=== PATIENT | male | born 1935 | race Caucasian/White ===

== ENCOUNTER 2016-07-09 12:41 | Inpatient (IN) | payer OTHER ==
--- NOTE | 2016-07-09 13:08 | EDPHY ---
H & P Stated Complaint: Chest pain, general weak, diarrhoea. Time Seen by Provider: 07/09/16 12:53 HPI/ROS: CHIEF COMPLAINT: Weak HISTORY OF PRESENT ILLNESS: This is an 80-year-old male whose primary care physician is part of the [place] system. Has a history of GERD, asthma, and hypertension. He presents with family members today complaining of feeling weak all over. Last night around 10:30 p.m., after going to bed, he developed what he describes as the worst ever stomach acid. He has a history of GERD. This apparently resolved but he woke up in the early hours of the morning feeling poorly. He normally urinates into a bucket at the side of the bed and while doing so he feels that he passed out. At 2:00 a.m. his summoned their daughter because her was feeling poorly. His daughter is not aware of any syncope. She reports that he has had some chills. He also describes a cough that began last night and is productive of sputum. He feels mildly short of breath and has not used his inhalant medications yet today. REVIEW OF SYSTEMS: A ten point review of systems was performed and is negative with the exception of the items mentioned in the HPI. Source: Patient, Family Exam Limitations: No limitations - Personal History Current Tetanus/Diphtheria Vaccine: Unsure Current Tetanus Diphtheria and Acellular Pertussis (TDAP): Unsure Tetanus Vaccine Date: within last 10 years - Medical/Surgical History Hx Asthma: Yes Hx Chronic Respiratory Disease: No Hx Diabetes: No Hx Cardiac Disease: No Hx Renal Disease: No Hx Cirrhosis: No Hx Alcoholism: No Hx HIV/AIDS: No Hx Splenectomy or Spleen Trauma: No Other PMH: Asthma, HTN, GERD, Osteoporosis, ELIM IRA, Peripheral Neuropathy, spinal stenosis and lumbar radiculopathy, Chronic Nepholithiasis, Prostate Cancer - Social History Smoking Status: Never smoked Additional Social History: Lives with his at [facility]. They live independently. - Physical Exam Exam: General Appearance: Alert. Vital signs reviewed. Room air pulse ox 85%, systolic blood pressure 98/66, heart rate 115. Eyes: Pupils equal and round, no conjunctival injection, no discharge. Anicteric. ENT, Mouth: Mucous membranes are moist, no oropharyngeal erythema or edema. Neck: No lymphadenopathy, supple. No jugular venous distention. Respiratory: Lungs have distant breath sounds, diminished on the left. Cardiovascular: Tachycardic; 3/6 murmur, no rub or gallop. Gastrointestinal: Abdomen is soft and nontender, no masses or organomegaly, bowel sounds normal. Skin: Warm and dry, no rashes on exposed skin, lower extremities somewhat mottled. Back: Nontender to palpation over the thoracolumbar spine. No CVAT. Extremities: No lower extremity edema, no calf tenderness or swelling. Neurological: Alert and oriented. Moving all four extremities easily and equally. CARSON. EOMI. Facial expressions symmetric. Psychiatric: Normal affect. Constitutional: Initial Vital Signs Temperature (C) 36.3 C 07/09/16 12:43 Heart Rate 120 H 07/09/16 12:43 Respiratory Rate 20 07/09/16 12:43 Blood Pressure 98/66 L 07/09/16 12:43 O2 Sat (%) 85 L 07/09/16 12:43 O2 Delivery Mode Room Air O2 (L/minute) 2 Allergies/Adverse Reactions: Penicillins Allergy (Verified 07/09/16 12:51) Home Medications: Medication Instructions Recorded Acetaminophen [Tylenol ES 500 mg 1,000 mg PO BID PRN 05/23/15 (*)] Albuterol [Proventil Inhaler HFA 2 puffs IH Q4 PRN 05/23/15 (*)] Albuterol [Proventil Neb] 3 ml IH Q6 PRN 05/23/15 Calcium Carb W/Vit D [Calcium Carb 500 mg PO DAILY 05/23/15 W/Vit D 500/200 (*)] Fluticasone Nasal [Flonase Nasal 2 sprays NASAL DAILY 05/23/15 [place]] Leflunomide [Arava 20 mg (*)] 20 mg PO DAILY 05/23/15 Mometasone/Formoterol [Dulera 100 2 puffs IH BID 05/23/15 Mcg/5 Mcg Inhaler] Montelukast Sodium [Singulair 10 10 mg PO DAILY 05/23/15 mg (*)] predniSONE 5 mg PO BID 05/23/15 Losartan/Hydrochlorothiazide 1 each PO DAILY 01/02/16 [Hyzaar 100-12.5 Tablet] Omeprazole 20 mg PO DAILY 01/02/16 Medical Decision Making - Diagnostics EKG Interpretation: 12 lead EKG is interpreted in Trace master View by emergency department physician. Imaging: Two-view chest x-ray reviewed by me in PACs. I have also reviewed the radiology report. The x-ray shows left lung consolidation. There is also a left shift of the mediastinum and distal narrowing of the trachea, suspicious for mass. CT scan recommended. ED Course/Re-evaluation: 80-year-old male who presents with cough, hypoxia, tachycardia, and likely hypotension with a systolic blood pressure under 100. He is mentating well. I suspect pneumonia. Sepsis labs have been initiated. Patient has undergone serial evaluations while in the department. He has been evaluated every half an hour by myself. Initial lactate 5.9. He meets criteria for septic shock based upon this lactate value. Please see focus physical exam recorded in order set. At 1400 he had a blood pressure of 103/58 with an mA P of 73. Heart rate was 99 , respiratory rate 16, and pulse ox 94%. He is mentating well. Capillary refill is brisk, less than 2 seconds. He continues with mottled skin in his lower extremities, not the upper extremities. Lung sounds remain diminished, more so on the left than on the right. Heart is regular and no longer tachycardic. Received 2300 mL of IV fluid initially, IV bolus (30 mL/kilogram bolus). Repeat lactate was 4.7. His blood pressure has significantly improved with systolic readings of 110-120. His mentation has remained normal. Heart rate has slowed to under 100. He received IV ceftriaxone and azithromycin for presumed community-acquired pneumonia. There is a question of possible mass on his chest x-ray and he will need CT evaluation of this. The patient tells me that he does not want cardiopulmonary resuscitation in the event of cardiac or respiratory arrest. He has agreed to IV antibiotics for treatment of pneumonia. Patient and his family have requested hospitalization at [facility]. Differential Diagnosis: I considered a differential diagnosis including but not limited to pulmonary infectious process, COPD, asthma, pulmonary embolus and congestive heart failure. Critical Care Time: I spent a total of [45] minutes of critical care time in obtaining history, performing a physical exam, bedside monitoring of interventions, collecting and interpreting tests and discussion with consultants but not including time spent performing procedures. No bedside procedures were performed. There was no midlevel involvement in his care. He was at risk of respiratory deterioration. - Data Points Laboratory Results: Laboratory Results 07/09/16 13:00 07/09/16 13:00 07/09/16 07/09/16 07/09/16 13:08 13:00 13:00 WBC RBC Hgb Hct MCV MCH MCHC RDW Plt Count MPV Neut % (Auto) Lymph % (Auto) [place] % (Auto) Eos % (Auto) Baso % (Auto) Nucleat RBC Rel Count Absolute Neuts (auto) Absolute Lymphs (auto) Absolute Monos (auto) Absolute Eos (auto) Absolute Basos (auto) Absolute Nucleated RBC Immature Gran % Seg Neutrophils % Band Neutrophils % Lymphocytes % Monocytes % Basophils % Immature Gran # Absolute Seg Neuts Absolute Band Neuts Absolute Lymphocytes Absolute Monocytes Absolute Basophils Toxic Vacuolation Platelet Estimate Rouleaux PT 13.2 SEC SEC (12.0-15.0) INR 1.01 (0.83-1.16) APTT 28.1 SEC SEC (23.0-38.0) VBG Lactic Acid 5.9 mmol/L H mmol/L (0.7-2.1) Sodium 139 mEq/L mEq/L (134-144) Potassium 3.7 mEq/L mEq/L (3.5-5.2) Chloride 105 mEq/L mEq/L (97-110) Carbon Dioxide 22 mEq/l mEq/l (22-31) Anion Gap 12 mEq/L mEq/L (8-16) BUN 34 mg/dL H mg/dL (7-23) Creatinine 0.9 mg/dL mg/dL (0.7-1.3) Estimated GFR > 60 Glucose 92 mg/dL mg/dL (70-100) Calcium 9.4 mg/dL mg/dL (8.5-10.4) Total Bilirubin 0.9 mg/dL mg/dL (0.1-1.4) 07/09/16 13:00 WBC 7.49 10^3/uL 10^3/uL (3.80-9.50) RBC 4.35 10^6/uL L 10^6/uL (4.40-6.38) Hgb 13.5 g/dL L g/dL (13.7-17.5) Hct 42.0 % % (40.0-51.0) MCV 96.6 fL fL (81.5-99.8) MCH 31.0 pg pg (27.9-34.1) MCHC 32.1 g/dL L g/dL (32.4-36.7) RDW 15.6 % H % (11.5-15.2) Plt Count 281 10^3/uL 10^3/uL (150-400) MPV 9.6 fL fL (8.7-11.7) Neut % (Auto) 79.1 % H % (39.3-74.2) Lymph % (Auto) 14.3 % L % (15.0-45.0) [place] % (Auto) 5.6 % % (4.5-13.0) Eos % (Auto) 0.3 % L % (0.6-7.6) Baso % (Auto) 0.4 % % (0.3-1.7) Nucleat RBC Rel Count 0.0 % % (0.0-0.2) Absolute Neuts (auto) 5.93 10^3/uL 10^3/uL (1.70-6.50) Absolute Lymphs (auto) 1.07 10^3/uL 10^3/uL (1.00-3.00) Absolute Monos (auto) 0.42 10^3/uL 10^3/uL (0.30-0.80) Absolute Eos (auto) 0.02 10^3/uL L 10^3/uL (0.03-0.40) Absolute Basos (auto) 0.03 10^3/uL 10^3/uL (0.02-0.10) Absolute Nucleated RBC 0.00 10^3/uL 10^3/uL (0-0.01) Immature Gran % 0.3 % % (0.0-1.1) Seg Neutrophils % 12 % % Band Neutrophils % 64 % % Lymphocytes % 16 % % Monocytes % 7 % % Basophils % 1 % % Immature Gran # 0.02 10^3/uL 10^3/uL (0.00-0.10) Absolute Seg Neuts 0.90 10^/uL L 10^/uL (1.70-6.50) Absolute Band Neuts 4.79 10^3/uL H 10^3/uL (0.00-0.70) Absolute Lymphocytes 1.20 10^3/uL 10^3/uL (1.00-3.00) Absolute Monocytes 0.52 10^3/uL 10^3/uL (0.30-0.80) Absolute Basophils 0.07 10^3/uL 10^3/uL (0.02-0.10) Toxic Vacuolation PRESENT H Platelet Estimate ADEQUATE (ADEQ) Rouleaux PRESENT H PT INR APTT VBG Lactic Acid Sodium Potassium Chloride Carbon Dioxide Anion Gap BUN Creatinine Estimated GFR Glucose Calcium Total Bilirubin Medications Given: Discontinued Medications Albuterol/Ipratropium (Duoneb) 3 ml IH EDNOW ONE Stop: 07/09/16 13:31 Last Admin: 07/09/16 14:00 Dose: 3 ml Azithromycin 500 mg/ Dextrose 255 mls @ 255 mls/hr IV EDNOW ONE PRN Reason: Protocol Stop: 07/09/16 14:23 Last Admin: 07/09/16 15:18 Dose: 255 mls Ceftriaxone Sodium/Dextrose (Rocephin 1 Gm (Premix)) 50 mls @ 100 mls/hr IV EDNOW ONE PRN Reason: Protocol Stop: 07/09/16 13:53 Last Admin: 07/09/16 14:02 Dose: 50 mls Sodium Chloride (Ns) 1,000 mls @ 0 mls/hr IV ONCE ONE PRN Reason: Wide Open Stop: 07/09/16 13:29 Last Admin: 07/09/16 14:01 Dose: 1,000 mls Sodium Chloride (Ns) 1,000 mls @ 0 mls/hr IV ONCE ONE PRN Reason: Wide Open Stop: 07/09/16 13:29 Last Admin: 07/09/16 14:02 Dose: 1,000 mls Sodium Chloride (Ns) 1,000 mls @ 0 mls/hr IV ONCE ONE PRN Reason: Wide Open Stop: 07/09/16 17:42 Last Admin: 07/09/16 17:55 Dose: 1,000 mls Sodium Chloride (Ns *For Sepsis Order Set Only*) 2,313 ml 30 ml/kg (2313 ml) IV EDNOW ONE Stop: 07/09/16 13:56 Last Admin: 07/09/16 15:19 Dose: 300 ml Departure - Departure Disposition: [facility] In[facility] Acute Clinical Impression: Pneumonia Qualifiers: Pneumonia type: due to unspecified organism Laterality: left Lung location: unspecified part of lung Qualified Code(s): J18.9 - Pneumonia, unspecified organism Condition: Fair
[2016-07-09 13:19] LABS: % IMMATURE GRANULYOCYTES 0.3 % (0.0-1.1); ABSOLUTE IMMATURE GRANULOCYTES 0.02 10^3/uL (0.00-0.10); ADD DIFF? NO; ADD MORPH? NO; ADD SCAN? YES; ATYPICAL LYMPHOCYTE FLAG 0 (0-99); FRAGMENT RBC FLAG 0 (0-99); HEMOGLOBIN 13.5 g/dL (13.7-17.5); LIPEMIA HEMOLYSIS FLAG 80 (0-99); MEAN CELL HEMOGLOBIN CONCENTR. 32.1 g/dL (32.4-36.7); MEAN CELL VOLUME 96.6 fL (81.5-99.8); MEAN PLATELET VOLUME 9.6 fL (8.7-11.7); PLATELET CLUMPS FLAG 0 (0-99); PLATELET COUNT 281 10^3/uL (150-400); RED BLOOD CELL COUNT 4.35 10^6/uL (4.40-6.38); RED CELL DISTRIBUTION WIDTH 15.6 % (11.5-15.2)
[2016-07-09 13:21] LABS: LEFT SHIFT FLG 270 (0-99)
--- NOTE | 2016-07-09 13:21 | CPEKG ---
Heart Rate: 105 RR Interval: 571 P-R Interval: 136 QRSD Interval: 112 QT Interval: 368 QTC Interval: 487 P [place]: 66 QRS [place]: 98 T Wave [place]: 196 EKG Severity - ABNORMAL ECG - EKG Impression: SINUS TACHYCARDIA EKG Impression: INCOMPLETE RIGHT BUNDLE BRANCH BLOCK EKG Impression: ST DEPRESSION, CONSIDER ISCHEMIA, LAT LEADS Electronically Signed By: Milena Sullivan 09-Jul-2016 23:10:09
[2016-07-09 13:24] LABS: INR 1.01 (0.83-1.16); PROTIME(PATIENT) 13.2 SEC (12.0-15.0)
[2016-07-09] MEDS ORDERED: AZITHROMYCIN IV 500 MG in D5W 250 ML IV ONE (13:24)
[2016-07-09 13:25] LABS: APTT 28.1 SEC (23.0-38.0)
[2016-07-09] MEDS ORDERED: NS 1,000 ML IV ONE ×3 (13:28→17:41)
[2016-07-09] MEDS ORDERED: IPRATROPIUM/ALBUTEROL 3 ML DEYVIAL IH ONE (13:30)
[2016-07-09 13:34] LABS: ANION GAP 12 mEq/L (8-16); BILIRUBIN,TOTAL 0.9 mg/dL (0.1-1.4); CALCIUM 9.4 mg/dL (8.5-10.4); CARBON DIOXIDE 22 mEq/l (22-31); CHLORIDE 105 mEq/L (97-110); CREATININE 0.9 mg/dL (0.7-1.3); GLOMERULAR FILTRATION RATE > 60; GLUCOSE 92 mg/dL (70-100); POTASSIUM 3.7 mEq/L (3.5-5.2); SODIUM 139 mEq/L (134-144)
[2016-07-09 13:39] LABS: SCAN POSITIVE
[2016-07-09 13:46] LABS: PLATELET ESTIMATE ADEQUATE (ADEQ); ROULEAUX PRESENT; TOXIC VACUOLIZATION PRESENT
[2016-07-09] MEDS ORDERED: NS 1,000 ML BAG *FOR SEPSIS ORDER SET ONLY IV ONE (13:55)
[2016-07-09 14:10] LABS: LACGHOST ORDER
[2016-07-09] MEDS ORDERED: ACETAMINOPHEN 500 MG TAB ONE (14:16)
[2016-07-09] MEDS ORDERED: ONDANSETRON 4 MG/2 ML VIAL IVP PRN (14:47)
[2016-07-09] MEDS ORDERED: ONDANSETRON DISINTEGRATING 4 MG TAB PO PRN (14:47)
[2016-07-09] MEDS ORDERED: ALBUTEROL 60 PUFFS/8 GM MDI IH PRN (14:49)
--- NOTE | 2016-07-09 15:15 | GHP ---
[f rep st] HISTORY AND PHYSICAL DATE OF ADMISSION: 07/09/2016 CHIEF COMPLAINT: Weakness. HISTORY OF PRESENT ILLNESS: This is an 80-year-old male, who is fairly debilitated at baseline. Be cause of chronic right left hip pain, he does not ambulate much. He also has a history of severe ne uropathy. Apparently, he has been feeling weak over the last day. He had a possible syncopal episo de last night. He has been coughing some with a little bit of sputum. He feels cold, but no obviou s fevers. No dysuria. He did have some chest pain last night, which he attributed to GERD, but is now resolved. REVIEW OF SYSTEMS: A 10-point review of systems was obtained and was negative. PAST MEDICAL HISTORY: 1. History of prostate cancer. 2. GERD. 3. L4-L5 disc herniation. 4. Chronic lower extremity edema. 5. Asthma. MEDICATIONS: Reviewed. SOCIAL HISTORY: No smoking, never smoked. No alcohol. Lives at home with family. FAMILY HISTORY: Both parents are . PHYSICAL EXAM: VITAL SIGNS: Afebrile. Blood pressure is 98/66, heart rate of 120. It has come do wn to 99. 85% on room air. GENERAL: Well developed, in no apparent distress. HEENT: Nonicteric sclerae. Extraocular movements intact. Moist mucous membranes. NECK: Supple. No thyromegaly. L UNGS: Good effort. Clear to auscultation bilaterally. CARDIOVASCULAR: Regular rate and rhythm. No murmurs, gallops. ABDOMEN: Positive bowel sounds. Soft, nontender, nondistended. No hepatospl enomegaly. EXTREMITIES: No clubbing. There is 2+ pedal edema, worse on the left, which is chronic for him. NEUROLOGIC: Alert and oriented x3. Moving all 4 extremities equally. PSYCHIATRIC: Nor mal affect. LABS: White count 7, hemoglobin 13. Lactic acid initially was 5.9. Sodium 139, potassium 3.7, cre atinine is 0.9. Chest x-ray, personally reviewed and interpreted, shows lung consolidation, as well as a shift of th e mediastinum to the left, narrowing of the distal trachea which suggested mediastinal mass. EKG personally reviewed and interpreted, shows sinus tachycardia. ST-segment depressions laterally. ASSESSMENT: An 80-year-old male presenting with probable community-acquired pneumonia versus postob structive pneumonia and sepsis. PLAN: 1. Left-sided pneumonia: The patient has been given ceftriaxone and azithromycin in the emergency department. He is allergic to penicillin. Would consider expanding his antibiotics to cover anaero bes for postobstructive pneumonia; but we will hold off until we get a CT scan to further evaluate p ossible mediastinal mass. 2. Sepsis: The patient is started on sepsis protocol. We will continue the IV antibiotics and rec heck lactic acid. His blood pressure is improving, as well as his heart rate. 3. Possible mediastinal mass: We will get a CT scan of the chest with contrast. Since he is somew hat hypotensive today, we will get this tomorrow morning when he is more hydrated to prevent any kid rigo damage. 4. History of peripheral neuropathy: Continue medications. 5. The patient is DNR. 6. Admission: Patient will be made a full admission status. Case discussed with ER physician. Rolando sena records reviewed and summarized in the HPI. /[id number]/MODL
[2016-07-09] MEDS: HYDROCORTISONE 100 MG/2 ML VIAL IVP SCH ×2 (17:48→20:59)
[2016-07-09] MEDS ORDERED: traZODone 50 MG TAB PO PRN (17:58)
[2016-07-09] MEDS: ACETAMINOPHEN 325 MG TAB PO PRN (18:30)
[2016-07-09] MEDS: ERTAPENEM 1 GM in NS 100 ML IV SCH (18:30)
[2016-07-09] MEDS: NS 1,000 ML IV SCH (20:59)
[2016-07-09] MEDS ORDERED: Mometasone/Formoterol [Dulera 100 Mcg/5 Mcg Inhaler] 2 PUFFS IH SCH (21:00)
[2016-07-09] MEDS: Mometasone/Formoterol [Dulera 100 Mcg/5 Mcg Inhaler] 2 PUFFS IH SCH (21:03)
[2016-07-10] MEDS: ACETAMINOPHEN 325 MG TAB PO PRN ×4 (03:10→21:36)
[2016-07-10 03:26] LABS: COLOR YELLOW; LEUKOCYTE ESTERASE,URINE NEGATIVE (NEGATIVE); NITRITE,URINE NEGATIVE (NEGATIVE)
[2016-07-10 03:29] LABS: BACTERIA TRACE /hpf (NONE SEEN); MUCUS TRACE /lpf (NONE-1+)
[2016-07-10] MEDS: HYDROCORTISONE 100 MG/2 ML VIAL IVP SCH ×3 (05:04→21:32)
[2016-07-10 05:05] LABS: ADD MORPH? NO; ADD SCAN? YES; ATYPICAL LYMPHOCYTE FLAG 0 (0-99); FRAGMENT RBC FLAG 10 (0-99); HEMATOCRIT 30.3 % (40.0-51.0); HEMOGLOBIN 10.1 g/dL (13.7-17.5); LIPEMIA HEMOLYSIS FLAG 80 (0-99); MEAN CELL HEMOGLOBIN 32.4 pg (27.9-34.1); MEAN CELL HEMOGLOBIN CONCENTR. 33.3 g/dL (32.4-36.7); MEAN CELL VOLUME 97.1 fL (81.5-99.8); MEAN PLATELET VOLUME 9.7 fL (8.7-11.7); PLATELET CLUMPS FLAG 10 (0-99); PLATELET COUNT 240 10^3/uL (150-400); RED BLOOD CELL COUNT 3.12 10^6/uL (4.40-6.38); RED CELL DISTRIBUTION WIDTH 15.9 % (11.5-15.2)
[2016-07-10 05:11] LABS: LEFT SHIFT FLG 300 (0-99)
[2016-07-10 05:23] LABS: ALANINE AMINOTRANSFERASE 44 IU/L (21-72); ALBUMIN 2.1 g/dL (3.5-5.0); ALKALINE PHOSPHATASE 61 IU/L (38-126); ANION GAP 6 mEq/L (8-16); ASPARTATE AMINOTRANSFERASE 22 IU/L (17-59); BILIRUBIN,TOTAL 0.8 mg/dL (0.1-1.4); CALCIUM 7.7 mg/dL (8.5-10.4); CARBON DIOXIDE 22 mEq/l (22-31); CHLORIDE 114 mEq/L (97-110); CREATININE 0.7 mg/dL (0.7-1.3); GLOMERULAR FILTRATION RATE > 60; GLUCOSE 80 mg/dL (70-100); POTASSIUM 3.5 mEq/L (3.5-5.2); SODIUM 142 mEq/L (134-144); TOTAL PROTEIN 4.1 g/dL (6.3-8.2)
[2016-07-10 05:37] LABS: ADD DIFF? YES; SCAN POSITIVE
[2016-07-10 05:44] LABS: PLATELET ESTIMATE ADEQUATE (ADEQ); TOXIC VACUOLIZATION PRESENT
[2016-07-10] MEDS: AZITHROMYCIN 250 MG TAB PO SCH (08:12)
[2016-07-10] MEDS: ERTAPENEM 1 GM in NS 100 ML IV SCH (08:12)
[2016-07-10] MEDS: MONTELUKAST SODIUM 10 MG TAB PO SCH (08:13)
[2016-07-10] MEDS: PANTOPRAZOLE SODIUM 40 MG TAB PO SCH (08:13)
[2016-07-10] MEDS: LEFLUNOMIDE 20 MG TAB PO SCH (08:13)
[2016-07-10] MEDS: ENOXAPARIN 40 MG/0.4 ML SYR SC SCH (08:13)
[2016-07-10] MEDS: FLUTICASONE NASAL 120 SPRAYS/16 GM MDI EACHNARE SCH (08:14)
[2016-07-10] MEDS: Mometasone/Formoterol [Dulera 100 Mcg/5 Mcg Inhaler] 2 PUFFS IH SCH ×3 (08:35→18:56)
[2016-07-10] MEDS: ALBUTEROL 3 ML DEYVIAL IH PRN ×2 (08:48→18:54)
[2016-07-10] MEDS ORDERED: FLUTICASONE NASAL 120 SPRAYS/16 GM MDI EACHNARE SCH (09:00)
[2016-07-10] MEDS ORDERED: LEFLUNOMIDE 20 MG TAB PO SCH (09:00)
[2016-07-10] MEDS ORDERED: NON-FORMULARY NEW DRUG (Omeprazole [Omeprazole] 20 MG) PO SCH (09:00)
--- NOTE | 2016-07-10 12:57 | HOSPPROG ---
Hospitalist Progress Note Assessment/Plan: 80-year-old male admitted for weakness and noted to have a elevated lactate. Patient new to me today. - Sepsis with tachypnea, tachycardia, lactate elevation, 2/2 pneumonia -Pneumonia, CAP on Abx, BD and improving. Patient has known underlying reactive airway disease. -Chest mass awaiting CT scan -protein caloric malnutrition with an albumin at 2.1. Will order a regular diet and observe his nutritional intake. Dietary consult will be ordered. -GERD stable now -right hip pain -chronic: History of prostate cancer. Plan: -CT scan of head; Abx, BD; pulmonary consult per CT findings Subjective: Says he feels well and wants to go home JESUS; No chest pain, SOB, nausea, vomiting, fever, cough. Affirms weakness and pain in hip Objective: Vital Signs Temp Pulse Resp BP Pulse Ox 36.4 C 76 14 120/67 95 07/10/16 12:46 07/10/16 12:46 07/10/16 12:46 07/10/16 12:46 07/10/16 12:46 Laboratory Results 07/10/16 04:53 07/10/16 04:53 07/09/16 07/10/16 07/11/16 05:59 05:59 05:59 Intake Total 4581 Output Total 1250 120 Balance 3331 -120 PT 13.2 SEC (12.0-15.0) 07/09/16 13:00 INR 1.01 (0.83-1.16) 07/09/16 13:00 - Time Spent With Patient Time Spent with Patient: greater than 35 minutes Time Spent with Patient: Greater than 35 minutes spent on this patients care, greater than 50% of time spent counseling, educating, and coordinating care regarding the above mentioned plan. - Physical Exam Constitutional: no apparent distress, chronically ill appearing Eyes: PERRL, anicteric sclera Ears, Nose, Mouth, Throat: moist mucous membranes, hard of hearing Cardiovascular: regular rate and rhythym, no murmur, rub, or gallop, systolic murmur Respiratory: no rales or rhonchi, reduced air movement Gastrointestinal: normoactive bowel sounds, soft, non-tender abdomen, no palpable masses, rosales's sign Skin: warm Musculoskeletal: generalized weakness Neurologic: AAOx3, CN II-XII Intact Psychiatric: interacting appropriately ICD10 Worksheet Patient Problems: Problems Problem Status Onset Pneumonia Acute Hip pain Acute Left hip pain Acute
[2016-07-10] MEDS: NS 1,000 ML IV SCH (13:07)
[2016-07-10] MEDS ORDERED: IOPAMIDOL (ISOVUE-300) 100 ML BTL IV ONE (15:13)
[2016-07-11] MEDS: HYDROCORTISONE 100 MG/2 ML VIAL IVP SCH ×3 (05:21→21:44)
[2016-07-11 06:20] LABS: ANION GAP 8 mEq/L (8-16); CALCIUM 7.9 mg/dL (8.5-10.4); CARBON DIOXIDE 21 mEq/l (22-31); CHLORIDE 114 mEq/L (97-110); CREATININE 0.7 mg/dL (0.7-1.3); GLOMERULAR FILTRATION RATE > 60; GLUCOSE 104 mg/dL (70-100); POTASSIUM 3.2 mEq/L (3.5-5.2); SODIUM 143 mEq/L (134-144)
[2016-07-11 06:50] LABS: HEMATOCRIT 29.7 % (40.0-51.0); HEMOGLOBIN 9.7 g/dL (13.7-17.5); MEAN CELL HEMOGLOBIN 31.9 pg (27.9-34.1); MEAN CELL HEMOGLOBIN CONCENTR. 32.7 g/dL (32.4-36.7); MEAN CELL VOLUME 97.7 fL (81.5-99.8); MEAN PLATELET VOLUME 10.6 fL (8.7-11.7); PLATELET COUNT 213 10^3/uL (150-400); RED BLOOD CELL COUNT 3.04 10^6/uL (4.40-6.38); RED CELL DISTRIBUTION WIDTH 16.1 % (11.5-15.2)
[2016-07-11 06:51] LABS: % IMMATURE GRANULYOCYTES 2.3 % (0.0-1.1); ADD DIFF? NO; ADD MORPH? NO; ADD SCAN? NO; ATYPICAL LYMPHOCYTE FLAG 0 (0-99); FRAGMENT RBC FLAG 0 (0-99); LEFT SHIFT FLG 90 (0-99); LIPEMIA HEMOLYSIS FLAG 80 (0-99); PLATELET CLUMPS FLAG 0 (0-99)
[2016-07-11] MEDS: ENOXAPARIN 40 MG/0.4 ML SYR SC SCH (08:54)
[2016-07-11] MEDS: ERTAPENEM 1 GM in NS 100 ML IV SCH (08:54)
[2016-07-11] MEDS: PANTOPRAZOLE SODIUM 40 MG TAB PO SCH (08:55)
[2016-07-11] MEDS: AZITHROMYCIN 250 MG TAB PO SCH (08:55)
[2016-07-11] MEDS: MONTELUKAST SODIUM 10 MG TAB PO SCH (08:55)
[2016-07-11] MEDS: LEFLUNOMIDE 20 MG TAB PO SCH (08:55)
[2016-07-11] MEDS: FLUTICASONE NASAL 120 SPRAYS/16 GM MDI EACHNARE SCH (08:56)
[2016-07-11] MEDS: ALBUTEROL 3 ML DEYVIAL IH PRN ×2 (09:09→16:44)
[2016-07-11] MEDS: Mometasone/Formoterol [Dulera 100 Mcg/5 Mcg Inhaler] 2 PUFFS IH SCH ×2 (09:09→22:07)
--- NOTE | 2016-07-11 13:59 | HOSPPROG ---
Hospitalist Progress Note Assessment/Plan: 80-year-old male admitted for weakness and noted to have a elevated lactate. Since admission is respiratory status is has improved, he has been afebrile, and though he feels improved his white count has risen. Because of the weakness on admission he was given Hydrea Hydrocort have which will be stopped today. - Sepsis with tachypnea, tachycardia, lactate elevation, 2/2 pneumonia. Lactate is now normal in his blood pressure is normal. -Pneumonia, CAP on Abx, BD and improving. Patient has known underlying reactive airway disease. Patient was initially started on azithromycin which will be stopped and will be changed to level when because of the rising white count. He is also on prednisone for his reactive airway disease and I will increase the prednisone to 20 mg a day for the stress. -adrenal insufficiency possible: Gentleman takes prednisone 5 mg a day for his arthritis and for his reactive airway disease. I will start him on 20 mg of prednisone a day just for the stress and this can be quickly tapered when he is improving. -Chest mass awaiting CT scan. No mass is seen on CT scan. He has a dense consolidation of his left lung in many areas and some subsegmental thrombus formation likely due just to stasis. There is no evidence of pulmonary emboli. -protein caloric malnutrition with an albumin at 2.1. Will order a regular diet and observe his nutritional intake. Dietary consult will be ordered. -GERD stable now -loose stools: Patient reports loose stools and I will give him Metamucil to firm is stools. This can work if it is given with a limited amount of water. -right hip pain. This is now very limiting problem. He was much more active up until about 6 weeks ago in the right hip became considerably more painful. He lives with his in the [facility] and thus they live independently and he transfers using a wheelchair. -chronic: History of prostate cancer. Plan: -pulmonary consultation will be obtained due to the rising WBC. -disposition: Possible discharge in 1-2 days. I suggest to follow up with Pulmonary as he may require bronchoscopy if he does not clear the consolidation in his left lung. Subjective: Reports no complaints of shortness of breath or cough. Denies abdominal pain. His appetite is slightly decreased. He is having some loose stools and requests something for it. No chest pain Objective: Vital Signs Temp Pulse Resp BP Pulse Ox 36.4 C 86 18 131/65 H 97 07/11/16 12:37 07/11/16 12:37 07/11/16 12:37 07/11/16 12:37 07/11/16 12:37 Laboratory Results 07/11/16 04:30 07/11/16 04:30 07/10/16 07/11/16 07/12/16 05:59 05:59 05:59 Intake Total 4581 2667 100 Output Total 1250 420 400 Balance 3331 2247 -300 PT 13.2 SEC (12.0-15.0) 07/09/16 13:00 INR 1.01 (0.83-1.16) 07/09/16 13:00 - Time Spent With Patient Time Spent with Patient: greater than 35 minutes Time Spent with Patient: Greater than 35 minutes spent on this patients care, greater than 50% of time spent counseling, educating, and coordinating care regarding the above mentioned plan. - Physical Exam Constitutional: no apparent distress, chronically ill appearing Eyes: PERRL, anicteric sclera Ears, Nose, Mouth, Throat: moist mucous membranes, hard of hearing Cardiovascular: regular rate and rhythym, systolic murmur Respiratory: no respiratory distress, reduced air movement, bronchial breath sounds, rhonchi, other (Positive clinical findings are all heard on the left the right lung is clear) Gastrointestinal: normoactive bowel sounds, soft, non-tender abdomen, no palpable masses Genitourinary: no bladder fullness Skin: warm Musculoskeletal: generalized weakness, other (Right hip is tender and painful to motion) Neurologic: AAOx3, CN II-XII Intact Psychiatric: interacting appropriately ICD10 Worksheet Patient Problems: Problems Problem Status Onset Left hip pain Acute Hip pain Acute Pneumonia Acute
[2016-07-11] MEDS ORDERED: POTASSIUM CL 20 MEQ TAB PO ONE (14:13)
[2016-07-11] MEDS: ACETAMINOPHEN 325 MG TAB PO PRN (21:47)
[2016-07-12 05:22] LABS: ABSOLUTE IMMATURE GRANULOCYTES 0.12 10^3/uL (0.00-0.10); ADD DIFF? NO; ADD MORPH? NO; ADD SCAN? NO; ATYPICAL LYMPHOCYTE FLAG 0 (0-99); FRAGMENT RBC FLAG 0 (0-99); HEMATOCRIT 28.9 % (40.0-51.0); HEMOGLOBIN 9.5 g/dL (13.7-17.5); LEFT SHIFT FLG 50 (0-99); LIPEMIA HEMOLYSIS FLAG 80 (0-99); MEAN CELL HEMOGLOBIN 31.9 pg (27.9-34.1); MEAN CELL HEMOGLOBIN CONCENTR. 32.9 g/dL (32.4-36.7); MEAN PLATELET VOLUME 10.1 fL (8.7-11.7); PLATELET CLUMPS FLAG 0 (0-99); PLATELET COUNT 205 10^3/uL (150-400); RED BLOOD CELL COUNT 2.98 10^6/uL (4.40-6.38)
[2016-07-12] MEDS: HYDROCORTISONE 100 MG/2 ML VIAL IVP SCH (05:40)
[2016-07-12] MEDS: ENOXAPARIN 40 MG/0.4 ML SYR SC SCH (08:53)
[2016-07-12] MEDS: MONTELUKAST SODIUM 10 MG TAB PO SCH (08:54)
[2016-07-12] MEDS: PANTOPRAZOLE SODIUM 40 MG TAB PO SCH (08:54)
[2016-07-12] MEDS: FLUTICASONE NASAL 120 SPRAYS/16 GM MDI EACHNARE SCH (08:55)
[2016-07-12] MEDS: LEFLUNOMIDE 20 MG TAB PO SCH (08:56)
[2016-07-12] MEDS: ACETAMINOPHEN 325 MG TAB PO PRN ×2 (09:10→22:06)
[2016-07-12] MEDS ORDERED: NON-FORMULARY NEW DRUG (Losartan/Hydrochlorothiazide [Hyzaar 100-12.5 Tablet] 1 EACH) PO SCH (09:15)
--- NOTE | 2016-07-12 09:25 | HOSPPROG ---
Hospitalist Progress Note Assessment/Plan: # CAP, L sided with underlying RAD - recheck CXR - cont rocephin, albuterol, singulair # septic shock/lactic acidosis - no pressors # pulm a thrombus - doubt, likely d/t stasis # diarrhea - check c. dif # hypoK - repleted, recheck # anemia - stable, lower than baseline - recheck tomorrow # htn - restart home meds # LE edema - patient says chronic and as baseline # chronic pred use # hx prostate cancer ## new pt to me CXR personally reviewed CT reviewed chart reviewed Subjective: some diarrhea; breathing feels ok Objective: Vital Signs Temp Pulse Resp BP Pulse Ox 36.3 C 89 16 179/99 H 93 07/12/16 08:07 07/12/16 08:07 07/12/16 08:07 07/12/16 08:07 07/12/16 08:07 Laboratory Results 07/12/16 04:24 07/11/16 04:30 07/11/16 07/12/16 07/13/16 05:59 05:59 05:59 Intake Total 2667 1070 Output Total 420 1050 575 Balance 2247 20 -575 PT 13.2 SEC (12.0-15.0) 07/09/16 13:00 INR 1.01 (0.83-1.16) 07/09/16 13:00 - Physical Exam Constitutional: no apparent distress, appears nourished Cardiovascular: regular rate and rhythym, systolic murmur, No irregularly irregular, No diastolic murmur Respiratory: no respiratory distress, other (no rales/rhonchi; diminished L sided BS) ICD10 Worksheet Patient Problems: Problems Problem Status Onset Left hip pain Acute Hip pain Acute Pneumonia Acute
[2016-07-12 09:58] LABS: ANION GAP 10 mEq/L (8-16); CARBON DIOXIDE 20 mEq/l (22-31); CHLORIDE 113 mEq/L (97-110); CREATININE 0.7 mg/dL (0.7-1.3); GLOMERULAR FILTRATION RATE > 60; GLUCOSE 135 mg/dL (70-100); POTASSIUM 3.5 mEq/L (3.5-5.2); SODIUM 143 mEq/L (134-144)
[2016-07-12] MEDS ORDERED: predniSONE 20 MG TAB PO ONE (10:27)
[2016-07-12] MEDS: HYDROCHLOROTHIAZIDE 12.5 MG CAP PO SCH (10:29)
[2016-07-12] MEDS: LOSARTAN POTASSIUM 50 MG TAB PO SCH (10:30)
[2016-07-12] MEDS: Mometasone/Formoterol [Dulera 100 Mcg/5 Mcg Inhaler] 2 PUFFS IH SCH ×2 (10:52→20:45)
[2016-07-12] MEDS: ALBUTEROL 3 ML DEYVIAL IH PRN ×2 (10:53→20:46)
[2016-07-12] MEDS: LOPERAMIDE HCL 2 MG CAP PO PRN ×2 (11:25→22:06)
[2016-07-13 05:51] LABS: ADD DIFF? YES; ADD MORPH? NO; ADD SCAN? NO; ATYPICAL LYMPHOCYTE FLAG 0 (0-99); FRAGMENT RBC FLAG 0 (0-99); HEMOGLOBIN 10.5 g/dL (13.7-17.5); LEFT SHIFT FLG 30 (0-99); LIPEMIA HEMOLYSIS FLAG 90 (0-99); MEAN CELL HEMOGLOBIN 31.7 pg (27.9-34.1); MEAN CELL HEMOGLOBIN CONCENTR. 33.9 g/dL (32.4-36.7); MEAN CELL VOLUME 93.7 fL (81.5-99.8); MEAN PLATELET VOLUME 9.8 fL (8.7-11.7); PLATELET CLUMPS FLAG 10 (0-99); PLATELET COUNT 256 10^3/uL (150-400); RED BLOOD CELL COUNT 3.31 10^6/uL (4.40-6.38); RED CELL DISTRIBUTION WIDTH 16.1 % (11.5-15.2)
[2016-07-13 05:55] LABS: ANION GAP 7 mEq/L (8-16); CALCIUM 8.8 mg/dL (8.5-10.4); CARBON DIOXIDE 23 mEq/l (22-31); CHLORIDE 111 mEq/L (97-110); CREATININE 0.8 mg/dL (0.7-1.3); GLOMERULAR FILTRATION RATE > 60; GLUCOSE 70 mg/dL (70-100); SODIUM 141 mEq/L (134-144)
[2016-07-13 06:38] LABS: PLATELET ESTIMATE ADEQUATE (ADEQ)
[2016-07-13] MEDS: ALBUTEROL 3 ML DEYVIAL IH PRN ×2 (08:08→21:03)
[2016-07-13] MEDS: Mometasone/Formoterol [Dulera 100 Mcg/5 Mcg Inhaler] 2 PUFFS IH SCH ×2 (08:09→21:04)
[2016-07-13] MEDS: LOSARTAN POTASSIUM 50 MG TAB PO SCH (10:05)
[2016-07-13] MEDS: PANTOPRAZOLE SODIUM 40 MG TAB PO SCH (10:06)
[2016-07-13] MEDS: MONTELUKAST SODIUM 10 MG TAB PO SCH (10:06)
[2016-07-13] MEDS: predniSONE 20 MG TAB PO SCH (10:06)
[2016-07-13] MEDS: LEFLUNOMIDE 20 MG TAB PO SCH (10:06)
[2016-07-13] MEDS: ENOXAPARIN 40 MG/0.4 ML SYR SC SCH (10:06)
[2016-07-13] MEDS: HYDROCHLOROTHIAZIDE 12.5 MG CAP PO SCH (10:06)
[2016-07-13] MEDS: FLUTICASONE NASAL 120 SPRAYS/16 GM MDI EACHNARE SCH (10:25)
[2016-07-13] MEDS ORDERED: POTASSIUM CL 20 MEQ TAB PO ONE (10:57)
--- NOTE | 2016-07-13 11:14 | HOSPPROG ---
Hospitalist Progress Note Assessment/Plan: # CAP, L sided with underlying RAD - CXR read as new LLL pna, but my review of previous CT shows this - cont rocephin, albuterol, singulair # septic shock/lactic acidosis - no pressors # pulm a thrombus - doubt PE, likely d/t stasis # hypoK - repleted, recheck # anemia - stable, lower than baseline - recheck tomorrow # htn - restart home meds # LE edema - patient says chronic and as baseline # deconditioning - may need SNF # systolic murmur - check echo given severe weakness # chronic pred use # hx prostate cancer ## CXR personally reviewed tele reviewed Subjective: still very weak; breathing feels ok Objective: Vital Signs Temp Pulse Resp BP Pulse Ox 36.3 C 95 22 H 145/84 H 83 L 07/13/16 07:45 07/13/16 08:10 07/13/16 08:10 07/13/16 07:45 07/13/16 08:15 Laboratory Results 07/13/16 05:03 07/13/16 05:03 07/12/16 07/13/16 07/14/16 05:59 05:59 05:59 Intake Total 1070 600 Output Total 1050 1175 Balance 20 -575 PT 13.2 SEC (12.0-15.0) 07/09/16 13:00 INR 1.01 (0.83-1.16) 07/09/16 13:00 - Physical Exam Constitutional: chronically ill appearing Cardiovascular: systolic murmur, tachycardia, No irregularly irregular Respiratory: no respiratory distress, no rales or rhonchi Gastrointestinal: normoactive bowel sounds, soft, non-tender abdomen, no palpable masses ICD10 Worksheet Patient Problems: Problems Problem Status Onset Left hip pain Acute Hip pain Acute Pneumonia Acute
[2016-07-13] MEDS: ACETAMINOPHEN 325 MG TAB PO PRN ×2 (12:22→21:32)
--- NOTE | 2016-07-13 17:06 | ECHO ---
[id number] + + [address] : : [place] [address] : : [phone] + + Adult Echocardiographic Report + --+ :Name: BRENDA SORTO HStudy Date: 07/13/2016 11:47 AM BP: 145/84 mmHg : : Hospital Admission Number: [id number] Location: 22: :: 1935 Gender: Male Height: 70 in : :Age: 80 yrs Race: WH Weight: 170 lb : :Reason For Study: murmur : : BSA: 1.9 meters2 : :History: murmur : + --+ MMode/2D Measurements \T\ Calculations IVSd: 1.9 cm RVDd: 3.2 cm FS: 26.2 % Ao root diam: 3.3 cm LVPWd: 1.2 cm LVIDd: 3.9 cm EDV(Teich): 65.4 ml LA dimension: 3.6 cm LVIDs: 2.9 cm ESV(Teich): 31.3 ml EF(Teich): 52.1 % LVOT diam: 2.0 cm LVOT area: 3.1 cm2 Normal Measurement Values: + + :LVIDd (3.5-5.7cm) IVSd (0.6-1.1cm) LVPWd (0.6-1.1cm) Aortic Root (2.0-3.7cm)Left Atrium (1.5-4.0cm): :LV Vol(d) (76-115ml) LV Vol(s) (29-48ml) Ejec Fraction (50-65%)PV Cordell (0.6- 1.2m/s) TV Cordell (0.4-1.0m/s) : :MV E Cordell (0.8-1.0m/s)MV A Cordell (0.3-1.0m/s)LVOT Cordell (0.7-1.2m/s) Asc Ao Cordell ( 0.9-1.8m/s) : + + Doppler Measurements \T\ Calculations MV E max cordell: Ao mean PG: LV V1 mean PG: SV(LVOT): 35.7 cm/sec 27.6 mmHg 2.2 mmHg 59.4 ml MV A max cordell: Ao V2 mean: LV V1 mean: 147.4 cm/sec 251.7 cm/sec 68.7 cm/sec MV E/A: 0.24 Ao V2 VTI: 59.2 cm LV V1 VTI: 19.0 cm GONZALO(I,D): 1.0 cm2 PA V2 max: 106.4 cm/sec PA max P.6 mmHg Left Ventricle The left ventricle is normal in size and function. There is mild concentric left ventricular hypertrophy. Ejection Fraction = 50-55%. Difficult to rule out wall motion abnormalities due to poor endocardial definition. Right Ventricle The right ventricle is normal in size and function. Atria The left atrial size is normal. Right atrial size is normal. Mitral Valve The mitral valve leaflets appear thickened, but open well. There is moderate to severe mitral annular calcification. There is no mitral valve stenosis. There is trace to mild mitral regurgitation. Tricuspid Valve The tricuspid valve is normal in structure and function. There is no tricuspid stenosis. No tricuspid regurgitation. Aortic Valve The aortic valve is trileaflet. Moderate Aortic Valve Calcification. Max velocity across the valve 3.2 m/sec, 28/42 mmHg mean/max PG, GONZALO = 1.1cm2 and NDSI = .32. The above data is consistent with moderate aortic stenosis. There is no aortic insufficiency. Pulmonic Valve The pulmonic valve is not well visualized. Great Vessels The aortic root is normal size. Pericardium/Pleural There is no pericardial effusion. Conclusion A two-dimensional transthoracic echocardiogram with M-mode and Doppler was performed. The study was technically difficult. Mild concentric LVH. LV is normal in size and function. EF 50 - 55% Difficult to rule out wall motion abnormalities due to poor endocardial definition. Moderate to severe mitral annular calcification. Trace to mild mitral regurgitation. Moderate Aortic Valve Calcification Peak and mean graient across the aortic valve is 42 and 28mm Hg respectively with GONZALO of 1.1cm2 and NDSI = .32. The above data is consistent with moderate aortic stenosis. Final Reading Physician: Frantz Lozano signed on 07/13/2016 05:05 PM Ordering Physician: Levon Carrillo Performed By: Nataly Roberts
[2016-07-14 05:02] LABS: ADD DIFF? YES; ADD MORPH? NO; ADD SCAN? NO; ATYPICAL LYMPHOCYTE FLAG 10 (0-99); FRAGMENT RBC FLAG 0 (0-99); HEMATOCRIT 30.9 % (40.0-51.0); HEMOGLOBIN 10.3 g/dL (13.7-17.5); LEFT SHIFT FLG 70 (0-99); LIPEMIA HEMOLYSIS FLAG 80 (0-99); MEAN CELL HEMOGLOBIN 31.6 pg (27.9-34.1); MEAN CELL HEMOGLOBIN CONCENTR. 33.3 g/dL (32.4-36.7); MEAN CELL VOLUME 94.8 fL (81.5-99.8); MEAN PLATELET VOLUME 9.5 fL (8.7-11.7); PLATELET CLUMPS FLAG 10 (0-99); PLATELET COUNT 243 10^3/uL (150-400); RED BLOOD CELL COUNT 3.26 10^6/uL (4.40-6.38); RED CELL DISTRIBUTION WIDTH 15.7 % (11.5-15.2)
[2016-07-14 05:30] LABS: ANION GAP 7 mEq/L (8-16); CALCIUM 8.8 mg/dL (8.5-10.4); CARBON DIOXIDE 24 mEq/l (22-31); CHLORIDE 108 mEq/L (97-110); CREATININE 0.8 mg/dL (0.7-1.3); GLOMERULAR FILTRATION RATE > 60; GLUCOSE 81 mg/dL (70-100); POTASSIUM 3.6 mEq/L (3.5-5.2); SODIUM 139 mEq/L (134-144)
[2016-07-14 05:49] LABS: ECHINOCYTES 1+; PLATELET ESTIMATE ADEQUATE (ADEQ); POLYCHROMASIA 1+
[2016-07-14 05:50] LABS: ACANTHOCYTES 1+
[2016-07-14] MEDS: LOSARTAN POTASSIUM 50 MG TAB PO SCH (08:49)
[2016-07-14] MEDS: ENOXAPARIN 40 MG/0.4 ML SYR SC SCH (08:49)
[2016-07-14] MEDS: PANTOPRAZOLE SODIUM 40 MG TAB PO SCH (08:49)
[2016-07-14] MEDS: LEFLUNOMIDE 20 MG TAB PO SCH (08:49)
[2016-07-14] MEDS: predniSONE 20 MG TAB PO SCH (08:50)
[2016-07-14] MEDS: HYDROCHLOROTHIAZIDE 12.5 MG CAP PO SCH (08:50)
[2016-07-14] MEDS: FLUTICASONE NASAL 120 SPRAYS/16 GM MDI EACHNARE SCH (08:50)
[2016-07-14] MEDS: MONTELUKAST SODIUM 10 MG TAB PO SCH (08:50)
[2016-07-14] MEDS: ALBUTEROL 3 ML DEYVIAL IH PRN (09:42)
[2016-07-14] MEDS: Mometasone/Formoterol [Dulera 100 Mcg/5 Mcg Inhaler] 2 PUFFS IH SCH (09:43)
[2016-07-14 09:53] VITALS: RESP 18
[2016-07-14] MEDS: ACETAMINOPHEN 325 MG TAB PO PRN ×2 (10:11→15:03)
[2016-07-14 11:28] VITALS: BP 114/78; PULSE 114; TEMP 97.3; O2SAT 91
--- NOTE | 2016-07-14 12:57 | PDIAF ---
- Diagnosis Diagnosis: Weakness Code Status: Do Not Resuscitate - Medication Management Discharge Medications: Medications to Continue on Transfer Acetaminophen [Tylenol ES 500 mg (*)] 1,000 mg PO BID PRN 05/23/15 [Last Taken 07/09/16] Albuterol [Proventil Inhaler HFA (*)] 2 puffs IH Q4 PRN 05/23/15 [Last Taken ] Albuterol [Proventil Neb] 3 ml IH Q6 PRN 05/23/15 [Last Taken 05/16/15] Calcium Carb W/Vit D [Calcium Carb W/Vit D 500/200 (*)] 500 mg PO DAILY [Last Taken 07/08/16] Fluticasone Nasal [Flonase Nasal Counselor] 2 sprays NASAL DAILY 05/23/15 [Last Taken 07/08/16] Leflunomide [Arava 20 mg (*)] 20 mg PO DAILY 05/23/15 [Last Taken 07/08/16] Mometasone/Formoterol [Dulera 100 Mcg/5 Mcg Inhaler] 2 puffs IH BID 05/23/15 [ Last Taken 07/08/16] Montelukast Sodium [Singulair 10 mg (*)] 10 mg PO DAILY 05/23/15 [Last Taken ] predniSONE 5 mg PO BID 05/23/15 [Last Taken 07/08/16] Losartan/Hydrochlorothiazide [Hyzaar 100-12.5 Tablet] 1 each PO DAILY 01/02/16 [ Last Taken 07/08/16] Omeprazole 20 mg PO DAILY 01/02/16 [Last Taken 07/08/16] levOFLOXACIN [levAQUIN (*)] 750 mg PO DAILY10 tab 07/14/16 [Last Taken Unknown] Discharge Medications: Refer to the Discharge Home Medication list for PRN reason. - Orders Services needed: Registered Nurse, Certified Certified Master Locksmith, Physical Therapy, Occupational Therapy, Speech Language Pathologist Diet Texture: Regular Texture Diet, Thin Liquids, Meds Whole w/Liquids, Meds Whole in Puree - Follow Up Care Current Providers and Referrals: PARIS ALEXIS [Other] - As per Instructions
--- NOTE | 2016-07-14 13:50 | PDIAF ---
- Diagnosis Diagnosis: Weakness Code Status: Do Not Resuscitate - Medication Management Discharge Medications: Medications to Continue on Transfer Acetaminophen [Tylenol ES 500 mg (*)] 1,000 mg PO BID PRN 05/23/15 [Last Taken 07/09/16] Albuterol [Proventil Inhaler HFA (*)] 2 puffs IH Q4 PRN 05/23/15 [Last Taken ] Albuterol [Proventil Neb] 3 ml IH Q6 PRN 05/23/15 [Last Taken 05/16/15] Calcium Carb W/Vit D [Calcium Carb W/Vit D 500/200 (*)] 500 mg PO DAILY [Last Taken 07/08/16] Fluticasone Nasal [Flonase Nasal [place]] 2 sprays NASAL DAILY 05/23/15 [Last Taken 07/08/16] Leflunomide [Arava 20 mg (*)] 20 mg PO DAILY 05/23/15 [Last Taken 07/08/16] Mometasone/Formoterol [Dulera 100 Mcg/5 Mcg Inhaler] 2 puffs IH BID 05/23/15 [ Last Taken 07/08/16] Montelukast Sodium [Singulair 10 mg (*)] 10 mg PO DAILY 05/23/15 [Last Taken ] predniSONE 5 mg PO BID 05/23/15 [Last Taken 07/08/16] Losartan/Hydrochlorothiazide [Hyzaar 100-12.5 Tablet] 1 each PO DAILY 01/02/16 [ Last Taken 07/08/16] Omeprazole 20 mg PO DAILY 01/02/16 [Last Taken 07/08/16] levOFLOXACIN [levAQUIN (*)] 750 mg PO DAILY10 tab 07/14/16 [Last Taken Unknown] [place] Antibiotics: levaquin 750mg PO x 5 days Discharge Medications: Refer to the Discharge Home Medication list for PRN reason. - Orders Services needed: Registered Nurse, Certified Rn Home Health, Physical Therapy, Occupational Therapy, Speech Language Pathologist Diet Texture: Regular Texture Diet, Thin Liquids, Meds Whole w/Liquids, Meds Whole in Puree - Follow Up Care Current Providers and Referrals: PARIS ALEXIS [Other] - As per Instructions
--- NOTE | 2016-07-14 14:14 | GDS ---
[f rep st] DISCHARGE SUMMARY DIAGNOSES: 1. Pneumonia. 2. Moderate aortic stenosis. 3. Extreme bilateral lower extremity weakness. 4. Hypokalemia. 5. Question of pulmonary artery thrombus. 6. Septic shock/lactic acidosis. 7. Hypertension. 8. Lower extremity edema, chronic. 9. Deconditioning. 10. Chronic prednisone use. 11. History of prostate cancer. HOSPITAL COURSE: 1. Community-acquired pneumonia: He had a left-sided pneumonia. He has been treated with antibiot ics. Will discharge him an additional 5 days of Levaquin to complete a course. He is currently on room air and breathing much more comfortably. He had a negative speech eval for aspiration. 2. Aortic stenosis: This is moderate. He will need outpatient followup with Cardiology for this. 3. Extreme bilateral lower extremity weakness: Discussed at length the need to get an MRI. He had an MRI less than a year ago and said he would never have one again. He said he would rather be par alyzed than go through an MRI. He understands and is capable of making this decision. We will defe r this to his outpatient providers. 4. Septic shock/lactic acidosis: This due to his pneumonia. It resolved. 5. 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 I do not suspect that this is embolic. Hung cormier has not been on full-dose anticoagulation. 6. Significant deconditioning: He will need senior living facility. 7. Anemia: Stable, 10.3 on the day of discharge. 8. Hypokalemia: This has been repleted a few times. The day of discharge is 3.6. BILLING: I spent more than 30 minutes on the day of discharge coordinating care. /[id number]/MODL
== END 2016-07-14 15:50 | DRG 871 ==
LOC: F2W 16:26
PROVIDERS: ADMIT Internal Medicine; ATTEND Internal Medicine
DX: A41.9 Sepsis, unspecified organism (principal); J18.9 Pneumonia, unspecified organism; R65.21 Severe sepsis with septic shock; I74.8 Embolism and thrombosis of other arteries; I35.0 Nonrheumatic aortic (valve) stenosis; E87.6 Hypokalemia; I10 Essential (primary) hypertension; J45.909 Unspecified asthma, uncomplicated; G62.9 Polyneuropathy, unspecified; K21.9 Gastro-esophageal reflux disease without esophagitis; Z88.0 Allergy status to penicillin; Z66 Do not resuscitate; Z85.46 Personal history of malignant neoplasm of prostate
CPT/HCPCS: 92610-GN; 96365; 97163-GP; 97165-GO; 97530-GP; 97535-GO; J0456; J0696; J1335; J1650; J1956; Q9967

== ENCOUNTER 2016-12-10 10:10 | Inpatient (IN) | payer OTHER ==
--- NOTE | 2016-12-10 10:50 | CPEKG ---
Heart Rate: 102 RR Interval: 588 P-R Interval: 132 QRSD Interval: 144 QT Interval: 380 QTC Interval: 496 P [place]: 58 QRS [place]: 84 T Wave [place]: -74 EKG Severity - ABNORMAL ECG - EKG Impression: SINUS TACHYCARDIA EKG Impression: PROBABLE LEFT ATRIAL ABNORMALITY EKG Impression: RBBB AND LPFB EKG Impression: BORDERLINE INFERIOR Q WAVES EKG Impression: ST DEPRESSION, CONSIDER ISCHEMIA, INF LEADS Electronically Signed By: Sera Fitzpatrick 10-Dec-2016 16:21:40
[2016-12-10 10:57] LABS: % IMMATURE GRANULYOCYTES 0.7 % (0.0-1.1); ABSOLUTE IMMATURE GRANULOCYTES 0.11 10^3/uL (0.00-0.10); ADD DIFF? NO; ADD MORPH? NO; ADD SCAN? NO; ATYPICAL LYMPHOCYTE FLAG 0 (0-99); FRAGMENT RBC FLAG 0 (0-99); HEMATOCRIT 35.2 % (40.0-51.0); HEMOGLOBIN 11.3 g/dL (13.7-17.5); LEFT SHIFT FLG 20 (0-99); LIPEMIA HEMOLYSIS FLAG 80 (0-99); MEAN CELL HEMOGLOBIN 32.7 pg (27.9-34.1); MEAN CELL HEMOGLOBIN CONCENTR. 32.1 g/dL (32.4-36.7); MEAN CELL VOLUME 101.7 fL (81.5-99.8); PLATELET CLUMPS FLAG 60 (0-99); PLATELET COUNT 261 10^3/uL (150-400); RED BLOOD CELL COUNT 3.46 10^6/uL (4.40-6.38); RED CELL DISTRIBUTION WIDTH 15.6 % (11.5-15.2)
--- NOTE | 2016-12-10 11:19 | EDPHY ---
HPI/HX/ROS/PE/MDM Narrative: CHIEF COMPLAINT: Near syncope HISTORY OF PRESENT ILLNESS: The patient is an 81-year-old male presenting with near syncopal episode this morning. The patient states he woke up not feeling well with nausea. He is wheelchair bound due to hip and back pain. While seated in his wheelchair he felt like he was going to pass out. EMS arrived and patient was hypoxic at 88%. He denies chest pain, shortness of breath, or palpitations. No recent vomiting or diarrhea. He denies fever, urinary complaints, or headache. Reports ongoing nausea. REVIEW OF SYSTEMS: Aside from elements discussed in the HPI, a comprehensive 10-point review of systems was reviewed and is negative. PAST MEDICAL HISTORY: Asthma, Hypertension, Neuropathy, Wheel chair bound. SOCIAL HISTORY: Resides in independent living with his . Rosario patient. VITAL SIGNS: Reviewed by me GENERAL: Pleasant elderly male, resting comfortably in the gurney. HEENT: Atraumatic. Eyes: No icterus, no injection. Mouth: dry mucous membranes. No erythema or lesions. Neck: supple with no adenopathy. LUNGS: Crackles at the left base. CARDIAC: Tachycardic. Irregular rhythm. Harsh systolic ejection murmur. ABDOMEN: Soft, nontender, nondistended, bowel sounds normal. BACK: No CVA tenderness. EXTREMITIES: Chronic wound on right tib/fib, Significant pitting edema to the level of his compression socks. NEURO: Alert and oriented, grossly nonfocal. SKIN: Warm and dry, no rash. PSYCHIATRIC: Normal mentation, no agitation. Portions of this note were transcribed by a medical lab assistant. I personally performed a history, physical exam, medical decision making, and confirmed accuracy of information the transcribed note. ED Course: 12-LEAD EKG: Please see the full report in [facility]. My interpretation: ST Depression. concern for ischemia inferior leads. Patient is hypotensive and slightly hypoxic on arrival. Patient meets sepsis criteria. Lab work ordered. Chest x-ray ordered. Patient does not give a history of fever, cough, vomiting, diarrhea, or urinary complaints. He does report nausea and feeling lightheaded and near syncopal. Severe Sepsis/Septic Shock Care NoteThe patient presents to the ED with possible pneumonia identified as an acute infection. The patient did have evidence of end-organ dysfunction and met criteria for severe sepsis. This condition was identified by myself at 11:25. The patients vital signs are 92/65 , 112, 16, 93% on O2, 36.4 . The patient has a venous lactic acid performed within 3 hours of the identification of severe sepsis which was found to be 2.2. The patient has blood cultures drawn and received levofloxacin IV, per the severe sepsis treatment protocol. The initial lactate was elevated and rechecked within 6 hours of the identification time of severe sepsis and found to be: 1.1. In addition to leukocytosis, patient has troponin of .060. BUN 27. Chest x-ray shows possible L mid lobe pneumonia. 1300: I spoke to the hospitalist team. Dr. Arenas accepts the patient for admission. 1330: I spoke to Tenzin from [facility], he is aware the patient will be admitted to our hospital. MDM: Diff dx considered included but was not limited to dehydration, acute coronary syndrome, arrhythmia, sepsis, septic shock, demand ischemia, hypoxia, dehydration. - Data Points Imaging Results: Imaging Impressions Chest X-Ray 12/10/16 11:25 Impression: Consolidation in the left midlung, suggesting pneumonia. Imaging: Discussed imaging studies w/ scallop shucker Radiologist, I viewed and interpreted images myself Laboratory Results: Laboratory Results 12/10/16 10:40 12/10/16 10:40 12/10/16 12/10/16 12/10/16 13:22 12:19 11:05 WBC RBC Hgb Hct MCV MCH MCHC RDW Plt Count MPV Neut % (Auto) Lymph % (Auto) Gregg % (Auto) Eos % (Auto) Baso % (Auto) Nucleat RBC Rel Count Absolute Neuts (auto) Absolute Lymphs (auto) Absolute Monos (auto) Absolute Eos (auto) Absolute Basos (auto) Absolute Nucleated RBC Immature Gran % Immature Gran # PT INR APTT VBG Lactic Acid 1.1 mmol/L D mmol/L 2.2 mmol/L H mmol/L (0.7-2.1) (0.7-2.1) Sodium Potassium Chloride Carbon Dioxide Anion Gap BUN Creatinine Estimated GFR Glucose Calcium Total Bilirubin AST ALT Alkaline Phosphatase Troponin I NT-Pro-B Natriuret Pep Total Protein Albumin Urine Color YELLOW Urine Appearance CLEAR Urine pH 5.0 (5.0-7.5) Ur Specific [place] 1.020 (1.002-1.030) Urine Protein NEGATIVE (NEGATIVE) Urine Ketones NEGATIVE (NEGATIVE) Urine Blood NEGATIVE (NEGATIVE) Urine Nitrate NEGATIVE (NEGATIVE) Urine Bilirubin NEGATIVE (NEGATIVE) Urine Urobilinogen NEGATIVE EU EU (0.2-1.0) Ur Leukocyte Esterase NEGATIVE (NEGATIVE) Urine RBC 1-3 /hpf /hpf (0-3) Urine WBC 1-3 /hpf /hpf (0-3) Ur Epithelial Cells TRACE /lpf /lpf (NONE-1+) Hyaline Casts 1-5 /lpf /lpf (0-1) Urine Mucus TRACE /lpf /lpf (NONE-1+) Urine Glucose NEGATIVE (NEGATIVE) 12/10/16 12/10/16 12/10/16 10:40 10:40 10:40 WBC 14.98 10^3/uL H 10^3/uL (3.80-9.50) RBC 3.46 10^6/uL L 10^6/uL (4.40-6.38) Hgb 11.3 g/dL L g/dL (13.7-17.5) Hct 35.2 % L % (40.0-51.0) MCV 101.7 fL H fL (81.5-99.8) MCH 32.7 pg pg (27.9-34.1) MCHC 32.1 g/dL L g/dL (32.4-36.7) RDW 15.6 % H % (11.5-15.2) Plt Count 261 10^3/uL 10^3/uL (150-400) MPV 10.0 fL fL (8.7-11.7) Neut % (Auto) 81.5 % H % (39.3-74.2) Lymph % (Auto) 11.3 % L % (15.0-45.0) Gregg % (Auto) 5.8 % % (4.5-13.0) Eos % (Auto) 0.2 % L % (0.6-7.6) Baso % (Auto) 0.5 % % (0.3-1.7) Nucleat RBC Rel Count 0.0 % % (0.0-0.2) Absolute Neuts (auto) 12.21 10^3/uL H 10^3/uL (1.70-6.50) Absolute Lymphs (auto) 1.69 10^3/uL 10^3/uL (1.00-3.00) Absolute Monos (auto) 0.87 10^3/uL H 10^3/uL (0.30-0.80) Absolute Eos (auto) 0.03 10^3/uL 10^3/uL (0.03-0.40) Absolute Basos (auto) 0.07 10^3/uL 10^3/uL (0.02-0.10) Absolute Nucleated RBC 0.00 10^3/uL 10^3/uL (0-0.01) Immature Gran % 0.7 % % (0.0-1.1) Immature Gran # 0.11 10^3/uL H 10^3/uL (0.00-0.10) PT 12.4 SEC SEC (12.0-15.0) INR 0.93 (0.83-1.16) APTT 26.3 SEC SEC (23.0-38.0) VBG Lactic Acid Sodium 137 mEq/L mEq/L (134-144) Potassium 3.9 mEq/L mEq/L (3.5-5.2) Chloride 102 mEq/L mEq/L (97-110) Carbon Dioxide 24 mEq/l mEq/l (22-31) Anion Gap 11 mEq/L mEq/L (8-16) BUN 27 mg/dL H mg/dL (7-23) Creatinine 0.8 mg/dL mg/dL (0.7-1.3) Estimated GFR > 60 Glucose 82 mg/dL mg/dL (70-100) Calcium 9.6 mg/dL mg/dL (8.5-10.4) Total Bilirubin 0.9 mg/dL mg/dL (0.1-1.4) AST 37 IU/L IU/L (17-59) ALT 44 IU/L IU/L (21-72) Alkaline Phosphatase 90 IU/L IU/L (38-126) Troponin I 0.060 ng/mL H ng/mL (0.000-0.034) NT-Pro-B Natriuret Pep 1100 pg/mL H pg/mL (0-450) Total Protein 5.8 g/dL L g/dL (6.3-8.2) Albumin 3.2 g/dL L g/dL (3.5-5.0) Urine Color Urine Appearance Urine pH Ur Specific [place] Urine Protein Urine Ketones Urine Blood Urine Nitrate Urine Bilirubin Urine Urobilinogen Ur Leukocyte Esterase Urine RBC Urine WBC Ur Epithelial Cells Hyaline Casts Urine Mucus Urine Glucose Medications Given: Albuterol/Ipratropium (Duoneb) 3 ml IH QID ASHISH Stop: 06/08/17 15:59 Last Admin: 12/10/16 16:07 Dose: Not Given Sodium Chloride (Ns) 2,300 mls @ 383.3333 mls/hr 30 ml/kg infuse over 6 hr ( 2300 ml) IV EDNOW ONE PRN Reason: Protocol Stop: 12/10/16 17:23 Last Admin: 12/10/16 11:36 Dose: 2,300 mls Sodium Chloride (Ns) 1,000 mls @ 100 mls/hr IV CONT ASHISH Stop: 06/08/17 15:14 Last Admin: 12/10/16 15:30 Dose: 1,000 mls Methylprednisolone Sodium Succinate (Solu-Medrol) 40 mg IVP Q8HRS ASHISH Stop: 06/08/17 15:29 Last Admin: 12/10/16 16:57 Dose: 40 mg Discontinued Medications Levofloxacin/Dextrose (Levaquin 750 Mg (Premix)) 150 mls @ 100 mls/hr IV EDNOW ONE PRN Reason: Protocol Stop: 12/10/16 14:31 Last Admin: 12/10/16 13:23 Dose: 150 mls General Time Seen by Provider: 12/10/16 11:05 Initial Vital Signs: Initial Vital Signs Temperature (C) 36.4 C 12/10/16 10:15 Heart Rate 116 H 12/10/16 10:15 Respiratory Rate 14 12/10/16 10:15 Blood Pressure 94/58 L 12/10/16 10:15 O2 Sat (%) 91 L 12/10/16 10:15 O2 Delivery Mode Nasal Cannula O2 (L/minute) 2.5 Allergies/Adverse Reactions: Penicillins Allergy (Verified 07/09/16 12:51) Home Medications: Medication Instructions Recorded Fluticasone Nasal [Flonase Nasal 2 sprays EACHNARE DAILY 05/23/15 [place]] Leflunomide [Arava 20 mg (*)] 20 mg PO DAILY 05/23/15 Montelukast Sodium [Singulair 10 10 mg PO DAILY 05/23/15 mg (*)] predniSONE 5 mg PO BIDMEAL 05/23/15 Losartan/Hydrochlorothiazide 1 each PO DAILY 01/02/16 [Hyzaar 100-12.5 Tablet] Omeprazole 20 mg PO DAILY 01/02/16 Acetaminophen [Tylenol ES 500 mg 500 mg PO TID PRN 12/10/16 (*)] Albuterol Sulfate [Ventolin Hfa] 2 puffs IH Q6HRS PRN 12/10/16 C/E/Zn/Cu/OM3/DHA/EPA/LUT/ZEAX 1 each PO DAILY 12/10/16 [Preservision Areds 2 Softgel] Calcium Carb W/Vit D [Calcium Carb 1,000 mg PO DAILY 12/10/16 W/Vit D 500/200 (*)] Gabapentin [Neurontin 100 MG (*)] 100 mg PO BID 12/10/16 Mometasone/Formoterol [Dulera 200 2 gm IH BID 12/10/16 Mcg/5 Mcg Inhaler] traMADol [Ultram 50 mg (*)] 50 mg PO BID 12/10/16 Departure - Departure Disposition: [facility] Inpatient Acute Clinical Impression: Elevated troponin Syncope Qualifiers: Syncope type: heat syncope Encounter type: initial encounter Qualified Code(s) : T67.1XXA - Heat syncope, initial encounter Pneumonia Qualifiers: Pneumonia type: due to unspecified organism Laterality: left Lung location: lower lobe of lung Qualified Code(s): J18.1 - Lobar pneumonia, unspecified organism Condition: Fair Report Scribed for: Sera Fitzpatrick Report Scribed by: Karyn Rob Date of Report: 12/10/16 Time of Report: 11:24
[2016-12-10] MEDS ORDERED: NS 2,300 ML IV ONE (11:24)
[2016-12-10 11:25] LABS: ALANINE AMINOTRANSFERASE 44 IU/L (21-72); ALBUMIN 3.2 g/dL (3.5-5.0); ALKALINE PHOSPHATASE 90 IU/L (38-126); ANION GAP 11 mEq/L (8-16); ASPARTATE AMINOTRANSFERASE 37 IU/L (17-59); BILIRUBIN,TOTAL 0.9 mg/dL (0.1-1.4); CALCIUM 9.6 mg/dL (8.5-10.4); CARBON DIOXIDE 24 mEq/l (22-31); CHLORIDE 102 mEq/L (97-110); CREATININE 0.8 mg/dL (0.7-1.3); GLOMERULAR FILTRATION RATE > 60; GLUCOSE 82 mg/dL (70-100); POTASSIUM 3.9 mEq/L (3.5-5.2); SODIUM 137 mEq/L (134-144); TOTAL PROTEIN 5.8 g/dL (6.3-8.2)
[2016-12-10 11:48] LABS: INR 0.93 (0.83-1.16); PROTIME(PATIENT) 12.4 SEC (12.0-15.0)
[2016-12-10 11:49] LABS: APTT 26.3 SEC (23.0-38.0)
[2016-12-10 12:29] LABS: COLOR YELLOW; LEUKOCYTE ESTERASE,URINE NEGATIVE (NEGATIVE); NITRITE,URINE NEGATIVE (NEGATIVE)
[2016-12-10 12:33] LABS: MUCUS TRACE /lpf (NONE-1+)
--- NOTE | 2016-12-10 14:16 | CPEKG ---
Heart Rate: 85 RR Interval: 706 P-R Interval: 140 QRSD Interval: 148 QT Interval: 440 QTC Interval: 524 P Fletcher: 59 QRS Fletcher: 89 T Wave Fletcher: 268 EKG Severity - ABNORMAL ECG - EKG Impression: SINUS RHYTHM EKG Impression: ATRIAL PREMATURE COMPLEX EKG Impression: RBBB AND LPFB EKG Impression: BORDERLINE INFERIOR Q WAVES EKG Impression: ST DEPRESSION, CONSIDER ISCHEMIA, LAT LEADS Electronically Signed By: Sera Fitzpatrick 10-Dec-2016 16:21:32
--- NOTE | 2016-12-10 14:56 | ECHO ---
[id number] [id number] + + [address] : : [place] [address] : : [phone] + + Adult Echocardiographic Report + ---+ :Name: BRENDA SORTO HStudy Date: 12/10/2016 01:49 PM : : Hospital Admission Number: [id number] Location: [facility] 9: :: 1935 Gender: Male Height: 71 in : :Age: 81 yrs Race: WH Weight: 170 lb : :Reason For Study: Elevated Troponin : : BSA: 2.0 meters2 : + ---+ MMode/2D Measurements \T\ Calculations IVSd: 1.7 cm LVIDd: 3.6 cm FS: 22.6 % LVOT diam: 2.1 cm LVPWd: 1.5 cm LVIDs: 2.8 cm EDV(Teich): LVOT area: 54.4 ml 3.5 cm2 ESV(Teich): 29.2 ml EF(Teich): 46.4 % LVLd ap4: 7.6 cm SV(MOD-sp4): EDV(MOD-sp4): 47.0 ml 79.0 ml LVLs ap4: 6.5 cm ESV(MOD-sp4): 32.0 ml EF(MOD-sp4): 59.5 % Normal Measurement Values: + + :LVIDd (3.5-5.7cm) IVSd (0.6-1.1cm) LVPWd (0.6-1.1cm) Aortic Root (2.0-3.7cm)Left Atrium (1.5-4.0cm): :LV Vol(d) (76-115ml) LV Vol(s) (29-48ml) Ejec Fraction (50-65%)PV Cordell (0.6- 1.2m/s) TV Cordell (0.4-1.0m/s) : :MV E Cordell (0.8-1.0m/s)MV A Cordell (0.3-1.0m/s)LVOT Cordell (0.7-1.2m/s) Asc Ao Cordell ( 0.9-1.8m/s) : + + Doppler Measurements \T\ Calculations MV E max cordell: MV V2 max: Ao V2 max: LV V1 max: 103.0 cm/sec 149.0 cm/sec 346.5 cm/sec 88.0 cm/sec MV A max cordell: MV max PG: Ao max PG: LV V1 max P.0 cm/sec 8.9 mmHg 48.1 mmHg 3.1 mmHg MV E/A: 0.71 MV V2 mean: Ao mean PG: LV V1 mean PG: MV dec time: 99.9 cm/sec 27.0 mmHg 2.0 mmHg 0.17 sec MV mean PG: Ao V2 mean: LV V1 mean: 4.0 mmHg 238.0 cm/sec 59.0 cm/sec MV V2 VTI: 37.9 cm Ao V2 VTI: 69.2 cm LV V1 VTI: 17.9 cm MVA(VTI): 1.6 cm2 GONZALO(I,D): 0.90 cm2 GONZALO(V,D): 0.88 cm2 SV(LVOT): 62.0 ml Left Ventricle The left ventricle is normal in size. There is mild to moderate concentric left ventricular hypertrophy. Ejection Fraction = 59%. There is Doppler evidence for diastolic dysfunction. Elevated LV filling pressures. The left ventricular wall motion is normal. Right Ventricle The right ventricle is normal in size and function. Atria The left atrial size is normal. Right atrial size is normal. Mitral Valve There is moderate to severe mitral annular calcification. There is mild mitral stenosis. There is trace mitral regurgitation. Tricuspid Valve The tricuspid valve is normal in structure and function. There is no tricuspid stenosis. There is trace tricuspid regurgitation. Unable to estimate PA systolic pressure. Aortic Valve The aortic valve is trileaflet. Moderate-Severe Aortic Valve Calcification. Moderate to severe valvular aortic stenosis. AV max 3.56 m/s, 27/48 mean/max mmHG, GONZALO 0.9 cm2. There is no aortic insufficiency. Pulmonic Valve The pulmonic valve is not well visualized. There is no pulmonic valvular regurgitation. Great Vessels The aortic root is normal size. Pericardium/Pleural There is a fat pad seen. There is no pericardial effusion. Conclusion A complete two-dimensional transthoracic echocardiogram was performed (2D, M-mode, Doppler and color flow Doppler). There is mild to moderate concentric left ventricular hypertrophy. Ejection Fraction = 59%. Normal wall motion There is Doppler evidence for diastolic dysfunction and elevated LV filling pressures Moderate-Severe Aortic Valve Calcification Moderate to severe valvular aortic stenosis. AV max 3.56 m/s, 27/48 mean/max mmHG, GONZALO 0.9 cm2. By planimetry, the GONZALO is 0.6 cm2 There is moderate to severe mitral annular calcification. Mild mitral stenosis There is trace mitral regurgitation. There is trace tricuspid regurgitation. Similar findings compared with 07/13/2016 Final Reading Physician: Dr Inez Gil electronically signed on 12/10/2016 02:55 PM Ordering Physician: Sera Fitzpatrick Performed By: Francheska Chase
[2016-12-10 14:58] LABS: BILIRUBIN,TOTAL 0.9 mg/dL (0.1-1.4)
[2016-12-10] MEDS ORDERED: ONDANSETRON DISINTEGRATING 4 MG TAB PO PRN (15:08)
[2016-12-10] MEDS ORDERED: ZOLPIDEM TARTRATE 5 MG TAB PO PRN (15:08)
[2016-12-10] MEDS ORDERED: HYDROCODONE/APAP 5/325 TAB PO PRN (15:08)
[2016-12-10] MEDS ORDERED: ACETAMINOPHEN 325 MG TAB PO PRN (15:08)
[2016-12-10] MEDS ORDERED: ONDANSETRON 4 MG/2 ML VIAL IVP PRN (15:08)
[2016-12-10] MEDS ORDERED: NS 1,000 ML IV SCH (15:15)
[2016-12-10] MEDS ORDERED: ALBUTEROL INH PREPACK MDI TAKEHOME PRN (15:16)
[2016-12-10] MEDS ORDERED: ALBUTEROL 200 PUFFS/18 GM MDI IH PRN (15:24)
[2016-12-10] MEDS ORDERED: NON-FORMULARY NEW DRUG (Omeprazole [Omeprazole] 20 MG) PO SCH (15:30)
--- NOTE | 2016-12-10 15:38 | GHP ---
[f rep st] HISTORY AND PHYSICAL DATE OF ADMISSION: 12/10/2016 CHIEF COMPLAINT: Syncope or near syncope. HISTORY OF PRESENT ILLNESS: An 81-year-old male, who was sitting in a wheelchair when he suddenly felt quite weak and said he felt he was going to pass out. This episode occurred without a complaint of chest pain, nausea, vomiting, diaphoresis, or feeling of shortness of breath. It is unclear how long it lasted but his apparently called 911 and he was transported to the emergency department and subsequently now admitted. The patient denies a prior history of coronary artery disease but says he knows he has a murmur but cannot elaborate whether he has ever had any other problems of cardiac origin. Of note , he was admitted to this facility in June 2016, for left-sided pneumonia. He then went to [facility] for approximately 2 weeks and then had gone from [facility] to his independent living home. He lives there with his . He has a chronic history of asthma, which is treated with bronchodilator therapy and a small dose of prednisone but not oxygen. Additionally, he has had problems of ambulation and has developed progressive weakness of the lower extremities in the last 6 months. He was able to ambulate with a cane 6 months ago, which then progressed to walker and now he is confined to a wheelchair, although he maintains an active life there at the [facility]. PAST MEDICAL HISTORY: 1. History of prostate cancer approximately 30 years ago, which was treated with surgery. He is no longer under treatment. 2. GERD. 3. L4-L5 disk herniation, which is probably the origin of this gentleman's lower extremity weakness. 4. Chronic lower extremity edema. 5. Asthma, which he has had for over 40 years. 6. 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 MEDICATIONS: Noted in the EMR. SOCIAL HISTORY: He is a nonsmoker and has never smoked. He does not drink alcohol. He lives with his at [facility]. He has resided in [place] for the last 4 years. 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 He had previously lived in [place] before moving here to [place] to be with his son. FAMILY HISTORY: Negative. He does not know that either of his parents had any problems of cardiovascular origin. He could not elaborate the details of their illnesses and deaths. REVIEW OF SYSTEMS: A 10-point review of systems is otherwise negative. In particular, he has not had any preceding sense of weakness or loss of appetite, prior increase in cough and any problems with eating where he would be coughing and choking. He also denies any feelings of shortness of breath, although the gentleman does not exert himself much as he is confined pretty much to a wheelchair. He denies specifically any chest pain previous to this event, but of note during my exam, he was complaining of some left-sided anterior chest pain without radiation. He denies any problems of nausea, vomiting, change in bowel habits. He usually moves his bowels twice a day and this has been stable. There is no history of dysuria or prior urinary or kidney infection or kidney problems. He does have problems of chronic peripheral edema of which he cannot elaborate on origin or time. He has had skin infections of his lower extremities, which have been under treatment at the [facility] with wound care. They are healing nicely. He also had a left hip skin breakdown, which he reports has now improved significantly. He does have chronic low back pain. PHYSICAL EXAMINATION: GENERAL: This is a pleasant, alert gentleman, who appears comfortable and without distress. VITAL SIGNS: Blood pressure slightly low at 92/38 with a heart rate of 112 initially. His oxygen saturation is 96% on supplemental oxygen. HEENT: Shows that his teeth are in good repair without significant periodontal disease or signs of infection or tenderness. The tongue and buccal mucosa are normal. Gentleman's hearing appears to be normal for his age. The chest wall is nontender to palpation, though the patient does complain of some left-sided chest pain. HEART: Singular S1, S2. There is a harsh systolic ejection murmur heard across the entire precordium from the apex to the base of the heart. No AI is appreciated. LUNGS: He has rales in the left lower lobe without E-to-A changes or increased dullness to percussion. There is also no splinting of the chest wall. ABDOMEN: Nontender and benign. No masses, tenderness, organomegaly. EXTREMITIES: He has peripheral edema and chronic anatomic skin changes presumably secondary to skin infections previously, although neither the son or the patient can give me details regarding this matter. There is a healing ulceration on his right lateral lower leg. This has been under wound care at the [facility]. There is some surrounding redness but does not appear to be infected or fluctuant. He has very significant edema, probably 2 to 3+ of his right and left leg and the posterior calf. NEUROLOGIC: This is an oriented x3, calm gentleman. Cranial nerves 2-12 are intact to specific testing. LABORATORY AND X-RAY DATA: WBC elevated at 14,900 with a hemoglobin slightly low at 11.3 and an elevated MCV of 101 and low MCHC at 32. Coagulation is normal. Lactate was elevated at 2.2 and fell within approximately 2-1/2 hours to 1.1. Chemistry panel is otherwise normal except for a slightly elevated BUN at 27, BNP elevated at 1100, troponin elevated initially at 0.060, and albumin slightly low at 3.2. Urinalysis was clear. There are blood cultures and urine cultures pending. Chest x-ray shows a left upper lobe infiltration, which is new since the previous chest x-ray in June 2016. I have reviewed the x-ray myself on the PACS system and reviewed the film and discussed it with Radiology in the radiology suite. ECG shows a sinus rhythm and a sinus bradycardia. He has a right bundle branch block and evidence of a left anterior fascicular block, sinus rhythm, and a sinus tachycardia at approximately 102. There are ST- segment depressions laterally and inferiorly consistent with possible ischemia. There is no ST-segment elevation. ASSESSMENT: 1. Acute sepsis with hypotension, leukocytosis at approximately 15,000, a tachycardia of 116, and an elevated lactate at 2.2. Cultures and a procalcitonin are pending. Rod's lactate fell with fluid hydration in the emergency department to a normal range within 3 hours. At this point, he has not received antibiotics. 2. Chest pain, left-sided, with an abnormal ECG suggestive of ischemia and elevated BNP and a very slightly elevated troponin. Gentleman has a very significant heart murmur, which has probably been present for some time. He denies prior history of coronary disease, although certainly, the episode he had today with sudden onset of weakness could easily be consistent with cardiac rhythm disturbance. 3. Pneumonia, left upper lobe. Chest x-ray has improved in all areas but has shown an increased infiltrate in the left upper lobe. This is hard to explain given the gentleman's history that he has been feeling quite well and steadily improving, and it is especially difficult to understand in light of the fact that he is improved the right lower lobe, left lower lobe, and the left apex. This may just simply be the findings of a resolving pneumonia. Despite that, we are going to continue his bronchodilators and I will place him on antibiotics the use of which should be reviewed within about 48 hours. As he is on prednisone for both his asthma and his arthritis, I will give him a stress dose of Solu-Medrol. 4. Prostate cancer greater than 30 years ago. This is probably in remission. 5. Weakness in his lower extremities, which is by his report progressive. This may be secondary to his herniated disk at the L4-L5 region, although at this time, we do not have evidence for any correlation of that problem with the acute episode of weakness today. He denies any urinary symptoms and he is continent of both bowel and bladder. PLAN: Gentleman will be admitted to an inpatient stay as he has multiple medical problems, which will require greater than 2 days for resolution. He will be treated under a sepsis protocol and I will begin antibiotics of azithromycin and Rocephin for presumed outpatient community-acquired pneumonia. Additionally, he does have a complaint of chest pain and an abnormal ECG. An electrocardiogram will be obtained and a cardiology consult also obtain in light of the possibility of a cardiac rhythm disturbance and active cardiac ischemia. The ECG was reviewed personally by myself. Chest x-ray was reviewed by myself and interpreted with the assistance of the radiologist. I have also discussed the matter with Dr. Sera Fitzpatrick, the emergency physician, who had seen the patient initially. Case discussed with cardiology, Dr Carlos Hollis, who will see the patient or a collegue TIME: This admission required 50 minutes. /[id number]/MODL MTDD
[2016-12-10] MEDS: IPRATROPIUM/ALBUTEROL 3 ML DEYVIAL IH SCH ×2 (16:07→20:30)
[2016-12-10] MEDS: methylPREDNISolone SOD SUCC 40 MG/ML VIAL IVP SCH ×2 (16:57→21:31)
[2016-12-10 19:24] LABS: PROCALCITONIN 0.74 ng/mL (0.02-0.10)
[2016-12-10] MEDS: Mometasone/Formoterol [Dulera 200 Mcg/5 Mcg Inhaler] IH SCH (20:30)
[2016-12-10] MEDS ORDERED: MOMETASONE IH SCH (21:00)
[2016-12-10] MEDS ORDERED: FORMOTEROL IH SCH (21:00)
[2016-12-10] MEDS: traMADol 50 MG TAB PO SCH (21:31)
[2016-12-10] MEDS: GABAPENTIN 100 MG CAP PO SCH (21:31)
[2016-12-10] MEDS: ACETAMINOPHEN 500 MG TAB PO PRN (21:33)
[2016-12-11 04:31] LABS: % IMMATURE GRANULYOCYTES 1.1 % (0.0-1.1); ADD DIFF? NO; ADD MORPH? NO; ADD SCAN? NO; ATYPICAL LYMPHOCYTE FLAG 0 (0-99); FRAGMENT RBC FLAG 0 (0-99); HEMATOCRIT 30.1 % (40.0-51.0); HEMOGLOBIN 9.6 g/dL (13.7-17.5); LEFT SHIFT FLG 10 (0-99); LIPEMIA HEMOLYSIS FLAG 80 (0-99); MEAN CELL HEMOGLOBIN CONCENTR. 31.9 g/dL (32.4-36.7); MEAN CELL VOLUME 103.4 fL (81.5-99.8); MEAN PLATELET VOLUME 10.1 fL (8.7-11.7); PLATELET CLUMPS FLAG 0 (0-99); PLATELET COUNT 222 10^3/uL (150-400); RED BLOOD CELL COUNT 2.91 10^6/uL (4.40-6.38); RED CELL DISTRIBUTION WIDTH 15.6 % (11.5-15.2)
[2016-12-11 04:59] LABS: ALANINE AMINOTRANSFERASE 37 IU/L (21-72); ALBUMIN 2.6 g/dL (3.5-5.0); ALKALINE PHOSPHATASE 71 IU/L (38-126); ANION GAP 7 mEq/L (8-16); ASPARTATE AMINOTRANSFERASE 24 IU/L (17-59); BILIRUBIN,TOTAL 0.7 mg/dL (0.1-1.4); CALCIUM 8.7 mg/dL (8.5-10.4); CARBON DIOXIDE 23 mEq/l (22-31); CHLORIDE 106 mEq/L (97-110); CREATININE 0.7 mg/dL (0.7-1.3); GLOMERULAR FILTRATION RATE > 60; GLUCOSE 133 mg/dL (70-100); SODIUM 136 mEq/L (134-144); TOTAL PROTEIN 4.8 g/dL (6.3-8.2)
[2016-12-11 05:09] LABS: TROPONIN I 0.063 ng/mL (0.000-0.034)
[2016-12-11] MEDS: IPRATROPIUM/ALBUTEROL 3 ML DEYVIAL IH SCH ×3 (06:10→15:33)
[2016-12-11] MEDS: methylPREDNISolone SOD SUCC 40 MG/ML VIAL IVP SCH (06:11)
[2016-12-11] MEDS ORDERED: HYDROCHLOROTHIAZIDE 12.5 MG CAP PO SCH (09:00)
[2016-12-11] MEDS ORDERED: LOSARTAN POTASSIUM 50 MG TAB PO SCH (09:00)
[2016-12-11] MEDS ORDERED: NON-FORMULARY NEW DRUG (Losartan/Hydrochlorothiazide [Hyzaar 100-12.5 Tablet] 1 EACH) PO SCH (09:00)
[2016-12-11] MEDS: Mometasone/Formoterol [Dulera 200 Mcg/5 Mcg Inhaler] IH SCH ×2 (09:01→21:59)
--- NOTE | 2016-12-11 09:15 | HOSPPROG ---
Hospitalist Progress Note Assessment/Plan: #Sepsis: due to PNA. (LML infiltrate, personally reviewed). Cont Levaquin given PCN allergy. Sputum, blood cultures pending #Lactic acidosis: due to infection. Resolved with IVFs #Indeterminate trop: likely demand with underlying , but ST depressions lateral leads (seen on old) #Mod-severe : caution with preload, hold diuretic and ARB. Would consider TAVR. He is a [facility] patient. #Sinus tachycardia: new today. Start low-dose Dilt (avoid BB with asthma) #Hypertension: hold BP meds with sepsis. #Chronic leg wounds: R>L. Pressure injury over right ant leg. Min redness, no warmth. Wound care to eval #LE edema: lorrie stockings h/o asthma: no e/o exacerbation. Change steroids back to home dose. #Leukocytosis: due to PNA. Resolved. #RA: cont pred #Diet: regular #DVT ppx: Lovenox #Disp: warrants inpatient admission with acute sepsis, aortic stenosis. Cont IV abx, rate control. Critical care time spent: 45 min examining pt, reviewing labs, notes and discussing with Dr. Hollis Subjective: no acute events overnight Objective: Vital Signs Temp Pulse Resp BP Pulse Ox 36.6 C 90 16 116/70 93 12/11/16 07:44 12/11/16 09:06 12/11/16 09:06 12/11/16 07:44 12/11/16 09:06 Laboratory Results 12/11/16 03:38 12/11/16 03:38 12/10/16 12/11/16 12/12/16 05:59 05:59 05:59 Intake Total 2550 Output Total 1450 250 Balance 1100 -250 PT 12.4 SEC (12.0-15.0) 12/10/16 10:40 INR 0.93 (0.83-1.16) 12/10/16 10:40 - Physical Exam Constitutional: no apparent distress Eyes: PERRL Ears, Nose, Mouth, Throat: moist mucous membranes, hearing normal Cardiovascular: regular rate and rhythym, systolic murmur (4/6 throughout precordium, radiation to carotid), edema (+2-3 pitting edema feet and ankles) Respiratory: no respiratory distress, other (crackles left base) Gastrointestinal: normoactive bowel sounds Genitourinary: no bladder fullness Skin: warm, other (scabbed lesion right anterior johnson. Some pink skin changes over right leg, no warmth) Musculoskeletal: full muscle strength Neurologic: AAOx3 ICD10 Worksheet Patient Problems: Problems Problem Status Onset Pneumonia Acute Syncope Acute Hip pain Acute Left hip pain Acute Pneumonia Acute
[2016-12-11] MEDS: CALCIUM CARB W/VIT D 500 MG TAB PO SCH (10:14)
[2016-12-11] MEDS: PANTOPRAZOLE SODIUM 40 MG TAB PO SCH (10:14)
[2016-12-11] MEDS: LEFLUNOMIDE 20 MG TAB PO SCH (10:15)
[2016-12-11] MEDS: GABAPENTIN 100 MG CAP PO SCH ×2 (10:15→20:33)
[2016-12-11] MEDS: MONTELUKAST SODIUM 10 MG TAB PO SCH (10:15)
[2016-12-11] MEDS: PRESERVISION AREDS2 FORMULA EYE VIT 1 EACH PO SCH (10:15)
[2016-12-11] MEDS: traMADol 50 MG TAB PO SCH ×2 (10:15→20:34)
[2016-12-11] MEDS: FLUTICASONE NASAL 120 SPRAYS/16 GM MDI EACHNARE SCH (10:16)
[2016-12-11] MEDS: ENOXAPARIN 40 MG/0.4 ML SYR SC SCH (10:17)
--- NOTE | 2016-12-11 10:38 | WOCRNPDOC ---
AGUS Advanced Assessment Note - Skin Integrity Problem, Advanced Assess Right Anterior Lower Leg Venous Stasis Ulcer Dressing Type: Open to Air Exudate Amount: None Exudate Characteristic(s): None Juliette Wound Tissue: Erythema Wound Bed Color: Brown, Yellow Wound Bed Constitution: Scab, Adhered Slough Wound Edges: Irregular Site Odor: None Site Measurement - Head-to-Toe Length X Width X Depth (cm): 2.2fkz8fmq9.1cm Pulse Location & Description: +1 DP bilaterally Extremity Temperature: Warm Peripheral Edema Location & Description: +2-3, pitting, bilateral edema, R leg/ foot more edematous than L. Skin Integrity Problem Comment: Dry, irregularly-shaped scab and slough filled wound noted on R anterior LE. Appearance consistent w/ venous stasis wound, though it is not presently weepy or draining. Wound bed 90% dry scabbed tissue, 10% dry adhered slough medially. There is very distinct, discrete juliette-wound erythema, which was marked by certified scrub tech Loretta, though patient denies pain and there is no palpable appreciable difference in temperature between these and adjacent tissues. Patient reports wesring compression stockings at home, and says he has had ongoing wound care for this wound, though he could not recall specific tx. Present goal is to loosen existing slough in wound and get to healthy, underlying tissue. Will initiate autolytic debridement w/ honey gel today, and follow up w/ patient on Wednesday 12/13 to assess efficacy. Right Posterior Lower Leg Venous Stasis Ulcer Dressing Type: Open to Air Exudate Amount: None Exudate Characteristic(s): None Wound Bed Color: Red, Yellow Wound Bed Constitution: Smooth Tissue (non-granular), Scab, Adhered Slough Wound Edges: Irregular Site Odor: None Site Measurement - Head-to-Toe Length X Width X Depth (cm): 1cmx0.5cmx0.1cm Peripheral Edema Location & Description: +2-3 bilateral, pitting edema, R>L. Skin Integrity Problem Comment: Small, irregularly-shaped wound on posterior aspect of RLE, consistent in appearance w/ venous stasis wound. Wound bed is presently dry w/ mixed adhered slough and non-granulating tissue. Entire RLE is edematous, pitting. Will initiate same tx as noted above for this wound. In addition, Spandagrip stockings (size E) sent down for nursing to apply to help w / edema. Left Greater Trochanter Dressing Type: Open to Air Exudate Amount: None Exudate Characteristic(s): None Juliette Wound Tissue: Blanching, Intact Juliette Wound Swelling: Mild Wound Bed Color: Red Wound Edges: Epithelizing Site Odor: None Skin Integrity Problem Comment: Two dry, flaky pinpoint areas over patient's L greater trochanter that appear to be epithelialized wounds, now healed. Location is consistent w/ pressure injury, though presently tissue is blanching throughout. As a precaution, order for pressure-relieving pump to be applied to existing mattress. Report given to certified scrub techANGELICA Burgos.
[2016-12-11] MEDS: TEARS/DEXTRAN 70/HYPROMELLOSE 15 ML OPHT.BTL EACHEYE PRN (12:34)
--- NOTE | 2016-12-11 13:20 | CPEKG ---
Heart Rate: 118 RR Interval: 508 P-R Interval: 140 QRSD Interval: 146 QT Interval: 360 QTC Interval: 505 P Roxbury: 61 QRS Roxbury: 72 T Wave Roxbury: -67 EKG Severity - ABNORMAL ECG - EKG Impression: SINUS TACHYCARDIA EKG Impression: RIGHT BUNDLE BRANCH BLOCK EKG Impression: BORDERLINE INFERIOR Q WAVES EKG Impression: ST DEPRESSION, CONSIDER ISCHEMIA, ANT-LAT LDS EKG Impression: SIMILAR ST/T WAVE CHANGES NOTED ON PRIOR ECG. SLOWER HEART RATES WERE EKG Impression: PREVIOUSLY NOTED Electronically Signed By: Luis Morgan 12-Dec-2016 15:49:54
[2016-12-11] MEDS: DILTIAZEM 30 MG TAB PO SCH ×2 (15:12→20:34)
[2016-12-11] MEDS ORDERED: CALCIUM CARBONATE 500 MG CHEWABLE TAB PO PRN (15:18)
--- NOTE | 2016-12-11 15:26 | GCON ---
[f rep st] CONSULTATION CARDIOLOGY CONSULTATION DATE OF CONSULTATION: 12/11/2016 REFERRING PHYSICIAN: Rubin Arenas Jr., MD REASON FOR CONSULTATION: Syncope/near syncope. HISTORY OF PRESENT ILLNESS: The patient is an 81-year-old male with a known heart murmur but apparently no history of any prior clinical cardiac episodes. He was transported to the emergency room from the [facility] because of an episode of syncope/near syncope. He was sitting in his wheelchair when he suddenly became lightheaded. He is not entirely sure whether or not he completely lost consciousness, but he had significant alteration in his level of consciousness for approximately 5 minutes. Subsequent to this, he felt "woozy" for approximately 15 minutes. He was somewhat tachycardic with a heart rate of 116 and mildly hypotensive with a blood pressure of 94/58. He had an elevated white count at 15,000 with a left shift. His chest x-ray suggested consolidation in the mid left lung. He does have a history of asthma and pulmonary problems. He was admitted with a presumptive diagnosis of pneumonia. A mild elevation of his lactate was noted. Overall his clinical picture was consistent with early sepsis. He was begun on appropriate antibiotic therapy. He was given intravenous fluids and his blood pressure normalized. With the episode that led to this admission, the patient denies any associated chest discomfort or palpitations. He tells me that his heart rate is typically over 100 BPM when he checks his B/P at home. He receives his usual care in the [facility] system. He has not specific cardiac testing that he knows of. 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 He reports that he has had longstanding issues with lower extremity edema. As previously mentioned he has a long history of asthma. He has steroid-dependent rheumatoid arthritis. He is on treatment for hypertension. PAST SURGICAL HISTORY: A prostatectomy for cancer in the remote past. FAMILY HISTORY: Noncontributory. HOME MEDICATIONS: Tramadol, gabapentin, Dulera inhaler, calcium supplementation , albuterol inhaler, Flonase nasal spray, Arava, losartan/hydrochlorothiazide, prednisone, omeprazole, and Singulair. ALLERGIES: Penicillin. SOCIAL HISTORY: He resides with his at the [facility]. He has never been a smoker. Alcohol consumption is negligible. He is retired from [employer]. REVIEW OF SYSTEMS: Except for the items mentioned in the History of Present Illness, a 10-point review was negative. PHYSICAL EXAMINATION: VITAL SIGNS: Heart rate 120 with sinus tachycardia on the monitor. Blood pressure 137/82, O2 saturation 93% on room air. GENERAL: Well-developed, elderly male, in no acute distress. He is alert and oriented x3. He was enjoying a [employer] baseball game on his IPad when I entered the room. HEAD AND NECK: No scleral icterus. Mucous membranes moist. Carotid pulses 2+ without bruits. There is no JVD. CHEST: Left basilar rales. No wheezes. CARDIAC: Tachycardic, regular rhythm with a harsh 3/6 systolic ejection murmur. ABDOMEN: Soft, nondistended, nontender with normal bowel sounds. EXTREMITIES: 1-2+ pulses and 2+ bilateral edema right greater than left. LABORATORY STUDIES: Sodium 136, potassium 4.0, BUN and creatinine 22 and 0.7. Troponin levels have been mildly elevated at 0.06, 0.084, and 0.063. His BNP is mildly elevated at 1100. CBC today shows improvement in his white blood cell count at 8.72. Hemoglobin and hematocrit are 9.6 and 30.1. Platelet count 222,000. Lactate was initially 2.2 and improved to 1.1. TEST DATA: ECG: His ECG performed immediately after my interview with him, demonstrates sinus tachycardia at 118 BPM. He has a right bundle branch block. There are diffuse nonspecific ST-T wave changes. Chest x-ray: His chest x-ray on admission demonstrated some consolidation in the left basilar region. There was no evidence of pulmonary edema. Echocardiogram: Please refer to the formal echocardiography report. Briefly, that study demonstrates normal left ventricular size with [id number] concentric LVH with associated diastolic dysfunction. Ejection fraction is low normal at 59%. There is no regional variation in contractility. He has a trileaflet aortic valve with moderate to severe calcification producing moderate to severe aortic stenosis with a peak/mean gradient of 48/27 mmHg yielding a calculated aortic valve area of 0.9 square cm. By planimetry, the aortic valve area was 0.6 square cm. He also has moderate to severe mitral annular calcification with mild mitral stenosis and trace mitral regurgitation. He has trace tricuspid regurgitation which did not allow for estimation of his PA systolic pressure. IMPRESSION: This is an 81-year-old male who was brought to the hospital for an episode of syncope/near syncope. He has evidence for pneumonia with early sepsis. He also has moderate to severe aortic stenosis. I suspect that his infectious process produced relative hypotension which, in the setting of his aortic stenosis, reduced his cerebral perfusion significantly. His blood pressure is normalized. He demonstrates a significant sinus tachycardia which appears to have developed predominantly over the past few hours. He does not notice his heart rate but also tells me that when he checks his blood pressure at home, his heart rate is typically in excess of 100 beats per minute. He has chronic issues with lower extremity edema. Overall, he appears relatively well , volume compensated but almost certainly has a component of chronic congestive heart failure related to his valvular heart disease and diastolic dysfunction. He is not experiencing any symptoms suggestive of angina. His mild troponin elevation is likely due to myocardial O2 supply/demand mismatch related to LV wall strain imposed by his aortic stenosis. RECOMMENDATIONS: I would like to try to reduce his heart rate. His usual losartan/HCTZ has been placed on hold because of his initial blood pressure and sepsis. In the setting of his aortic stenosis, I feel that his diuretic component should be eliminated for the time being. Diuretic therapy may need to be reinstated if he is developing fluid retention. Would also like to try to mitigate his tachycardia. Beta-blockers seem relatively contraindicated with his history of asthma. Therefore, we will try short-acting diltiazem 30 mg b.i.d. to start with. I had a discussion with the patient regarding his aortic valve and the fact that there is no medical therapy that can affect his valve function and that procedural-based therapies are the only option. While he is certainly cognitively intact, he does not appear physically robust enough to tolerate a surgical aortic valve replacement. I would expect that he is a candidate for transcatheter aortic valve replacement. However, this decision will ultimately be left up to his care providers in the [facility] system. /[id number]/MODL MTDD
[2016-12-11] MEDS ORDERED: LEVALBUTEROL 1.25 MG/3 ML DEYVIAL IH PRN (15:50)
[2016-12-11] MEDS: predniSONE 5 MG TAB PO SCH (18:19)
[2016-12-11] MEDS: CALCIUM CARBONATE 500 MG CHEWABLE TAB PO PRN ×2 (18:21→20:33)
[2016-12-11] MEDS: ACETAMINOPHEN 500 MG TAB PO PRN (20:33)
[2016-12-12 04:45] LABS: HEMATOCRIT 29.1 % (40.0-51.0); HEMOGLOBIN 9.4 g/dL (13.7-17.5); MEAN CELL HEMOGLOBIN 32.9 pg (27.9-34.1); MEAN CELL HEMOGLOBIN CONCENTR. 32.3 g/dL (32.4-36.7); MEAN CELL VOLUME 101.7 fL (81.5-99.8); RED BLOOD CELL COUNT 2.86 10^6/uL (4.40-6.38); RED CELL DISTRIBUTION WIDTH 15.5 % (11.5-15.2)
[2016-12-12 04:53] LABS: ANION GAP 5 mEq/L (8-16); CARBON DIOXIDE 26 mEq/l (22-31); CHLORIDE 104 mEq/L (97-110); GLUCOSE 111 mg/dL (70-100); POTASSIUM 4.1 mEq/L (3.5-5.2); SODIUM 135 mEq/L (134-144)
[2016-12-12 04:54] LABS: CALCIUM 10.2 mg/dL (8.5-10.4); CREATININE 0.9 mg/dL (0.7-1.3); GLOMERULAR FILTRATION RATE > 60
[2016-12-12] MEDS: Mometasone/Formoterol [Dulera 200 Mcg/5 Mcg Inhaler] IH SCH ×2 (07:59→20:06)
[2016-12-12] MEDS: TEARS/DEXTRAN 70/HYPROMELLOSE 15 ML OPHT.BTL EACHEYE PRN (07:59)
[2016-12-12] MEDS: predniSONE 5 MG TAB PO SCH ×2 (09:05→18:01)
[2016-12-12] MEDS: MONTELUKAST SODIUM 10 MG TAB PO SCH (09:05)
[2016-12-12] MEDS: DILTIAZEM 30 MG TAB PO SCH ×2 (09:05→21:02)
[2016-12-12] MEDS: PANTOPRAZOLE SODIUM 40 MG TAB PO SCH (09:06)
[2016-12-12] MEDS: traMADol 50 MG TAB PO SCH ×2 (09:06→21:01)
[2016-12-12] MEDS: LEFLUNOMIDE 20 MG TAB PO SCH (09:06)
[2016-12-12] MEDS: CALCIUM CARB W/VIT D 500 MG TAB PO SCH (09:06)
[2016-12-12] MEDS: PRESERVISION AREDS2 FORMULA EYE VIT 1 EACH PO SCH (09:06)
[2016-12-12] MEDS: GABAPENTIN 100 MG CAP PO SCH ×2 (09:06→21:02)
[2016-12-12] MEDS: ALBUTEROL 200 PUFFS/18 GM MDI IH PRN ×2 (09:07→20:06)
[2016-12-12] MEDS: ENOXAPARIN 40 MG/0.4 ML SYR SC SCH (09:07)
[2016-12-12] MEDS: FLUTICASONE NASAL 120 SPRAYS/16 GM MDI EACHNARE SCH (09:07)
--- NOTE | 2016-12-12 10:32 | SOAPPROG ---
SOAP Progress Note Assessment/Plan: Assessment: 1. Probable community-acquired pneumonia with sepsis syndrome, hypotension and symptoms of weakness and possible syncope. Currently improved and normotensive (actually hypertensive) following antibiotic therapy and withholding of his antihypertensive therapy. 2. Valvular heart disease. By echocardiography has moderate to severe aortic stenosis. His ejection fraction is preserved. Historically he has been asymptomatic likely due to the moderate nature of his valvular heart disease and his reduced activity level. 3. Mild troponin elevation. This may be related to decrease coronary perfusion in the setting of aortic stenosis and hypotension. Obstructive epicardial coronary disease cannot be excluded at this time. 4. Abnormal ECG. This indicates a right bundle branch block. Additionally, he has ST/T changes that may suggest ischemia. 5. Reactive airway disease. He has a longstanding history of asthma. Currently at his baseline. 6. Hypertension. As an outpatient treated with a losartan/hydrochlorothiazide. More recently, during this hospitalization, antihypertensive medications have been held in the setting of sepsis. He currently appears to be hypertensive now that he is improving. 7. Chronic by pedal edema. 8. Frailty/debilitation. He is wheelchair bound possibly as a result of severe spinal disease. Today he appears to be much improved than at the time of his admission. His hemodynamics have improved he states he feels back to his baseline. As of yet a specific organism has not been identified. His white blood cell count does appear to also be improving. In talking to him, at his baseline, it does not sound as if he has experienced symptoms referable to a specific cardiovascular problem. Plan: 1. At this point, I think that we can carefully restart his antihypertensive medications. Given the recent addition of diltiazem it may be most prudent to restart his losartan in the absence of diuretic therapy. We can reassess his need for diuretics here in the near future. 2. In light of his troponin elevation, consideration should be given to the addition of low-dose aspirin. 3. As an outpatient, further workup can be considered to include noninvasive assessment for underlying ischemic heart disease. 4. At this point in time, it is not clear whether not he truly needs to undergo some form of procedure to alleviate his moderate to severe aortic stenosis. He , at [facility], does not appear to be a good candidate for SAVR however may be a candidate for TAVR. Clearly, in the absence of symptoms referable to his valvular heart disease he could be managed conservatively with just a strategy of watchful waiting. 5. Will follow along with you. 12/12/16 10:37 Subjective: The patient was seen and examined. His chart was reviewed. He was admitted with severe weakness and possibly an episode of syncope. He was found to be mildly hypotensive and tachycardic. His workup indicates that he very likely has a left lower lobe pneumonia with sepsis syndrome. Additionally, his echocardiogram indicates that he has moderate to severe aortic stenosis and he had a very mild troponin elevation. He was seen in consultation by Dr. Tremayne Hollis. The patient has been treated with intravenous antibiotics. He has been placed on a low-dose of diltiazem in light of his tachycardia. Today states he feels much better. He states he feels back to his baseline. He specifically denies cough, sputum production and dyspnea. He has chronic lower extremity edema which is stable and has been present now for many years. He is debilitated, very weak and wheelchair bound at his baseline. He is followed through [facility]. He states he has not seen a educational assistant in the past and has no diagnosed cardiovascular disease. He does, however, have a history of murmur. Objective: Vital Signs Temp Pulse Resp BP Pulse Ox 36.4 C 91 22 H 167/87 H 95 12/12/16 08:00 12/12/16 08:00 12/12/16 08:00 12/12/16 08:00 12/12/16 08:00 Microbiology 12/11/16 11:30 - Final Sputum, Expectorated Laboratory Results 12/12/16 03:17 12/12/16 03:17 12/11/16 12/12/16 12/13/16 05:59 05:59 05:59 Intake Total 2550 1510 365 Output Total 1450 750 550 Balance 1100 760 -185 PT 12.4 SEC (12.0-15.0) 12/10/16 10:40 INR 0.93 (0.83-1.16) 12/10/16 10:40 Physical Exam - Physical Exam General Appearance: WD/WN, no apparent distress Neck: non-tender Respiratory: lungs clear, decreased breath sounds (Diffusely) Cardiac/Chest: edema (Pitting edema noted bilaterally to the level of the mid johnson), tachycardia, systolic murmur (2/6 late peaking systolic ejection murmur) , No gallop, No JVD, No extra beats Peripheral Pulses: 2+: carotid (R), carotid (L) Abdomen: non-tender, soft Male Genitalia: deferred Rectal: deferred Neuro/Psych: alert, oriented x 3 ICD10 Worksheet Patient Problems: Problems Problem Status Onset Left hip pain Acute Hip pain Acute Pneumonia Acute Syncope Acute Pneumonia Acute
[2016-12-12] MEDS: CALCIUM CARBONATE 500 MG CHEWABLE TAB PO PRN ×2 (13:18→21:10)
[2016-12-12] MEDS ORDERED: LACTULOSE 20 GM/30 ML UDCUP PO PRN (15:48)
[2016-12-12] MEDS ORDERED: BISACODYL 10 MG SUPP PR PRN (15:48)
[2016-12-12] MEDS ORDERED: MAGNESIUM HYDROXIDE 30 ML UDCUP PO PRN (15:48)
[2016-12-12] MEDS ORDERED: POLYETHYLENE GLYCOL 3350 17 GM PKT PO PRN (15:48)
--- NOTE | 2016-12-12 15:51 | HOSPPROG ---
Hospitalist Progress Note Assessment/Plan: Assessment: 81-year-old male presents with sepsis in the setting of pneumonia resulting in syncope in the setting of moderate to severe aortic stenosis Plan: #Sepsis: Present on admission, with hypotension, lactic acidosis, leukocytosis , tachycardia, clear source of infection, resulting in autonomic dysregulation in the setting of infection, meeting all ICDS-3 criteria #PNA: LML infiltrate on CXR, Cont Levaquin given PCN allergy. Sputum, blood cultures pending #Acute metabolic/Lactic acidosis: due to infection. Resolved with IVFs #Indeterminate trop: likely demand with underlying , but ST depressions lateral leads #Mod-severe : caution with preload, hold diuretic -d/w Dr. Nichols, he recommends adding ARB now and gauge BP response #Sinus tachycardia: on EKG w/ RBBB (personally interpreted), likely 2/2 pre- load dependence of -cont dilt 30mg bid #Hypertension: reintroduced ARB #Chronic leg wounds: R>L. Pressure injury over right ant leg. Min redness, no warmth. Wound care to eval #LE edema: lorrie stockings, holding diuretic 2/2 #RA w/ chronic immunosuppression: cont pred #Diet: regular #DVT ppx: Lovenox #Disp: ADD 12/13, pending tolerance of Rx changes Subjective: Patient reports he has not had a bowel movement Objective: Vital Signs Temp Pulse Resp BP Pulse Ox 36.6 C 91 16 125/74 H 96 12/12/16 12:00 12/12/16 13:59 12/12/16 12:00 12/12/16 13:59 12/12/16 12:00 Microbiology 12/11/16 11:30 - Final Sputum, Expectorated Laboratory Results 12/12/16 03:17 12/12/16 03:17 12/11/16 12/12/16 12/13/16 05:59 05:59 05:59 Intake Total 2550 1510 365 Output Total 1450 750 550 Balance 1100 760 -185 PT 12.4 SEC (12.0-15.0) 12/10/16 10:40 INR 0.93 (0.83-1.16) 12/10/16 10:40 - Physical Exam Constitutional: no apparent distress, not in pain, chronically ill appearing, No uncomfortable Cardiovascular: systolic murmur (IV/ at RSB), JVD, tachycardia, edema (1+ bilat LE), No irregularly irregular Respiratory: reduced air movement (L mid/base w/o aegophony), No expiratory wheeze, No bronchial breath sounds, No respiratory distress Gastrointestinal: normoactive bowel sounds, soft, non-tender abdomen, no palpable masses Neurologic: AAOx3, sensation intact bilaterally, No weakness (motor 5/5 bilat LE ), No facial droop Psychiatric: interacting appropriately, not anxious, not encephalopathic, thought process linear ICD10 Worksheet Patient Problems: Problems Problem Status Onset Pneumonia Acute Syncope Acute Hip pain Acute Left hip pain Acute Pneumonia Acute
[2016-12-12] MEDS: LOSARTAN POTASSIUM 50 MG TAB PO SCH (18:01)
[2016-12-12] MEDS: SENNOSIDES/DOCUSATE SODIUM TAB PO SCH ×2 (18:01→21:01)
[2016-12-12] MEDS: ACETAMINOPHEN 500 MG TAB PO PRN (21:01)
[2016-12-13 04:10] LABS: % IMMATURE GRANULYOCYTES 2.4 % (0.0-1.1); ABSOLUTE IMMATURE GRANULOCYTES 0.19 10^3/uL (0.00-0.10); ADD DIFF? NO; ADD MORPH? NO; ADD SCAN? NO; ATYPICAL LYMPHOCYTE FLAG 0 (0-99); FRAGMENT RBC FLAG 0 (0-99); HEMATOCRIT 30.2 % (40.0-51.0); HEMOGLOBIN 9.6 g/dL (13.7-17.5); LEFT SHIFT FLG 20 (0-99); LIPEMIA HEMOLYSIS FLAG 80 (0-99); MEAN CELL HEMOGLOBIN 32.4 pg (27.9-34.1); MEAN CELL HEMOGLOBIN CONCENTR. 31.8 g/dL (32.4-36.7); MEAN PLATELET VOLUME 10.2 fL (8.7-11.7); PLATELET CLUMPS FLAG 0 (0-99); PLATELET COUNT 229 10^3/uL (150-400); RED BLOOD CELL COUNT 2.96 10^6/uL (4.40-6.38); RED CELL DISTRIBUTION WIDTH 15.3 % (11.5-15.2)
[2016-12-13 04:57] LABS: ANION GAP 8 mEq/L (8-16); CALCIUM 9.7 mg/dL (8.5-10.4); CARBON DIOXIDE 23 mEq/l (22-31); CHLORIDE 106 mEq/L (97-110); CREATININE 0.8 mg/dL (0.7-1.3); GLOMERULAR FILTRATION RATE > 60; GLUCOSE 100 mg/dL (70-100); POTASSIUM 4.3 mEq/L (3.5-5.2); SODIUM 137 mEq/L (134-144)
[2016-12-13] MEDS ORDERED: ASPIRIN EC 81 MG TAB PO SCH (09:00)
[2016-12-13] MEDS: Mometasone/Formoterol [Dulera 200 Mcg/5 Mcg Inhaler] IH SCH (09:06)
[2016-12-13] MEDS: ALBUTEROL 200 PUFFS/18 GM MDI IH PRN (09:07)
[2016-12-13] MEDS: PRESERVISION AREDS2 FORMULA EYE VIT 1 EACH PO SCH (09:44)
[2016-12-13] MEDS: MONTELUKAST SODIUM 10 MG TAB PO SCH (09:44)
[2016-12-13] MEDS: LEFLUNOMIDE 20 MG TAB PO SCH (09:44)
[2016-12-13] MEDS: DILTIAZEM 30 MG TAB PO SCH (09:44)
[2016-12-13] MEDS: GABAPENTIN 100 MG CAP PO SCH (09:44)
[2016-12-13] MEDS: predniSONE 5 MG TAB PO SCH (09:45)
[2016-12-13] MEDS: PANTOPRAZOLE SODIUM 40 MG TAB PO SCH (09:45)
[2016-12-13] MEDS: CALCIUM CARB W/VIT D 500 MG TAB PO SCH (09:45)
[2016-12-13] MEDS: SENNOSIDES/DOCUSATE SODIUM TAB PO SCH (09:45)
[2016-12-13] MEDS: FLUTICASONE NASAL 120 SPRAYS/16 GM MDI EACHNARE SCH (09:46)
[2016-12-13] MEDS: LOSARTAN POTASSIUM 50 MG TAB PO SCH (09:46)
[2016-12-13] MEDS: ENOXAPARIN 40 MG/0.4 ML SYR SC SCH (09:46)
[2016-12-13] MEDS: traMADol 50 MG TAB PO SCH (09:48)
--- NOTE | 2016-12-13 11:06 | WOCRNPDOC ---
WOCRN Advanced Assessment Note - Skin Integrity Problem, Advanced Assess Right Anterior Lower Leg Venous Stasis Ulcer Dressing Type: Allevyn Life Dressing Description: Intact Exudate Amount: Minimal Exudate Color: Reddish/Yellow Exudate Characteristic(s): Serosanguinous Integumentary Issue Intervention: Visualized Under Dressing Lisa Wound Tissue: Erythema (discrete, still w/in original markings), Swollen (+ 1 pitting edema throughout RLE per baseline) Lisa Wound Swelling: Mild Wound Bed Color: Red, Yellow Wound Bed Constitution: Smooth Tissue (non-granulating), Adhered Slough, Loose Slough Wound Edges: Irregular Site Odor: None Skin Integrity Problem Comment: Previously dry, adhered necrotic tissue in wound is now softening and loosening. Removed some slough from wound w/ NS and gauze, and recommend continuing w/ topical tx to maintain autolysis. There is still some mild and distinct lisa-wound erythema previously marked on 12/12, still w/in original confines. Otherwise, patient's RLE is edematous per baseline. We discussed the importance of ongoing, consistent compression. Patient has compression stocking at home, and will be dc'd w/ set of Spandagrip stockings supplied to him by wound care. Right Posterior Lower Leg Venous Stasis Ulcer Dressing Type: Open to Air Exudate Amount: Scant Exudate Characteristic(s): Dried Lisa Wound Tissue: Swollen (+1 edema throughout RLE) Wound Bed Constitution: Adhered Slough Wound Edges: Irregular Site Odor: None Skin Integrity Problem Comment: No dressing over this wound presently, and wound bed is dry, dessicated. Remains slough-filled per initial assessment. No erythema noted lisa-wound, and edema in this extremity is per baseline. Notified television camera operator Shana, who will apply dressing per order before patient dc's today. Recommend ongoing wound care via home health, as patient reports this is chronic.
[2016-12-13 11:25] VITALS: BP 127/70; PULSE 108; RESP 20; TEMP 97.4; O2SAT 95
--- NOTE | 2016-12-13 12:34 | PDIAF ---
- Diagnosis Diagnosis: Pneumonia, Sepsis, Moderate-Severe Aortic Stenosis Code Status: Full Code - Medication Management Discharge Medications: Medications to Continue on Transfer Fluticasone Nasal [Flonase Nasal [place]] 2 sprays EACHNARE DAILY 05/23/15 [Last Taken 12/10/16 07:00] Leflunomide [Arava 20 mg (*)] 20 mg PO DAILY 05/23/15 [Last Taken 12/10/16 07:00 ] Montelukast Sodium [Singulair 10 mg (*)] 10 mg PO DAILY 05/23/15 [Last Taken 07:00] predniSONE 5 mg PO BIDMEAL 05/23/15 [Last Taken 12/09/16 18:00] Omeprazole 20 mg PO DAILY 01/02/16 [Last Taken 12/10/16 07:00] Acetaminophen [Tylenol ES 500 mg (*)] 500 mg PO TID PRN 12/10/16 [Last Taken 07:00] Albuterol Sulfate [Ventolin Hfa] 2 puffs IH Q6HRS PRN 12/10/16 [Last Taken 12/09] C/E/Zn/Cu/OM3/DHA/EPA/LUT/ZEAX [Preservision Areds 2 Softgel] 1 each PO DAILY [Last Taken 12/10/16 07:00] Calcium Carb W/Vit D [Calcium Carb W/Vit D 500/200 (*)] 1,000 mg PO DAILY [Last Taken 12/10/16 07:00] Gabapentin [Neurontin 100 MG (*)] 100 mg PO BID 12/10/16 [Last Taken 12/10/16 07 :00] Mometasone/Formoterol [Dulera 200 Mcg/5 Mcg Inhaler] 2 gm IH BID 12/10/16 [Last Taken 12/10/16 07:00] traMADol [Ultram 50 mg (*)] 50 mg PO BID 12/10/16 [Last Taken 12/10/16 07:00] Aspirin EC [Aspirin EC 81 mg (*)] 81 mg PO DAILY #30 tab 12/13/16 [Last Taken Unknown] Diltiazem [Cardizem Ir Q6hr] 30 mg PO Q12HRS #60 tab 12/13/16 [Last Taken Unknown] Losartan Potassium [Cozaar 50 mg (*)] 50 mg PO DAILY #30 tab 12/13/16 [Last Taken Unknown] levOFLOXACIN [Levofloxacin] 750 mg PO DAILY #2 tablet 12/13/16 [Last Taken Unknown] Intermediate Antibiotics: Levofloxacin 750mg daily PO [employer] Antibiotic Stop Date: 12/15/16 Discharge Medications: Refer to the Discharge Home Medication list for PRN reason. PICC Care - Routine: N/A - Orders Services needed: Home Care, Registered Nurse (see wound care instructions) Home Care Face to Face: I certify that this patient was under my care and that I had the required rrho-gi-snen encounter meeting the encounter requirements on the discharge day. My findings support the fact that the patient is homebound as defined in CMS Chapter 7 Medicare Benefits Manual 30.1.1, The condition of the patient is such that there exists a normal inability to leave home and consequently, leaving home would require a considerable and taxing effort. Diet Recommendation: cardiac -low fat low salt Weigh Patient: weekly Chow: Not applicable Wound Care Instructions: Wound care orders for wounds on RLE, both anterior and posterior: to be done every 3 days and PRN. 1) cleanse w/ NS and gauze. 2) apply skin prep to lisa-wound skin. 3) apply Therahoney gel to wound bed. 4) cover w/ Telfa non-adherent pad (this prevents honey from being absorbed by the outer dressing). 5) cover w/ Allevyn Life dressing. Please apply compression stockings in a.m., and remove at bedtime. - Follow Up Care Current Providers and Referrals: PARIS SAUCEDO [Other] - As per Instructions
--- NOTE | 2016-12-13 14:31 | PDDCSUM ---
Discharge Summary Discharge Summary: DISCHARGE SUMMARY FOLLOW-UP ITEMS: Outpatient [facility] appointment DATE OF ADMISSION: 12/10/16 DATE OF DISCHARGE: 12/13/16 DISCHARGE DIAGNOSES: 1. Sepsis present on admission 2. Left middle lobe pneumonia 3. Acute metabolic acidosis 4. Abnormal troponin level 5. Moderate to severe aortic stenosis 6. Sinus tachycardia 7. Chronic hypertension 8. Chronic lower extremity wounds present on admission 9. Rheumatoid arthritis with chronic immunosuppression CONSULTATIONS: Cardiology PROCEDURES / IMAGING: Echocardiogram demonstrating moderate to severe aortic stenosis CHIEF COMPLAINT: Acute syncope SUBJECTIVE: Patient is feeling well at time discharge, he is ambulating safely PHYSICAL EXAM ON DISCHARGE: Systolic blood pressure is 120-140, heart rate 70-110, satting well on room air , no expiratory wheezes on lung exam, slightly reduced air movement in left base and posterior mid segment LABS ON DISCHARGE: Creatinine 0.8, potassium 4.3, white blood count 7800, hemoglobin 9.6 HOSPITAL COURSE BY PROBLEM: 1. Sepsis present on admission. Evidenced by hypotension, lactic acidosis, leukocytosis, tachycardia, clear source of infection, all of which resulting in autonomic dysregulation in the setting of infection, meeting all ICDS-3 criteria. Patient received empiric IV fluids and IV antibiotics. Hypotension resolved, lactic acidosis resolved, leukocytosis resolved. 2. Pneumonia. Left middle lobe infiltrate on chest x-ray responded well to levofloxacin, prescribed due to penicillin allergy, will complete a 5 day course of antibiotics. 3. Acute metabolic acidosis. Secondary to lactic acid secondary to hypoperfusion in the setting of infection, resolved with IV fluids and treatment of infection. 4. Abnormal troponin. Most likely secondary to supply demand mismatch in the setting of aortic stenosis. It was recommended that the patient initiate aspirin 81 mg daily. 5. Moderate to severe aortic stenosis. Given patient's poor baseline functional status, surgical recommendations should be made in the outpatient setting once he is improved from his acute illness. He did not demonstrate any evidence of congestive heart failure and we decided to discontinue his diuretic given that it will reduce preload. He was experiencing sinus tachycardia which is most likely augmenting his cardiac output, and we decided to provide him with low-dose calcium channel manav to slightly slow his rate but not to overly suppressed. He should follow up with outpatient Cardiology through [facility]. 6. Chronic hypertension. Patient's blood pressure was within range after reintroducing lower-dose ARB. 7. Chronic lower extremity wounds. Present on admission, right greater than left, pressure injury over the right anterior leg, wound care recommendations provided to home RN. 8. Rheumatoid arthritis with chronic immunosuppression. Patient was continued on his home dosage of prednisone. DISCHARGE MEDICATIONS: Please see official discharge medication reconciliation sheet in chart , losartan reduced to 50 mg daily, diltiazem 30 mg twice daily added, aspirin 81 mg daily added, hydrochlorothiazide discontinued, levofloxacin 750 mg daily for 2 subsequent days. DISCHARGE INSTRUCTIONS: Please follow-up with your primary care provider at [facility] and get an outpatient cardiology consultation. TIME SPENT: Greater than 30 minutes were spent on direct patient care, as well as discharge planning and preparation.
== END 2016-12-13 16:39 | disposition home health service (06) | DRG 871 ==
LOC: F2W 15:09
PROVIDERS: ADMIT Internal Medicine Pulmonary Disease; ATTEND Internal Medicine Pulmonary Disease
DX: A41.9 Sepsis, unspecified organism (principal); J18.8 Other pneumonia, unspecified organism; E87.2 Acidosis; I35.0 Nonrheumatic aortic (valve) stenosis; I10 Essential (primary) hypertension; M06.9 Rheumatoid arthritis, unspecified; Z99.3 Dependence on wheelchair; K21.9 Gastro-esophageal reflux disease without esophagitis; M51.26 Other intervertebral disc displacement, lumbar region; J45.909 Unspecified asthma, uncomplicated; Z85.46 Personal history of malignant neoplasm of prostate
CPT/HCPCS: 87449-90; 92526-GN; 92610-GN; 96365; 96366; 97161-GP; 97165-GO; 97530-GP; 97535-GO; G8978-GP-CK; G8979-GP-CK; G8996-GN-CJ; G8997-GN-CH; G8998-GN-CI; J1650; J1956

== ENCOUNTER 2017-01-06 15:21 | Observation (INO) | payer OTHER ==
[2017-01-06] MEDS ORDERED: NS 1,000 ML IV ONE (17:24)
[2017-01-06 17:57] LABS: % IMMATURE GRANULYOCYTES 1.7 % (0.0-1.1); ABSOLUTE IMMATURE GRANULOCYTES 0.21 10^3/uL (0.00-0.10); ADD DIFF? NO; ADD MORPH? NO; ADD SCAN? NO; ATYPICAL LYMPHOCYTE FLAG 0 (0-99); FRAGMENT RBC FLAG 0 (0-99); HEMATOCRIT 39.5 % (40.0-51.0); HEMOGLOBIN 12.3 g/dL (13.7-17.5); LEFT SHIFT FLG 10 (0-99); LIPEMIA HEMOLYSIS FLAG 80 (0-99); MEAN CELL HEMOGLOBIN 32.6 pg (27.9-34.1); MEAN CELL HEMOGLOBIN CONCENTR. 31.1 g/dL (32.4-36.7); MEAN CELL VOLUME 104.8 fL (81.5-99.8); MEAN PLATELET VOLUME 9.7 fL (8.7-11.7); PLATELET CLUMPS FLAG 0 (0-99); PLATELET COUNT 338 10^3/uL (150-400); RED BLOOD CELL COUNT 3.77 10^6/uL (4.40-6.38)
--- NOTE | 2017-01-06 18:00 | EDPHY ---
HPI/HX/ROS/PE/MDM Narrative: CHIEF COMPLAINT: Abdominal cramping, constipation HPI: The patient is a 81 y/o male complaining of intermittent abdominal cramping and constipation for the last day. He was admitted last month for pneumonia and sepsis. He describes attempting to have a bowel movement more than 20 times today without success. His last bowel movement was two days ago. He tried using a suppository without improvement. He notes his BP was elevated at 170/110 and his HR was elevated at 115 today. He denies any blood in his stool, dysuria, vomiting. REVIEW OF SYSTEMS: Aside from elements discussed in the HPI, a comprehensive 10-point review of systems was reviewed and is negative. Baseline leg swelling. PMH: Remote history of prostate cancer 30 years ago post surgery, GERD, L4-L5 herniation, chronic lower extremity edema, asthma, rheumatoid arthritis, recent sepsis and pneumonia admission 12/10/16, severe aortic stenosis, hypertension, chronic lower extremity wounds. SOCIAL HISTORY: Nonsmoker. No alcohol. Lives with at [facility]. [place] patient. PHYSICAL EXAM: General:Patient is alert, in no acute distress. ENT:Eyes are normal to inspection. ENT inspection normal. Neck: Normal inspection. Full range of motion. Respiratory:No respiratory distress. Breath sounds normal bilaterally. Cardiovascular: Regular rate and rhythm. 3/6 systolic murmur. Strong peripheral pulses. Normal cap refill. Abdomen:The abdomen is nontender to palpation. There are no peritoneal signs. There are normal bowel sounds. Back: Normal to inspection. No tenderness to palpation. Skin: Normal color. No rash. Warm and dry. Extremities: Normal appearance. Full range of motion. 3+ pedal edema bilaterally. Neuro: Oriented x3. Normal motor function. Normal sensory function. ED Course: IV established. Labs drawn. UA ordered. Abdominal x-ray ordered. 1L IV NS administered. X-ray shows constipation. Troponin is elevated 0.128, an increase from his last visit. The 12 lead EKG was interpreted by myself. See hard copy and/or "tracemaster" electronic copy for interpretation. Reassessed patient and discussed work up with him and his son at bedside. I spoke with them at length regarding his elevated troponin, but he declined further work up for this. Plan for enema here and discharge home. 2109: Patient had a successful bowel movement following enema, but has opted to be admitted for his elevated troponin. 2117: Spoke with hospitalist service. Dr. Moser accepts admission. - Data Points Imaging Results: Imaging Impressions Abdomen X-Ray 01/06/17 17:53 Impression: 1. Constipation. 2. Small left pleural effusion versus left basilar pleural-parenchymal scarring. Imaging: I viewed and interpreted images myself Laboratory Results: Laboratory Results 01/06/17 17:38 01/06/17 17:38 01/06/17 01/06/17 01/06/17 18:53 17:38 17:38 WBC 12.56 10^3/uL H 10^3/uL (3.80-9.50) RBC 3.77 10^6/uL L 10^6/uL (4.40-6.38) Hgb 12.3 g/dL L g/dL (13.7-17.5) Hct 39.5 % L % (40.0-51.0) MCV 104.8 fL H fL (81.5-99.8) MCH 32.6 pg pg (27.9-34.1) MCHC 31.1 g/dL L g/dL (32.4-36.7) RDW 16.0 % H % (11.5-15.2) Plt Count 338 10^3/uL 10^3/uL (150-400) MPV 9.7 fL fL (8.7-11.7) Neut % (Auto) 77.1 % H % (39.3-74.2) Lymph % (Auto) 12.0 % L % (15.0-45.0) [place] % (Auto) 8.6 % % (4.5-13.0) Eos % (Auto) 0.2 % L % (0.6-7.6) Baso % (Auto) 0.4 % % (0.3-1.7) Nucleat RBC Rel Count 0.0 % % (0.0-0.2) Absolute Neuts (auto) 9.69 10^3/uL H 10^3/uL (1.70-6.50) Absolute Lymphs (auto) 1.51 10^3/uL 10^3/uL (1.00-3.00) Absolute Monos (auto) 1.08 10^3/uL H 10^3/uL (0.30-0.80) Absolute Eos (auto) 0.02 10^3/uL L 10^3/uL (0.03-0.40) Absolute Basos (auto) 0.05 10^3/uL 10^3/uL (0.02-0.10) Absolute Nucleated RBC 0.00 10^3/uL 10^3/uL (0-0.01) Immature Gran % 1.7 % H % (0.0-1.1) Immature Gran # 0.21 10^3/uL H 10^3/uL (0.00-0.10) Sodium 139 mEq/L mEq/L (134-144) Potassium 4.3 mEq/L mEq/L (3.5-5.2) Chloride 104 mEq/L mEq/L (97-110) Carbon Dioxide 24 mEq/l mEq/l (22-31) Anion Gap 11 mEq/L mEq/L (8-16) BUN 25 mg/dL H mg/dL (7-23) Creatinine 0.8 mg/dL mg/dL (0.7-1.3) Estimated GFR > 60 Glucose 100 mg/dL mg/dL (70-100) Calcium 9.9 mg/dL mg/dL (8.5-10.4) Total Bilirubin 0.7 mg/dL mg/dL (0.1-1.4) Conjugated Bilirubin 0.2 mg/dL mg/dL (0.0-0.5) Unconjugated Bilirubin 0.5 mg/dL mg/dL (0.0-1.1) AST 32 IU/L IU/L (17-59) ALT 43 IU/L IU/L (21-72) Alkaline Phosphatase 100 IU/L IU/L (38-126) Troponin I 0.128 ng/mL H ng/mL (0.000-0.034) Total Protein 6.7 g/dL g/dL (6.3-8.2) Albumin 3.7 g/dL g/dL (3.5-5.0) Lipase 128 IU/L IU/L (23-300) Urine Color PALE YELLOW Urine Appearance CLEAR Urine pH 7.0 (5.0-7.5) Ur Specific [place] 1.008 (1.002-1.030) Urine Protein NEGATIVE (NEGATIVE) Urine Ketones NEGATIVE (NEGATIVE) Urine Blood NEGATIVE (NEGATIVE) Urine Nitrate NEGATIVE (NEGATIVE) Urine Bilirubin NEGATIVE (NEGATIVE) Urine Urobilinogen NEGATIVE EU EU (0.2-1.0) Ur Leukocyte Esterase NEGATIVE (NEGATIVE) Urine Glucose NEGATIVE (NEGATIVE) Medications Given: Discontinued Medications Sodium Chloride (Ns) 1,000 mls @ 0 mls/hr IV EDNOW ONE; Wide Open PRN Reason: Protocol Stop: 01/06/17 17:25 Last Admin: 01/06/17 17:56 Dose: 1,000 mls General Time Seen by Provider: 01/06/17 17:21 Initial Vital Signs: Initial Vital Signs Heart Rate 114 H 01/06/17 16:22 Respiratory Rate 17 01/06/17 16:22 Blood Pressure 165/98 H 01/06/17 16:22 O2 Sat (%) 94 01/06/17 16:22 O2 Delivery Mode Room Air Allergies/Adverse Reactions: Penicillins Allergy (Verified 07/09/16 12:51) Home Medications: Medication Instructions Recorded Fluticasone Nasal [Flonase Nasal 2 sprays EACHNARE DAILY 05/23/15 [place]] Leflunomide [Arava 20 mg (*)] 20 mg PO DAILY 05/23/15 Montelukast Sodium [Singulair 10 10 mg PO DAILY 05/23/15 mg (*)] predniSONE 5 mg PO BIDMEAL 05/23/15 Omeprazole 20 mg PO DAILY 01/02/16 Acetaminophen [Tylenol ES 500 mg 500 mg PO TID PRN 12/10/16 (*)] Albuterol Sulfate [Ventolin Hfa] 2 puffs IH Q6HRS PRN 12/10/16 C/E/Zn/Cu/OM3/DHA/EPA/LUT/ZEAX 1 each PO DAILY 12/10/16 [Preservision Areds 2 Softgel] Calcium Carb W/Vit D [Calcium Carb 1,000 mg PO DAILY 12/10/16 W/Vit D 500/200 (*)] Gabapentin [Neurontin 100 MG (*)] 100 mg PO BID 12/10/16 Mometasone/Formoterol [Dulera 200 2 gm IH BID 12/10/16 Mcg/5 Mcg Inhaler] traMADol [Ultram 50 mg (*)] 50 mg PO BID 12/10/16 Aspirin EC [Aspirin EC 81 mg (*)] 81 mg PO DAILY #30 tab 12/13/16 Diltiazem [Cardizem Ir Q6hr] 30 mg PO Q12HRS #60 tab 12/13/16 Losartan Potassium [Cozaar 50 mg 50 mg PO DAILY #30 tab 12/13/16 (*)] levOFLOXACIN [Levofloxacin] 750 mg PO DAILY #2 tablet 12/13/16 Departure - Departure Disposition: [facility] Inpatient Acute Clinical Impression: Elevated troponin Constipation Qualifiers: Constipation type: other constipation type Qualified Code(s): K59.09 - Other constipation Condition: Good Instructions: Constipation (ED), High Fiber Diet (ED) Additional Instructions: Follow up with your primary care provider for unimproved symptoms over the next 2-3 days. Return to the ED for worsening of condition. Referrals: PARIS SAUCEDO [Other] - As per Instructions Report Scribed for: Noah Simon Report Scribed by: Jessica Byers Date of Report: 01/06/17 Time of Report: 17:25 Physician Review and Approval Statement: Portions of this note were transcribed by an ED scribe. I personally performed the history, physical exam, and medical decision making; and confirm the accuracy of the information in the transcribed note.
[2017-01-06 18:06] LABS: ALANINE AMINOTRANSFERASE 43 IU/L (21-72); ALBUMIN 3.7 g/dL (3.5-5.0); ALKALINE PHOSPHATASE 100 IU/L (38-126); ANION GAP 11 mEq/L (8-16); ASPARTATE AMINOTRANSFERASE 32 IU/L (17-59); BILIRUBIN,TOTAL 0.7 mg/dL (0.1-1.4); BILIRUBIN-CONJUGATED 0.2 mg/dL (0.0-0.5); BILIRUBIN-UNCONJUGATED 0.5 mg/dL (0.0-1.1); CALCIUM 9.9 mg/dL (8.5-10.4); CARBON DIOXIDE 24 mEq/l (22-31); CHLORIDE 104 mEq/L (97-110); CREATININE 0.8 mg/dL (0.7-1.3); GLOMERULAR FILTRATION RATE > 60; GLUCOSE 100 mg/dL (70-100); POTASSIUM 4.3 mEq/L (3.5-5.2); SODIUM 139 mEq/L (134-144); TOTAL PROTEIN 6.7 g/dL (6.3-8.2)
[2017-01-06 18:17] LABS: TROPONIN I 0.128 ng/mL (0.000-0.034)
[2017-01-06 19:07] LABS: COLOR PALE YELLOW; LEUKOCYTE ESTERASE,URINE NEGATIVE (NEGATIVE); NITRITE,URINE NEGATIVE (NEGATIVE)
--- NOTE | 2017-01-06 19:20 | CPEKG ---
Heart Rate: 101 RR Interval: 594 P-R Interval: 140 QRSD Interval: 144 QT Interval: 392 QTC Interval: 509 P Etna: 69 QRS [place]: 97 T Wave [place]: -54 EKG Severity - ABNORMAL ECG - EKG Impression: SINUS TACHYCARDIA EKG Impression: RBBB AND LPFB EKG Impression: PROBABLE INFERIOR INFARCT, AGE INDETERMINATE EKG Impression: PROBABLE ANTEROLATERAL INFARCT, OLD Electronically Signed By: Srinath Julio 06-Jan-2017 20:35:31
[2017-01-06] MEDS ORDERED: ACETAMINOPHEN 325 MG TAB PO PRN (23:57)
[2017-01-06] MEDS ORDERED: ONDANSETRON 4 MG/2 ML VIAL IVP PRN (23:57)
[2017-01-06] MEDS ORDERED: ONDANSETRON DISINTEGRATING 4 MG TAB PO PRN (23:57)
--- NOTE | 2017-01-07 01:30 | PDGENHP ---
History and Physical - Chief Complaint Constipation - History of Present Illness 81 yo M w/ HTN and mod-severe presents with one day of abdominal discomfort and constipation. Patient was recently hospitalized for pneumonia. He had been doing well since discharge but over the last day developed abdominal discomfort and constipation. He tried to go to the bathroom several times but was not able to. He came in to ED for evaluation. They checked a troponin, which was elevated at .128, and decided to admit him as a result. He denies any symptoms c /w ACS including CP, SOB, diaphoresis, etc. He received an enema here and that relieved his symptoms. He is now asymptomatic and resting comfortably. History Information - Allergies/Home Medication List Allergies/Adverse Reactions: Penicillins Allergy (Verified 07/09/16 12:51) Home Medications: Fluticasone Nasal [Flonase Nasal [place]] 2 sprays EACHNARE DAILY 05/23/15 [Last Taken 01/06/17] Leflunomide [Arava 20 mg (*)] 20 mg PO DAILY 05/23/15 [Last Taken 01/06/17] Montelukast Sodium [Singulair 10 mg (*)] 10 mg PO DAILY 05/23/15 [Last Taken ] predniSONE 5 mg PO BIDMEAL 05/23/15 [Last Taken 01/06/17] Acetaminophen [Tylenol ES 500 mg (*)] 500 mg PO BID PRN 12/10/16 [Last Taken 06:00] Albuterol Sulfate [Ventolin Hfa] 2 puffs IH Q6HRS PRN 12/10/16 [Last Taken 12/09] C/E/Zn/Cu/OM3/DHA/EPA/LUT/ZEAX [Preservision Areds 2 Softgel] 1 each PO DAILY [Last Taken 01/06/17] Calcium Carb W/Vit D [Calcium Carb W/Vit D 500/200 (*)] 1,000 mg PO DAILY [Last Taken 01/06/17] Gabapentin [Neurontin 100 MG (*)] 100 mg PO BID 12/10/16 [Last Taken 01/06/17] Mometasone/Formoterol [Dulera 200 Mcg/5 Mcg Inhaler] 2 gm IH BID 12/10/16 [Last Taken 12/10/16 07:00] traMADol [Ultram 50 mg (*)] 50 mg PO BID 12/10/16 [Last Taken 01/06/17] Esomeprazole Magnesium [Nexium 24Hr] 20 mg PO DAILY 01/06/17 [Last Taken Unknown ] I have personally reviewed and updated: family history, medical history - Past Medical History hypertension Additional medical history: Aortic stenosis - Family History Positive for: CAD - Social History Smoking Status: Never smoked Alcohol Use: None Drug Use: None Review of Systems Review of Systems: ROS: 10pt was reviewed & negative except for what was stated in HPI & below Physical Exam Physical Exam: Temp Pulse Resp BP Pulse Ox 36.9 C 105 H 20 176/90 H 94 01/06/17 23:42 01/06/17 23:42 01/06/17 23:42 01/06/17 23:42 01/06/17 23:42 Constitutional: no apparent distress, appears nourished Eyes: PERRL, EOMI Ears, Nose, Mouth, Throat: moist mucous membranes, no oral mucosal ulcers Cardiovascular: regular rate and rhythym, systolic murmur (3/6 @ RUSB) Respiratory: no respiratory distress, no rales or rhonchi Gastrointestinal: normoactive bowel sounds, soft, non-tender abdomen Skin: warm, normal color Musculoskeletal: full muscle strength, no muscle tenderness Neurologic: AAOx3, CN II-XII Intact Psychiatric: interacting appropriately, not anxious Lab Data & Imaging Review 01/06/17 17:38 01/06/17 17:38 WBC 12.56 10^3/uL (3.80-9.50) H 01/06/17 17:38 RBC 3.77 10^6/uL (4.40-6.38) L 01/06/17 17:38 Hgb 12.3 g/dL (13.7-17.5) L 01/06/17 17:38 Hct 39.5 % (40.0-51.0) L 01/06/17 17:38 MCV 104.8 fL (81.5-99.8) H 01/06/17 17:38 MCH 32.6 pg (27.9-34.1) 01/06/17 17:38 MCHC 31.1 g/dL (32.4-36.7) L 01/06/17 17:38 RDW 16.0 % (11.5-15.2) H 01/06/17 17:38 Plt Count 338 10^3/uL (150-400) 01/06/17 17:38 MPV 9.7 fL (8.7-11.7) 01/06/17 17:38 Neut % (Auto) 77.1 % (39.3-74.2) H 01/06/17 17:38 Lymph % (Auto) 12.0 % (15.0-45.0) L 01/06/17 17:38 [place] % (Auto) 8.6 % (4.5-13.0) 01/06/17 17:38 Eos % (Auto) 0.2 % (0.6-7.6) L 01/06/17 17:38 Baso % (Auto) 0.4 % (0.3-1.7) 01/06/17 17:38 Nucleat RBC Rel Count 0.0 % (0.0-0.2) 01/06/17 17:38 Absolute Neuts (auto) 9.69 10^3/uL (1.70-6.50) H 01/06/17 17:38 Absolute Lymphs (auto) 1.51 10^3/uL (1.00-3.00) 01/06/17 17:38 Absolute Monos (auto) 1.08 10^3/uL (0.30-0.80) H 01/06/17 17:38 Absolute Eos (auto) 0.02 10^3/uL (0.03-0.40) L 01/06/17 17:38 Absolute Basos (auto) 0.05 10^3/uL (0.02-0.10) 01/06/17 17:38 Absolute Nucleated RBC 0.00 10^3/uL (0-0.01) 01/06/17 17:38 Immature Gran % 1.7 % (0.0-1.1) H 01/06/17 17:38 Immature Gran # 0.21 10^3/uL (0.00-0.10) H 01/06/17 17:38 Sodium 139 mEq/L (134-144) 01/06/17 17:38 Potassium 4.3 mEq/L (3.5-5.2) 01/06/17 17:38 Chloride 104 mEq/L (97-110) 01/06/17 17:38 Carbon Dioxide 24 mEq/l (22-31) 01/06/17 17:38 Anion Gap 11 mEq/L (8-16) 01/06/17 17:38 BUN 25 mg/dL (7-23) H 01/06/17 17:38 Creatinine 0.8 mg/dL (0.7-1.3) 01/06/17 17:38 Estimated GFR > 60 01/06/17 17:38 Glucose 100 mg/dL (70-100) 01/06/17 17:38 Calcium 9.9 mg/dL (8.5-10.4) 01/06/17 17:38 Total Bilirubin 0.7 mg/dL (0.1-1.4) 01/06/17 17:38 Conjugated Bilirubin 0.2 mg/dL (0.0-0.5) 01/06/17 17:38 Unconjugated Bilirubin 0.5 mg/dL (0.0-1.1) 01/06/17 17:38 AST 32 IU/L (17-59) 01/06/17 17:38 ALT 43 IU/L (21-72) 01/06/17 17:38 Alkaline Phosphatase 100 IU/L (38-126) 01/06/17 17:38 Troponin I 0.128 ng/mL (0.000-0.034) H 01/06/17 17:38 Total Protein 6.7 g/dL (6.3-8.2) 01/06/17 17:38 Albumin 3.7 g/dL (3.5-5.0) 01/06/17 17:38 Lipase 128 IU/L (23-300) 01/06/17 17:38 Urine Color PALE YELLOW 01/06/17 18:53 Urine Appearance CLEAR 01/06/17 18:53 Urine pH 7.0 (5.0-7.5) 01/06/17 18:53 Ur Specific [place] 1.008 (1.002-1.030) 01/06/17 18:53 Urine Protein NEGATIVE (NEGATIVE) 01/06/17 18:53 Urine Ketones NEGATIVE (NEGATIVE) 01/06/17 18:53 Urine Blood NEGATIVE (NEGATIVE) 01/06/17 18:53 Urine Nitrate NEGATIVE (NEGATIVE) 01/06/17 18:53 Urine Bilirubin NEGATIVE (NEGATIVE) 01/06/17 18:53 Urine Urobilinogen NEGATIVE EU (0.2-1.0) 01/06/17 18:53 Ur Leukocyte Esterase NEGATIVE (NEGATIVE) 01/06/17 18:53 Urine Glucose NEGATIVE (NEGATIVE) 01/06/17 18:53 Visualized and Interpreted EKG results: Yes EKG Interpretation: Positive for: Q waves (III, AVF), right bundle branch block , ST depression (Lateral leads) Assessment & Plan Assessment: 81 yo M presents with constipation and admitted for elevated troponin. Plan: 1. Elevated troponin - Clinical picture not consistent with ACS. I suspect this elevation represents LV strain in the setting of mod-severe , HTN, and stress from straining to use the bathroom. - Trend enzymes - Monitor on telemetry - Likely ok for outpatient follow-up as long as troponin not rapidly rising and remains symptom free - Continue daily aspirin 2. Mod-severe - Mean/peak gradient 27/48 mm Hg on recent TTE. Denies angina, syncope, dyspnea, and symptoms of heart failure. - [place] outpatient follow-up 3. HTN - On low dose CCB and ARB as outpatient. Will avoid aggressive management noting coexisting . 4. Leukocytosis - No signs or symptoms of infection; monitor. Diet - Regular Code - Full Ppx - LMWH Dispo - Admit to observation
[2017-01-07] MEDS: DILTIAZEM 30 MG TAB PO SCH ×2 (01:47→09:04)
[2017-01-07] MEDS: traMADol 50 MG TAB PO SCH ×2 (01:47→09:04)
[2017-01-07] MEDS: GABAPENTIN 100 MG CAP PO SCH ×2 (01:47→09:05)
[2017-01-07] MEDS: predniSONE 5 MG TAB PO SCH ×2 (01:48→09:06)
[2017-01-07 05:07] LABS: % IMMATURE GRANULYOCYTES 1.5 % (0.0-1.1); ABSOLUTE IMMATURE GRANULOCYTES 0.12 10^3/uL (0.00-0.10); ADD DIFF? NO; ADD MORPH? NO; ADD SCAN? NO; ATYPICAL LYMPHOCYTE FLAG 0 (0-99); FRAGMENT RBC FLAG 0 (0-99); HEMATOCRIT 31.2 % (40.0-51.0); LEFT SHIFT FLG 10 (0-99); LIPEMIA HEMOLYSIS FLAG 80 (0-99); MEAN CELL HEMOGLOBIN CONCENTR. 32.1 g/dL (32.4-36.7); MEAN PLATELET VOLUME 9.9 fL (8.7-11.7); PLATELET CLUMPS FLAG 0 (0-99); PLATELET COUNT 269 10^3/uL (150-400); RED BLOOD CELL COUNT 3.03 10^6/uL (4.40-6.38); RED CELL DISTRIBUTION WIDTH 15.9 % (11.5-15.2)
[2017-01-07 05:39] LABS: ANION GAP 8 mEq/L (8-16); CALCIUM 8.6 mg/dL (8.5-10.4); CARBON DIOXIDE 22 mEq/l (22-31); CHLORIDE 111 mEq/L (97-110); CREATININE 0.7 mg/dL (0.7-1.3); GLOMERULAR FILTRATION RATE > 60; GLUCOSE 63 mg/dL (70-100); POTASSIUM 3.8 mEq/L (3.5-5.2); SODIUM 141 mEq/L (134-144)
[2017-01-07 05:47] LABS: TROPONIN I 0.154 ng/mL (0.000-0.034)
[2017-01-07 08:28] VITALS: BP 116/62; PULSE 90; RESP 17; TEMP 97.7; O2SAT 92
[2017-01-07] MEDS ORDERED: MOMETASONE IH SCH (09:00)
[2017-01-07] MEDS ORDERED: MONTELUKAST SODIUM 10 MG TAB PO SCH (09:00)
[2017-01-07] MEDS ORDERED: FLUTICASONE NASAL 120 SPRAYS/16 GM MDI EACHNARE SCH (09:00)
[2017-01-07] MEDS ORDERED: ENOXAPARIN 40 MG/0.4 ML SYR SC SCH (09:00)
[2017-01-07] MEDS ORDERED: ASPIRIN EC 81 MG TAB PO SCH (09:00)
[2017-01-07] MEDS ORDERED: PANTOPRAZOLE SODIUM 40 MG TAB PO SCH (09:00)
[2017-01-07] MEDS ORDERED: FORMOTEROL IH SCH (09:00)
[2017-01-07] MEDS ORDERED: CALCIUM CARB W/VIT D 500 MG TAB PO SCH (09:00)
[2017-01-07] MEDS ORDERED: LEFLUNOMIDE 20 MG TAB PO SCH (09:00)
[2017-01-07] MEDS ORDERED: LOSARTAN POTASSIUM 50 MG TAB PO SCH (09:00)
[2017-01-07] MEDS ORDERED: PRESERVISION AREDS2 FORMULA EYE VIT 1 EACH PO SCH (09:00)
--- NOTE | 2017-01-07 11:50 | ASMTCMCOM ---
CM Note CM Note Notes: Pt. is an 81-year-old man admitted w/ abdominal discomfort and constipation. Pt. was found to have elevated troponin. Hx. recent PNA. Pt's and son listed in [employer]. Ready for independent d/c today to home. Date Signed: 01/07/2017 11:49 AM Electronically Signed By:Danielle Munoz LCSW
--- NOTE | 2017-01-07 17:04 | ASDISCHSUM ---
Discharge Information Plan Status:Home with No Needs Medically Cleared to Leave: Discharge Date:01/07/2017 12:28 PM CM D/C Disposition:Home, Routine, Self-Care ADT D/C Disposition:Home, Routine, Self-Care Projected Discharge Date:01/07/2017 12:28 PM Transportation at D/C: Discharge Delay Reason: Follow-Up Date:01/07/2017 12:28 PM Discharge Slot: Final Diagnosis: Placement Information Patient Contact Information Contact Name:KIRILL Relationship: Address:[address] [place] Work Phone: [facility] Alternate Phone: [facility]/Zip Code:[place] [address] Email: Financial Information Financial Class:Medicare Advantage Plans Primary Plan Desc:[employer] MEDICARE ADVANTAGE OUTPAT Primary Plan Number:[id number] Secondary Plan Desc: Secondary Plan Number: Assessment Information [facility] CM Progress Note CM Note CM Note Notes: Pt. is an 81-year-old man admitted w/ abdominal discomfort and constipation. Pt. was found to have elevated troponin. Hx. recent PNA. Pt's and son listed in [employer]. Ready for independent d/c today to home. Date Signed: 01/07/2017 11:49 AM Electronically Signed By:Danielle Munoz LCSW Intervention Information
--- NOTE | 2017-01-08 04:14 | GDS ---
[f rep st] DISCHARGE SUMMARY DISCHARGE DIAGNOSES: 1. Constipation. 2. Incidental troponin elevation. 3. Moderate to severe aortic stenosis. 4. Hypertension. HISTORY: The patient is an 81-year-old male who presented with constipation. The emergency room katelyn cked the troponin and found it to be borderline elevated although he never had any chest pain or shor tness of breath symptoms. There was some distress related to this constipation including some hypert ension and tachycardia which was felt to have maybe strained his underlying valvular heart disease. He was observed overnight and he did not have a significant bump in his troponin. He desires to retu rn to the [facility] system and see Cardiology there regarding further management. Given his lack of sym ptoms and lack of significant troponin rise, I do believe this is a subacute to chronic issue that ca n be addressed as an outpatient in a timely manner. They do have an appointment already scheduled [facility] Cardiology as an outpatient. They are aware of the need to return to the emergency room fo r any acute worsening of cardiac concerning symptoms. DISCHARGE MEDICATIONS: Please see computer record for full detailed list. There were no new medicat ions given at the time of hospital discharge. ADDITIONAL DISCHARGE INSTRUCTIONS: 1. Follow up at [facility] as soon as possible regarding aortic stenosis and moderate troponin elevation . 2. Return to emergency room immediately if any chest pain or shortness of breath. Patient was seen and examined by me on the day of discharge. /[id number]/MODL
== END 2017-01-07 12:28 | disposition home or self-care (01) ==
LOC: F2W 22:54
PROVIDERS: ADMIT Internal Medicine; ATTEND Internal Medicine
DX: K59.00 Constipation, unspecified (principal); R79.89 Other specified abnormal findings of blood chemistry; I35.0 Nonrheumatic aortic (valve) stenosis; I10 Essential (primary) hypertension; D72.829 Elevated white blood cell count, unspecified; M06.9 Rheumatoid arthritis, unspecified; K21.9 Gastro-esophageal reflux disease without esophagitis; M51.26 Other intervertebral disc displacement, lumbar region; Z87.01 Personal history of pneumonia (recurrent); Z85.46 Personal history of malignant neoplasm of prostate; Z82.49 Family history of ischemic heart disease and other diseases of the circulatory system; Z88.0 Allergy status to penicillin
CPT/HCPCS: 74000; 93005; G0378; J1650

== ENCOUNTER 2017-01-22 08:31 | Inpatient (IN) | payer OTHER ==
--- NOTE | 2017-01-22 08:59 | CPEKG ---
Heart Rate: 115 RR Interval: 522 P-R Interval: 128 QRSD Interval: 140 QT Interval: 368 QTC Interval: 509 P [place]: 58 QRS [place]: 98 T Wave [place]: -77 EKG Severity - ABNORMAL ECG - EKG Impression: SINUS TACHYCARDIA EKG Impression: VENTRICULAR PREMATURE COMPLEX EKG Impression: RBBB AND LPFB EKG Impression: BORDERLINE INFERIOR Q WAVES EKG Impression: PROBABLE ANTEROLATERAL INFARCT, OLD EKG Impression: ST DEPRESSION, CONSIDER ISCHEMIA, INF LEADS Electronically Signed By: Milena Sullivan 22-Jan-2017 14:26:42
[2017-01-22 09:14] LABS: % IMMATURE GRANULYOCYTES 1.2 % (0.0-1.1); ABSOLUTE IMMATURE GRANULOCYTES 0.12 10^3/uL (0.00-0.10); ADD DIFF? NO; ADD MORPH? NO; ADD SCAN? NO; ATYPICAL LYMPHOCYTE FLAG 0 (0-99); FRAGMENT RBC FLAG 0 (0-99); HEMATOCRIT 35.2 % (40.0-51.0); HEMOGLOBIN 11.1 g/dL (13.7-17.5); LEFT SHIFT FLG 10 (0-99); LIPEMIA HEMOLYSIS FLAG 80 (0-99); MEAN CELL HEMOGLOBIN 32.6 pg (27.9-34.1); MEAN CELL HEMOGLOBIN CONCENTR. 31.5 g/dL (32.4-36.7); MEAN CELL VOLUME 103.5 fL (81.5-99.8); MEAN PLATELET VOLUME 9.7 fL (8.7-11.7); PLATELET CLUMPS FLAG 0 (0-99); PLATELET COUNT 278 10^3/uL (150-400); RED CELL DISTRIBUTION WIDTH 16.1 % (11.5-15.2)
--- NOTE | 2017-01-22 09:14 | EDPHY ---
H & P HPI/ROS: CHIEF COMPLAINT: Shortness of breath, cough, dizzy HISTORY OF PRESENT ILLNESS: Patient is an 81-year-old male with a history of moderate to severe who presents emergency department with increasing cough, shortness of breath and dizziness. The patient states his symptoms started yesterday. He initially had a cough productive of yellow and green sputum. It is now clear. His cough is worsening. He feels mildly dizzy. This is described as off balance. He has no chest pain. Patient describes worsening shortness of breath. He is not on oxygen at home. He has chronic leg edema. This is not worsening. No measured fever but mild chills. No sick contacts at home. Patient states he was recently in the hospital and found to have elevated troponin. After evaluation they felt this was chronically elevated due to his . REVIEW OF SYSTEMS: My complete review of systems is negative except as mentioned in the HPI. Past Medical/Surgical History: Includes , hypertension, asthma, GERD, osteoporosis, peripheral neuropathy, spinal stenosis, radiculopathy, nephrolithiasis, prostate cancer Social history: The patient lives with his Smoking Status: Never smoked Physical Exam: Includes 97.9, 145/85, 122, 20, 93% on room air GENERAL: No acute distress, alert. Occasional cough. HEENT: Eyes normal to inspection, normal pharynx, no signs of dehydration. NECK: No thyromegaly, no lymphadenopathy, supple. RESPIRATORY: Coarse breath sounds bilaterally. Mild rales in the left base. No respiratory distress. CVS: Tachycardia with regular rhythm. Systolic ejection murmur. No rubs, no gallops. ABDOMEN: Soft, nontender, nondistended, no organomegaly. Benign BACK: Normal to inspection, no CVA tenderness. SKIN: Normal color, no rash, warm, dry. No pallor. EXTREMITIES: No pedal edema, no calf tenderness, no Homans sign or cords, no joint swelling. NEURO/PSYCH: Alert and oriented x3, normal mood and affect, normal motor sensory exam. No obvious cranial nerve deficit. Constitutional: Initial Vital Signs Temperature (C) 36.6 C 01/22/17 08:34 Heart Rate 122 H 01/22/17 08:34 Respiratory Rate 20 01/22/17 08:34 Blood Pressure 145/85 H 01/22/17 08:34 O2 Sat (%) 93 01/22/17 08:34 O2 Delivery Mode Room Air Allergies/Adverse Reactions: Penicillins Allergy (Verified 01/22/17 08:33) Home Medications: Medication Instructions Recorded Fluticasone Nasal [Flonase Nasal 2 sprays EACHNARE DAILY 05/23/15 [place]] Leflunomide [Arava 20 mg (*)] 20 mg PO DAILY 05/23/15 Montelukast Sodium [Singulair 10 10 mg PO DAILY 05/23/15 mg (*)] predniSONE 5 mg PO BIDMEAL 05/23/15 Acetaminophen [Tylenol ES 500 mg 500 mg PO BID PRN 12/10/16 (*)] Albuterol Sulfate [Ventolin Hfa] 2 puffs IH Q6HRS PRN 12/10/16 C/E/Zn/Cu/OM3/DHA/EPA/LUT/ZEAX 1 each PO DAILY 12/10/16 [Preservision Areds 2 Softgel] Calcium Carb W/Vit D [Calcium Carb 1,000 mg PO DAILY 12/10/16 W/Vit D 500/200 (*)] Gabapentin [Neurontin 100 MG (*)] 100 mg PO BID 12/10/16 Mometasone/Formoterol [Dulera 200 2 gm IH BID 12/10/16 Mcg/5 Mcg Inhaler] traMADol [Ultram 50 mg (*)] 50 mg PO BID 12/10/16 Aspirin EC [Aspirin EC 81 mg (*)] 81 mg PO DAILY #30 tab 12/13/16 Diltiazem [Cardizem Ir Q6hr] 30 mg PO Q12HRS #60 tab 12/13/16 Losartan Potassium [Cozaar 50 mg 50 mg PO DAILY #30 tab 12/13/16 (*)] Esomeprazole Magnesium [Nexium 20 mg PO DAILY 01/06/17 24Hr] Medical Decision Making - Diagnostics Imaging Results: Imaging Impressions Chest X-Ray 01/22/17 09:17 Impression: 1. Persistent chronic patchy consolidation on the left. Consider chronic aspiration versus infectious etiology possibly associated with fungus, cryptogenic organizing pneumonia, or chronic eosinophilic pneumonia. 2. Stable moderate cardiomegaly. 3. Mild to moderate hiatal hernia. ED Course/Re-evaluation: In the emergency department I discussed possible etiologies with the patient and his son. I answered all his questions. IV was placed. Laboratory studies , chest x-ray and EKG were ordered. I reviewed the patient's previous medical record including his last admission. Sinus tachycardia at 115. Right bundle-branch block and LPFB. Q waes inferiorly. ST depression v4-v6. This is an abnormal EKG. I compared this with an EKG from 01/06/2017. It is similar. Patient's white count is mildly elevated at 10. She is anemic with hematocrit 35. Patient has an elevated troponin of 0.11. This was compared with the previous troponin on 01/07/2017 of 0.143. Patient has elevated BNP at 2600. Her last BNP on 12/10/2016 was 1100. Chest x-ray: Please refer the dictated report. There is persistent chronic patchy consolidation on the left. The radiologist noted that we should consider aspiration versus infectious etiology. Stable cardiomegaly. I discussed the results with the patient and his father. I answered all their questions. I discussed case with the hospitalist service. The patient will be admitted for further observation and care. I discussed case with [facility]. They agreed with the plan for admission. Differential Diagnosis: My differential includes but is not limited to , acute PA, dysrhythmia, pneumonia, bronchitis, CVA, electrolyte abnormality, sugar abnormality - Data Points Laboratory Results: Laboratory Results 01/22/17 09:04 01/22/17 09:04 01/22/17 01/22/17 01/22/17 09:04 09:04 09:04 WBC 10.38 10^3/uL H 10^3/uL (3.80-9.50) RBC 3.40 10^6/uL L 10^6/uL (4.40-6.38) Hgb 11.1 g/dL L g/dL (13.7-17.5) Hct 35.2 % L % (40.0-51.0) MCV 103.5 fL H fL (81.5-99.8) MCH 32.6 pg pg (27.9-34.1) MCHC 31.5 g/dL L g/dL (32.4-36.7) RDW 16.1 % H % (11.5-15.2) Plt Count 278 10^3/uL 10^3/uL (150-400) MPV 9.7 fL fL (8.7-11.7) Neut % (Auto) 83.5 % H % (39.3-74.2) Lymph % (Auto) 8.0 % L % (15.0-45.0) [place] % (Auto) 6.6 % % (4.5-13.0) Eos % (Auto) 0.1 % L % (0.6-7.6) Baso % (Auto) 0.6 % % (0.3-1.7) Nucleat RBC Rel Count 0.0 % % (0.0-0.2) Absolute Neuts (auto) 8.67 10^3/uL H 10^3/uL (1.70-6.50) Absolute Lymphs (auto) 0.83 10^3/uL L 10^3/uL (1.00-3.00) Absolute Monos (auto) 0.69 10^3/uL 10^3/uL (0.30-0.80) Absolute Eos (auto) 0.01 10^3/uL L 10^3/uL (0.03-0.40) Absolute Basos (auto) 0.06 10^3/uL 10^3/uL (0.02-0.10) Absolute Nucleated RBC 0.00 10^3/uL 10^3/uL (0-0.01) Immature Gran % 1.2 % H % (0.0-1.1) Immature Gran # 0.12 10^3/uL H 10^3/uL (0.00-0.10) PT 12.7 SEC SEC (12.0-15.0) INR 0.96 (0.83-1.16) APTT 28.4 SEC SEC (23.0-38.0) Sodium 142 mEq/L mEq/L (134-144) Potassium 3.8 mEq/L mEq/L (3.5-5.2) Chloride 107 mEq/L mEq/L (97-110) Carbon Dioxide 23 mEq/l mEq/l (22-31) Anion Gap 12 mEq/L mEq/L (8-16) BUN 20 mg/dL mg/dL (7-23) Creatinine 0.9 mg/dL mg/dL (0.7-1.3) Estimated GFR > 60 Glucose 94 mg/dL mg/dL (70-100) Calcium 9.4 mg/dL mg/dL (8.5-10.4) Troponin I 0.110 ng/mL H ng/mL (0.000-0.034) NT-Pro-B Natriuret Pep 2600 pg/mL H pg/mL (0-450) Lipase 71 IU/L IU/L (23-300) TSH 1.030 uIU/mL uIU/mL (0.465-4.680) Departure - Departure Disposition: [facility] Inpatient Acute Clinical Impression: Dizziness, Elevated troponin, Abnormal chest x-ray, Anemia Condition: Good Referrals: PARIS ALEXIS [Other] - As per Instructions
[2017-01-22 09:22] LABS: ANION GAP 12 mEq/L (8-16); CALCIUM 9.4 mg/dL (8.5-10.4); CARBON DIOXIDE 23 mEq/l (22-31); CHLORIDE 107 mEq/L (97-110); CREATININE 0.9 mg/dL (0.7-1.3); GLOMERULAR FILTRATION RATE > 60; GLUCOSE 94 mg/dL (70-100); POTASSIUM 3.8 mEq/L (3.5-5.2); SODIUM 142 mEq/L (134-144)
[2017-01-22 09:28] LABS: INR 0.96 (0.83-1.16); PROTIME(PATIENT) 12.7 SEC (12.0-15.0)
[2017-01-22 09:29] LABS: APTT 28.4 SEC (23.0-38.0)
[2017-01-22] MEDS ORDERED: ALBUTEROL 3 ML DEYVIAL IH PRN (12:30)
[2017-01-22] MEDS ORDERED: ONDANSETRON DISINTEGRATING 4 MG TAB PO PRN (12:30)
[2017-01-22] MEDS ORDERED: ACETAMINOPHEN 325 MG TAB PO PRN (12:30)
[2017-01-22] MEDS ORDERED: ONDANSETRON 4 MG/2 ML VIAL IVP PRN (12:30)
--- NOTE | 2017-01-22 12:49 | PDGENHP ---
History and Physical - Chief Complaint cough, dyspnea - History of Present Illness 81 yo male with h/o severe , hypertension, asthma and recurrent PNA presents to ED with productive cough and dyspnea. His cough started 2 days ago and is productive of dark sputum. He denies fevers, chills or sweats. No chest pain. He awoke early this morning with acute, severe dyspnea and came to the ED for evaluation. He has a h/o asthma and uses Dulera, Albuterol and Prednisone 5 mg daily, along with Singulair to manage his symptoms. He was admitted to [facility] in 06/2016 with left lung PNA, treated with Rocephin and Levaquin. He was admitted again in 11/2016 with recurrent PNA and again treated with Levaquin. His left lung consolidation appears improved on CXR from his June studies. No swallow evaluations are noted from those admissions. He also endorses dizziness, which is mostly positional and worse when he rises from supine position. He has a h/o severe and is followed by [facility]. He does not believe there are plans for a valve replacement. Given his recurrent left lung consolidation with hypoxemia, cough and dyspnea, pt is admitted to the hospital for further evaluation. History Information - Allergies/Home Medication List Allergies/Adverse Reactions: Penicillins Allergy (Verified 01/22/17 08:33) Home Medications: Fluticasone Nasal [Flonase Nasal [place]] 2 sprays EACHNARE DAILY 05/23/15 [Last Taken 01/22/17] Leflunomide [Arava 20 mg (*)] 20 mg PO DAILY 05/23/15 [Last Taken 01/22/17] Montelukast Sodium [Singulair 10 mg (*)] 10 mg PO DAILY 05/23/15 [Last Taken 05/10] predniSONE 5 mg PO BIDMEAL 05/23/15 [Last Taken 01/22/17] Acetaminophen [Tylenol ES 500 mg (*)] 500 mg PO BID PRN 12/10/16 [Last Taken 05/10] Albuterol Sulfate [Ventolin Hfa] 2 puffs IH Q6HRS PRN 12/10/16 [Last Taken 01/22] C/E/Zn/Cu/OM3/DHA/EPA/LUT/ZEAX [Preservision Areds 2 Softgel] 1 each PO DAILY [Last Taken 01/22/17] Calcium Carb W/Vit D [Calcium Carb W/Vit D 500/200 (*)] 1,000 mg PO DAILY [Last Taken 01/22/17] Gabapentin [Neurontin 100 MG (*)] 100 mg PO BID 12/10/16 [Last Taken 01/22/17] Mometasone/Formoterol [Dulera 200 Mcg/5 Mcg Inhaler] 2 puffs IH BID 12/10/16 [ Last Taken 01/22/17] traMADol [Ultram 50 mg (*)] 50 mg PO BID 12/10/16 [Last Taken 01/22/17] Esomeprazole Magnesium [Nexium 24Hr] 20 mg PO DAILY 01/06/17 [Last Taken ] Diltiazem HCl [Dilacor Xr] 120 mg PO DAILY 01/22/17 [Last Taken 01/22/17] Losartan/Hydrochlorothiazide [Hyzaar 100-12.5 Tablet] 1 each PO DAILY 01/22/17 [ Last Taken 01/22/17] I have personally reviewed and updated: family history, medical history, social history, surgical history - Past Medical History hypertension Additional medical history: Severe aortic stenosis. Asthma. GERD. chronic troponin elevated ~0.1. hypertension. chronic LE wound. LE edema. osteoporosis. peripheral neuropathy. spinal stenosis with radiculopathy. h/o nephrolithiasis. prostate cancer - Surgical History Additional surgical history: prostatectomy - Family History Positive for: CAD - Social History Smoking Status: Never smoked Alcohol Use: None Drug Use: None Additional social history: Lives independently at the [facility] with his Review of Systems Review of Systems: ROS: 10pt was reviewed & negative except for what was stated in HPI & below Physical Exam Physical Exam: Temp Pulse Resp BP Pulse Ox 36.6 C 90 16 126/65 H 96 01/22/17 10:49 01/22/17 10:49 01/22/17 10:49 01/22/17 10:49 01/22/17 10:49 O2 (L/minute) 2 Constitutional: no apparent distress Eyes: PERRL Ears, Nose, Mouth, Throat: moist mucous membranes Cardiovascular: regular rate and rhythym, systolic murmur Respiratory: no respiratory distress, other (decreased air exchange with diffuse expiratory wheezes L>R) Gastrointestinal: normoactive bowel sounds, soft, non-tender abdomen Skin: warm Musculoskeletal: other (b/l pedal edema, RLE with open wound, no purulence or erythema) Neurologic: AAOx3 Psychiatric: interacting appropriately Lab Data & Imaging Review 01/22/17 09:04 01/22/17 09:04 WBC 10.38 10^3/uL (3.80-9.50) H 01/22/17 09:04 RBC 3.40 10^6/uL (4.40-6.38) L 01/22/17 09:04 Hgb 11.1 g/dL (13.7-17.5) L 01/22/17 09:04 Hct 35.2 % (40.0-51.0) L 01/22/17 09:04 MCV 103.5 fL (81.5-99.8) H 01/22/17 09:04 MCH 32.6 pg (27.9-34.1) 01/22/17 09:04 MCHC 31.5 g/dL (32.4-36.7) L 01/22/17 09:04 RDW 16.1 % (11.5-15.2) H 01/22/17 09:04 Plt Count 278 10^3/uL (150-400) 01/22/17 09:04 MPV 9.7 fL (8.7-11.7) 01/22/17 09:04 Neut % (Auto) 83.5 % (39.3-74.2) H 01/22/17 09:04 Lymph % (Auto) 8.0 % (15.0-45.0) L 01/22/17 09:04 [place] % (Auto) 6.6 % (4.5-13.0) 01/22/17 09:04 Eos % (Auto) 0.1 % (0.6-7.6) L 01/22/17 09:04 Baso % (Auto) 0.6 % (0.3-1.7) 01/22/17 09:04 Nucleat RBC Rel Count 0.0 % (0.0-0.2) 01/22/17 09:04 Absolute Neuts (auto) 8.67 10^3/uL (1.70-6.50) H 01/22/17 09:04 Absolute Lymphs (auto) 0.83 10^3/uL (1.00-3.00) L 01/22/17 09:04 Absolute Monos (auto) 0.69 10^3/uL (0.30-0.80) 01/22/17 09:04 Absolute Eos (auto) 0.01 10^3/uL (0.03-0.40) L 01/22/17 09:04 Absolute Basos (auto) 0.06 10^3/uL (0.02-0.10) 01/22/17 09:04 Absolute Nucleated RBC 0.00 10^3/uL (0-0.01) 01/22/17 09:04 Immature Gran % 1.2 % (0.0-1.1) H 01/22/17 09:04 Immature Gran # 0.12 10^3/uL (0.00-0.10) H 01/22/17 09:04 PT 12.7 SEC (12.0-15.0) 01/22/17 09:04 INR 0.96 (0.83-1.16) 01/22/17 09:04 APTT 28.4 SEC (23.0-38.0) 01/22/17 09:04 Sodium 142 mEq/L (134-144) 01/22/17 09:04 Potassium 3.8 mEq/L (3.5-5.2) 01/22/17 09:04 Chloride 107 mEq/L (97-110) 01/22/17 09:04 Carbon Dioxide 23 mEq/l (22-31) 01/22/17 09:04 Anion Gap 12 mEq/L (8-16) 01/22/17 09:04 BUN 20 mg/dL (7-23) 01/22/17 09:04 Creatinine 0.9 mg/dL (0.7-1.3) 01/22/17 09:04 Estimated GFR > 60 01/22/17 09:04 Glucose 94 mg/dL (70-100) 01/22/17 09:04 Calcium 9.4 mg/dL (8.5-10.4) 01/22/17 09:04 Troponin I 0.110 ng/mL (0.000-0.034) H 01/22/17 09:04 NT-Pro-B Natriuret Pep 2600 pg/mL (0-450) H 01/22/17 09:04 Lipase 71 IU/L (23-300) 01/22/17 09:04 TSH 1.030 uIU/mL (0.465-4.680) 01/22/17 09:04 Visualized and Interpreted Chest x-ray results: Yes Chest X-Ray results: infiltrate, effusion Visualized and Interpreted EKG results: Yes Assessment & Plan Assessment: Acute hypoxic respiratory failure presenting with dyspnea and productive cough - 2 LPM. +h/o asthma and allergies with wheezing on exam. Afebrile, non-toxic appearing. Left lung consolidation is improved compared to imaging from 2016. Unclear if this represents new bacterial PNA or other chronic process. Query aspiration. CT neg for PE, +chronic consolidation, ?ABPA, TOURIST INFORMATION ASSISTANT. Discussed with Pulm who will consult tomorrow. -send aspergillus Ab and total IgE level per pulm recs -speech consult / swallow eval -PCT low risk for severe sepsis, but concerning for local bacterial process -Will treat with Cefepime for now given recent hospitalization and atbx use -send sputum culture and respiratory pathogen panel -Q4H duonebs and albuterol nebs -guaifenesin and trial mucomyst for mucus plugging -increase prednisone to 40 mg daily from his 5 mg dose due to wheezing/ asthma component Severe - last echo here 11/2016 with mean/peak gradient 27/48 and valve area 0.6. Suspect his dizziness is symptom of his and he may candidate for TAVR. However, he is followed by [facility]. -monitor on telemetry -cardiology consulted for further recommendations Hypertension - cont home regimen Elevated troponin - this appears to be chronic, likely secondary to strain in setting of severe . He is chest pain free. EKG is abnormal, though unchanged from previous. Pressure injury left hip - wound consult requested Chronic LE / pedal edema with chronic RLE wound - This does not appear infected. Wound care as above. Defer Lasix as he may not tolerate this well with . Spinal stenosis with radiculopathy - cont gabapentin GERD - cont PPI Full code DVT PPLX - high risk, lovenox Dispo - admit to inpt, suspect he will require >48 hrs hospitalization for ongoing management of hypoxemia, acute on chronic lung consolidation process and symptomatic
[2017-01-22] MEDS ORDERED: IOPAMIDOL (ISOVUE 370) 100 ML BTL IV ONE (13:16)
[2017-01-22] MEDS: predniSONE 20 MG TAB PO SCH (14:49)
[2017-01-22] MEDS: AZITHROMYCIN 250 MG TAB PO SCH (14:50)
[2017-01-22] MEDS: IPRATROPIUM/ALBUTEROL 3 ML DEYVIAL IH SCH ×4 (16:19→23:50)
[2017-01-22] MEDS ORDERED: GUAIFENESIN/DM 10 ML UDCUP PO PRN (17:56)
[2017-01-22] MEDS: CEFEPIME HCL 1 GM in D5W 50 ML IV SCH (18:13)
[2017-01-22] MEDS: ACETYLCYSTEINE 20% IH/PO 30 ML VIAL IH SCH ×2 (19:48→23:50)
[2017-01-22] MEDS: traMADol 50 MG TAB PO SCH (20:05)
[2017-01-22] MEDS: guaiFENesin 600 MG TAB.ER PO SCH (20:05)
[2017-01-22] MEDS: GABAPENTIN 100 MG CAP PO SCH (20:06)
[2017-01-23] MEDS: CEFEPIME HCL 1 GM in D5W 50 ML IV SCH ×2 (02:13→10:59)
[2017-01-23 03:56] LABS: % IMMATURE GRANULYOCYTES 0.7 % (0.0-1.1); ABSOLUTE IMMATURE GRANULOCYTES 0.06 10^3/uL (0.00-0.10); ADD DIFF? NO; ADD MORPH? NO; ADD SCAN? NO; ATYPICAL LYMPHOCYTE FLAG 0 (0-99); FRAGMENT RBC FLAG 0 (0-99); HEMATOCRIT 29.1 % (40.0-51.0); HEMOGLOBIN 9.1 g/dL (13.7-17.5); LEFT SHIFT FLG 0 (0-99); LIPEMIA HEMOLYSIS FLAG 80 (0-99); MEAN CELL HEMOGLOBIN 32.4 pg (27.9-34.1); MEAN CELL HEMOGLOBIN CONCENTR. 31.3 g/dL (32.4-36.7); MEAN CELL VOLUME 103.6 fL (81.5-99.8); MEAN PLATELET VOLUME 10.2 fL (8.7-11.7); PLATELET CLUMPS FLAG 0 (0-99); PLATELET COUNT 231 10^3/uL (150-400); RED BLOOD CELL COUNT 2.81 10^6/uL (4.40-6.38); RED CELL DISTRIBUTION WIDTH 15.9 % (11.5-15.2)
[2017-01-23 04:11] LABS: ANION GAP 5 mEq/L (8-16); CALCIUM 8.8 mg/dL (8.5-10.4); CARBON DIOXIDE 24 mEq/l (22-31); CHLORIDE 107 mEq/L (97-110); CREATININE 0.8 mg/dL (0.7-1.3); GLOMERULAR FILTRATION RATE > 60; GLUCOSE 109 mg/dL (70-100); POTASSIUM 4.4 mEq/L (3.5-5.2); SODIUM 136 mEq/L (134-144)
[2017-01-23] MEDS: IPRATROPIUM/ALBUTEROL 3 ML DEYVIAL IH SCH ×3 (05:27→13:38)
[2017-01-23] MEDS: ACETYLCYSTEINE 20% IH/PO 30 ML VIAL IH SCH ×3 (05:28→13:38)
[2017-01-23] MEDS: traMADol 50 MG TAB PO SCH (08:21)
[2017-01-23] MEDS: predniSONE 20 MG TAB PO SCH (08:23)
[2017-01-23] MEDS: AZITHROMYCIN 250 MG TAB PO SCH (08:23)
[2017-01-23] MEDS: guaiFENesin 600 MG TAB.ER PO SCH (08:23)
[2017-01-23] MEDS: GABAPENTIN 100 MG CAP PO SCH (08:23)
[2017-01-23] MEDS ORDERED: ENOXAPARIN 40 MG/0.4 ML SYR SC SCH (09:00)
[2017-01-23] MEDS ORDERED: NON-FORMULARY NEW DRUG (Esomeprazole Magnesium [Nexium 24hr] 20 MG) PO SCH (09:00)
[2017-01-23] MEDS ORDERED: LOSARTAN POTASSIUM 50 MG TAB PO SCH (09:00)
[2017-01-23] MEDS ORDERED: PANTOPRAZOLE SODIUM 40 MG TAB PO SCH (09:00)
[2017-01-23] MEDS ORDERED: NON-FORMULARY NEW DRUG (Losartan/Hydrochlorothiazide [Hyzaar 100-12.5 Tablet] 1 EACH) PO SCH (09:00)
[2017-01-23] MEDS ORDERED: DILTIAZEM CD 120 MG CAP PO SCH (09:00)
[2017-01-23] MEDS ORDERED: ASPIRIN EC 81 MG TAB PO SCH (09:00)
[2017-01-23] MEDS ORDERED: LEFLUNOMIDE 20 MG TAB PO SCH (09:00)
[2017-01-23] MEDS ORDERED: LOSARTAN/HCTZ 50/12.5 1 TAB PO SCH (09:00)
[2017-01-23] MEDS ORDERED: DILTIAZEM HCL 120 MG PO SCH (09:00)
[2017-01-23] MEDS ORDERED: FLUTICASONE NASAL 120 SPRAYS/16 GM MDI EACHNARE SCH (09:00)
[2017-01-23] MEDS ORDERED: MONTELUKAST SODIUM 10 MG TAB PO SCH (09:00)
--- NOTE | 2017-01-23 09:32 | WOCRNPDOC ---
WOCRN Advanced Assessment Note - Skin Integrity Problem, Advanced Assess Right Lower Lateral Leg Dressing Type: Kerlix, Mepilex Dressing Description: Clean/Dry, Intact Exudate Amount: Minimal Exudate Characteristic(s): Purulent Integumentary Issue Intervention: Visualized Under Dressing Juliette Wound Tissue: Erythema, Painful/Tender Wound Bed Constitution: Granulation Tissue (10%), Adhered Slough (80%), Unstable Eschar (10%) Site Odor: Slight, Foul Site Measurement - Head-to-Toe Length X Width X Depth (cm): 4.8x4.4x0.8 Pulse Location & Description: Could not palpate Extremity Temperature: Warm Peripheral Edema Location & Description: 2+ pitting bilateral feet Skin Integrity Problem Comment: Chronic wound being treated by "RN" that comes to patient's home x3 weekly. Patient reports that his legs are compression wrapped. Wound has irregular edges and does appear similar to a venous stasis ulcer, however patient does not have any venous changes to either lower leg. Wound RN recommends that patient have BER[place] done before wrapping legs in the future and that patient [facility]. At this time autolytic debridement of the wound will be initated. Wound care will round on patient later this week to follow up on wound. Bilateral Heel Dressing Type: Open to Air Skin Integrity Problem Comment: Bilateral heels blanching but need to be kept off bed as they are fragile. Left Hip Dressing Type: Open to Air Juliette Wound Tissue: Scarred Skin Integrity Problem Comment: Old healed wound. No current concerns.
--- NOTE | 2017-01-23 11:37 | HOSPPROG ---
Hospitalist Progress Note Assessment/Plan: # Acute hypoxic respiratory failure - presenting with dyspnea and productive cough and wheezing on exam. CT chest (personally reviewed and interpreted) Left lung consolidation is improved from 06/2016- negative for PE - shows inflammation and mucus plugging Respiratory panel + entero/rhinovirus - oxygen saturations 93% on 2L -sputum cx, aspergillus Ab and total IgE level per pulm recs pending -speech consult / swallow eval -cont Cefepime/Azithromycin for now given recent hospitalization and atbx use -send sputum culture and respiratory pathogen panel -cont Q4H duonebs, albuterol nebs,m mucomyst and guaifenesin -cont prednisone to 40 mg daily from his 5 mg - wheezing improved this am # Acute viral PNA/bronchitis - + respiratory panel - with remnant infiltrate in active inflammation/mucus plugging - cont prednisone, inhaled meds - pulmonary to review images and labs from overnight # Chronic Severe - last echo here 11/2016 with mean/peak gradient 27/48 and valve area 0.6. Suspect his dizziness is symptom of his . -followed by [facility] -monitor on telemetry # Hypertension - cont home regimen # Elevated troponin - this appears to be chronic, likely secondary to strain in setting of severe . He is chest pain free. EKG is abnormal, though unchanged from previous. - no additional risk stratification at this time # Pressure injury left hip - wound consult requested # Chronic LE / pedal edema with chronic RLE wound - This does not appear infected. Wound care as above. Defer Lasix as likely wont tolerate well with . # Spinal stenosis with radiculopathy - cont gabapentin # GERD - cont PPI # Full code # DVT PPLX - high risk, lovenox # Dispo - admit to inpt, suspect he will require >48 hrs hospitalization for ongoing management of hypoxemia, acute on chronic lung consolidation process and symptomatic I discussed the case with RT - lung sounds and oxygenation both improved this am from admit yesterday - cont current course Subjective: feels ok today Objective: Vital Signs Temp Pulse Resp BP Pulse Ox 36.4 C 71 12 133/82 H 93 01/23/17 11:11 01/23/17 11:11 01/23/17 11:11 01/23/17 11:11 01/23/17 11:11 Microbiology 01/22/17 14:30 - Final Sputum, Expectorated Laboratory Results 01/23/17 03:18 01/23/17 03:18 01/22/17 01/23/17 01/24/17 05:59 05:59 05:59 Intake Total 400 360 Output Total 1400 100 Balance -1000 260 PT 12.7 SEC (12.0-15.0) 01/22/17 09:04 INR 0.96 (0.83-1.16) 01/22/17 09:04 - Physical Exam Constitutional: chronically ill appearing Eyes: anicteric sclera Ears, Nose, Mouth, Throat: moist mucous membranes Cardiovascular: regular rate and rhythym Respiratory: no respiratory distress, No expiratory wheeze Gastrointestinal: normoactive bowel sounds Genitourinary: no bladder fullness Skin: warm Musculoskeletal: No asymmetric calves Neurologic: AAOx3 Psychiatric: interacting appropriately, not anxious Lymph, Heme, Immunologic: no cervical LAD ICD10 Worksheet Patient Problems: Problems Problem Status Onset Abnormal chest x-ray Acute Anemia Acute Constipation Acute Dizziness Acute Elevated troponin Acute Hip pain Acute Left hip pain Acute Pneumonia Acute Pneumonia Acute Syncope Acute
--- NOTE | 2017-01-23 11:42 | HOSPPROG ---
Hospitalist Progress Note Assessment/Plan: # Acute hypoxic respiratory failure - presenting with dyspnea and productive cough and wheezing on exam. CT chest (personally reviewed and interpreted) Left lung consolidation is improved from 06/2016- negative for PE - shows inflammation and mucus plugging Respiratory panel + entero/rhinovirus - oxygen saturations 93% on 2L -sputum cx, aspergillus Ab and total IgE level per pulm recs pending -speech consult / swallow eval -cont Cefepime/Azithromycin for now given recent hospitalization - 2 previous courses of levofloxacin -send sputum culture and respiratory pathogen panel -cont Q4H duonebs, albuterol nebs,m mucomyst and guaifenesin -cont prednisone to 40 mg daily from his 5 mg - wheezing improved this am # Acute viral PNA/bronchitis - + respiratory panel - with remnant infiltrate in active inflammation/mucus plugging - cont prednisone, inhaled meds - pulmonary to review images and labs from overnight # Chronic Severe - last echo here 11/2016 with mean/peak gradient 27/48 and valve area 0.6. Suspect his dizziness is symptom of his . -followed by [facility] -monitor on telemetry # Hypertension - cont home regimen # Elevated troponin - this appears to be chronic, likely secondary to strain in setting of severe . He is chest pain free. EKG is abnormal, though unchanged from previous. - no additional risk stratification at this time # Pressure injury left hip - wound consult requested # Chronic LE / pedal edema with chronic RLE wound - This does not appear infected. Wound care as above. Defer Lasix as likely wont tolerate well with . # Spinal stenosis with radiculopathy - cont gabapentin # GERD - cont PPI # Full code # DVT PPLX - high risk, lovenox # Dispo - admit to inpt, suspect he will require >48 hrs hospitalization for ongoing management of hypoxemia, acute on chronic lung consolidation process and symptomatic I discussed the case with RT - lung sounds and oxygenation both improved this am from admit yesterday - cont current course Subjective: feeling better - bed uncomfortable Objective: Vital Signs Temp Pulse Resp BP Pulse Ox 36.4 C 71 12 133/82 H 93 01/23/17 11:11 01/23/17 11:11 01/23/17 11:11 01/23/17 11:11 01/23/17 11:11 Microbiology 01/22/17 14:30 - Final Sputum, Expectorated Laboratory Results 01/23/17 03:18 01/23/17 03:18 01/22/17 01/23/17 01/24/17 05:59 05:59 05:59 Intake Total 400 360 Output Total 1400 100 Balance -1000 260 PT 12.7 SEC (12.0-15.0) 01/22/17 09:04 INR 0.96 (0.83-1.16) 01/22/17 09:04 - Physical Exam Constitutional: chronically ill appearing Eyes: anicteric sclera Ears, Nose, Mouth, Throat: dry mucous membranes Cardiovascular: regular rate and rhythym, systolic murmur Respiratory: inspiratory crackles, No expiratory wheeze Gastrointestinal: normoactive bowel sounds Genitourinary: no bladder fullness Skin: warm Musculoskeletal: No asymmetric calves Neurologic: AAOx3 Psychiatric: interacting appropriately Lymph, Heme, Immunologic: no cervical LAD ICD10 Worksheet Patient Problems: Problems Problem Status Onset Abnormal chest x-ray Acute Anemia Acute Dizziness Acute Elevated troponin Acute Constipation Acute Hip pain Acute Left hip pain Acute Pneumonia Acute Pneumonia Acute Syncope Acute
--- NOTE | 2017-01-23 13:59 | PDHOMEO2F ---
Home Oxygen Face to Face Home Orders: I certify that a physician or a nurse practitioner or physician's fiscal assistant has had a [id number] encounter with this patient on the date of this order due to the diagnosis listed, which relates to the primary reason the patient requires home oxygen. Alternative treatments have been tried, or considered, and deemed ineffective. It is anticipated that supplemental oxygen will result in improvement with treatment. Home oxygen qualifying diagnosis: asthma Home oxygen secondary diagnosis: viral pneumonia SpO2 on room air (%): 85 Frequency of home oxygen needed: continuous Home oxygen liters per minute: 2 Home oxygen delivery device: nasal cannula Concentrator: Yes E-tanks for mobility and back up: Yes If ordering portable O2, is the patient mobile in the home?: Yes I certify that, based on these findings, the home oxygen is medically necessary for this patient for the following length of time. Length of time home oxygen needed: 1 month
--- NOTE | 2017-01-23 14:44 | PDIAF ---
- Diagnosis Diagnosis: asthma Code Status: Full Code - Medication Management Discharge Medications: Medications to Continue on Transfer Fluticasone Nasal [Flonase Nasal [place]] 2 sprays EACHNARE DAILY 05/23/15 [Last Taken 01/22/17] Leflunomide [Arava 20 mg (*)] 20 mg PO DAILY 05/23/15 [Last Taken 01/22/17] Montelukast Sodium [Singulair 10 mg (*)] 10 mg PO DAILY 05/23/15 [Last Taken 05/10] predniSONE 5 mg PO BIDMEAL 05/23/15 [Last Taken 01/22/17] Acetaminophen [Tylenol ES 500 mg (*)] 500 mg PO BID PRN 12/10/16 [Last Taken 05/10] Albuterol Sulfate [Ventolin Hfa] 2 puffs IH Q6HRS PRN 12/10/16 [Last Taken 01/22] C/E/Zn/Cu/OM3/DHA/EPA/LUT/ZEAX [Preservision Areds 2 Softgel] 1 each PO DAILY [Last Taken 01/22/17] Calcium Carb W/Vit D [Calcium Carb W/Vit D 500/200 (*)] 1,000 mg PO DAILY [Last Taken 01/22/17] Gabapentin [Neurontin 100 MG (*)] 100 mg PO BID 12/10/16 [Last Taken 01/22/17] Mometasone/Formoterol [Dulera 200 Mcg/5 Mcg Inhaler] 2 puffs IH BID 12/10/16 [ Last Taken 01/22/17] traMADol [Ultram 50 mg (*)] 50 mg PO BID 12/10/16 [Last Taken 01/22/17] Aspirin EC [Aspirin EC 81 mg (*)] 81 mg PO DAILY #30 tab 12/13/16 [Last Taken ] Esomeprazole Magnesium [Nexium 24Hr] 20 mg PO DAILY 01/06/17 [Last Taken ] Diltiazem HCl [Dilacor Xr] 120 mg PO DAILY 01/22/17 [Last Taken 01/22/17] Losartan/Hydrochlorothiazide [Hyzaar 100-12.5 Tablet] 1 each PO DAILY 01/22/17 [ Last Taken 01/22/17] Azithromycin [Zithromax] 500 mg PO DAILY #3 tab 01/23/17 [Last Taken Unknown] predniSONE 40 mg PO DAILY #8 tablet 01/23/17 [Last Taken Unknown] Discharge Medications: Refer to the Discharge Home Medication list for PRN reason. - Orders Services needed: Home Care, Registered Nurse, Physical Therapy Home Care Face to Face: I certify that this patient was under my care and that I had the required [id number] encounter meeting the encounter requirements on the discharge day. My findings support the fact that the patient is homebound as defined in Home Care Face to Face Continued: CMS Chapter 7 Medicare Benefits Manual 30.1.1 , The condition of the patient is such that there exists a normal inability to leave home and consequently, leaving home would require a considerable and taxing effort. Diet Texture: Regular Texture Diet, Thin Liquids, Meds Whole w/Liquids - Follow Up Care Current Providers and Referrals: PARIS ALEXIS [Other] - As per Instructions Justo Nowak MD [Medical Doctor] -
[2017-01-23 15:16] VITALS: BP 144/75; PULSE 104; RESP 24; TEMP 97.5; O2SAT 93
--- NOTE | 2017-01-23 20:39 | GCON ---
[f rep st] CONSULTATION CHEST CONSULTATION REASON FOR ADMISSION: Acute respiratory failure, dyspnea, pneumonia. HISTORY OF PRESENT ILLNESS: The patient is a very pleasant 81-year-old white male, with a past medic al history of hypertension. He was admitted on 01/22/2017 with worsening breathlessness. He has a p ast medical history of severe aortic stenosis, hypertension and asthma, and also presents with a recu rrent pneumonia, seen in the emergency room, and was subsequently admitted. Since admission, he feel s markedly improved. He admits to a cough that is nonproductive. His breathlessness has improved. He has had no fever or night sweats. In June of this year, he had pneumonia. Currently he is sitti ng up in a chair on supplemental oxygen. PAST MEDICAL HISTORY: Significant for severe aortic stenosis, hypertension, asthma and recurrent pne umonias. ALLERGIES: Penicillin. SOCIAL HISTORY: Lifelong never smoker. No significant alcohol use. 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 He is with children. He has lived in [place] for 3 years and is origi rita from [place]. PHYSICAL EXAMINATION: VITAL SIGNS: Blood pressure is 133/82, pulse 71, respirations 12, temperature 36.4, oxygen saturation 93% on 2 L. GENERAL: He is a well-developed, well-nourished, elderly white male who is resting comfortably on supplemental oxygen. HEENT: Eyes: PERRL. EOMI. Throat shows no erythema or tonsillar hypertrophy. NECK: Supple. There is no cervical adenopathy. HEART: Regu lar rate and rhythm with a 3/6 systolic murmur at left sternal border without radiation. LUNGS: Dim inished breath sounds and few bibasilar crackles. There is mild prolongation of expiratory phase but there is no wheeze. ABDOMEN: Soft, nontender. Bowel sounds are present. LOWER EXTREMITIES: No c lubbing, cyanosis, or edema. LABORATORIES: White count is 8.4, hemoglobin of 9.1, hematocrit 29, platelet count is 231. Sodium 1 36, potassium 4.4, chloride 107, CO2 24, BUN 21, creatinine 0.8. Glucose is 109. BNP is elevated at 2600. Procalcitonin is 0.45. Nasal swab is positive for human rhinovirus/enterovirus. CT angiogram of the chest shows no evidence of PE. There is moderate residual chronic consolidation in the left upper lobe and lingula. There is some mucous plugging in the left lower lobe. IMPRESSION: 1. Recurrent pneumonia. Likely this is of viral etiology. 2. History of asthma. 3. Hypertension. 4. Severe aortic stenosis. 5. Gastroesophageal reflux disease. RECOMMENDATIONS: 1. Agree with supplemental steroids. Would wean down from 40 mg down to 5 over the next 2 weeks. 2. Agree with current antibiotic coverage. Would send patient home on azithromycin. 3. The patient should follow up with me in approximately 1 month. We will repeat a CT scan at that time. Thank you very much for allowing me to participate in the care of this interesting patient. For any further information you require, please do not hesitate to contact me. /[id number]/MODL
--- NOTE | 2017-01-23 21:55 | GDS ---
[f rep st] DISCHARGE SUMMARY DISCHARGE DIAGNOSES: Include. 1. Acute hypoxic respiratory failure secondary to asthma and viral pneumonia. 2. Acute viral pneumonia/bronchitis secondary to enterovirus and rhinovirus. 3. Acute asthma exacerbation. 4. History of recent recurrent left-sided pneumonia. 5. Severe aortic stenosis. 6. Gastroesophageal reflux disease. 7. Hypertension. 8. Chronic lower extremity wounds. 9. Osteoporosis. 10. Peripheral neuropathy. 11. Spinal stenosis with radiculopathy. 12. History of nephrolithiasis. 13. Prostate cancer. HISTORY OF PRESENT ILLNESS: This is an 81-year-old gentleman with a history of asthma, who presents after having 2 hospitalizations for left-sided pneumonia in June and November of 2016, both treated wi levofloxacin, representing with shortness of breath found to be hypoxic. For details of patient's initial presentation, please see the history and physical dated 01/22/2017. CONSULTATIONS: Included Pulmonary. PROCEDURES: On 01/22/2017, patient had a CTA of the chest, which was negative for pulmonary embolism . Did show persistent inflammation and infiltrate on the left with mucus plugging. HOSPITAL COURSE: By issue. 1. Acute hypoxic respiratory failure. Patient presented requiring 3 L of oxygen, was wheezy and johnnie te dyspneic. Imaging confirmed remnant presents but improvement in the left-sided infiltrate with ne w inflammation and mucus plugging. The patient's respiratory viral panel was positive for enteroviru s and rhinovirus. He received IV azithromycin and cefepime overnight. Pulmonary did review his imag ing and his case with me. We decided to complete a course of azithromycin as an outpatient, and he i s to follow in the outpatient setting with Pulmonary in 3-4 weeks time. He is to continue his inhale d medications at that time, and follow with Dr. Nowak in 3-4 weeks. 2. Acute asthma exacerbation. Patient was quite wheezy and hypoxic, was treated with inhaled medica tions and a burst of steroids. He will complete a 4 day burst of prednisone, and then return to his baseline dosing of prednisone after that 4 day ramirez. He will continue his inhaled medications at [facility], per his normal regimen. 3. Peripheral neuropathy. He will continue on his gabapentin. 4. Hypertension. He will continue on his home dosing of losartan, hydrochlorothiazide and diltiazem . 5. GERD. He will continue on his proton pump inhibitor. MEDICATIONS: At the time of disposition, please reference the med rec printed on 01/23/2017. Of not e, 2 medications are being added for short courses, 3 days of azithromycin at 500 mg and 4 days of pr ednisone 40 mg, then return to his normal dosing of prednisone. PENDING STUDIES: At the time of this dictation include blood cultures and sputum cultures, which are preliminary. No growth to date at the time of disposition. FOLLOWUP APPOINTMENTS: Include Dr. Nowak from Pulmonary in 3-4 weeks post discharge for followup of his asthma and recurrent or persistent left-sided pneumonia. TIME SPENT: I spent greater than 30 minutes in the planning and coordination of this discharge. /[id number]/MODL
--- NOTE | 2017-01-24 16:53 | ASDISCHSUM ---
Discharge Information Plan Status:Home with Home Health Medically Cleared to Leave:01/23/2017 Discharge Date:01/23/2017 04:56 PM CM D/C Disposition: ADT D/C Disposition:Home, Routine, Self-Care Projected Discharge Date:01/23/2017 11:00 AM Transportation at D/C: Discharge Delay Reason: Follow-Up Date:01/23/2017 11:00 AM Discharge Slot: Final Diagnosis: Placement Information Referral Type:*Home Health Care Services Referral ID:[id number] Provider Name:[facility] Address 1:[address] Address 2: City:[place] Selection Factors: State:[place] Patient Contact Information Contact Name:KIRILL Relationship: Address[address] Work Phone: [facility] Alternate Phone: State/Zip Code:[place] [address] Email: Financial Information Financial Class:Medicare Advantage Plans Primary Plan Desc:JIN MEDICARE ADV Primary Plan Number:[id number] Secondary Plan Desc: Secondary Plan Number: Assessment Information Intervention Information Intervention Type:*IM-Signed Date of Service:01/23/2017 03:29 PM Patient Type:Inpatient Staff Member:Cecy Kwan Hours: Discipline: Severity: Comment:
== END 2017-01-23 16:56 | disposition home or self-care (01) | DRG 189 ==
LOC: F2W 10:38 → OBSVTOIN 14:07
PROVIDERS: ADMIT Hospitalist; ATTEND Hospitalist
DX: J96.01 Acute respiratory failure with hypoxia (principal); J12.89 Other viral pneumonia; J45.901 Unspecified asthma with (acute) exacerbation; L89.229 Pressure ulcer of left hip, unspecified stage; I35.0 Nonrheumatic aortic (valve) stenosis; M81.0 Age-related osteoporosis without current pathological fracture; M48.00 Spinal stenosis, site unspecified; K21.9 Gastro-esophageal reflux disease without esophagitis; G62.9 Polyneuropathy, unspecified; I10 Essential (primary) hypertension; Z87.442 Personal history of urinary calculi; Z85.46 Personal history of malignant neoplasm of prostate
CPT/HCPCS: 92610-GN; 97162-GP; 97165-GO; J0692; J1650; Q9967

== ENCOUNTER 2017-01-27 07:49 | Inpatient (IN) | payer OTHER ==
--- NOTE | 2017-01-27 08:00 | EDPHY ---
H & P - Personal History Tetanus Vaccine Date: within last 10 years - Medical/Surgical History Hx Asthma: Yes Hx Chronic Respiratory Disease: No Hx Diabetes: No Hx Cardiac Disease: No Hx Renal Disease: No Hx Cirrhosis: No Hx Alcoholism: No Hx HIV/AIDS: No Hx Splenectomy or Spleen Trauma: No Other PMH: Asthma, HTN, GERD, Osteoporosis, BARROW, Peripheral Neuropathy, spinal stenosis and lumbar radiculopathy, Chronic Nepholithiasis, Prostate Cancer - Social History Smoking Status: Never smoked Constitutional: Initial Vital Signs Temperature (C) 37.0 C 01/27/17 07:58 Heart Rate 118 H 01/27/17 07:58 Respiratory Rate 18 01/27/17 07:58 Blood Pressure 125/71 H 01/27/17 07:58 O2 Sat (%) 88 L 01/27/17 07:58 O2 Delivery Mode Nasal Cannula O2 (L/minute) 2 Allergies/Adverse Reactions: Penicillins Allergy (Verified 01/22/17 08:33) Home Medications: Medication Instructions Recorded Fluticasone Nasal [Flonase Nasal 2 sprays EACHNARE DAILY 05/23/15 [place]] Leflunomide [Arava 20 mg (*)] 20 mg PO DAILY 05/23/15 Montelukast Sodium [Singulair 10 10 mg PO DAILY 05/23/15 mg (*)] predniSONE 5 mg PO BIDMEAL 05/23/15 Acetaminophen [Tylenol ES 500 mg 500 mg PO BID PRN 12/10/16 (*)] Albuterol Sulfate [Ventolin Hfa] 2 puffs IH Q6HRS PRN 12/10/16 C/E/Zn/Cu/OM3/DHA/EPA/LUT/ZEAX 1 each PO DAILY 12/10/16 [Preservision Areds 2 Softgel] Calcium Carb W/Vit D [Calcium Carb 1,000 mg PO DAILY 12/10/16 W/Vit D 500/200 (*)] Gabapentin [Neurontin 100 MG (*)] 100 mg PO BID 12/10/16 Mometasone/Formoterol [Dulera 200 2 puffs IH BID 12/10/16 Mcg/5 Mcg Inhaler] traMADol [Ultram 50 mg (*)] 50 mg PO BID 12/10/16 Aspirin EC [Aspirin EC 81 mg (*)] 81 mg PO DAILY #30 tab 12/13/16 Esomeprazole Magnesium [Nexium 20 mg PO DAILY 01/06/17 24Hr] Diltiazem HCl [Dilacor Xr] 120 mg PO DAILY 01/22/17 Losartan/Hydrochlorothiazide 1 each PO DAILY 01/22/17 [Hyzaar 100-12.5 Tablet] Azithromycin [Zithromax] 500 mg PO DAILY #3 tab 01/23/17 predniSONE 40 mg PO DAILY #8 tablet 01/23/17 Medical Decision Making - Diagnostics Imaging Results: Imaging Impressions Chest X-Ray 01/27/17 08:16 Impression: 1. Increased density of consolidation left upper lobe as well as development of consolidation/pneumonia left lower lobe with increase in mild to moderate left effusion. ED Course/Re-evaluation: CHIEF COMPLAINT: Shortness of breath HISTORY OF PRESENT ILLNESS: This patient is an 81 y/o male with history of aortic stenosis, hypertension, asthma, and recurrent pneumonia complaining of shortness of breath onset yesterday evening. He was admitted 01/22/17, five days ago, for similar symptoms and went home 01/23/17. He was admitted in June and November 2016 for pneumonia. He is generally followed by primary care and cardiology at [facility]. Following his most recent admission, he felt better throughout the week, and was doing well until yesterday evening. Last night, he became short of breath with exertion just trying to move across his bed. He used a nebulizer treatment which relieved his symptoms slightly. He took his last dose of antibiotics yesterday. He is also taking 40mg prednisone and his last dose is today but he has not taken it. He denies fever, nausea, vomiting, muscle aches, or other associated symptoms. REVIEW OF SYSTEMS: A 10 point review of systems was performed and is negative with the exception of the elements mentioned in the history of present illness. PHYSICAL EXAM: HR, BP, O2 Sat, RR. Temp noted General Appearance: Alert, well hydrated, appropriate, and non-toxic appearing. Head: Atraumatic without scalp tenderness or obvious injury Eyes: Pupils equal, round, reactive to light and accommodation, EOMI, no trauma , no injection. Ears: Clear bilaterally, no perforation, normal landmarks Nose: Atraumatic, no rhinorrhea, clear. Throat: There is no erythema or exudates, no lesions, normal tonsils, mucus membranes moist. Neck: Supple, 2+ carotid upstroke, nontender, no lymphadenopathy. Respiratory: No retractions, no distress, no wheezes, and no accessory muscle use. Lungs are clear to auscultation bilaterally. Cardiovascular: 2-3/6 systolic murmur, crescendo/decrescendo in nature. Regular tachycardia, no rubs, or gallops. Bilateral carotid, radial, dorsalis pedis, and posterior tibial pulses intact. Good capillary refill all extremities. Gastrointestinal: Abdomen is soft, nontender, non-distended, no masses, no rebound, no guarding, no peritoneal signs. Musculoskeletal: Normal active ROM of all extremities, atraumatic. Neurological: Alert, appropriate, and interactive. The patient has normal DTRs and non-focal cranial nerves, motor, sensory, and cerebellar exam. Skin: No rashes, good turgor, no nodules on palpation. Past medical history: Aortic stenosis. Hypertension. Asthma. GERD. Chronic elevated Troponin (~0.1), Osteoporosis. Peripheral neuropathy. Spinal stenosis. History of prostate cancer. Past surgical history: Prostatectomy Family history: Coronary artery disease. Social history: Son at bedside. [facility] patient. Lives independently at [facility]. Past medical records reviewed including admission from 01/22/17. DIAGNOSTICS/PROCEDURES/CRITICAL CARE TIME: DIFFERENTIAL DIAGNOSIS: The differential diagnosis for the patient's shortness of breath and hypoxemia included but was not limited to pneumonia, myocardial infarction, acute mountain sickness, high altitude pulmonary edema, congestive heart failure, and pulmonary embolus. MEDICAL DECISION MAKIN81 y/o male presents with shortness of breath onset yesterday evening. History of severe aortic stenosis and repeat pneumonia. Concern for congestive heart failure or worsening pneumonia. Plan for chest x-ray, EKG, labs including CBC, BMP, PTPTT, Troponin, BNP, and lactate. Plan to administer DuoNeb treatment for symptom relief. Troponin elevated at 0.1, but this is normal for the patient. BNP elevated at 2660, similar to admission 5 days ago. Lactate within normal limits . Chest x-ray shows upper left lobe infiltrate indicative of worsening pneumonia. Plan for blood cultures. Plan to administer 1gm IV Levaquin. 09:35 Spoke with [facility] hospitalist service. They prefer we admit the patient here. 09:46 Spoke with hospitalist service. [] accepts admission for - Data Points Laboratory Results: Laboratory Results 01/27/17 08:00 01/27/17 08:00 01/27/17 01/27/17 01/27/17 09:21 08:00 08:00 WBC RBC Hgb Hct MCV MCH MCHC RDW Plt Count MPV Neut % (Auto) Lymph % (Auto) Rolette % (Auto) Eos % (Auto) Baso % (Auto) Nucleat RBC Rel Count Absolute Neuts (auto) Absolute Lymphs (auto) Absolute Monos (auto) Absolute Eos (auto) Absolute Basos (auto) Absolute Nucleated RBC Immature Gran % Seg Neutrophils % Band Neutrophils % Lymphocytes % Monocytes % Immature Gran # Absolute Seg Neuts Absolute Band Neuts Absolute Lymphocytes Absolute Monocytes Platelet Estimate Elliptocytes PT INR APTT VBG Lactic Acid 1.8 mmol/L mmol/L (0.7-2.1) Sodium 140 mEq/L mEq/L (134-144) Potassium 4.1 mEq/L mEq/L (3.5-5.2) Chloride 108 mEq/L mEq/L (97-110) Carbon Dioxide 23 mEq/l mEq/l (22-31) Anion Gap 9 mEq/L mEq/L (8-16) BUN 30 mg/dL H mg/dL (7-23) Creatinine 0.8 mg/dL mg/dL (0.7-1.3) Estimated GFR > 60 Glucose 75 mg/dL mg/dL (70-100) Calcium 9.3 mg/dL mg/dL (8.5-10.4) Total Bilirubin 0.5 mg/dL mg/dL (0.1-1.4) Troponin I 0.119 ng/mL H ng/mL (0.000-0.034) NT-Pro-B Natriuret Pep 2660 pg/mL H pg/mL (0-450) 01/27/17 01/27/17 08:00 08:00 WBC 13.13 10^3/uL H 10^3/uL (3.80-9.50) RBC 3.20 10^6/uL L 10^6/uL (4.40-6.38) Hgb 10.3 g/dL L g/dL (13.7-17.5) Hct 31.9 % L % (40.0-51.0) MCV 99.7 fL fL (81.5-99.8) MCH 32.2 pg pg (27.9-34.1) MCHC 32.3 g/dL L g/dL (32.4-36.7) RDW 15.3 % H % (11.5-15.2) Plt Count 320 10^3/uL 10^3/uL (150-400) MPV 10.0 fL fL (8.7-11.7) Neut % (Auto) Not Reported Lymph % (Auto) Not Reported Rolette % (Auto) Not Reported Eos % (Auto) Not Reported Baso % (Auto) Not Reported Nucleat RBC Rel Count 0.2 % % (0.0-0.2) Absolute Neuts (auto) Not Reported Absolute Lymphs (auto) Not Reported Absolute Monos (auto) Not Reported Absolute Eos (auto) Not Reported Absolute Basos (auto) Not Reported Absolute Nucleated RBC 0.03 10^3/uL H 10^3/uL (0-0.01) Immature Gran % Not Reported Seg Neutrophils % 79 % % Band Neutrophils % 10 % % Lymphocytes % 7 % % Monocytes % 4 % % Immature Gran # Not Reported Absolute Seg Neuts 10.37 10^/uL H 10^/uL (1.70-6.50) Absolute Band Neuts 1.31 10^3/uL H 10^3/uL (0.00-0.70) Absolute Lymphocytes 0.92 10^3/uL L 10^3/uL (1.00-3.00) Absolute Monocytes 0.53 10^3/uL 10^3/uL (0.30-0.80) Platelet Estimate ADEQUATE (ADEQ) Elliptocytes 1+ H PT 12.6 SEC SEC (12.0-15.0) INR 0.95 (0.83-1.16) APTT 23.0 SEC SEC (23.0-38.0) VBG Lactic Acid Sodium Potassium Chloride Carbon Dioxide Anion Gap BUN Creatinine Estimated GFR Glucose Calcium Total Bilirubin Troponin I NT-Pro-B Natriuret Pep Medications Given: Discontinued Medications Albuterol/Ipratropium (Duoneb) 3 ml IH EDNOW ONE Stop: 01/27/17 08:16 Last Admin: 01/27/17 08:47 Dose: 3 ml Departure - Departure Referrals: Patient,NotPresent [Unknown] - As per Instructions Report Scribed for: Srinath Julio Report Scribed by: Arina Young Date of Report: 01/27/17 Time of Report: 08:16
[2017-01-27] MEDS ORDERED: IPRATROPIUM/ALBUTEROL 3 ML DEYVIAL IH ONE (08:15)
[2017-01-27 08:24] LABS: ABSOLUTE NRBC COUNT 0.03 10^3/uL (0-0.01); ADD DIFF? YES; ADD MORPH? NO; ADD SCAN? NO; ATYPICAL LYMPHOCYTE FLAG 0 (0-99); FRAGMENT RBC FLAG 0 (0-99); HEMATOCRIT 31.9 % (40.0-51.0); HEMOGLOBIN 10.3 g/dL (13.7-17.5); LEFT SHIFT FLG 40 (0-99); LIPEMIA HEMOLYSIS FLAG 80 (0-99); MEAN CELL HEMOGLOBIN 32.2 pg (27.9-34.1); MEAN CELL HEMOGLOBIN CONCENTR. 32.3 g/dL (32.4-36.7); MEAN CELL VOLUME 99.7 fL (81.5-99.8); NRBC-AUTO% 0.2 % (0.0-0.2); PLATELET CLUMPS FLAG 0 (0-99); PLATELET COUNT 320 10^3/uL (150-400); RED CELL DISTRIBUTION WIDTH 15.3 % (11.5-15.2)
[2017-01-27 08:28] LABS: ANION GAP 9 mEq/L (8-16); BILIRUBIN,TOTAL 0.5 mg/dL (0.1-1.4); CALCIUM 9.3 mg/dL (8.5-10.4); CARBON DIOXIDE 23 mEq/l (22-31); CHLORIDE 108 mEq/L (97-110); CREATININE 0.8 mg/dL (0.7-1.3); GLOMERULAR FILTRATION RATE > 60; GLUCOSE 75 mg/dL (70-100); POTASSIUM 4.1 mEq/L (3.5-5.2); SODIUM 140 mEq/L (134-144)
[2017-01-27 08:31] LABS: INR 0.95 (0.83-1.16); PROTIME(PATIENT) 12.6 SEC (12.0-15.0)
--- NOTE | 2017-01-27 08:33 | CPEKG ---
Heart Rate: 109 RR Interval: 550 P-R Interval: 136 QRSD Interval: 140 QT Interval: 372 QTC Interval: 502 P Strawn: 41 QRS Strawn: 101 T Wave Strawn: -46 EKG Severity - ABNORMAL ECG - EKG Impression: SINUS TACHYCARDIA EKG Impression: RBBB AND LPFB EKG Impression: PROBABLE INFEROLATERAL INFARCT, AGE INDETERM EKG Impression: ST DEPRESSION, CONSIDER ISCHEMIA, ANT-LAT LDS Electronically Signed By: Srinath Julio 27-Jan-2017 14:50:02
[2017-01-27 08:56] LABS: TROPONIN I 0.119 ng/mL (0.000-0.034)
[2017-01-27 09:17] LABS: ELLIPTOCYTES 1+; PLATELET ESTIMATE ADEQUATE (ADEQ)
[2017-01-27] MEDS ORDERED: predniSONE 20 MG TAB PO SCH (14:45)
[2017-01-27] MEDS ORDERED: NS 1,000 ML IV SCH (14:45)
--- NOTE | 2017-01-27 15:16 | GHP ---
[f rep st] HISTORY AND PHYSICAL DATE OF ADMISSION: 01/27/2017 HISTORY OF PRESENT ILLNESS: The patient is an 81-year-old gentleman with history of rheumatoid arthr itis, recent admission for possible pneumonia who was discharged home earlier in the week 4 days ago. He said he felt well the last couple of days, and then today he noticed that his heart rate was fas t. He has been feeling it sounds like a little bit weaker than usual. He is mostly wheelchair bound because of hip pain and lower extremity edema. He notes cough productive of clear sputum. He has n ot had fever or chills. He denies aspiration symptoms such as coughing with eating. During his last admission, he had left lower lobe infiltrates and now has a left upper lobe infiltrate. He has, aga in, not had fever or chills. He completed a course of azithromycin and prednisone. He is taking his last day of 40 of prednisone. He does take chronic prednisone 5 b.i.d. for rheumatoid arthritis. Hung cormier does not know that he has had any previous lung manifestations from his rheumatoid arthritis. REVIEW OF SYSTEMS: Complete 10-point review of systems conducted and negative except as noted in the HPI. PAST MEDICAL HISTORY: 1. Rheumatoid arthritis. 2. Moderate to severe aortic stenosis. 3. Recurrent left-sided pneumonia with pneumonia in June of 2016, November 2016. 4. Deconditioning. 5. Asthma. 6. Gastroesophageal reflux disease. 7. Chronic troponin elevation of about 0.1. 8. Hypertension. 9. Chronic left lower extremity wound. 10. Osteoporosis. 11. Peripheral neuropathy. 12. Spinal stenosis with radiculopathy. 13. Nephrolithiasis. 14. Prostate cancer. PAST SURGICAL HISTORY: Notable for prostatectomy. FAMILY HISTORY: Notable for CAD. SOCIAL HISTORY: He is a lifelong nonsmoker from [place], used to work for [employer]. He wonders aloud if S ears still exists. He lives at the [facility] with his . ALLERGIES: Penicillins. HOME MEDICATIONS: Albuterol, losartan/hydrochlorothiazide, acetaminophen, aspirin, PreserVision, karyn cium carbonate, diltiazem, esomeprazole, Flonase, gabapentin, leflunomide, mometasone, formoterol, mo ntelukast, prednisone, tramadol. PHYSICAL EXAMINATION: PRESENTING VITALS: Temp 37, blood pressure 111/65, pulse 84 to 101, breathing 16 times a minute, 92% on 2 L. GENERAL: No acute distress. Chronically ill appearing. Sclerae an icteric. Oropharynx clear. Mucous membranes are moist. NECK: Supple without lymphadenopathy or JV D. LUNGS: Clear to auscultation bilaterally. HEART: S1, S2 with 3/6 systolic ejection murmur hear d best at the right upper sternal border. ABDOMEN: Soft, nontender, nondistended. EXTREMITIES: Hi s lower extremities are bandaged in compression stockings. There is obvious pitting edema below it. Extremity exam is notable for ulnar deviation of the hands. LABS: White count 13.1, hematocrit 31, platelets are 320,000. Coags are normal. Venous lactate is 1.8. Sodium 140, potassium 4.1, chloride 108, bicarb 22, BUN 30, creatinine 0.8, glucose is 75. Tro ponin is 0.119, which is somewhere around his baseline. His BNP is 2600, also around his baseline. He had a recent IgE level that was elevated at 94, with 50 something being the upper limit of normal. His chest x-ray shows left upper lobe infiltrate that is new compared with just a few days ago. He also has left lower lobe infiltrate as well. There appears to be a small effusion. His EKG interpr eted by me shows sinus tachycardia with a normal axis. He has a right bundle branch block, left post erior fascicular block with attendant ST changes. There is no evidence of acute injury pattern. I d iscussed the case with Dr. Odin Nowak as well as Dr. Srinath Julio. ASSESSMENT/PLAN: 81-year-old gentleman with multiple comorbidities and mobile left lung infiltrates. 1. Left lung infiltrate. I think that an acute bacterial pneumonia given the recent history and rec ent treatment appears less likely, especially in light of absence of fevers. Leukocytosis is noted. His tachycardia is noted. He does not have sepsis. I am going to send a procalcitonin. Additional ly, I am going to ask Pulmonary to see him and Speech Language Pathology to see him, as the leading d ifferential is either rheumatoid arthritis rather than lung disease versus aspiration. I am going to hold antibiotics at this time. 2. Sinus tachycardia. The patient has evidence of volume depletion with increased BUN. I will hold his diuretics, give a liter of fluids and follow his response. 3. Aortic stenosis. He has significant murmur. We will repeat his echocardiogram. 4. Deconditioning. I suspect patient will need detention facility. 5. Prostate cancer. Continue his leflunomide. 6. Rheumatoid arthritis. Continue his prednisone. 7. Inpatient status. /[id number]/MODL
--- NOTE | 2017-01-27 15:51 | PDMN ---
Medical Necessity Medical necessity: Patient meets INPT criteria per [facility] Pneumonia, Community Acquired (presents w/LLL infiltrate on CXR, O2 sat on RA 88%, leukocytosis/WBC > 13,000, HR 118; discharged 4 days prior p poss pneumonia; hx RA, mod to severe , recurrent L pneumonia, mult comorbidities; anticipated LOS > 2 midnights for IV hydration, pulm consult, aspiration eval by ST.)
--- NOTE | 2017-01-27 17:41 | GCON ---
[f rep st] CONSULTATION CHEST CONSULTATION REASON FOR CONSULTATION: Cough, pulmonary infiltrates. HISTORY OF PRESENT ILLNESS: The patient is a very pleasant 81-year-old white male with an extensive past medical history of rheumatoid arthritis, aortic stenosis, recurrent pneumonias, asthma, gastroes ophageal reflux disease, hypertension, osteoporosis, spinal stenosis, prostate cancer. He was admitt ed to the hospital early this week, and subsequently discharged with the diagnosis of a viral pneumon itis. He returns with increasing breathlessness, as well as cough. He describes the cough as essent ially nonproductive. There is no hemoptysis. He denies any fever or night sweats. He was sent home on a combination of prednisone and supplemental oxygen. PAST MEDICAL HISTORY: As above. PAST SURGICAL HISTORY: Prostatectomy. ALLERGIES: Penicillin. SOCIAL HISTORY: No history of tobacco use. Infrequent alcohol use. He is retired from [employer]. He r esides here in [place] with his . MEDICATIONS: Calcium, aspirin, acetaminophen, losartan, hydrochlorothiazide, albuterol, Flonase, eso meprazole, diltiazem, mometasone, formoterol, montelukast, and tramadol. PHYSICAL EXAM: VITAL SIGNS: Blood pressure 125/72, pulse 92, respirations 17, temperature 36.7, oxy gen saturation 96% on 5 L. GENERAL: He is a well-developed, well-nourished, elderly white male who is resting comfortably in no acute distress. HEENT: Eyes are PERRLA, EOMI. Throat shows no erythema or tonsillar hypertrophy. NECK: Supple. There is no cervical adenopathy. HEART: Regular rate an d rhythm with a 2/6 systolic murmur at the left sternal border without radiation. LUNGS: Diminished breath sounds, but no wheeze. ABDOMEN: Soft, nontender. Bowel sounds are present in all 4 quadran ts. EXTREMITIES: There is no clubbing, cyanosis, or edema. LABORATORIES: White count 13.1, hemoglobin 10, hematocrit 31, platelet count is 320. INR is 0.95, s odium 140, potassium 4.1, chloride 108, CO2 is 23, BUN is 30, creatinine 0.8, glucose is 75. BNP is mildly elevated 2,660. The chest x-ray shows an area of consolidation in the left upper lobe, as well as the left lower infi ltrate as well. IMPRESSION: 1. Recurring pneumonias, etiology which is unclear. The distribution of this is different than when he was here several days ago. Query whether this may be aspiration. 2. Acute respiratory failure secondary to pneumonitis. 3. History of rheumatoid arthritis. 4. Aortic stenosis. 5. Gastroesophageal reflux disease. 6. History of spinal stenosis. RECOMMENDATIONS: 1. We will perform fiberoptic bronchoscopy as soon as possible. 2. Continue current steroids. 3. Continue current medication. 4. Agree with IV antibiotics using Levaquin. /[id number]/MODL
[2017-01-27] MEDS: Mometasone/Formoterol [Dulera 100 Mcg/5 Mcg Inhaler] IH SCH (21:32)
[2017-01-27] MEDS: traMADol 50 MG TAB PO SCH (22:11)
[2017-01-27] MEDS: GABAPENTIN 100 MG CAP PO SCH (22:11)
[2017-01-27] MEDS: ACETAMINOPHEN 500 MG TAB PO PRN (22:13)
[2017-01-28 05:16] LABS: % IMMATURE GRANULYOCYTES 2.3 % (0.0-1.1); ABSOLUTE IMMATURE GRANULOCYTES 0.28 10^3/uL (0.00-0.10); ADD DIFF? NO; ADD MORPH? NO; ADD SCAN? NO; ATYPICAL LYMPHOCYTE FLAG 10 (0-99); FRAGMENT RBC FLAG 0 (0-99); HEMOGLOBIN 8.8 g/dL (13.7-17.5); LEFT SHIFT FLG 20 (0-99); LIPEMIA HEMOLYSIS FLAG 80 (0-99); MEAN CELL HEMOGLOBIN 31.9 pg (27.9-34.1); MEAN CELL HEMOGLOBIN CONCENTR. 31.4 g/dL (32.4-36.7); MEAN CELL VOLUME 101.4 fL (81.5-99.8); MEAN PLATELET VOLUME 9.9 fL (8.7-11.7); PLATELET CLUMPS FLAG 0 (0-99); PLATELET COUNT 269 10^3/uL (150-400); RED BLOOD CELL COUNT 2.76 10^6/uL (4.40-6.38); RED CELL DISTRIBUTION WIDTH 15.6 % (11.5-15.2)
[2017-01-28 05:32] LABS: ANION GAP 4 mEq/L (8-16); CALCIUM 8.6 mg/dL (8.5-10.4); CARBON DIOXIDE 23 mEq/l (22-31); CHLORIDE 109 mEq/L (97-110); CREATININE 0.8 mg/dL (0.7-1.3); GLOMERULAR FILTRATION RATE > 60; GLUCOSE 64 mg/dL (70-100); POTASSIUM 3.8 mEq/L (3.5-5.2); SODIUM 136 mEq/L (134-144)
[2017-01-28] MEDS: Mometasone/Formoterol [Dulera 100 Mcg/5 Mcg Inhaler] IH SCH ×2 (08:48→21:51)
[2017-01-28] MEDS: FLUTICASONE NASAL 120 SPRAYS/16 GM MDI EACHNARE SCH (09:17)
[2017-01-28] MEDS: CALCIUM CARB W/VIT D 500 MG TAB PO SCH (09:17)
[2017-01-28] MEDS: PRESERVISION AREDS2 FORMULA EYE VIT 1 EACH PO SCH (09:17)
[2017-01-28] MEDS: ASPIRIN EC 81 MG TAB PO SCH (09:17)
[2017-01-28] MEDS: DILTIAZEM CD 120 MG CAP PO SCH (09:17)
[2017-01-28] MEDS: GABAPENTIN 100 MG CAP PO SCH ×2 (09:18→20:48)
[2017-01-28] MEDS: LEFLUNOMIDE 20 MG TAB PO SCH (09:18)
[2017-01-28] MEDS: traMADol 50 MG TAB PO SCH ×2 (09:18→20:48)
[2017-01-28] MEDS: MONTELUKAST SODIUM 10 MG TAB PO SCH (09:18)
[2017-01-28] MEDS: predniSONE 5 MG TAB PO SCH ×2 (09:18→17:09)
[2017-01-28] MEDS: PANTOPRAZOLE SODIUM 40 MG TAB PO SCH (09:18)
[2017-01-28] MEDS ORDERED: MIDAZOLAM 2 MG/2 ML VIAL ONE (11:48)
[2017-01-28] MEDS ORDERED: ALBUTEROL 3 ML DEYVIAL ONE (11:48)
[2017-01-28] MEDS ORDERED: fentaNYL 100 MCG/2 ML INJ ONE (11:48)
[2017-01-28] MEDS ORDERED: LIDOCAINE 1% 300 MG/30 ML SDV ONE (11:48)
[2017-01-28] MEDS ORDERED: FORMOTEROL IH SCH (12:00)
[2017-01-28] MEDS ORDERED: MOMETASONE IH SCH (12:00)
--- NOTE | 2017-01-28 12:19 | SOAPPROG ---
SOAP Progress Note Assessment/Plan: Assessment: * Pulmonary infiltrates-etiology which is unclear. Query whether this is aspiration versus viral * Acute respiratory failure * Rheumatoid arthritis * Gastroesophageal reflux disease Plan: Fiberoptic bronchoscopy today Agree with current antibiotic coverage Continue steroids 01/28/17 12:18 Subjective: Resting comfortably. Objective: Vital Signs Temp Pulse Resp BP Pulse Ox 36.6 C 109 H 24 H 166/97 H 83 L 01/28/17 11:10 01/28/17 11:10 01/28/17 11:10 01/28/17 11:10 01/28/17 11:10 Laboratory Results 01/28/17 04:42 01/28/17 04:42 01/27/17 01/28/17 01/29/17 05:59 05:59 05:59 Intake Total 1550 Output Total 400 500 Balance 1150 -500 PT 12.6 SEC (12.0-15.0) 01/27/17 08:00 INR 0.95 (0.83-1.16) 01/27/17 08:00 Physical Exam - Physical Exam General Appearance: WD/WN, alert EENT: PERRL/EOMI, normal ENT inspection Neck: non-tender, full range of motion, supple, normal inspection Respiratory: crackles (Left base), No respiratory distress, No wheezing Cardiac/Chest: normal peripheral pulses, regular rate, rhythm Peripheral Pulses: 2+: carotid (R), carotid (L), femoral (R), femoral (L), dorsalis-pedis (R), dorsalis-pedis (L) Abdomen: normal bowel sounds, non-tender, soft Male Genitalia: deferred Rectal: deferred Neuro/Psych: no motor/sensory deficits, alert, normal mood/affect, oriented x 3 ICD10 Worksheet Patient Problems: Problems Problem Status Onset Abnormal chest x-ray Acute Anemia Acute Constipation Acute Dizziness Acute Elevated troponin Acute Hip pain Acute Left hip pain Acute Pneumonia Acute Pneumonia Acute Syncope Acute
--- NOTE | 2017-01-28 13:40 | GPN ---
[f rep st] PROCEDURE NOTE PROCEDURE PERFORMED: Fiberoptic bronchoscopy. INDICATION: Pneumonia. ANESTHESIA: He received Versed 3 mg, fentanyl 75 mcg. He also received 4% lidocaine nebulized, 1% l idocaine topically. DESCRIPTION OF PROCEDURE: The procedure was performed in the endoscopy suite under continuous pulse ox, EKG and blood pressure monitoring. Please note N95 masks were used throughout the procedure. The bronchoscope was entered orally. Vocal cords were visualized and opposed easily. Trachea and ca sera were visualized, showed no endobronchial lesions and normal-appearing mucosa. Bronchoscope was placed in the right lung. Right upper lobe, right middle lobe, right lower lobe including subsegment s were subsequently visualized and showed no endobronchial lesions and normal-appearing mucosa. Bron choscope was placed in the left lung. Left upper lobe, lingula, left lower lobe including subsegment s were visualized, showed no endobronchial lesions. Mildly friable mucosa in the lower lobes. Bronc hoalveolar lavage was taken from the left lower lobe, this was sent for C and S, AFB, fungal cultures , cytology and viral studies. The patient tolerated the procedure well. There were no apparent comp lications. Portable chest x-ray has been called for. /[id number]/MODL
--- NOTE | 2017-01-28 15:32 | HOSPPROG ---
Hospitalist Progress Note Assessment/Plan: [age]yo M w RA admitted w L sided infiltrate after having been recent;ly treated for CAP pulm: bronch unremarkable L sided effusion noted 1. thoracentesis 2. video swallow 3. await bronch cx results 4. hold abx- recent course levoflox : mod- severe maintain euvolemia bnp and trop abnormal but at baseline0 follow i dint think is driving this presentation RA: continue pred, arava proph: hold LMWH given thoracentesis dispo: inpt Subjective: case d/w dr green. bronch today. no endobronchial lesions Objective: Vital Signs Temp Pulse Resp BP Pulse Ox 36.6 C 109 H 24 H 166/97 H 83 L 01/28/17 11:10 01/28/17 11:10 01/28/17 11:10 01/28/17 11:10 01/28/17 11:10 Microbiology 01/28/17 12:00 Gram Stain - Final Lung - Bronchial Washings 01/28/17 13:25 Respiratory Panel (PCR) - Final Nasal, Sinus - [place] Viral Transport Human Rhinovirus/Enterovirus Laboratory Results 01/28/17 04:42 01/28/17 04:42 01/27/17 01/28/17 01/29/17 05:59 05:59 05:59 Intake Total 1550 Output Total 400 500 Balance 1150 -500 PT 12.6 SEC (12.0-15.0) 01/27/17 08:00 INR 0.95 (0.83-1.16) 01/27/17 08:00 - Physical Exam Constitutional: no apparent distress, appears nourished Eyes: PERRL, anicteric sclera Ears, Nose, Mouth, Throat: moist mucous membranes, hearing normal Cardiovascular: regular rate and rhythym, no murmur, rub, or gallop Respiratory: no respiratory distress, No no rales or rhonchi Gastrointestinal: normoactive bowel sounds, soft, non-tender abdomen Genitourinary: no bladder fullness, No king in urethra Skin: warm, normal color Musculoskeletal: full muscle strength, no muscle tenderness Neurologic: AAOx3, sensation intact bilaterally Psychiatric: interacting appropriately, not anxious ICD10 Worksheet Patient Problems: Problems Problem Status Onset Abnormal chest x-ray Acute Anemia Acute Constipation Acute Dizziness Acute Elevated troponin Acute Hip pain Acute Left hip pain Acute Pneumonia Acute Pneumonia Acute Syncope Acute
--- NOTE | 2017-01-28 16:30 | ASMTCMCOM ---
CM Note CM Note Notes: Reviewed chart re: d/c poc, pt's progress. Pt admitted w/ recurrent L sided PNA, hypoxemia, CHF exacerbation. Scheduled for bronch today; results pending. Pt lives at the [facility] w/ his . Discharge needs remain TBD. CM will cont to follow. Date Signed: 01/28/2017 04:29 PM Electronically Signed By:Karen Riddle RN
[2017-01-28] MEDS: ACETAMINOPHEN 500 MG TAB PO PRN (20:49)
[2017-01-28 23:45] LABS: LACTATE DEHYDROGENASE 606 IU/L (313-618)
[2017-01-29] MEDS: ASPIRIN EC 81 MG TAB PO SCH (09:16)
[2017-01-29] MEDS: MONTELUKAST SODIUM 10 MG TAB PO SCH (09:16)
[2017-01-29] MEDS: GABAPENTIN 100 MG CAP PO SCH ×2 (09:16→20:41)
[2017-01-29] MEDS: predniSONE 5 MG TAB PO SCH ×2 (09:16→17:28)
[2017-01-29] MEDS: DILTIAZEM CD 120 MG CAP PO SCH (09:16)
[2017-01-29] MEDS: CALCIUM CARB W/VIT D 500 MG TAB PO SCH (09:16)
[2017-01-29] MEDS: PRESERVISION AREDS2 FORMULA EYE VIT 1 EACH PO SCH (09:16)
[2017-01-29] MEDS: LEFLUNOMIDE 20 MG TAB PO SCH (09:16)
[2017-01-29] MEDS: PANTOPRAZOLE SODIUM 40 MG TAB PO SCH (09:16)
[2017-01-29] MEDS: FLUTICASONE NASAL 120 SPRAYS/16 GM MDI EACHNARE SCH (09:16)
[2017-01-29] MEDS: traMADol 50 MG TAB PO SCH ×2 (09:17→20:40)
[2017-01-29] MEDS: Mometasone/Formoterol [Dulera 100 Mcg/5 Mcg Inhaler] IH SCH ×2 (09:31→20:35)
[2017-01-29] MEDS ORDERED: LIDOCAINE 1% 300 MG/30 ML SDV ONE (11:04)
--- NOTE | 2017-01-29 12:49 | SOAPPROG ---
SOAP Progress Note Assessment/Plan: Assessment/Plan: * Pulmonary infiltrates-etiology which is unclear. Query whether this is aspiration versus viral -bronchoscopy results are pending * Pleural effusion-status post thoracentesis -await results of pleural fluid * Acute respiratory failure-mostly unchanged * Rheumatoid arthritis * Gastroesophageal reflux disease Subjective: Resting comfortably. Patient states he does not feel much better. Still with cough and breathlessness. Objective: Vital Signs Temp Pulse Resp BP Pulse Ox 36.6 C 94 20 155/81 H 96 01/29/17 11:20 01/29/17 11:20 01/29/17 11:20 01/29/17 11:20 01/29/17 11:20 Microbiology 01/28/17 12:00 Gram Stain - Final Lung - Bronchial Washings 01/28/17 12:00 Mycobacterial Smear (JESSE) - Final Lung - Bronchial Washings 01/28/17 13:25 Respiratory Panel (PCR) - Final Nasal, Sinus - [place] Viral Transport Human Rhinovirus/Enterovirus Laboratory Results 01/28/17 04:42 01/28/17 04:42 01/28/17 01/29/17 01/30/17 05:59 05:59 05:59 Intake Total 1550 310 Output Total 400 1100 125 Balance 1150 -790 -125 PT 12.6 SEC (12.0-15.0) 01/27/17 08:00 INR 0.95 (0.83-1.16) 01/27/17 08:00 Physical Exam - Physical Exam General Appearance: WD/WN, alert EENT: PERRL/EOMI, normal ENT inspection Neck: non-tender, full range of motion, supple, normal inspection Respiratory: crackles (Few), No respiratory distress, No wheezing Cardiac/Chest: normal peripheral pulses, regular rate, rhythm, systolic murmur Abdomen: normal bowel sounds, non-tender, soft Male Genitalia: deferred Rectal: deferred Skin: normal color, warm/dry Neuro/Psych: no motor/sensory deficits, alert, normal mood/affect, oriented x 3 ICD10 Worksheet Patient Problems: Problems Problem Status Onset Abnormal chest x-ray Acute Anemia Acute Constipation Acute Dizziness Acute Elevated troponin Acute Hip pain Acute Left hip pain Acute Pneumonia Acute Pneumonia Acute Syncope Acute
[2017-01-29 13:23] LABS: LD, PLEURAL FLUID 406 IU/L
--- NOTE | 2017-01-29 14:43 | HOSPPROG ---
Hospitalist Progress Note Assessment/Plan: [age]yo M w RA admitted w L sided infiltrate after having been recent;ly treated for CAP pulm: bronch unremarkable L sided effusion noted- c/w hemorrhagioc pleural effusion denies h/o trauma, no rib bruising or tenderness this is concerning for malignancy or less likely rheumatologic process CT scan of chest today CTA 01/22/17 did not show mass, showed possible VEGETABLE CANNER at L lung base video swallow to rule out aspiration continue to hold abx check esr/crp : mod- severe maintain euvolemia bnp and trop abnormal but at baseline follow i dint think is driving this presentation, particularly in light of bloody pleural effusion RA: continue pred, arava proph: hold LMWH given thoracentesis dispo: inpt Subjective: s/p thoraCENTESIS- bloody fluid c/w exudate. case d/w dr green Objective: Vital Signs Temp Pulse Resp BP Pulse Ox 36.6 C 94 20 155/81 H 96 01/29/17 11:20 01/29/17 11:20 01/29/17 11:20 01/29/17 11:20 01/29/17 11:20 Microbiology 01/28/17 12:00 Gram Stain - Final Lung - Bronchial Washings 01/28/17 12:00 Mycobacterial Smear (JESSE) - Final Lung - Bronchial Washings 01/28/17 13:25 Respiratory Panel (PCR) - Final Nasal, Sinus - [place] Viral Transport Human Rhinovirus/Enterovirus Laboratory Results 01/28/17 04:42 01/28/17 04:42 01/28/17 01/29/17 01/30/17 05:59 05:59 05:59 Intake Total 1550 310 Output Total 400 1100 125 Balance 1150 -790 -125 PT 12.6 SEC (12.0-15.0) 01/27/17 08:00 INR 0.95 (0.83-1.16) 01/27/17 08:00 - Physical Exam Constitutional: no apparent distress, appears nourished Eyes: PERRL, anicteric sclera Ears, Nose, Mouth, Throat: moist mucous membranes, hearing normal Cardiovascular: regular rate and rhythym, no murmur, rub, or gallop Respiratory: no respiratory distress, other (L sided crackles) Gastrointestinal: normoactive bowel sounds, soft, non-tender abdomen Genitourinary: no bladder fullness, No king in urethra Skin: warm, normal color Musculoskeletal: full muscle strength Neurologic: AAOx3 ICD10 Worksheet Patient Problems: Problems Problem Status Onset Abnormal chest x-ray Acute Anemia Acute Constipation Acute Dizziness Acute Elevated troponin Acute Hip pain Acute Left hip pain Acute Pneumonia Acute Pneumonia Acute Syncope Acute
[2017-01-29] MEDS ORDERED: IOPAMIDOL (ISOVUE-300) 100 ML BTL ONE (15:05)
--- NOTE | 2017-01-29 15:19 | WOCRNPDOC ---
WOCRN Advanced Assessment Note - Skin Integrity Problem, Advanced Assess Right Lower Leg Dressing Type: Triple Layer Wrap (Zinc-impregnated gauze ("Unna"), thin foam wrap, Coban) Dressing Description: Intact, Shadowed Exudate Amount: Moderate Exudate Color: Yellow, Red Exudate Characteristic(s): Cloudy (liquified slough), Serosanguinous Integumentary Issue Intervention: Dressing Changed (Cutimed Sorbact, Mepilex Lite foam, yancy, Tubigrip-size E ), Dressing Initialed & Dated Juliette Wound Tissue: Intact, Thin, Hair Loss, Painful/Tender Juliette Wound Swelling: None Wound Bed Color: Ernest, Red, Yellow Wound Bed Constitution: Smooth Tissue (20%), Mixed Loose & Adhered Slough/ Eschar (80%) Wound Edges: Attached, Well Defined Site Odor: None Site Measurement - Head-to-Toe Length X Width X Depth (cm): 8.3 x 4.6 x 0.3. 1.4 cm l eschar at margin, at 7 o'clock Lymphedema Present: Yes Peripheral Edema Location & Description: 3+ pitting at foot Skin Integrity Problem Comment: Patient, , and son report that this LLE wound has been non-healing for "at least 3 years, " and that care is being managed at home through [facility], with RN visits on [facility]. There is minimal hemosiderin staining of the LEs as might be expected with this chronic ulcer, which otherwise has an appearance consistent with that of a chronic venous stasis ulcer. The 3-layer bandage that was removed was slack, with wrinkling of the intact skin indicative of LE edema at the time of placement (Mon, 01/25, per patient report). 3+ pedal edema is present at this time. The alginate dried into the wound bed was re-hydrated with sterile NS. Upon removal of the alginate , liquified slough was debrided from the wound bed. Moist and fibrinous slough remained adhered across approximately 80% of the wound bed surface after cleansing with NS and gauze. Antimocrobial Cutimed Sorbact was placed to disrupt probable microbial colonization present in the wound bed. A thin foam was placed to wick drainage, Calazime was applied to protect periwound from drainage, intact skin was cleansed with bath wipe and protected with Dimethicone cream, and yancy wrap was placed to secure dressing. Size E tubigrips were placed bilaterally to prevent LE edema, doubled from foot to ankle to address pedal edema. ANGELICA Gregory assisted with care. Coccyx Dressing Type: Allevyn Life Dressing Description: Clean/Dry, Intact Exudate Amount: None Integumentary Issue Intervention: Visualized Under Dressing Juliette Wound Tissue: Blanching, Intact Site Odor: None Skin Integrity Problem Comment: Intact, blanchable at coccyx and across sacrum. Protective care in place per staff. Left Lower Leg Dressing Type: Triple Layer Wrap (Zinc-impregnated gauze ("Unna"), thin foam wrap, Coban) Dressing Description: Clean/Dry, Intact Exudate Amount: None Integumentary Issue Intervention: Dressing Applied (Size E tubigrip), Dressing Removed Site Odor: None Lymphedema Present: Yes (3+ pitting pedal edema) Skin Integrity Problem Comment: Intact skin was cleansed with bath wipe and protected with Dimethicone cream. Size E tubigrips was placed to prevent LE edema, doubled from foot to ankle to address pedal edema. ANGELICA Gregory assisted with care. dragger to follow up or check in with bedside RN on Mon, 02/01.
[2017-01-29] MEDS: ACETAMINOPHEN 500 MG TAB PO PRN ×2 (15:41→20:41)
--- NOTE | 2017-01-29 16:03 | ASMTCMCOM ---
CM Note CM Note Notes: Reviewed chart re: pt's progress. Per MD notes, pt underwent a Thoracentesis today, pleural fluid results pending. Also awaiting bronch results; pt w/ pulmonary infiltrates. Seen by accountant assistant for venous stasis ulcer on pt's RLE. Per pt's family, the wound has been non-healing for 3 yrs. Pt is open w/ [facility] and has a visiting RN who comes M-W-F. No PT/OT recs at this time. Discharge needs remain TBD. CM will cont to follow. Date Signed: 01/29/2017 04:02 PM Electronically Signed By:Karen Riddle RN
[2017-01-30 05:49] LABS: HEMATOCRIT 30.6 % (40.0-51.0)
[2017-01-30] MEDS: Mometasone/Formoterol [Dulera 100 Mcg/5 Mcg Inhaler] IH SCH ×2 (09:02→20:36)
[2017-01-30] MEDS: traMADol 50 MG TAB PO SCH ×2 (09:08→20:45)
[2017-01-30] MEDS: DILTIAZEM CD 120 MG CAP PO SCH (09:09)
[2017-01-30] MEDS: PRESERVISION AREDS2 FORMULA EYE VIT 1 EACH PO SCH (09:09)
[2017-01-30] MEDS: CALCIUM CARB W/VIT D 500 MG TAB PO SCH (09:10)
[2017-01-30] MEDS: PANTOPRAZOLE SODIUM 40 MG TAB PO SCH (09:11)
[2017-01-30] MEDS: GABAPENTIN 100 MG CAP PO SCH ×2 (09:11→20:44)
[2017-01-30] MEDS: MONTELUKAST SODIUM 10 MG TAB PO SCH (09:11)
[2017-01-30] MEDS: LEFLUNOMIDE 20 MG TAB PO SCH (09:11)
[2017-01-30] MEDS: predniSONE 5 MG TAB PO SCH ×2 (09:11→17:54)
[2017-01-30] MEDS: ASPIRIN EC 81 MG TAB PO SCH (09:11)
[2017-01-30] MEDS: FLUTICASONE NASAL 120 SPRAYS/16 GM MDI EACHNARE SCH (11:08)
--- NOTE | 2017-01-30 14:13 | HOSPPROG ---
Hospitalist Progress Note Assessment/Plan: [age]yo M w RA admitted w L sided infiltrate after having been recent;ly treated for CAP pulm: bronch unremarkable L sided effusion noted- c/w hemorrhagioc pleural effusion denies h/o trauma, no rib bruising or tenderness this is concerning for malignancy or less likely rheumatologic process CT scan of chest today CTA 01/22/17 did not show mass, showed possible GLOBAL COMPENSATION DIRECTOR at L lung base video swallow to rule out aspiration CT w improved FADI process, new LLL, RLL infiltrate this is c/w recurrent silebt aspiration await swallow eval increased esr noted, nikunj 2/2 underlyimg RA at this point, cannot rule out RA related lung disease, although evanescent nature of infiltrates most c/w aspiration penumonitis. notably, he coughs w eating : mod- severe maintain euvolemia bnp and trop abnormal but at baseline follow i dint think is driving this presentation, particularly in light of bloody pleural effusion RA: continue pred, arava proph: hold LMWH given thoracentesis dispo: inpt Subjective: chest CT (images reviewed/interpreted by me) showed improved FADI infiltrate, new LLL, RLL infiltrate Objective: Vital Signs Temp Pulse Resp BP Pulse Ox 36.7 C 108 H 29 H 111/68 94 01/30/17 12:00 01/30/17 12:00 01/30/17 12:00 01/30/17 12:00 01/30/17 12:00 Microbiology 01/28/17 12:00 Gram Stain - Final Lung - Bronchial Washings Bronchial Washings Culture - Final 01/29/17 12:40 Gram Stain - Final Thoracic Fluid - Aspirate Laboratory Results 01/30/17 05:32 01/28/17 04:42 01/29/17 01/30/17 01/31/17 05:59 05:59 05:59 Intake Total 310 250 Output Total 1100 1175 175 Balance -790 -925 -175 PT 12.6 SEC (12.0-15.0) 01/27/17 08:00 INR 0.95 (0.83-1.16) 01/27/17 08:00 - Physical Exam Constitutional: no apparent distress, appears nourished Eyes: PERRL, anicteric sclera Ears, Nose, Mouth, Throat: moist mucous membranes, hearing normal Cardiovascular: regular rate and rhythym, no murmur, rub, or gallop Respiratory: no respiratory distress, other (scattered crackles. good air movement, no wheeze) Gastrointestinal: normoactive bowel sounds, soft, non-tender abdomen Genitourinary: no bladder fullness, No king in urethra Skin: warm, normal color Musculoskeletal: full muscle strength ICD10 Worksheet Patient Problems: Problems Problem Status Onset Abnormal chest x-ray Acute Anemia Acute Constipation Acute Dizziness Acute Elevated troponin Acute Hip pain Acute Left hip pain Acute Pneumonia Acute Pneumonia Acute Syncope Acute
--- NOTE | 2017-01-30 17:59 | GDS ---
[f rep st] DISCHARGE SUMMARY DISCHARGE DIAGNOSES: 1. Rheumatoid arthritis. 2. Mobile pulmonary infiltrate secondary to aspiration. 3. Small pleural effusion status post thoracentesis. PROCEDURES DURING THIS ADMISSION: Bronchoscopy which showed friable airways but no endobronchial les ions. HOSPITAL COURSE: Please see admission history and physical by Dr. aZchary Oliver. The patient prese nted on the morning of the 6th with shortness of breath. He had a chest x-ray which showed new left upper lobe infiltrates and left lower lobe infiltrates. He had previously been admitted and was laina lorrie with prednisone and Levaquin for community-acquired pneumonia. He has had pneumonia in June of this year, November of this year and now 2 into late December and early January. He has previously be en ruled out for pulmonary embolism. He had a procalcitonin that was indeterminate for infection. H e was not wheezing. Steroids were not increased nor were antibiotics initiated. He was not felt to be heart failure. He does have aortic stenosis. He has a chronically elevated troponin of about 0.1 and an elevated BNP of about 2500, and these were at baseline. He is intermittently on room air. H e was noted to be coughing after eating. He was seen by Speech Therapy who felt he did okay at the [facility], but he had silent aspiration of thin liquids as evidenced by a video swallow. He also had a chest CT showing no evidence of masses further down in the lungs and pulmonary infiltra nidia within the right lower lobe and left lower lobe and resolving in the left upper lobe, and these w ere felt to be a patchy nodular opacification. The differential is cryptogenic organizing pneumonia, eosinophilic pneumonia or aspiration. He had no peripheral eosinophilia. It could be cryptogenic o rganizing pneumonia but given his aspiration it is felt to be the most likely thing. He was discharg ed home on his home medication regimen without antibiotics. He is set up for speech therapy. His da [id number] is a local family practice doctor. I have given her my phone number. We will follow up in the outpatient results including cytology. /[id number]/MODL
[2017-01-30] MEDS ORDERED: NS 1,000 ML IV ONE (19:00)
[2017-01-30] MEDS: ACETAMINOPHEN 500 MG TAB PO PRN (20:45)
[2017-01-31 07:19] VITALS: BP 136/78; TEMP 98.1
--- NOTE | 2017-01-31 09:31 | HOSPPROG ---
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 MANAGEMENT SUPERVISOR at L lung base video swallow confirms aspiration : mod- severe maintain euvolemia bnp and trop abnormal but at baseline follow i dint think is driving this presentation, particularly in light of bloody pleural effusion RA: continue pred, arava proph: hold LMWH given thoracentesis dispo: home today > 30 minutes Subjective: videoswallow shows aspiration of thin liquids Objective: Vital Signs Temp Pulse Resp BP Pulse Ox 36.7 C 86 20 136/78 H 91 L 01/31/17 07:17 01/31/17 07:17 01/31/17 07:17 01/31/17 07:17 01/31/17 08:18 Microbiology 01/28/17 12:00 Gram Stain - Final Lung - Bronchial Washings Bronchial Washings Culture - Final 01/29/17 12:40 Gram Stain - Final Thoracic Fluid - Aspirate Laboratory Results 01/30/17 05:32 01/28/17 04:42 01/30/17 01/31/17 02/01/17 05:59 05:59 05:59 Intake Total 250 2180 Output Total 1175 1125 Balance -925 1055 PT 12.6 SEC (12.0-15.0) 01/27/17 08:00 INR 0.95 (0.83-1.16) 01/27/17 08:00 - Physical Exam Constitutional: no apparent distress, appears nourished Eyes: PERRL, anicteric sclera Ears, Nose, Mouth, Throat: moist mucous membranes, hearing normal Cardiovascular: regular rate and rhythym, no murmur, rub, or gallop Respiratory: no respiratory distress, no rales or rhonchi Gastrointestinal: normoactive bowel sounds, soft, non-tender abdomen Genitourinary: no bladder fullness, No king in urethra Skin: warm, normal color Musculoskeletal: full muscle strength, no muscle tenderness Neurologic: AAOx3, sensation intact bilaterally Psychiatric: interacting appropriately, not anxious ICD10 Worksheet Patient Problems: Problems Problem Status Onset Abnormal chest x-ray Acute Anemia Acute Constipation Acute Dizziness Acute Elevated troponin Acute Hip pain Acute Left hip pain Acute Pneumonia Acute Pneumonia Acute Syncope Acute
[2017-01-31] MEDS: DILTIAZEM CD 120 MG CAP PO SCH (09:32)
[2017-01-31] MEDS: LEFLUNOMIDE 20 MG TAB PO SCH (09:32)
[2017-01-31] MEDS: MONTELUKAST SODIUM 10 MG TAB PO SCH (09:33)
[2017-01-31] MEDS: GABAPENTIN 100 MG CAP PO SCH (09:33)
[2017-01-31] MEDS: ASPIRIN EC 81 MG TAB PO SCH (09:33)
[2017-01-31] MEDS: traMADol 50 MG TAB PO SCH (09:33)
[2017-01-31] MEDS: PRESERVISION AREDS2 FORMULA EYE VIT 1 EACH PO SCH (09:33)
[2017-01-31] MEDS: predniSONE 5 MG TAB PO SCH (09:33)
[2017-01-31] MEDS: PANTOPRAZOLE SODIUM 40 MG TAB PO SCH (09:33)
[2017-01-31] MEDS: CALCIUM CARB W/VIT D 500 MG TAB PO SCH (09:33)
[2017-01-31] MEDS: FLUTICASONE NASAL 120 SPRAYS/16 GM MDI EACHNARE SCH (09:34)
--- NOTE | 2017-01-31 09:37 | PDIAF ---
- Diagnosis Diagnosis: aspiration pneumonitis Code Status: Full Code - Medication Management Discharge Medications: Medications to Continue on Transfer Fluticasone Nasal [Flonase Nasal [place]] 2 sprays EACHNARE DAILY 05/23/15 [Last Taken 01/26/17] Leflunomide [Arava 20 mg (*)] 20 mg PO DAILY 05/23/15 [Last Taken 01/26/17] Montelukast Sodium [Singulair 10 mg (*)] 10 mg PO DAILY 05/23/15 [Last Taken 09/07] predniSONE 5 mg PO BIDMEAL 05/23/15 [Last Taken 01/22/17] Acetaminophen [Tylenol ES 500 mg (*)] 500 mg PO BID PRN 12/10/16 [Last Taken 10/08] Albuterol Sulfate [Ventolin Hfa] 2 puffs IH Q6HRS PRN 12/10/16 [Last Taken 01/27] C/E/Zn/Cu/OM3/DHA/EPA/LUT/ZEAX [Preservision Areds 2 Softgel] 1 each PO DAILY [Last Taken 01/26/17] Calcium Carb W/Vit D [Calcium Carb W/Vit D 500/200 (*)] 1,000 mg PO DAILY [Last Taken 01/26/17] Gabapentin [Neurontin 100 MG (*)] 100 mg PO BID 12/10/16 [Last Taken 01/26/17 21 :00] traMADol [Ultram 50 mg (*)] 50 mg PO BID 12/10/16 [Last Taken 01/26/17] Aspirin EC [Aspirin EC 81 mg (*)] 81 mg PO DAILY #30 tab 12/13/16 [Last Taken ] Esomeprazole Magnesium [Nexium 24Hr] 20 mg PO DAILY 01/06/17 [Last Taken ] Diltiazem HCl [Dilacor Xr] 120 mg PO DAILY 01/22/17 [Last Taken 01/27/17] Losartan/Hydrochlorothiazide [Hyzaar 100-12.5 Tablet] 1 each PO DAILY 01/22/17 [ Last Taken 01/26/17] Mometasone/Formoterol [Dulera 100 Mcg/5 Mcg Inhaler] 2 puffs IH BID 01/28/17 [ Last Taken Unknown] Discharge Medications: Refer to the Discharge Home Medication list for PRN reason. - Orders Services needed: Home Care, Speech Language Pathologist Home Care Face to Face: I certify that this patient was under my care and that I had the required [id number] encounter meeting the encounter requirements on the discharge day. My findings support the fact that the patient is homebound as defined in Home Care Face to Face Continued: CMS Chapter 7 Medicare Benefits Manual 30.1.1 , The condition of the patient is such that there exists a normal inability to leave home and consequently, leaving home would require a considerable and taxing effort. Diet Texture: Dysphagia 3 - Advanced - Moist, Bite-Size, [place] Thick Liquids, Meds Crushed in Puree - Follow Up Care Current Providers and Referrals: Patient,NotPresent [Unknown] - As per Instructions
--- NOTE | 2017-01-31 09:56 | ASMTCMCOM ---
CM Note CM Note Notes: Pt to d/c home to the [facility]. [phone]. [facility] provides a ride at [phone], Mary is the rickshaw driver. Pt prefers son transport back to [facility]. Notified [facility] of additonal need for Speech Language Therapist. Zamzam at [facility] plans to resume services of RN and PT. Faxed final d/c orders. Date Signed: 01/31/2017 09:55 AM Electronically Signed By:Tasneem Franklin RN
[2017-01-31] MEDS: Mometasone/Formoterol [Dulera 100 Mcg/5 Mcg Inhaler] IH SCH (09:57)
--- NOTE | 2017-01-31 09:57 | GDS ---
[f rep st] DISCHARGE SUMMARY Please see yesterday's discharge summary for complete details. The patient did not leave because of results returned late in the day and he was a little bit tachyca rdic. Intervening results including a video swallow positive for aspiration with thin liquids. This confirmed the suspected diagnosis of silent aspiration as a cause of his multiple pulmonary infiltra nidia. He is discharged home to the care along with outpatient speech therapy. Discharge medications are unchanged. /[id number]/MODL
[2017-01-31 10:00] VITALS: PULSE 103; RESP 18; O2SAT 94
--- NOTE | 2017-01-31 13:59 | ASDISCHSUM ---
Discharge Information Plan Status:Home with Home Health Medically Cleared to Leave:01/31/2017 Discharge Date:01/31/2017 12:29 PM CM D/C Disposition:Home Health Service ADT D/C Disposition:Home, Routine, Self-Care Projected Discharge Date:01/31/2017 11:00 AM Transportation at D/C:Family Discharge Delay Reason: Follow-Up Date:01/31/2017 11:00 AM Discharge Slot: Final Diagnosis: Placement Information Referral Type:*Home Health Care Services Referral ID:[id number] Provider Name:[facility] Address 1:[address] Address 2: City:[place] Selection Factors: State:[place] Patient Contact Information Contact Name:KIRILL Relationship: Address:[address] Work Phone: [facility] Alternate Phone: State/Zip Code:[place] [address] Email: Financial Information Financial Class:Medicare Advantage Plans Primary Plan Desc:[employer] ADV IP Primary Plan Number:[id number] Secondary Plan Desc: Secondary Plan Number: Assessment Information [facility] CM Progress Note CM Note CM Note Notes: Reviewed chart re: d/c poc, pt's progress. Pt admitted w/ recurrent L sided PNA, hypoxemia, CHF exacerbation. Scheduled for bronch today; results pending. Pt lives at the [facility] w/ his . Discharge needs remain TBD. CM will cont to follow. Date Signed: 01/28/2017 04:29 PM Electronically Signed By:Karen Riddle RN [facility] CM Progress Note CM Note CM Note Notes: Reviewed chart re: pt's progress. Per MD notes, pt underwent a Thoracentesis today, pleural fluid results pending. Also awaiting bronch results; pt w/ pulmonary infiltrates. Seen by wound care technician for venous stasis ulcer on pt's RLE. Per pt's family, the wound has been non-healing for 3 yrs. Pt is open w/ [facility] and has a visiting RN who comes M-W-F. No PT/OT recs at this time. Discharge needs remain TBD. CM will cont to follow. Date Signed: 01/29/2017 04:02 PM Electronically Signed By:Karen Riddle RN [facility] CM Progress Note CM Note CM Note Notes: Pt to d/c home to the [facility]. Notified the [facility] at [phone]. [facility] provides a ride at [phone], Mary is the driver guard. Pt prefers son transport back to [facility]. Notified [facility] of additonal need for Speech Language Therapist. Zamzam at [facility] plans to resume services of RN and PT. Faxed final d/c orders. Date Signed: 01/31/2017 09:55 AM Electronically Signed By:Tasneem Franklin RN Intervention Information Intervention Type:*IM-Signed Date of Service:01/31/2017 10:08 AM Patient Type:Inpatient Staff Member:Cecy Kwan Hours: Discipline: Severity: Comment:
== END 2017-01-31 12:29 | disposition home or self-care (01) | DRG 166 ==
LOC: EDUNIT# → F2W 11:17 → OBSVTOIN 13:50
PROVIDERS: ADMIT Internal Medicine; ATTEND Internal Medicine
PROC: 0B9J8ZX Drainage of Left Lower Lung Lobe, Via Natural or Artificial Opening Endoscopic, Diagnostic (ICD-10-PCS; principal; 2017-01-28 12:00)
PROC: 0W9B3ZX Drainage of Left Pleural Cavity, Percutaneous Approach, Diagnostic (ICD-10-PCS; 2017-01-29)
DX: J69.0 Pneumonitis due to inhalation of food and vomit (principal); J90 Pleural effusion, not elsewhere classified; J96.00 Acute respiratory failure, unspecified whether with hypoxia or hypercapnia; J45.909 Unspecified asthma, uncomplicated; K21.9 Gastro-esophageal reflux disease without esophagitis; M06.9 Rheumatoid arthritis, unspecified; I35.0 Nonrheumatic aortic (valve) stenosis; Z87.442 Personal history of urinary calculi; Z85.46 Personal history of malignant neoplasm of prostate; Z87.01 Personal history of pneumonia (recurrent)
CPT/HCPCS: 92526-GN; 92610-GN; 92611-GN; 97161-GP; 97165-GO; J1956; J2250; J3010; Q9967

== ENCOUNTER 2017-07-10 11:47 | Inpatient (IN) | payer OTHER ==
[2017-07-10] MEDS ORDERED: NS 1,000 ML IV ONE ×2 (12:05→12:41)
[2017-07-10 12:11] LABS: PLATELET COUNT 442 10^3/uL (150-400)
--- NOTE | 2017-07-10 12:12 | CPEKG ---
Heart Rate: 81 RR Interval: 741 P-R Interval: 148 QRSD Interval: 152 QT Interval: 468 QTC Interval: 544 P [place]: 62 QRS [place]: 89 T Wave [place]: 261 EKG Severity - ABNORMAL ECG - EKG Impression: SINUS RHYTHM EKG Impression: RBBB AND LPFB EKG Impression: BORDERLINE INFERIOR Q WAVES EKG Impression: ST DEPRESSION, CONSIDER ISCHEMIA, INF LEADS Electronically Signed By: Rubin Villatoro 10-Jul-2017 15:22:00
[2017-07-10 12:41] LABS: PROTIME(PATIENT) 13.4 SEC (12.0-15.0)
[2017-07-10] MEDS ORDERED: IOPAMIDOL (ISOVUE 370) 100 ML BTL IV ONE (12:48)
--- NOTE | 2017-07-10 13:47 | EDPHY ---
H & P Stated Complaint: near syncope, dizzy, back pain today Time Seen by Provider: 07/10/17 12:05 HPI/ROS: Chief Complaint: Near syncope, low back pain HPI: 81-year-old male with a history of multiple medical problems including coronary artery disease, congestive heart failure. Patient is a resident at [facility]. He has a general malaise and weakness today with low back pain. He had a near syncopal episode which was witnessed. Did not fall or hit his head. Some mild shortness of breath. Some mild cough which has been nonproductive. Otherwise has been in his normal state of health. General malaise is present. No abdominal pain. No palpitations. No history of fainting in the past. EMS was called. On arrival his blood pressure was in the 70 systolic. They gave him 500 mL of fluid. Patient has been awake and alert throughout transport ROS: 10 point Review of Systems is negative except as noted in the HPI. Family History: non-contributory Physical Exam: Gen: Awake, Alert, No Distress HEENT: Nose: no rhinorrhea Eyes: PERRLA, EOMI Mouth: Very dry mucosa Neck: Supple, no JVD Chest: nontender, lungs clear to auscultation Heart: S1, S2 normal, no murmur Abd: Soft, non-tender, no guarding Back: no CVA tenderness, no midline tenderness Ext: no edema, non-tender Skin: no rash Neuro: CN II-XII intact, Sensation grossly intact, Strength 5/5 in bilateral upper and lower extremities - Personal History Current Tetanus/Diphtheria Vaccine: Yes Current Tetanus Diphtheria and Acellular Pertussis (TDAP): Yes Tetanus Vaccine Date: within last 10 years - Medical/Surgical History Hx Asthma: Yes Hx Chronic Respiratory Disease: No Hx Diabetes: No Hx Cardiac Disease: Yes Hx Renal Disease: No Hx Cirrhosis: No Hx Alcoholism: No Hx HIV/AIDS: No Hx Splenectomy or Spleen Trauma: No Other PMH: Asthma, HTN, GERD, Osteoporosis, [employer], Peripheral Neuropathy, spinal stenosis and lumbar radiculopathy, Chronic Nepholithiasis, Prostate Cancer - Social History Smoking Status: Never smoked Constitutional: Initial Vital Signs Temperature (C) 36.5 C 07/10/17 12:01 Heart Rate 90 07/10/17 12:01 Respiratory Rate 16 03/19/18 12:01 Blood Pressure 81/46 L 07/10/17 12:01 O2 Sat (%) 90 L 07/10/17 12:01 O2 Delivery Mode Room Air Allergies/Adverse Reactions: Penicillins Allergy (Verified 01/22/17 08:33) Home Medications: Medication Instructions Recorded Fluticasone Nasal [Flonase Nasal 2 sprays EACHNARE DAILY 05/23/15 Plato] Leflunomide [Arava 20 mg (*)] 20 mg PO DAILY 05/23/15 Montelukast Sodium [Singulair 10 10 mg PO DAILY 05/23/15 mg (*)] predniSONE 5 mg PO BIDMEAL 05/23/15 Acetaminophen [Tylenol ES 500 mg 500 mg PO BID PRN 12/10/16 (*)] Albuterol Sulfate [Ventolin Hfa] 2 puffs IH Q6HRS PRN 12/10/16 C/E/Zn/Cu/OM3/DHA/EPA/LUT/ZEAX 1 each PO DAILY 12/10/16 [Preservision Areds 2 Softgel] Calcium Carb W/Vit D [Calcium Carb 1,000 mg PO DAILY 12/10/16 W/Vit D 500/200 (*)] Gabapentin [Neurontin 100 MG (*)] 100 mg PO BID 12/10/16 traMADol [Ultram 50 mg (*)] 50 mg PO BID 12/10/16 Aspirin EC [Aspirin EC 81 mg (*)] 81 mg PO DAILY #30 tab 12/13/16 Esomeprazole Magnesium [Nexium 20 mg PO DAILY 01/06/17 24Hr] Diltiazem HCl [Dilacor Xr] 120 mg PO DAILY 01/22/17 Losartan/Hydrochlorothiazide 1 each PO DAILY 01/22/17 [Hyzaar 100-12.5 Tablet] Mometasone/Formoterol [Dulera 100 2 puffs IH BID 01/28/17 Mcg/5 Mcg Inhaler] Medical Decision Making - Diagnostics EKG Interpretation: ECG time 12:19 p.m.. Sinus rhythm with a rate of 81, borderline inferior Q- waves. ST depression in the lateral leads and inferior leads consistent with possible ischemia. Imaging Results: Imaging Impressions Chest X-Ray 07/10/17 12:32 Impression: 1. Multifocal upper and lower lobe infiltrates within the right lung compatible with acute pneumonia. 2. Mild cardiomegaly. Chest/Thorax CTA 07/10/17 12:41 Impression: 1. Negative CT examination of the chest for acute pulmonary thromboembolic disease. 2. Multifocal infiltrates within the right lung suspicious for multilobar pneumonia. 3. Small left pleural effusion with left lower lobe atelectasis. 4. Moderate sized hiatal hernia. 5. 12 mm nodule within the lower pole of the right thyroid lobe, stable in appearance when compared to prior chest CT of January 2017. This could be further characterized with sonography as clinically appropriate. Results called to Dr. Rubin Villatoro at 1:30 p.m. at the time of the interpretation. Procedures: Procedure: Limited abdominal ultrasound. A limited abdominal ultrasound was performed of the retroperitoneum. The indication for the study was to rule out abdominal aortic aneurysm. On the study no evidence of AAA was identified. The approximate cross sectional measurement of the aorta was 1.8, 2.2. Results: No evidence of aortic aneurysm. The examination was performed and interpreted by myself. ED Course/Re-evaluation: 81-year-old male presenting with hypotension and low back pain in near-syncope. A medially performed a bedside ultrasound which shows a normal appearing abdominal aorta. Abdomen is soft. Patient is given initial IV fluid bolus. Will work him up on a septic path. White blood cell count is noted elevated at 21. Lactic acid is pending. Patient also has a mild elevation in his troponin. Repeat blood pressure is 93 systolic. Patient is awake and alert. CT scan noted. Right-sided multi focal pneumonia, no PE. I have ordered IV Levaquin as the patient is penicillin allergic. I have discussed with Dr. Oliver, hospitalist. He will admit to his service for further care. Patient's lactic is normal. No evidence of acute sepsis at this time. Will continue to aggressively hydrate. - Data Points Laboratory Results: Laboratory Results 07/10/17 11:45 07/10/17 11:45 07/10/17 07/10/17 07/10/17 12:55 12:55 11:59 WBC RBC Hgb POC Hgb 10.5 gm/dL L gm/dL (13.7-17.5) Hct POC Hct 31 % L % (40-51) MCV MCH MCHC RDW Plt Count MPV Neut % (Auto) Lymph % (Auto) [place] % (Auto) Eos % (Auto) Baso % (Auto) Nucleat RBC Rel Count Absolute Neuts (auto) Absolute Lymphs (auto) Absolute Monos (auto) Absolute Eos (auto) Absolute Basos (auto) Absolute Nucleated RBC Immature Gran % Immature Gran # Platelet Estimate Polychromasia Oval Macrocytes Elliptocytes PT INR APTT D-Dimer VBG Lactic Acid 1.3 mmol/L mmol/L (0.7-2.1) POC Sodium 135 mEq/L mEq/L (135-145) Sodium POC Potassium 4.0 mEq/L mEq/L (3.3-5.0) Potassium POC Chloride 102 mEq/L mEq/L (97-110) Chloride Carbon Dioxide Anion Gap POC BUN 35 mg/dL H mg/dL (7-23) BUN Creatinine POC Creatinine 1.1 mg/dL mg/dL (0.7-1.3) Estimated GFR Glucose POC Glucose 72 mg/dL mg/dL (70-100) Calcium Total Bilirubin Troponin I Nasal Influenza A PCR NEGATIVE FOR FLU A (NEGATIVE) Nasal Influenza B PCR NEGATIVE FOR FLU B (NEGATIVE) 07/10/17 07/10/17 07/10/17 11:45 11:45 11:45 WBC 21.71 10^3/uL H 10^3/uL (3.80-9.50) RBC 3.47 10^6/uL L 10^6/uL (4.40-6.38) Hgb 9.7 g/dL L g/dL (13.7-17.5) POC Hgb Hct 31.1 % L % (40.0-51.0) POC Hct MCV 89.6 fL fL (81.5-99.8) MCH 28.0 pg pg (27.9-34.1) MCHC 31.2 g/dL L g/dL (32.4-36.7) RDW 20.8 % H % (11.5-15.2) Plt Count 442 10^3/uL H 10^3/uL (150-400) MPV 9.4 fL fL (8.7-11.7) Neut % (Auto) 90.3 % H % (39.3-74.2) Lymph % (Auto) 2.9 % L % (15.0-45.0) [place] % (Auto) 5.3 % % (4.5-13.0) Eos % (Auto) 0.0 % L % (0.6-7.6) Baso % (Auto) 0.3 % % (0.3-1.7) Nucleat RBC Rel Count 0.0 % % (0.0-0.2) Absolute Neuts (auto) 19.58 10^3/uL H 10^3/uL (1.70-6.50) Absolute Lymphs (auto) 0.64 10^3/uL L 10^3/uL (1.00-3.00) Absolute Monos (auto) 1.15 10^3/uL H 10^3/uL (0.30-0.80) Absolute Eos (auto) 0.01 10^3/uL L 10^3/uL (0.03-0.40) Absolute Basos (auto) 0.06 10^3/uL 10^3/uL (0.02-0.10) Absolute Nucleated RBC 0.00 10^3/uL 10^3/uL (0-0.01) Immature Gran % 1.2 % H % (0.0-1.1) Immature Gran # 0.27 10^3/uL H 10^3/uL (0.00-0.10) Platelet Estimate INCREASED H (ADEQ) Polychromasia 1+ H Oval Macrocytes 1+ H Elliptocytes 1+ H PT 13.4 SEC SEC (12.0-15.0) INR 1.00 (0.83-1.16) APTT 23.1 SEC SEC (23.0-38.0) D-Dimer 1.64 ug/mLFEU H ug/mLFEU (0.00-0.50) VBG Lactic Acid POC Sodium Sodium 134 mEq/L L mEq/L (135-145) POC Potassium Potassium 4.1 mEq/L mEq/L (3.5-5.2) POC Chloride Chloride 99 mEq/L mEq/L (97-110) Carbon Dioxide 25 mEq/l mEq/l (22-31) Anion Gap 10 mEq/L mEq/L (8-16) POC BUN BUN 37 mg/dL H mg/dL (7-23) Creatinine 0.9 mg/dL mg/dL (0.7-1.3) POC Creatinine Estimated GFR > 60 Glucose 60 mg/dL L mg/dL (70-100) POC Glucose Calcium 8.8 mg/dL mg/dL (8.5-10.4) Total Bilirubin 0.6 mg/dL mg/dL (0.1-1.4) Troponin I 0.075 ng/mL H ng/mL (0.000-0.034) Nasal Influenza A PCR Nasal Influenza B PCR Point of Care Test Results: 07/10/17 11:59 POC Sodium 135 POC Potassium 4.0 POC Chloride 102 POC BUN 35 H POC Creatinine 1.1 POC Glucose 72 Departure - Departure Disposition: [facility] Inpatient Acute Clinical Impression: Pneumonia Condition: Fair Referrals: Patient,NotPresent [Unknown] - As per Instructions
[2017-07-10] MEDS ORDERED: ONDANSETRON DISINTEGRATING 4 MG TAB PO PRN (14:24)
[2017-07-10] MEDS ORDERED: ONDANSETRON 4 MG/2 ML VIAL IVP PRN (14:24)
[2017-07-10] MEDS ORDERED: cefTRIAXone 1 GM in STERILE WATER INJ 10 ML IV SCH (14:30)
[2017-07-10] MEDS ORDERED: NS 1,000 ML IV SCH (14:30)
--- NOTE | 2017-07-10 15:22 | GHP ---
[f rep st] HISTORY AND PHYSICAL DATE OF ADMISSION: 07/10/2017 The patient is a pleasant 81-year-old gentleman with history of rheumatoid arthritis, who is wheelcha ir bound, takes chronic steroids, and also with known history of aspiration, who presents to the [facility] department with increased work of breathing. He denies cough. He denies sputum. He denies co ughing with eating. Following an admission in January 2017 where aspiration was proven with a video swallow, he underwent a period of speech therapy, which he has since discontinued and it sounds like he is no longer drinking thickened liquids. He has had no lightheadedness or dizziness. When I am in the emergency department, he elects to be a do not resuscitate, which I believe is a new finding for him. History is taken with his daughter at the bedside. Additionally, I have recently admitted and discharged his who has Parkinson disease. REVIEW OF SYSTEMS: Complete 10-point review of systems conducted, negative except as noted in the HP I. PAST MEDICAL HISTORY: Aspiration pneumonia with silent aspiration of thin liquids, rheumatoid arthri tis, chronic prednisone of 5 b.i.d., moderate to severe aortic stenosis, recurrent left-sided pneumon ia in June of 2016 and November 2016, as well as January of 2017, deconditioning, asthma, reflux, try on baster alexandru troponin level of 0.1, hypertension, chronic left lower extremity wound, osteoporosis, peripheral neuropathy, spinal stenosis with radiculopathy, chronic nephrolithiasis, prostate cancer, prostatect scot. FAMILY HISTORY: Notable for CAD. SOCIAL HISTORY: Lifelong smoker from [place]. He used to work for [employer]. Lives at the [facility]. His lives there, but she is currently at [employer]. ALLERGIES: Penicillins. HOME MEDICATIONS: Tylenol, albuterol, aspirin, atorvastatin, PreserVision, calcium carbonate, diltia zem, esomeprazole, Flonase, Advair, Lasix, gabapentin, leflunomide, losartan, montelukast, prednisone , tramadol. PHYSICAL EXAMINATION: PRESENTING VITALS: Temp 36.5, blood pressure 81/86, pulse 90, breathing 16 ti mes a minute, 90% on room air. GENERAL: Chronically ill appearing with no acute distress. Sclerae anicteric. Oropharynx clear. Mucous membranes dry. NECK: Supple without lymphadenopathy, JVD. BRIANDA NGS: Rhonchi with decreased breath sounds on the right. Clear on the left. HEART: S1, S2. Not ta chycardic. Murmur is heard. ABDOMEN: Soft, nontender, nondistended. LOWER EXTREMITIES: Trace aleksandra ma bilaterally. Calves are nontender. SKIN: Without rash. NEUROLOGIC: Nonfocal. LABS: White count 21.7, hematocrit is 31, platelets are 442,000. D-dimer is elevated at 1.6. Venou s lactate is 1.3. Sodium 134, potassium 4.1, chloride 99, bicarb 25, BUN 37, creatinine 0.9, glucose is 60. Troponin 0.075. Reviewing his troponins over time showed this is actually one of his lower values here. UA is unremarkable. He is influenza negative. Chest x-ray interpreted by me shows right-sided pneumonia, right upper lobe greater than the left ___ the lower lobe without effusion. EKG interpreted by me shows sinus right bundle b ranch block and left posterior fascicular block. The conduction abnormality is not new. CTA of the chest shows no pulmonary embolism and confirms multifocal right-sided pneumonia. I discussed the sophie e with Dr. Marty Villatoro. ASSESSMENT AND PLAN: This is an 81-year-old gentleman presenting with sepsis and likely aspiration p neumonia. 1. Sepsis. As evidenced by leukocytosis, hypotension, and a source of infection as well as elevated inflammatory markers including D-dimer. We will treat aggressively with intravenous fluids. Hold h is Lasix. The patient's blood pressure is improved in the emergency department. 2. Pneumonia. This is almost certainly an aspiration pneumonia given its right-sided nature and kno wn propensity for aspiration. I have ordered a speech therapy consult. I will start him on ceftriax one and Flagyl. We can forego atypical coverage. 3. Code status. Now do not resuscitate. 4. Aortic stenosis. Continue volume resuscitation. Hold his Lasix and antihypertensives. 5. Chronic prednisone. The patient takes prednisone 5 twice daily. We will continue this. I will give him 24 hours of stress dose steroids of 50 q.8 of hydrocortisone and follow his response. 6. Disposition. , code do not resuscitate, inpatient status. 7. Hypertension. We will hold his antihypertensives. /[id number]/MODL
[2017-07-10] MEDS: HYDROCORTISONE 100 MG/2 ML VIAL IVP SCH ×2 (17:46→22:11)
[2017-07-10] MEDS: ACETAMINOPHEN 325 MG TAB PO PRN (20:05)
[2017-07-10] MEDS: predniSONE 5 MG TAB PO SCH (20:35)
[2017-07-10] MEDS: GABAPENTIN 100 MG CAP PO SCH (20:35)
[2017-07-10] MEDS: traMADol 50 MG TAB PO SCH (20:35)
[2017-07-10] MEDS ORDERED: FLUTICASONE/SALMETER 500/50MCG DISKUS IH SCH (21:00)
[2017-07-10] MEDS: FLUTICASONE/SALMETER 500/50MCG DISKUS IH SCH (21:20)
[2017-07-11 04:31] LABS: PLATELET COUNT 335 10^3/uL (150-400)
[2017-07-11] MEDS: HYDROCORTISONE 100 MG/2 ML VIAL IVP SCH ×3 (06:08→20:57)
[2017-07-11] MEDS: LEFLUNOMIDE 20 MG TAB PO SCH (08:42)
[2017-07-11] MEDS: PRESERVISION AREDS2 FORMULA EYE VIT 1 EACH PO SCH (08:42)
[2017-07-11] MEDS: traMADol 50 MG TAB PO SCH ×2 (08:42→20:53)
[2017-07-11] MEDS: GABAPENTIN 100 MG CAP PO SCH ×2 (08:42→20:56)
[2017-07-11] MEDS: ENOXAPARIN 40 MG/0.4 ML SYR SC SCH (08:43)
[2017-07-11] MEDS: CALCIUM CARB W/VIT D 500 MG TAB PO SCH (08:43)
[2017-07-11] MEDS: ATORVASTATIN CALCIUM 10 MG TAB PO SCH (08:43)
[2017-07-11] MEDS: PANTOPRAZOLE SODIUM 40 MG TAB PO SCH (08:43)
[2017-07-11] MEDS: ASPIRIN EC 81 MG TAB PO SCH (08:44)
[2017-07-11] MEDS: predniSONE 5 MG TAB PO SCH (08:44)
[2017-07-11] MEDS: MONTELUKAST SODIUM 10 MG TAB PO SCH (08:44)
[2017-07-11] MEDS ORDERED: FLUTICASONE NASAL 120 SPRAYS/16 GM MDI EACHNARE SCH (09:00)
[2017-07-11] MEDS ORDERED: DILTIAZEM CD 120 MG CAP PO SCH (09:00)
[2017-07-11] MEDS ORDERED: ERTAPENEM 1 GM VIAL IV SCH (09:00)
[2017-07-11] MEDS: FLUTICASONE NASAL 120 SPRAYS/16 GM MDI EACHNARE SCH (09:05)
--- NOTE | 2017-07-11 09:43 | PDMN ---
Medical Necessity Medical necessity: M160 sepsis and other febrile illness: leukocytosis, hypotension, elevated D-Dimer, M 283-PNA, probable aspiration- past hx of aspiration pna, anticipate > 2 midnights ongoing med nec care: IV abx, fluids, further monitoring needed.
[2017-07-11] MEDS: FLUTICASONE/SALMETER 500/50MCG DISKUS IH SCH ×2 (10:29→21:00)
--- NOTE | 2017-07-11 12:03 | ASMTCASEMG ---
Living Arrangements What is your living Answers: With Spouse arrangement? Who do you live with? Type Of Residence What kind of residence do Answers: Intermediate you live in? Type of Residence Facility Name Notes: [facility] Discharge Plan Comments Coordination Status Comments Notes: Pts case discussed in morning rounds. Pt is a 81 y/o man admitted for near syncope. Pts is currently rehabing at [facility]. Pt lost 30 pounds within the last couple of months. Therapies have been ordered and awaitng recommendations. Needs are TBD at this time. CM notified Abelardokourtney of pts admission. CM to follow. Plan: TBD Date Signed: 07/11/2017 12:02 PM Electronically Signed By:LAMIN Richards
--- NOTE | 2017-07-11 15:18 | HOSPPROG ---
Hospitalist Progress Note Assessment/Plan: Assessment: 81-year-old male presents with sepsis in the setting of recurrent aspiration pneumonia Plan: 1. Sepsis. Present on admission, evidenced by Q sofa score of 2 with hypotension and tachypnea, and evidence of autonomic dysregulation in the setting of infection with end-organ failure including demand ischemia, clear source of infection including pneumonia, meeting all ICDS-3 criteria -status post IV fluids, hold to avoid volume overload at this time -status post empiric IV antibiotics -stress dose steroids for additional 24 hr -continue monitor inflammatory markers including CBC 2. Aspiration pneumonia. Present on admission, recurrent, new problem this provider, further workup indicated. Patient endorses that he has been experiencing coughing with p.o. Intake and this is the most likely etiology of his pneumonia, with multifocal areas on the right side on chest imaging, CT, personally interpreted, resulting in sepsis physiology -day 2 of antibiotics, ceftriaxone/metronidazole, will just to single agent ertapenem tomorrow and continue monitoring white blood cell count -speech eval, VFSS -get sputum culture, urine strep 3. Demand ischemia. Elevated troponin level most likely secondary to end-organ failure notably demand ischemia in the setting of sepsis -continue to trend -EKG demonstrating ST depression inferiorly as well as right bundle branch block and left posterior fascicular block, ongoing ST depression on telemetry despite the patient having no chest pain, continue to monitor -given that the patient would most likely not be an interventional cardiac candidate, I will hold on echocardiogram or further invasive workup at this time 4. Pressure injury. Present on admission, coccyx, right lower extremity, wound care consult appreciated 5. Thyroid nodule. Right-sided, will further address with patient and family, stable from previous chest imaging 6. Acute atelectasis. Present on chest imaging, incentive spirometer, Acapella 7. Chronic immunosuppression with chronic steroid use. Currently is heaving stress dose hydrocortisone, will adjust to oral prednisone dosing tomorrow 8. Hypertension. Chronic, currently holding diltiazem 9. Normocytic anemia. Hemoglobin 7.3, slightly less than baseline, no evidence of acute blood loss at this time -get fecal occult blood test -check iron studies and reticulocyte count Diet. Modified per speech Prophylaxis. High risk patient, Lovenox 40 Code. Do not resuscitate per patient Disposition. Anticipated discharge uncertain, requiring stabilization of conditions outlined above. Subjective: Patient denies chest pain, his back pain has resolved, he is having a difficult time eating with his left hand Objective: Vital Signs Temp Pulse Resp BP Pulse Ox 36.3 C 105 H 16 119/58 L 98 07/11/17 13:24 07/11/17 13:24 07/11/17 13:24 07/11/17 13:24 07/11/17 13:24 Laboratory Results 07/11/17 04:00 07/11/17 04:00 07/10/17 07/11/17 07/12/17 05:59 05:59 05:59 Intake Total 3965 Output Total 1177 275 Balance 2788 -275 PT 13.4 SEC (12.0-15.0) 07/10/17 11:45 INR 1.00 (0.83-1.16) 07/10/17 11:45 - Physical Exam Constitutional: no apparent distress, not in pain, chronically ill appearing, No uncomfortable Cardiovascular: systolic murmur (2/6 at the sternum), tachycardia, No irregularly irregular, No edema Respiratory: reduced air movement (Bilateral bases), rhonchi (Right mid posterior 2nd), No expiratory wheeze, No bronchial breath sounds, No respiratory distress Gastrointestinal: normoactive bowel sounds, soft, non-tender abdomen, no palpable masses, No distension Neurologic: AAOx3, sensation intact bilaterally, No facial droop Psychiatric: interacting appropriately, not anxious, not encephalopathic, thought process linear ICD10 Worksheet Patient Problems: Problems Problem Status Onset Left hip pain Acute Hip pain Acute Pneumonia Acute Syncope Acute Pneumonia Acute Elevated troponin Acute Constipation Acute Dizziness Acute Abnormal chest x-ray Acute Anemia Acute
[2017-07-11] MEDS: ACETAMINOPHEN 325 MG TAB PO PRN (20:54)
[2017-07-11] MEDS: ALBUTEROL 3 ML DEYVIAL IH PRN (21:00)
--- NOTE | 2017-07-11 21:24 | WOCRNPDOC ---
AGUS Advanced Assessment Note - Skin Integrity Problem, Advanced Assess Left Sacrum Pressure Injury Dressing Type: Mepilex Border Dressing Description: Clean/Dry, Intact Exudate Amount: Scant Integumentary Issue Intervention: Visualized Under Dressing, Hydrogel Applied Juliette Wound Tissue: Erythema, Non-blanching Wound Bed Color: Yellow Wound Bed Constitution: Adhered Slough Wound Edges: Attached, Well Defined Site Measurement - Head-to-Toe Length X Width X Depth (cm): 1.7x0.4x0.2 Pressure Injury Stage: Unstageable Pressure Injury Present on Admit: Yes Skin Integrity Problem Comment: Patient rolled to his left side with assist from RN. Mepilex border sacrum pulled back to show likely pressure related injury on the left aspect of sacrum. Wound bed consists of yellow adhered slough so unable to determine stage at this time. Patient confirms he spends about 10 hours per day sitting in his wheelchair. Patient reminded to adjust his weight, even when sitting in the chair. Will implement offloading measures if not already in place, and upgrade surface. Wound care will round again later this week. Proximal Sacrum Pressure Injury Dressing Type: Mepilex Border Dressing Description: Clean/Dry, Intact Integumentary Issue Intervention: Visualized Under Dressing Juliette Wound Tissue: Erythema, Intact Wound Bed Color: Red Wound Edges: Well Defined Site Measurement - Head-to-Toe Length X Width X Depth (cm): 0.5x0.4xintact Pressure Injury Stage: Stage 1 Pressure Injury Present on Admit: Yes Skin Integrity Problem Comment: Reddened area to proximal sacrum, non-blanching at this time. Patient states he spends much of his day seated in his wheelchair. Subsequently, this area is likely pressurized much of the time. Patient will benefit from offloading area. Wound care will continue to follow this wound, rounding later this week. Right Anterior Lower Leg Venous Stasis Ulcer Dressing Type: Kerlix Dressing Description: Clean/Dry, Intact Exudate Amount: None Integumentary Issue Intervention: Dressing Changed, Dressing Initialed & Dated, Hydrogel Applied Juliette Wound Tissue: Intact Juliette Wound Swelling: None Wound Bed Color: Brown, Yellow Wound Bed Constitution: Scab, Mixed Loose & Adhered Slough/Eschar Wound Edges: Attached, Well Defined Site Measurement - Head-to-Toe Length X Width X Depth (cm): 5x1.3x0.3 Skin Integrity Problem Comment: Patient's compression stockings removed. Patient with dried scab in the proximal wound bed and loose, yellow slough in the distal wound bed where a small piece of black mesh was adhered. Mesh removed and wound bed cleaned with NS and gauze to remove most of the loose slough. Wound bed will benefit from some moisture to soften the scab. Wound gel and allevyn applied. Patient's compression stockings reapplied. Wound care will round later this week. Right Lower Lateral Leg Venous Stasis Ulcer Dressing Type: Kerlix, Other Other Dressing Type: Black mesh, adhered Dressing Description: Clean/Dry, Intact Exudate Amount: None Integumentary Issue Intervention: Dressing Changed, Dressing Initialed & Dated, Hydrogel Applied Juliette Wound Tissue: Dry Wound Bed Color: Brown, Red Wound Bed Constitution: Scab Wound Edges: Attached, Well Defined Site Measurement - Head-to-Toe Length X Width X Depth (cm): 3.5x1.7x0.3 Skin Integrity Problem Comment: Patient with dried scab throughout wound bed with adhered black mesh. Mesh removed and wound bed cleaned with NS and gauze. Wound bed will benefit from some moisture to soften the scab. Wound gel and allevyn applied. Wound care will round later this week. Right Posterior Lower Leg Venous Stasis Ulcer Dressing Type: Kerlix Dressing Description: Clean/Dry, Intact Exudate Amount: None Integumentary Issue Intervention: Dressing Changed, Dressing Initialed & Dated, Hydrogel Applied Juliette Wound Tissue: Erythema, Swollen, Dry Wound Bed Color: Yellow Wound Bed Constitution: Adhered Slough Wound Edges: Attached, Well Defined Site Measurement - Head-to-Toe Length X Width X Depth (cm): 3x1.9x0.4 Skin Integrity Problem Comment: Patient with adhered, dried slough throughout wound bed. Wound bed cleaned with NS and gauze. Wound bed will benefit from some moisture to soften the slough. Wound gel and allevyn applied. Wound care will round later this week. Left First Toe Dressing Type: Open to Air Juliette Wound Tissue: Intact, Dry Wound Bed Color: Brown Wound Bed Constitution: Scab Wound Edges: Attached, Well Defined Site Measurement - Head-to-Toe Length X Width X Depth (cm): 1x1.5x0.2 Skin Integrity Problem Comment: Wound bed with adhered scab. Wound will benefit from moisture to soften the scab. Wound care will round again later this week.
[2017-07-12 04:53] LABS: PLATELET COUNT 313 10^3/uL (150-400)
[2017-07-12] MEDS: HYDROCORTISONE 100 MG/2 ML VIAL IVP SCH (06:00)
[2017-07-12] MEDS: ENOXAPARIN 40 MG/0.4 ML SYR SC SCH (08:22)
[2017-07-12] MEDS: traMADol 50 MG TAB PO SCH ×2 (08:22→19:53)
[2017-07-12] MEDS: PANTOPRAZOLE SODIUM 40 MG TAB PO SCH (08:23)
[2017-07-12] MEDS: LEFLUNOMIDE 20 MG TAB PO SCH (08:23)
[2017-07-12] MEDS: GABAPENTIN 100 MG CAP PO SCH ×2 (08:23→19:53)
[2017-07-12] MEDS: ATORVASTATIN CALCIUM 10 MG TAB PO SCH (08:23)
[2017-07-12] MEDS: ASPIRIN EC 81 MG TAB PO SCH (08:23)
[2017-07-12] MEDS: PRESERVISION AREDS2 FORMULA EYE VIT 1 EACH PO SCH (08:23)
[2017-07-12] MEDS: MONTELUKAST SODIUM 10 MG TAB PO SCH (08:23)
[2017-07-12] MEDS: CALCIUM CARB W/VIT D 500 MG TAB PO SCH (08:23)
[2017-07-12] MEDS: FLUTICASONE NASAL 120 SPRAYS/16 GM MDI EACHNARE SCH (08:28)
[2017-07-12] MEDS ORDERED: ERTAPENEM 1 GM VIAL IV SCH (09:00)
--- NOTE | 2017-07-12 09:17 | CPEKG ---
Heart Rate: 100 RR Interval: 600 P-R Interval: 160 QRSD Interval: 156 QT Interval: 412 QTC Interval: 532 P [place]: 43 QRS [place]: 74 T Wave [place]: -51 EKG Severity - ABNORMAL ECG - EKG Impression: SINUS TACHYCARDIA EKG Impression: PROBABLE LEFT ATRIAL ABNORMALITY EKG Impression: RIGHT BUNDLE BRANCH BLOCK EKG Impression: BORDERLINE INFERIOR Q WAVES EKG Impression: ST DEPRESSION, CONSIDER ISCHEMIA, INF LEADS EKG Impression: COMPARED TO EKG DATED 07/10/2017 NO SIGNIFICANT CHANGE Electronically Signed By: Ismael Abad 18-Jul-2017 14:44:27
[2017-07-12] MEDS: ALBUTEROL 3 ML DEYVIAL IH PRN (09:43)
[2017-07-12] MEDS: FLUTICASONE/SALMETER 500/50MCG DISKUS IH SCH ×2 (09:43→20:40)
--- NOTE | 2017-07-12 09:56 | WOCRNPDOC ---
WOCRN Advanced Assessment Note - Skin Integrity Problem, Advanced Assess Left Ear Dressing Type: Open to Air Skin Integrity Problem Comment: Mass on posterior ear below hearing aid. Patient reports it being present for multiple years. 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 Recommended RN have MD assess. Wound care will sign off.
--- NOTE | 2017-07-12 10:12 | PDCARCONS ---
Cardiology Consult Reason for Consult: Elevation troponin Chief Complaint: Dehydration and pneumonia Requesting Physician: Dania History of Present Illness: 81-year-old male known history of aortic stenosis, atherosclerosis by imaging admitted to the hospital with likely aspiration pneumonia associated with severe anemia. I am asked to comment on elevation in troponin. On my arrival he is resting comfortably in bed. He has no chest pain. He has no shortness of breath. He denies PND orthopnea. He did describe near syncope associated with dehydration. His biggest complaint is a dry mouth. He has no history of coronary artery disease. He has a longstanding history of rheumatic arthritis. History Information - Allergies/Home Medication List Allergies/Adverse Reactions: Penicillins Allergy (Verified 01/22/17 08:33) Home Medications: Fluticasone Nasal [Flonase Nasal [place]] 2 sprays EACHNARE DAILY 05/23/15 [Last Taken 07/10/17] Leflunomide [Arava 20 mg (*)] 20 mg PO DAILY 05/23/15 [Last Taken 07/10/17] Montelukast Sodium [Singulair 10 mg (*)] 10 mg PO DAILY 05/23/15 [Last Taken ] predniSONE 5 mg PO BID 05/23/15 [Last Taken 07/10/17] Acetaminophen [Tylenol ES 500 mg (*)] 500 mg PO BID PRN 12/10/16 [Last Taken ] C/E/Zn/Cu/OM3/DHA/EPA/LUT/ZEAX [Preservision Areds 2 Softgel] 1 each PO DAILY [Last Taken 07/10/17] Calcium Carb W/Vit D [Calcium Carb W/Vit D 500/200 (*)] 1,000 mg PO DAILY [Last Taken 07/10/17] Gabapentin [Neurontin 100 MG (*)] 100 mg PO BID 12/10/16 [Last Taken 07/10/17] traMADol [Ultram 50 mg (*)] 25 mg PO BID 12/10/16 [Last Taken 07/10/17] Esomeprazole Magnesium [Nexium 24Hr] 20 mg PO DAILY 01/06/17 [Last Taken ] Diltiazem HCl [Dilacor Xr] 120 mg PO DAILY 01/22/17 [Last Taken 07/10/17] Albuterol [Proventil Inhaler HFA (*)] 1 - 2 puffs IH Q4H PRN 07/10/17 [Last Taken Unknown] Albuterol [Proventil Neb] 3 ml IH QID PRN 07/10/17 [Last Taken 07/10/17] Atorvastatin Calcium [Lipitor 10 mg (*)] 10 mg PO DAILY 07/10/17 [Last Taken ] Fluticasone/Salmeter 500/50Mcg [Advair 500/50 (*)] 1 puffs IH BID 07/10/17 [ Last Taken 07/10/17] Furosemide [Lasix 40 MG (*)] 40 mg PO DAILY 07/10/17 [Last Taken 07/10/17] Losartan Potassium [Cozaar 50 mg (*)] 50 mg PO DAILY 07/10/17 [Last Taken ] I have personally reviewed and updated: family history, medical history, social history, surgical history Past Medical History: - Family History Positive for: non-pertinent (Limited lifestyle) - Social History Smoking Status: Never smoked Physical Exam Physical Exam: Temp Pulse Resp BP Pulse Ox 36.5 C 96 22 H 139/80 H 96 07/12/17 07:24 07/12/17 09:43 07/12/17 09:43 07/12/17 07:24 07/12/17 09:43 O2 (L/minute) 1 Lab and Imaging 07/12/17 04:04 07/12/17 04:04 WBC 13.21 10^3/uL (3.80-9.50) H 07/12/17 04:04 RBC 2.46 10^6/uL (4.40-6.38) L 07/12/17 04:04 Hgb 7.0 g/dL (13.7-17.5) L 07/12/17 04:04 POC Hgb 10.5 gm/dL (13.7-17.5) L 07/10/17 11:59 Hct 22.2 % (40.0-51.0) L 07/12/17 04:04 POC Hct 31 % (40-51) L 07/10/17 11:59 MCV 90.2 fL (81.5-99.8) 07/12/17 04:04 MCH 28.5 pg (27.9-34.1) 07/12/17 04:04 MCHC 31.5 g/dL (32.4-36.7) L 07/12/17 04:04 RDW 20.9 % (11.5-15.2) H 07/12/17 04:04 Plt Count 313 10^3/uL (150-400) 07/12/17 04:04 MPV 9.7 fL (8.7-11.7) 07/12/17 04:04 Neut % (Auto) 93.0 % (39.3-74.2) H 07/12/17 04:04 Lymph % (Auto) 2.3 % (15.0-45.0) L 07/12/17 04:04 [place] % (Auto) 3.2 % (4.5-13.0) L 07/12/17 04:04 Eos % (Auto) 0.0 % (0.6-7.6) L 07/12/17 04:04 Baso % (Auto) 0.2 % (0.3-1.7) L 07/12/17 04:04 Nucleat RBC Rel Count 0.0 % (0.0-0.2) 07/12/17 04:04 Absolute Neuts (auto) 12.30 10^3/uL (1.70-6.50) H 07/12/17 04:04 Absolute Lymphs (auto) 0.30 10^3/uL (1.00-3.00) L 07/12/17 04:04 Absolute Monos (auto) 0.42 10^3/uL (0.30-0.80) 07/12/17 04:04 Absolute Eos (auto) 0.00 10^3/uL (0.03-0.40) L 07/12/17 04:04 Absolute Basos (auto) 0.02 10^3/uL (0.02-0.10) 07/12/17 04:04 Absolute Nucleated RBC 0.00 10^3/uL (0-0.01) 07/12/17 04:04 Immature Gran % 1.3 % (0.0-1.1) H 07/12/17 04:04 Immature Gran # 0.17 10^3/uL (0.00-0.10) H 07/12/17 04:04 Platelet Estimate ADEQUATE (ADEQ) 07/12/17 04:04 Polychromasia 1+ H 07/10/17 11:45 Microcytic Cells 2+ H 07/12/17 04:04 Tear Drop Cells 1+ H 07/12/17 04:04 Oval Macrocytes 2+ H 07/11/17 04:00 Elliptocytes 1+ H 07/10/17 11:45 Acanthocytes (Spur) 1+ H 07/12/17 04:04 Absolute Retic 0.058 10^6/uL (0.050-0.117) 07/12/17 04:04 Percent Retic 2.34 % (0.98-2.67) 07/12/17 04:04 Corrected Retic Count 1.2 % (0.6-2.6) 07/12/17 04:04 PT 13.4 SEC (12.0-15.0) 07/10/17 11:45 INR 1.00 (0.83-1.16) 07/10/17 11:45 APTT 23.1 SEC (23.0-38.0) 07/10/17 11:45 D-Dimer 1.64 ug/mLFEU (0.00-0.50) H 07/10/17 11:45 VBG Lactic Acid 1.3 mmol/L (0.7-2.1) 07/10/17 12:55 POC Sodium 135 mEq/L (135-145) 07/10/17 11:59 Sodium 142 mEq/L (135-145) 07/12/17 04:04 POC Potassium 4.0 mEq/L (3.3-5.0) 07/10/17 11:59 Potassium 3.6 mEq/L (3.5-5.2) 07/12/17 04:04 POC Chloride 102 mEq/L (97-110) 07/10/17 11:59 Chloride 113 mEq/L (97-110) H 07/12/17 04:04 Carbon Dioxide 22 mEq/l (22-31) 07/12/17 04:04 Anion Gap 7 mEq/L (8-16) L 07/12/17 04:04 POC BUN 35 mg/dL (7-23) H 07/10/17 11:59 BUN 20 mg/dL (7-23) 07/12/17 04:04 Creatinine 0.6 mg/dL (0.7-1.3) L 07/12/17 04:04 POC Creatinine 1.1 mg/dL (0.7-1.3) 07/10/17 11:59 Estimated GFR > 60 07/12/17 04:04 Glucose 119 mg/dL (70-100) H 07/12/17 04:04 POC Glucose 72 mg/dL (70-100) 07/10/17 11:59 Calcium 7.9 mg/dL (8.5-10.4) L 07/12/17 04:04 Iron < 10.1 mcg/dL (49.0-199.0) L 07/12/17 04:04 TIBC 263 ug/dL (260-490) 07/12/17 04:04 Iron Saturation 4 % (20-55) L 07/12/17 04:04 Ferritin 79.2 ng/mL (17.9-464.0) 07/12/17 04:04 Total Bilirubin 0.2 mg/dL (0.1-1.4) D 07/12/17 04:04 AST 20 IU/L (17-59) 07/12/17 04:04 ALT 31 IU/L (21-72) 07/12/17 04:04 Alkaline Phosphatase 92 IU/L (38-126) 07/12/17 04:04 Troponin I 0.484 ng/mL (0.000-0.034) H 07/12/17 04:04 Total Protein 4.4 g/dL (6.3-8.2) L 07/12/17 04:04 Albumin 2.3 g/dL (3.5-5.0) L 07/12/17 04:04 Urine Color COLORLESS 07/10/17 13:50 Urine Appearance CLEAR 07/10/17 13:50 Urine pH 5.0 (5.0-7.5) 07/10/17 13:50 Ur Specific [place] 1.009 (1.002-1.030) 07/10/17 13:50 Urine Protein NEGATIVE (NEGATIVE) 07/10/17 13:50 Urine Ketones NEGATIVE (NEGATIVE) 07/10/17 13:50 Urine Blood NEGATIVE (NEGATIVE) 03/19/18 13:50 Urine Nitrate NEGATIVE (NEGATIVE) 07/10/17 13:50 Urine Bilirubin NEGATIVE (NEGATIVE) 07/10/17 13:50 Urine Urobilinogen NEGATIVE EU (0.2-1.0) 07/10/17 13:50 Ur Leukocyte Esterase NEGATIVE (NEGATIVE) 07/10/17 13:50 Urine Glucose NEGATIVE (NEGATIVE) 07/10/17 13:50 Nasal Influenza A PCR NEGATIVE FOR FLU A (NEGATIVE) 07/10/17 12:55 Nasal Influenza B PCR NEGATIVE FOR FLU B (NEGATIVE) 07/10/17 12:55 Stool Occult Bld Scrn NEGATIVE (NEGATIVE) 07/11/17 21:12 Laboratory Tests 07/10/17 07/10/17 07/11/17 11:45 11:45 04:00 Hgb Hct D-Dimer 1.64 H Creatinine Troponin I 0.075 H 0.058 H 07/11/17 07/12/17 07/12/17 10:40 04:04 04:04 Hgb 7.0 L Hct 22.2 L D-Dimer Creatinine 0.6 L Troponin I 0.040 H 0.484 H Echocardiogram: Echocardiogram shows preserved LV function with concentric left ventricular hypertrophy. There is severe aortic stenosis at least moderate mitral stenosis. Compared to previous echocardiogram from 2017 there has been progression of aortic stenosis. CT chest shows aortic calcifications consistent with atherosclerosis and patient 's age. EKGs continue to show right bundle branch block with nonspecific lateral ST depression. This is unchanged from previous EKGs. Chest x-ray shows borderline cardiomegaly. There focal infiltrates consistent with aspiration pneumonia. A/P Assessment: Impression: 81-year-old male admitted with aspiration pneumonia, severe anemia in the setting of severe known aortic stenosis, mild to moderate mitral stenosis. Elevation in troponins do are not consistent with acute coronary syndrome and likely represent underlying myocardial stress secondary to acute illness with clear elevation in white count, severe anemia. There are no indications for acute intervention at this point. His EKG changes are chronic. I would expect him to be dynamic with stress. Recommend outpatient clinical follow-up. Patient would be considered for transcutaneous aortic valve replacement. His risk for surgery is quite high for standard surgical approach. This would depend on his overall health status. At this point recommend aggressive medical management for anemia, multilobar pneumonia. Continue telemetry follow-up. Outpatient cardiology evaluation when stable. Plan: Fasting lipids. Continue current medications. Past Medical History PMH: - Personal History Current Tetanus/Diphtheria Vaccine: Yes Current Tetanus Diphtheria and Acellular Pertussis (TDAP): Yes Tetanus Vaccine Date: within last 10 years - Medical/Surgical History Hx Asthma: Yes Hx Chronic Respiratory Disease: No Hx Cardiac Disease: Yes Hx Diabetes: No Hx Renal Disease: No Hx Alcoholism: No Hx Cirrhosis: No Hx HIV/AIDS: No Hx Splenectomy or Spleen Trauma: No Other PMH: Asthma, HTN, GERD, Osteoporosis, [place] POSTA, Peripheral Neuropathy, spinal stenosis and lumbar radiculopathy, Chronic Nepholithiasis, Prostate Cancer - Social History Smoking Status: Never smoked Additional Social History: Review of Systems Review of Systems: - Review of Systems Constitutional: malaise, weakness. denies: fever EENTM: mouth pain Respiratory: no symptoms reported Cardiac: no symptoms reported Gastrointestinal/Abdominal: no symptoms reported Genitourinary: no symptoms Musculoskelatal: joint pain Hematologic/Lymphatic: no symptoms reported
[2017-07-12] MEDS: SODIUM FERRIC GLUCONAT/SUCROSE 125 MG in NS 100 ML IV SCH (11:01)
--- NOTE | 2017-07-12 11:30 | ECHO ---
[email or web address] [address] Main: [phone] Fax: Transthoracic Echocardiogram Name: BRENDA SORTO MR#: [id number] Study Date: 07/12/2017 Study Time: 10:02 AM Date of : 1935 Age: 81 year(s) Height: 180.3 cm (71 in.) Weight: 65.77 kg (145 lb.) BSA: 1.84 m2 Gender: Male Examination: Echo Indication: Eval LV Fx, Elevated troponins Image Quality: Contrast: Requested by: Brenda Pimentel BP: 128 mmHg/76 mmHg Heart Rate: Rhythm: Indication: Eval LV Fx, Elevated troponins Procedure Staff Regulatory Affairs Analyst: Jonathan Rosa RDCS Reading Physician: Ildefonso Kilgore MD Requesting Provider: Conclusions: No pericardial effusion. Concentric left ventricular hypertrophy with ejection fraction of 60%. Elevated filling pressures by Doppler. Severe aortic stenosis with a mean gradient of 60 mm of mercury. Mitral annular calcification with mild to moderate mitral stenosis mean gradient of 5 mm of mercury Measurements: Chambers Valvular Assessment AV/MV Valvular Assessment TV/PV Normal Normal Normal Name Value Range Name Value Range Name Value Range Ao Ethel (MM): 3.5 cm (2.2 cm-3.7 AV Vmax: 4.56 m/s (1 m/s-1.7 TR Vmax: 2.78 mm/s ( - ) cm) m/s) TR PGmax: 31 mmHg ( - ) IVSd (2D): 0.9 cm (0.6 cm-1.1 AV maxP mmHg ( - ) syst. PAP: 36 mmHg ( - ) cm) AV meanP mmHg ( - ) PV Vmax: 1.81 m/s (0.6 m/s-0.9 LVDd (2D): 4.6 cm (4.2 cm-5.9 GONZALO (VTI): 0.6 cm ( - ) m/s) cm) MV E Vmax: 1.15 m/s ( - ) PV PGmax: 13 mmHg ( - ) LVDs (2D): 3.2 cm (2.1 cm-4 MV A Vmax: 1.72 m/s ( - ) cm) MV E/A: 0.67 ( - ) LVPWd (2D): 1.0 cm (0.6 cm-1 cm) MV meanP mmHg ( - ) LVOTd 2.1 cm 2.1 cm mm MVA (Vmax): 2.2 m/s ( - ) LVEF (2D): 58 (>=54 %) EF Range: 55-60 % Continued Measurements: Valvular Assessment AV/MV Valvular Assessment TV/PV Name Value Name Value MV E' Septal: 0.06 m/s CVP (est.): 5 mmHg MV E/E' Septal: 20.70 MV E/E' Lateral: 20.40 MV VTI: 30.50 cm Patient: BRENDA SORTO Study Date: 07/12/2017 Page 1 of 2 10:02 AM Findings: Left Ventricle: Normal size left ventricle. Mild to moderate LVH. Normal global systolic LV function. The ejection fraction is estimated to be 55-60 %. No regional wall motion abnormality. Diastolic dysfunction is present. . Right Ventricle: Normal size right ventricle. Normal RV function. Left Atrium: The left atrium is normal in size. Right Atrium: The right atrium is normal in size. Mitral Valve: Moderate mitral valve leaflet calcification is present. Moderate mitral valve stenosis is present. The Mean PG of the MV is 5 mmHg. Aortic Valve: Severe aortic valve calcification is present. Severe calcific aortic valve stenosis. The Ao Vmax is 4.6 m/s with a mean PG of 60 mmHg. . Tricuspid Valve: The tricuspid valve is normal in appearance and function. There is no significant tricuspid valve regurgitation. Pulmonic Valve: The pulmonic valve is normal in appearance and function. Aorta: The aorta is normal. Pericardium: No pericardial effusion. There is pericardial fat. (No Signature Object) Patient: BRENDA SORTO Study Date: 07/12/2017 Page 2 of 2 10:02 AM [id number]
--- NOTE | 2017-07-12 14:03 | ASMTCMCOM ---
CM Note CM Note Notes: Pts case reviewed in morning rounds. CM spoke w/ Katharine, OT and she is recommending back to [facility] with HC. PT is recommending SNF. CM met w/ pt for dispo planning. Pt is interested in having CM make a referral to [facility]. Pt reports that it would be helpful to rehab there for a week or so. Referral sent to [facility]. Non triggering PASRR completed. Pt reports that his son is in the process of looking into assisted living facilities. CM provided pt w/ the [facility] blue book. CM to follow. Plan: [facility] Date Signed: 07/12/2017 02:03 PM Electronically Signed By:LAMIN Richards
[2017-07-12] MEDS ORDERED: FUROSEMIDE 20 MG/2 ML VIAL IVP ONE (16:41)
--- NOTE | 2017-07-12 17:10 | HOSPPROG ---
Hospitalist Progress Note Assessment/Plan: Assessment: 81-year-old male presents with sepsis in the setting of recurrent aspiration pneumonia c/b severe aortic stenosis and demand ischemia Plan: 1. Sepsis. Present on admission, evidenced by Q sofa score of 2 with hypotension and tachypnea, and evidence of autonomic dysregulation in the setting of infection with end-organ failure including demand ischemia, clear source of infection including pneumonia, meeting all ICDS-3 criteria -resolved 2. Aspiration pneumonia. Present on admission, recurrent, ongoing aspiration on VFSS and high-risk of recurrence -day 3 of antibiotics, adjusted to Unasyn, plan to transition to Augmentin when clinically ready for DC -sputum culture, urine strep pending 3. Demand ischemia. Acute, new problem, further w/u indicated. Elevated troponin level most likely secondary to end-organ failure notably demand ischemia in the setting of sepsis, uptrending this AM -Echo ordered -d/w Dr. Kilgore, he reports that patient has severe and this is likely source of strain in setting of sepsis, w/ relatively unchanged ST depressions on EKG from prior, and he suggests that patient f/u [facility] cardiology from rehab and assess whether TAVR or further risk stratification would be in line w/ goals of care after palliative consultation as oupt 4. Pressure injury. Present on admission, coccyx, right lower extremity, wound care consult appreciated 5. Thyroid nodule. Right-sided, rec outpt PCP address further, stable from previous chest imaging 6. Acute atelectasis. Present on CXR, personally interpreted, incentive spirometer, Acapella 7. Chronic immunosuppression with chronic steroid use. Adjusted to PO pred home dosing 5mg bid 8. Hypertension. Chronic, currently holding ARB, will restart home dilt 120mg daily in AM given some rebound tachycardia -restart home lasix tomorrow 9. Normocytic anemia. Acute worsening today, Hgb 7, and in setting of demand ischemia, transfusion 1u indicated -iron studies indicate iron-def component, and, despite neg FOB, patient has hx of GI ulcers/bleed, and may have transient/intermittent blood loss, as well as chronic inflammatory disease -give IV iron today/tomorrow -monitor counts -dose IV lasix s/p blood 10. Suspected skin cancer. L posterior auricular, rec addressing through outpt [facility] Diet. Modified per speech Prophylaxis. High risk patient, Lovenox 40 Code. Do not resuscitate per patient Disposition. Anticipated discharge 07/13 vs. 07/14, requiring stabilization of conditions outlined above. Subjective: patient reports shortness of breath improving Objective: Vital Signs Temp Pulse Resp BP Pulse Ox 36.9 C 105 H 18 120/61 95 07/12/17 16:12 07/12/17 16:12 07/12/17 16:12 07/12/17 16:12 07/12/17 16:12 Microbiology 07/11/17 18:00 - Final Sputum, Expectorated Laboratory Results 07/12/17 04:04 07/12/17 04:04 07/11/17 07/12/17 07/13/17 05:59 05:59 05:59 Intake Total 3965 1292 572 Output Total 1177 990 300 Balance 2788 302 272 PT 13.4 SEC (12.0-15.0) 07/10/17 11:45 INR 1.00 (0.83-1.16) 07/10/17 11:45 - Physical Exam Constitutional: no apparent distress, not in pain, chronically ill appearing, No uncomfortable Ears, Nose, Mouth, Throat: hard of hearing Cardiovascular: systolic murmur (IV/ at RSB), tachycardia, edema (trace bilat LE), No irregularly irregular Respiratory: reduced air movement (bilat bases), rhonchi (on insp R anterior segs), No expiratory wheeze, No bronchial breath sounds Gastrointestinal: normoactive bowel sounds, soft, non-tender abdomen, no palpable masses, No distension Skin: other (ulcerating, non-tender, firm, nodular lesion L post-auricular area) Neurologic: AAOx3, No facial droop Psychiatric: interacting appropriately, not anxious, not encephalopathic, thought process linear ICD10 Worksheet Patient Problems: Problems Problem Status Onset Left hip pain Acute Hip pain Acute Pneumonia Acute Syncope Acute Pneumonia Acute Elevated troponin Acute Constipation Acute Dizziness Acute Abnormal chest x-ray Acute Anemia Acute
[2017-07-12] MEDS: predniSONE 5 MG TAB PO SCH (17:21)
[2017-07-13] MEDS: ACETAMINOPHEN 325 MG TAB PO PRN ×3 (00:55→18:44)
[2017-07-13 04:10] LABS: PLATELET COUNT 327 10^3/uL (150-400)
[2017-07-13] MEDS: AMPICILLIN/SULBACTAM 3 GM VIAL IV SCH ×2 (06:02→12:29)
[2017-07-13] MEDS: FUROSEMIDE 40 MG TAB PO SCH (08:39)
[2017-07-13] MEDS: CALCIUM CARB W/VIT D 500 MG TAB PO SCH (08:39)
[2017-07-13] MEDS: GABAPENTIN 100 MG CAP PO SCH ×2 (08:39→20:11)
[2017-07-13] MEDS: ATORVASTATIN CALCIUM 10 MG TAB PO SCH (08:40)
[2017-07-13] MEDS: predniSONE 5 MG TAB PO SCH ×2 (08:40→18:42)
[2017-07-13] MEDS: PANTOPRAZOLE SODIUM 40 MG TAB PO SCH (08:40)
[2017-07-13] MEDS: LEFLUNOMIDE 20 MG TAB PO SCH (08:40)
[2017-07-13] MEDS: ASPIRIN EC 81 MG TAB PO SCH (08:40)
[2017-07-13] MEDS: DILTIAZEM CD 120 MG CAP PO SCH (08:40)
[2017-07-13] MEDS: PRESERVISION AREDS2 FORMULA EYE VIT 1 EACH PO SCH (08:41)
[2017-07-13] MEDS: traMADol 50 MG TAB PO SCH ×2 (08:41→20:11)
[2017-07-13] MEDS: MONTELUKAST SODIUM 10 MG TAB PO SCH (08:41)
[2017-07-13] MEDS: ENOXAPARIN 40 MG/0.4 ML SYR SC SCH (08:41)
[2017-07-13] MEDS: FLUTICASONE/SALMETER 500/50MCG DISKUS IH SCH ×2 (08:43→20:54)
[2017-07-13] MEDS: FLUTICASONE NASAL 120 SPRAYS/16 GM MDI EACHNARE SCH (08:44)
[2017-07-13] MEDS: SODIUM FERRIC GLUCONAT/SUCROSE 125 MG in NS 100 ML IV SCH (09:07)
[2017-07-13] MEDS: ALBUTEROL 3 ML DEYVIAL IH PRN ×2 (11:47→17:24)
--- NOTE | 2017-07-13 14:57 | HOSPPROG ---
Hospitalist Progress Note Assessment/Plan: 81-year-old admitted with respiratory difficulty and noted to have an aspiration pneumonia. Palliative care consultation with the family was performed yesterday and they have decided to have an official palliative care consultation as an outpatient. Patient self at this point has agreed that he will follow these dietary requirements regarding swallowing to avoid aspiration. Patient wants to continue to eat. Patient is new to me today 1. Sepsis. Present on admission, evidenced by Q sofa score of 2 with hypotension and tachypnea, and evidence of autonomic dysregulation in the setting of infection with end-organ failure including demand ischemia, clear source of infection including pneumonia, meeting all ICDS-3 criteria -resolved 2. Aspiration pneumonia. Present on admission, recurrent, ongoing aspiration on VFSS and high-risk of recurrence -day 4 of antibiotics, adjusted to Unasyn. Will change to Augmentin today as the Unasyn has infiltrated is IV. -sputum culture, urine strep pending 3. Demand ischemia. Acute, new problem, further w/u indicated. Elevated troponin level most likely secondary to end-organ failure notably demand ischemia in the setting of sepsis, uptrending this AM -Echo ordered -d/w Dr. Kilgore, he reports that patient has severe and this is likely source of strain in setting of sepsis, w/ relatively unchanged ST depressions on EKG from prior, and he suggests that patient f/u [facility] cardiology from rehab and assess whether TAVR or further risk stratification would be in line w/ goals of care after palliative consultation as oupt 4. Pressure injury. Present on admission, coccyx stage III, right lower extremity, wound care consult appreciated 5. Thyroid nodule. Right-sided, rec outpt PCP address further, stable from previous chest imaging 6. Acute atelectasis. Present on CXR, personally interpreted, incentive spirometer, Acapella 7. Chronic immunosuppression with chronic steroid use. Adjusted to PO pred home dosing 5mg bid 8. Hypertension. Chronic, currently holding ARB, will restart home dilt 120mg daily in AM given some rebound tachycardia -restart home lasix tomorrow 9. Normocytic anemia. Acute worsening today, Hgb 7, and in setting of demand ischemia, transfusion 1u indicated -iron studies indicate iron-def component, and, despite neg FOB, patient has hx of GI ulcers/bleed, and may have transient/intermittent blood loss, as well as chronic inflammatory disease -give IV iron today/tomorrow -monitor counts -dose IV lasix s/p blood 10. Suspected skin cancer. L posterior auricular, rec addressing through outpt [facility] Plan: -discharged to [facility] with the palliative care consultation at [facility]. Time: 40 min case was discussed with nursing and social problems specialist on rounds. Subjective: Patient is alert and reports no complaints. He is very hard of hearing but does understand the conversation and responds appropriately. No complaints of chest pain nausea vomiting and he is following and willing to follow the dietary restrictions Objective: Vital Signs Temp Pulse Resp BP Pulse Ox 36.4 C 86 18 132/70 H 90 L 07/13/17 12:00 07/13/17 12:00 07/13/17 12:00 07/13/17 12:00 07/13/17 13:23 Microbiology 07/11/17 18:00 - Final Sputum, Expectorated Sputum Culture - Final Laboratory Results 07/13/17 03:35 07/13/17 03:35 07/12/17 07/13/17 07/14/17 05:59 05:59 05:59 Intake Total 1292 890 Output Total 990 1450 1050 Balance 302 -560 -1050 PT 13.4 SEC (12.0-15.0) 07/10/17 11:45 INR 1.00 (0.83-1.16) 07/10/17 11:45 - Time Spent With Patient Time Spent with Patient: greater than 35 minutes Time Spent with Patient: Greater than 35 minutes spent on this patients care, greater than 50% of time spent counseling, educating, and coordinating care regarding the above mentioned plan. - Pending Discharge Pending Discharge Within 24 Hours: No Pending Discharge Within 48 Hours: Yes Pending Discharge Date: 07/15/17 Pending Discharge Time: 11:00 - Physical Exam Constitutional: no apparent distress, chronically ill appearing Eyes: PERRL Ears, Nose, Mouth, Throat: moist mucous membranes, hard of hearing Cardiovascular: regular rate and rhythym, systolic murmur Respiratory: reduced air movement, inspiratory crackles, bronchial breath sounds , rhonchi Gastrointestinal: normoactive bowel sounds, soft, non-tender abdomen Genitourinary: no bladder fullness Skin: warm Musculoskeletal: generalized weakness Neurologic: AAOx3, CN II-XII Intact Psychiatric: interacting appropriately ICD10 Worksheet Patient Problems: Problems Problem Status Onset Pneumonia Acute Abnormal chest x-ray Acute Anemia Acute Constipation Acute Dizziness Acute Elevated troponin Acute Hip pain Acute Left hip pain Acute Pneumonia Acute Syncope Acute
[2017-07-13] MEDS: AMOXICILLIN/CLAVULANATE POT 875/125 MG TAB PO SCH ×2 (16:43→20:10)
[2017-07-14 04:01] LABS: PLATELET COUNT 319 10^3/uL (150-400)
[2017-07-14] MEDS: FUROSEMIDE 40 MG TAB PO SCH (08:29)
[2017-07-14] MEDS: PANTOPRAZOLE SODIUM 40 MG TAB PO SCH (08:29)
[2017-07-14] MEDS: ENOXAPARIN 40 MG/0.4 ML SYR SC SCH (08:29)
[2017-07-14] MEDS: predniSONE 5 MG TAB PO SCH ×2 (08:29→17:38)
[2017-07-14] MEDS: ATORVASTATIN CALCIUM 10 MG TAB PO SCH (08:29)
[2017-07-14] MEDS: ASPIRIN EC 81 MG TAB PO SCH (08:29)
[2017-07-14] MEDS: GABAPENTIN 100 MG CAP PO SCH ×2 (08:29→20:59)
[2017-07-14] MEDS: MONTELUKAST SODIUM 10 MG TAB PO SCH (08:29)
[2017-07-14] MEDS: traMADol 50 MG TAB PO SCH ×2 (08:30→20:58)
[2017-07-14] MEDS: DILTIAZEM CD 120 MG CAP PO SCH (08:30)
[2017-07-14] MEDS: LEFLUNOMIDE 20 MG TAB PO SCH (08:30)
[2017-07-14] MEDS: CALCIUM CARB W/VIT D 500 MG TAB PO SCH (08:30)
[2017-07-14] MEDS: PRESERVISION AREDS2 FORMULA EYE VIT 1 EACH PO SCH (08:30)
[2017-07-14] MEDS: AMOXICILLIN/CLAVULANATE POT 875/125 MG TAB PO SCH ×2 (08:30→20:59)
[2017-07-14] MEDS: ACETAMINOPHEN 325 MG TAB PO PRN ×2 (09:17→21:01)
[2017-07-14] MEDS: FLUTICASONE NASAL 120 SPRAYS/16 GM MDI EACHNARE SCH (09:18)
[2017-07-14] MEDS: ALBUTEROL 3 ML DEYVIAL IH PRN ×2 (10:18→20:44)
[2017-07-14] MEDS: FLUTICASONE/SALMETER 500/50MCG DISKUS IH SCH ×2 (10:19→20:44)
--- NOTE | 2017-07-14 13:32 | HOSPPROG ---
Hospitalist Progress Note Assessment/Plan: 81-year-old admitted with respiratory difficulty and noted to have an aspiration pneumonia. Palliative care consultation with the family was performed yesterday and they have decided to have an official palliative care consultation as an outpatient. Patient self at this point has agreed that he will follow these dietary requirements regarding swallowing to avoid aspiration. Patient wants to continue to eat. 1. Sepsis. Present on admission, evidenced by Q sofa score of 2 with hypotension and tachypnea, and evidence of autonomic dysregulation in the setting of infection with end-organ failure including demand ischemia, clear source of infection including pneumonia, meeting all ICDS-3 criteria -resolved 2. Aspiration pneumonia. Present on admission, recurrent, ongoing aspiration on VFSS and high-risk of recurrence -day 4 of antibiotics, adjusted to Unasyn and changed on 07/13 to augmentin Currently slowling improving -sputum culture, urine strep pending 3. Demand ischemia. Acute, new problem, further w/u indicated. Elevated troponin level most likely secondary to end-organ failure notably demand ischemia in the setting of sepsis, uptrending this AM. Troponin today is still uptrending without c/o chest pain. -Echo ordered; no wall motion abnormality -d/w Dr. Kilgore, he reports that patient has severe and this is likely source of strain in setting of sepsis, w/ relatively unchanged ST depressions on EKG from prior, and he suggests that patient f/u [facility] cardiology from rehab and assess whether TAVR or further risk stratification would be in line w/ goals of care after palliative consultation as oupt 4. dysrhythmia: Baseline sinus rhytmn, with none sustained SVT; patient asymtomatic. 5. Pressure injury. Present on admission, coccyx stage III, right lower extremity, wound care consult appreciated 6. Thyroid nodule. Right-sided, rec outpt PCP address further, stable from previous chest imaging 7. Acute atelectasis. Present on CXR, personally interpreted, incentive spirometer, Acapella 8. Chronic immunosuppression with chronic steroid use. Adjusted to PO pred home dosing 5mg bid 9. Hypertension. Chronic, currently holding ARB and BP remains normal diltiazem ordered for rebound tachycardia. 10. Valvular heart disease with moderate to severe and moderate MS. Patient not a candidate for open surgical correction. Possible transcutaneous repair in future. 11. Normocytic anemia. Acute worsening today, Hgb 7, and in setting of demand ischemia, transfusion 1u indicated; HgB enio nicely and stable today -iron studies indicate iron-def component, and, despite neg FOB, patient has hx of GI ulcers/bleed, and may have transient/intermittent blood loss, as well as chronic inflammatory disease -give IV iron today/tomorrow -monitor counts -dose IV lasix s/p blood 10. Suspected skin cancer. L posterior auricular, rec addressing through outpt [facility] Plan: -discharged to [facility] with the palliative care consultation at [facility]. Discharge on 07/15; Outpatient palliative care consult will be ordered Time: 40 min case was discussed with nursing and social service coordinator on rounds. Subjective: Reports he is feeling slightly improved and denies having chest pain shortness of breath dizziness weakness nausea or vomiting. The he is eating well and bowels are moving slowly Objective: Vital Signs Temp Pulse Resp BP Pulse Ox 36.3 C 95 14 117/66 93 07/14/17 11:44 07/14/17 11:44 07/14/17 11:44 07/14/17 11:44 07/14/17 11:44 Microbiology 07/11/17 18:00 - Final Sputum, Expectorated Sputum Culture - Final Laboratory Results 07/14/17 03:49 07/14/17 03:49 07/13/17 07/14/17 07/15/17 05:59 05:59 05:59 Intake Total 890 1070 Output Total 1450 2125 375 Balance -560 -1055 -375 PT 13.4 SEC (12.0-15.0) 07/10/17 11:45 INR 1.00 (0.83-1.16) 07/10/17 11:45 - Time Spent With Patient Time Spent with Patient: greater than 35 minutes Time Spent with Patient: Greater than 35 minutes spent on this patients care, greater than 50% of time spent counseling, educating, and coordinating care regarding the above mentioned plan. - Pending Discharge Pending Discharge Within 24 Hours: Yes Pending Discharge Date: 07/15/17 Pending Discharge Time: 11:00 - Physical Exam Constitutional: no apparent distress, chronically ill appearing Eyes: PERRL, anicteric sclera Ears, Nose, Mouth, Throat: moist mucous membranes, hearing normal Cardiovascular: regular rate and rhythym, systolic murmur, other (Monitor shows non-small runs of SVT of approximately 5-7 seconds no ventricular ectopy noted) Respiratory: reduced air movement, inspiratory crackles, rhonchi Gastrointestinal: normoactive bowel sounds, soft, non-tender abdomen Genitourinary: no bladder fullness Skin: warm Musculoskeletal: generalized weakness Neurologic: AAOx3, CN II-XII Intact Psychiatric: interacting appropriately ICD10 Worksheet Patient Problems: Problems Problem Status Onset Left hip pain Acute Hip pain Acute Pneumonia Acute Syncope Acute Pneumonia Acute Elevated troponin Acute Constipation Acute Dizziness Acute Abnormal chest x-ray Acute Anemia Acute
--- NOTE | 2017-07-14 16:13 | ASMTCMCOM ---
CM Note CM Note Notes: 07/14/2017 Case Management Note Discussed pt in rounds this morning. Case Management requested outpatient palliative consult which will happen through [facility]. Notified [facility] [employer] Director at [phone] of need for palliative consult. PT recommending SNF. [facility]. [facility] accpeted pt and will have bed available tomorrow. Case Management [facility]. Case Management to follow. Date Signed: 07/14/2017 04:13 PM Electronically Signed By:Tasneem Franklin RN
[2017-07-15 03:48] LABS: PLATELET COUNT 313 10^3/uL (150-400)
[2017-07-15] MEDS: FLUTICASONE/SALMETER 500/50MCG DISKUS IH SCH (08:43)
[2017-07-15] MEDS: ALBUTEROL 3 ML DEYVIAL IH PRN (08:43)
[2017-07-15] MEDS: predniSONE 5 MG TAB PO SCH (09:40)
[2017-07-15] MEDS: LEFLUNOMIDE 20 MG TAB PO SCH (09:41)
[2017-07-15] MEDS: ATORVASTATIN CALCIUM 10 MG TAB PO SCH (09:41)
[2017-07-15] MEDS: traMADol 50 MG TAB PO SCH (09:42)
[2017-07-15] MEDS: DILTIAZEM CD 120 MG CAP PO SCH (09:42)
[2017-07-15] MEDS: GABAPENTIN 100 MG CAP PO SCH (09:43)
[2017-07-15] MEDS: ASPIRIN EC 81 MG TAB PO SCH (09:44)
[2017-07-15] MEDS: FUROSEMIDE 40 MG TAB PO SCH (09:44)
[2017-07-15] MEDS: MONTELUKAST SODIUM 10 MG TAB PO SCH (09:44)
[2017-07-15] MEDS: PRESERVISION AREDS2 FORMULA EYE VIT 1 EACH PO SCH (09:45)
[2017-07-15] MEDS: PANTOPRAZOLE SODIUM 40 MG TAB PO SCH (09:45)
[2017-07-15] MEDS: AMOXICILLIN/CLAVULANATE POT 875/125 MG TAB PO SCH (09:48)
[2017-07-15] MEDS: CALCIUM CARB W/VIT D 500 MG TAB PO SCH (09:48)
[2017-07-15] MEDS: ACETAMINOPHEN 325 MG TAB PO PRN (09:50)
[2017-07-15] MEDS: ENOXAPARIN 40 MG/0.4 ML SYR SC SCH (09:54)
[2017-07-15] MEDS: FLUTICASONE NASAL 120 SPRAYS/16 GM MDI EACHNARE SCH (10:43)
[2017-07-15 11:39] VITALS: BP 117/60; PULSE 93; RESP 15; TEMP 98.3; O2SAT 94
--- NOTE | 2017-07-15 14:37 | PDIAF ---
- Diagnosis Code Status: Do Not Resuscitate - Medication Management Discharge Medications: Medications to Continue on Transfer Fluticasone Nasal [Flonase Nasal [place]] 2 sprays EACHNARE DAILY 05/23/15 [Last Taken 07/10/17] Leflunomide [Arava 20 mg (*)] 20 mg PO DAILY 05/23/15 [Last Taken 07/10/17] Montelukast Sodium [Singulair 10 mg (*)] 10 mg PO DAILY 05/23/15 [Last Taken ] predniSONE 5 mg PO BID 05/23/15 [Last Taken 07/10/17] Acetaminophen [Tylenol ES 500 mg (*)] 500 mg PO BID PRN 12/10/16 [Last Taken ] C/E/Zn/Cu/OM3/DHA/EPA/LUT/ZEAX [Preservision Areds 2 Softgel] 1 each PO DAILY [Last Taken 07/10/17] Calcium Carb W/Vit D [Calcium Carb W/Vit D 500/200 (*)] 1,000 mg PO DAILY [Last Taken 07/10/17] Gabapentin [Neurontin 100 MG (*)] 100 mg PO BID 12/10/16 [Last Taken 07/10/17] traMADol [Ultram 50 mg (*)] 25 mg PO BID 12/10/16 [Last Taken 07/10/17] Aspirin EC [Aspirin EC 81 mg (*)] 81 mg PO DAILY #30 tab 12/13/16 [Last Taken ] Esomeprazole Magnesium [Nexium 24Hr] 20 mg PO DAILY 01/06/17 [Last Taken ] Diltiazem HCl [Dilacor Xr] 120 mg PO DAILY 01/22/17 [Last Taken 07/10/17] Albuterol [Proventil Inhaler HFA (*)] 1 - 2 puffs IH Q4H PRN 07/10/17 [Last Taken Unknown] Albuterol [Proventil Neb] 3 ml IH QID PRN 07/10/17 [Last Taken 07/10/17] Atorvastatin Calcium [Lipitor 10 mg (*)] 10 mg PO DAILY 07/10/17 [Last Taken ] Fluticasone/Salmeter 500/50Mcg [Advair 500/50 (*)] 1 puffs IH BID 07/10/17 [ Last Taken 07/10/17] Furosemide [Lasix 40 MG (*)] 40 mg PO DAILY 07/10/17 [Last Taken 07/10/17] Losartan Potassium [Cozaar 50 mg (*)] 50 mg PO DAILY 07/10/17 [Last Taken ] Discharge Medications: Refer to the Discharge Home Medication list for PRN reason. - Orders Services needed: Registered Nurse, Certified [employer] Counselor, Physical Therapy, Occupational Therapy, Speech Language Pathologist Isolation Type: None Diet Recommendation: sodium restricted Diet Texture: Dysphagia 2 - Mechanically Altered - Chopped, Ground, Honey Thick Liquids, Meds Whole in Puree - Labs/Radiology CBC w/diff Date: 07/20/17 CMP Date: 07/20/17 - Follow Up Care Current Providers and Referrals: Patient,NotPresent [Unknown] - As per Instructions
--- NOTE | 2017-07-15 15:00 | ASDISCHSUM ---
Discharge Information Plan Status:SNF Medically Cleared to Leave:07/15/2017 Discharge Date:07/15/2017 04:12 PM CM D/C Disposition:Nursing Home Facility ADT D/C Disposition:Nursing Home Facility Projected Discharge Date:07/12/2017 11:00 AM Transportation at D/C:Wheelchair Van Discharge Delay Reason: Follow-Up Date:07/12/2017 11:00 AM Discharge Slot: Final Diagnosis: Placement Information Referral Type:*Group Home/SNF Referral ID:[facility]-[id number] Provider Name:Court Amaya Address 1:[address] Phone Number: Address 2: Fax Number: City:[place] Selection Factors: State:[place] Patient Contact Information Contact Name:KIRILL Relationship: Address[address] Phone: City:[facility] Phone: State/Zip Code:[place] [address] Email: Financial Information Financial Class:Medicare Advantage Plans Primary Plan Desc:[employer] ADV IP Primary Plan Number:[id number] Secondary Plan Desc: Secondary Plan Number: Assessment Information LACE LACE Length of stay for Answers: 4-6 days current admission Acuity / Level of Answers: Yes Care: Did the patient have an inpatient admission? Comorbidities - select Answers: Congestive heart failure all that apply Coronary Artery Disease Other Notes: HTN, GERD, Prostate cancer # of Emergency department Answers: 3-4 visits in the last 6 months Score: 15 Date Signed: 07/15/2017 03:00 PM Electronically Signed By:Tasneem Franklin RN [facility] Initial CM Assessment Living Arrangements What is your living Answers: With Spouse arrangement? Who do you live with? Type Of Residence What kind of residence do Answers: Penitentiary you live in? Type of Residence Facility Name Notes: [facility] Discharge Plan Comments Coordination Status Comments Notes: Pts case discussed in morning rounds. Pt is a 81 y/o man admitted for near syncope. Pts is currently rehabing at [facility]. Pt lost 30 pounds within the last couple of months. Therapies have been ordered and awaitng recommendations. Needs are TBD at this time. CM notified [facility] of pts admission. CM to follow. Plan: TBD Date Signed: 07/11/2017 12:02 PM Electronically Signed By:LAMIN Richards [facility] FCO Progress Note CM Note FCO Note Notes: Pts case reviewed in morning rounds. CM spoke w/ STEPHEN Alcantar and she is recommending back to [facility] with [facility]. PT is recommending SNF. CM met w/ pt for dispo planning. Pt is interested in having CM make a referral to [facility]. Pt reports that it would be helpful to rehab there for a week or so. [facility]. Non triggering PASRR completed. Pt reports that his son is in the process of looking into assisted living facilities. CM provided pt w/ [facility] blue book. CM to follow. Plan: [facility] Date Signed: 07/12/2017 02:03 PM Electronically Signed By:LAMIN Richards [facility] Progress Note FCO Note [facility]CO Note Notes: 07/14/2017 Case Management Note Discussed pt in rounds this morning. Case Management requested outpatient palliative consult which will happen through [facility]. Notified [facility] Nurse at [phone] of need for palliative consult. PT recommending SNF. [facility]. Faxed updates to [facility]. [facility] and will have bed available tomorrow. Case Management d/c poc: to [facility] on Monday. Case Management to follow. Date Signed: 07/14/2017 04:13 PM Electronically Signed By:Tasneem Franklin RN Case Management Discharge Plan Note Case Management Discharge Discharge Order Complete? Answers: Yes Patient to Obtain Answers: Other Notes: [facility] Medications Transportation Arranged Answers: Other Notes: transport arranged for and paid by [facility] will Pick (Date 07/15/2017 03:00 PM & Time) Faxed Final Orders Answers: Yes Agency/Facility Transfer Answers: Yes Report Printed & Faxed to Receiving Agency Discharge Comments Notes: 07/15/2017 Case Management Note Faxed final orders to [facility]. Confirmed receipt via phone. [facility] arranged transport. RN called report. D/C: to [facility] Date Signed: 07/15/2017 02:59 PM Electronically Signed By:Tasneem Franklin RN [facility] CM Progress Note CM Note CM Note Notes: 07/15/2017 Case Management Note [facility] called and had not arranged transportation. Case Management called [facility] for [facility] transport. Earliest picking belt operator time was 1900. Family refused and are transporting pt to [facility] independently. Notified [facility]. Date Signed: 07/15/2017 04:13 PM Electronically Signed By:Tasneem Franklin RN Intervention Information
--- NOTE | 2017-07-15 15:25 | GDS ---
[f rep st] DISCHARGE SUMMARY NEW AND ACUTE DIAGNOSES: 1. Acute sepsis secondary to aspiration. 2. Aspiration pneumonia with a pulmonary infiltrate. The patient is on a dysphagia 2 diet. 3. Troponin elevation secondary to cardiac stress without evidence of active cardiac ischemia. 4. Sacral decubitus ulceration, stage III; present on admission. 5. Hypertension. 6. Valvular heart disease with ywvasavc-po-dlgvsw and moderate . Patient is not a surgical can didate at this time. 7. Normocytic anemia, status post 1 unit PRBCs and placed on iron replacement. 8. Ji-Jyc-Ymgoebiaoht status. CHRONIC DIAGNOSES: 1. Rheumatoid arthritis, on chronic prednisone therapy and wheelchair bound. 2. Chronic obstructive pulmonary disease with asthma, on bronchodilators. 3. Gastroesophageal reflux disease. 4. Prostate carcinoma, status post remote prostatectomy. 5. Chronic nephrolithiasis. 6. Peripheral neuropathy. 7. Osteoporosis. 8. Spinal stenosis with radiculopathy. CONSULTATION: Cardiology. PROCEDURES: Video swallowing study showing moderate oropharyngeal dysphagia with aspiration of thin and nectar consistency liquids, and a significantly delayed cough reflex. CTA of the chest which was negative for pulmonary thromboembolic disease; multifocal infiltrates with in the right lung suspicious for multilobar pneumonia; small left pleural effusion with left lower lo be atelectasis; moderate-sized hiatal hernia; 12 mm nodule in the lower pole of the right thyroid, st able in appearance when compared to a prior chest CT in January 2017. Echocardiogram showing an EF of 60%, severe aortic stenosis with a mean gradient of 60 mm, mitral sánchez ular calcification with kcbu-bw-vzzdnapp mitral stenosis; pulmonary valve appeared normal. HOSPITAL COURSE: An 81-year-old gentleman who returned to this hospital with acute respiratory distr ess, tachypnea, and tachycardia, and was noted to have a right middle lobe and lower lobe infiltrate consistent with an aspiration pneumonia. Sepsis protocol was initiated. He was given fluids and ant ibiotics along with bronchodilators, and progressively improved. Troponin elevation was noted and wa s felt to be secondary to demand ischemia and not due to active coronary ischemia. Cardiology consul tation evaluated the valvular heart disease and felt that, despite the severe limitations, he was not a surgical candidate at this time. Decubitus ulceration stage III was noted on the sacrum at critical access hospital and was treated in the usual fashion with relief of pressure and wound care. Boots were applied to his heels to prevent pressure of the heels as the gentleman is wheelchair bound. His hypertension was treated in the usual fashion. Anemia was noted; he was transfused 1 unit packed red blood cells and placed on iron; it is a normocytic anemia. Patient is on DNR status. DISCHARGE MEDICATIONS: Flonase nasal spray 2 sprays each nostril daily, prednisone 5 mg twice daily, Arava 20 mg daily, Singulair 10 mg daily, tramadol 25 mg b.i.d., gabapentin 100 mg b.i.d., calcium c arbonate with vitamin D 1000 mg daily, Tylenol 500 mg b.i.d. p.r.n., PreserVision soft gels 1 daily, ASA 81 mg daily, Nexium 20 mg daily, diltiazem 120 mg p.o. daily XR tablet (long-acting), Lasix 40 m g daily, Advair 500/50 mcg 1 puff b.i.d., Lipitor 10 mg daily, albuterol neb 3 mL q.i.d. p.r.n., Prov entil inhaler on a p.r.n. basis, and Cozaar 50 mg daily. PLAN: The gentleman should obtain a palliative care consultation as an outpatient. Additionally, no te that he should have boots to his heels to relieve pressure due to his sitting; the gentleman is wh eelchair-bound and frequently applies pressure to his heels. He is on a dysphagia 2 diet with thicke mariah liquids as will be noted specifically in other parts of his discharge. He has a very high risk f or aspiration. It is noted also that if he is watched closely when eating and sits up and swallows t wice, he gave seems to avoid the problems of aspiration. The gentleman does want to continue to eat. His medical followup will be through [facility]. Note also he should have a palliative care consult. TIME: This discharge required 60 minutes, greater than 50% to assistant counsel and coordinate the gentleman's care. /[id number]/MODL
--- NOTE | 2017-07-15 16:13 | ASMTCMCOM ---
CM Note CM Note Notes: 07/15/2017 Case Management Note [facility] called and had not arranged transportation. Case Management called [facility] for [facility] transport. Earliest picker packer time was 1900. Family refused and are transporting pt to [facility] independently. Notified [facility]. Date Signed: 07/15/2017 04:13 PM Electronically Signed By:Tasneem Franklin RN
== END 2017-07-15 16:12 | DRG 871 ==
LOC: EDUNIT# → F2W 15:45
PROVIDERS: ADMIT Internal Medicine; ATTEND Internal Medicine
PROC: 30233N1 Transfusion of Nonautologous Red Blood Cells into Peripheral Vein, Percutaneous Approach (ICD-10-PCS; principal; 2017-07-10)
DX: A41.9 Sepsis, unspecified organism (principal); J69.0 Pneumonitis due to inhalation of food and vomit; L89.153 Pressure ulcer of sacral region, stage 3; D64.9 Anemia, unspecified; R13.10 Dysphagia, unspecified; I24.8 Other forms of acute ischemic heart disease; M06.9 Rheumatoid arthritis, unspecified; J44.9 Chronic obstructive pulmonary disease, unspecified; K21.9 Gastro-esophageal reflux disease without esophagitis; J98.11 Atelectasis; I08.0 Rheumatic disorders of both mitral and aortic valves; I11.0 Hypertensive heart disease with heart failure; I50.9 Heart failure, unspecified; I25.10 Atherosclerotic heart disease of native coronary artery without angina pectoris; G62.9 Polyneuropathy, unspecified; M48.00 Spinal stenosis, site unspecified; E04.1 Nontoxic single thyroid nodule; Z85.46 Personal history of malignant neoplasm of prostate; Z87.442 Personal history of urinary calculi; Z66 Do not resuscitate; Z87.01 Personal history of pneumonia (recurrent); Z79.52 Long term (current) use of systemic steroids; F17.210 Nicotine dependence, cigarettes, uncomplicated
CPT/HCPCS: 82947-QW; 92526-GN; 92610-GN; 92611-GN; 97110-GP; 97162-GP; 97166-GO; 97530-GO; 97530-GP; 97535-GO; G8987-GO-CL; G8988-GO-CJ; G8996-GN-CJ; G8996-GN-CK; G8997-GN-CI; G8997-GN-CJ; G8998-GN-CJ; J0295; J0696; J1335; J1650; J1720; J1940; J1956; J2916; J7512; J7613; P9016; Q9967

== ENCOUNTER 2017-09-06 10:22 | Inpatient (IN) | payer OTHER ==
--- NOTE | 2017-09-06 10:36 | EDPHY ---
General - History Smoking Status: Never smoked Time Seen by Provider: 09/06/17 10:28 Narrative: CHIEF COMPLAINT: Shortness of breath, cough, hypoxemia HISTORY OF PRESENT ILLNESS: Patient presents by EMS from [facility] and is seen at time of arrival. He is complaining of shortness of breath and cough. The cough has been present for several days, but this reportedly worsened abruptly last night. It is productive. He describes increasing difficulty taking a deep breath. He has no headache or neck pain. No chest pain but does have difficulty breathing. No abdominal pain. No urinary complaints. He does have history of pneumonia and CHF. He was given his CHF medication this morning. His family was also reportedly concern for him. EMS reports that he was normally on 3.5 L of oxygen , but they found him to be in the upper 80s on this, increasing him to 4-5 L. No other associated complaints or modifying factors. REVIEW OF SYSTEMS: Ten systems reviewed and are negative unless otherwise noted in the HPI [place] [facility] SPECIALISTS: does not recal PAST MEDICAL HISTORY: COPD, CHF, pneumonia, debilitation, severe aortic stenosis PAST SURGICAL HISTORY: no recent surgeries SOCIAL HISTORY: non smoker. currently in [facility] from recent inpatient stay for sepsis from aspiration pneumonia FAMILY HISTORY: non-contributory EXAMINATION General Appearance: Alert, no distress. conversing appropriately Head: normocephalic, atraumatic Eyes: Pupils equal and round, no conjunctival pallor or injection ENT, Mouth: Mucous membranes moist. airway patent Neck: Normal inspection, supple, non-tender Respiratory: harsh scattered rhonchi with decreased breath sounds through. no retractions or distress. minimal expiratory wheezing Cardiovascular: tachycardic with regular rhythm. systolic murmur Gastrointestinal: Abdomen is soft and nontender Back: non-tender, no bony abnormalities Neurological: A&O, nonfocal, gait not tested. strength symmetric in all 4 limbs at 4/5 Skin: Warm and dry. sacral decubitus with left anterior johnson stasis ulcer Extremities: Nontender, no pedal edema Psychiatric: Mood and affect normal DIFFERENTIAL DIAGNOSES: Including but not limited to sepsis, pneumonia, bronchitis, CHF exacerbation MDM: 10:25 a.m. Shortness of breath cough with increasing hypoxemia. The patient is tachycardic and needing further supplemental oxygen at this time. Suspect pneumonia versus CHF exacerbation. I have ordered blood cultures and lactic acid. He is in no need of positive pressure or adjuvant airway is at this time but we will monitor closely. I discussed case with Dr. Julio. His medical record reveals discharged from this facility on July 15 for aspiration pneumonia with sepsis. 10:50 a.m. Initial lactic acid is within normal limits. 11:10 a.m. CBC reveals chronic anemia without any acute findings. CMP is unremarkable for this patient with chronic changes. Troponin and BNP are pending. 11:20 a.m. Case discussed with hospitalist Aisha Moser. Patient will be admitted to Dr. Sinha. We will initiate therapy for healthcare associated pneumonia with IV cefepime. He does not meet criteria for severe sepsis or septic shock. He is admitted in stable condition with IV antibiotics including cefepime. 11:35 a.m. Patient's troponin is elevated. I have trended this, and it is near his previous chronically elevated levels. He remains on threat monitoring analyst. However, his BNP is markedly elevated at 31,900 one thousand nine hundred. I have re- evaluated the patient at this time. He has no chest pain any did take 40 mg of p. O. Lasix morning. After discussing with Dr. Julio, I have ordered IV Lasix 20 mg and we will apply topical nitropaste. He is on a threat monitoring analyst in no acute distress. Will continue to monitor for any chest pain. SUPERVISION: Patient was evaluated and examined in conjunction with my secondary supervising physician as documented. We have both examined the patient. (David Palencia) Medical Decision Makin:10 I evaluated this patient at the request of KEN Black. I agree with his evaluation and plan of treatment. (Srinath Julio) - Objective Vital Signs: Initial Vital Signs Temperature (C) 97.3 F 09/06/17 10:22 Heart Rate 112 H 09/06/17 10:22 Respiratory Rate 24 H 09/06/17 10:22 Blood Pressure 94/81 H 09/06/17 10:22 O2 Sat (%) 85 L 09/06/17 10:22 O2 Delivery Mode Room Air O2 (L/minute) 3 Allergies/Adverse Reactions: No Known Allergies Allergy (Unverified 07/12/17 12:02) Home Medications: Medication Instructions Recorded Fluticasone Nasal [Flonase Nasal 2 sprays EACHNARE DAILY 05/23/15 [place]] Leflunomide [Arava 20 mg (*)] 20 mg PO DAILY 05/23/15 Montelukast Sodium [Singulair 10 10 mg PO DAILY 05/23/15 mg (*)] predniSONE 5 mg PO BID 05/23/15 C/E/Zn/Cu/OM3/DHA/EPA/LUT/ZEAX 1 each PO DAILY18 12/10/16 [Preservision Areds 2 Softgel] Calcium Carb W/Vit D [Calcium Carb 1,000 mg PO BID 12/10/16 W/Vit D 500/200 (*)] Gabapentin [Neurontin 100 MG (*)] 100 mg PO BID 12/10/16 traMADol [Ultram 50 mg (*)] 25 - 50 mg PO BID PRN 12/10/16 Aspirin EC [Aspirin EC 81 mg (*)] 81 mg PO DAILY #30 tab 12/13/16 Albuterol [Proventil Inhaler HFA 1 - 2 puffs IH Q4H PRN 07/10/17 (*)] Albuterol [Proventil Neb] 3 ml IH QID PRN 07/10/17 Atorvastatin Calcium [Lipitor 10 10 mg PO DAILY 07/10/17 mg (*)] Fluticasone/Salmeter 500/50Mcg 1 puffs IH BID 07/10/17 [Advair 500/50 (*)] Furosemide [Lasix 40 MG (*)] 40 mg PO DAILY 07/10/17 Acetaminophen [Tylenol 325mg (*)] 325 - 650 mg PO Q4-6PRN PRN 09/06/17 Amoxicillin/Clavulanate Pot 875 mg PO BID 09/06/17 [Augmentin 875 MG TAB (*)] Bisacodyl [Dulcolax] 10 mg RC DAILY PRN 09/06/17 Herbals/Supplements -Info Only 1 ea PO DAILY 09/06/17 Lidocaine 5% [Lidocaine 5% Oint] 1 yamila TP QID PRN 09/06/17 Mag Hydrox/Aluminum Hyd/Simeth 30 ml PO Q6HRS PRN 09/06/17 [Antacid Suspension] Pantoprazole Sodium [Protonix 40mg 40 mg PO DAILY 09/06/17 (*)] Sennosides/Docusate Sodium 1 each PO BID PRN 09/06/17 [Senna-S Tablet] Laboratory Results: Laboratory Results 09/06/17 10:30 09/06/17 10:30 Microbiology Results: MICROBIOLOGY 09/06/17 10:30 Nasal, Sinus - Swab Respiratory Panel (PCR) - Final Human Rhinovirus/Enterovirus Medications Given: Acetaminophen (Tylenol) 650 mg PO Q4HRS PRN PRN Reason: Pain, Mild/Fever, Can Take PO Stop: 03/05/18 11:46 Last Admin: 09/06/17 19:43 Dose: 650 mg Albuterol (Proventil Neb) 3 ml IH QID PRN PRN Reason: Short of Breath/Dyspnea Stop: 03/05/18 13:01 Last Admin: 09/07/17 08:53 Dose: 3 ml Aspirin Buffered (Aspirin Ec) 81 mg PO DAILY [facility] Stop: 03/06/18 08:59 Last Admin: 09/07/17 09:46 Dose: 81 mg Atorvastatin Calcium (Lipitor) 10 mg PO DAILY ASHISH Stop: 03/06/18 08:59 Last Admin: 09/07/17 09:44 Dose: 10 mg Calcium/Vitamin D (Calcium Carb W/Vit D) 1,000 mg PO BID ASHISH Stop: 03/05/18 20:59 Last Admin: 09/07/17 09:46 Dose: 1,000 mg Gabapentin (Neurontin) 100 mg PO BID ASHISH Stop: 03/05/18 20:59 Last Admin: 09/07/17 09:43 Dose: 100 mg Ampicillin Sodium/Sulbactam (Sodium 3 gm/ Sodium Chloride) 100 mls @ 200 mls/ hr IV Q6HRS ASHISH PRN Reason: Protocol Stop: 10/06/17 13:44 Last Admin: 09/07/17 06:22 Dose: 100 mls Leflunomide (Arava) 20 mg PO DAILY ASHISH Stop: 03/06/18 08:59 Last Admin: 09/07/17 09:42 Dose: 20 mg Montelukast Sodium (Singulair) 10 mg PO DAILY ASHISH Stop: 03/06/18 08:59 Last Admin: 09/07/17 09:45 Dose: 10 mg Multivitamins/Minerals (Preservision Areds2 Formula) 1 each PO DAILY18 ASHISH Stop: 03/05/18 17:59 Last Admin: 09/06/17 18:35 Dose: 1 each Pantoprazole Sodium (Protonix) 40 mg PO DAILY [facility] Stop: 03/06/18 08:59 Last Admin: 09/07/17 09:45 Dose: 40 mg Prednisone (Prednisone) 5 mg PO BID ASHISH Stop: 03/05/18 20:59 Last Admin: 09/07/17 09:41 Dose: 5 mg Fluticasone/Salmeterol (Advair) 1 puffs IH BID ASHISH Stop: 03/05/18 20:59 Last Admin: 09/07/17 08:54 Dose: Not Given Discontinued Medications Furosemide (Lasix Injection) 20 mg IVP EDNOW ONE Stop: 09/06/17 11:42 Last Admin: 09/06/17 11:55 Dose: 20 mg Nitroglycerin (Nitro-Bid 2%) 1 inch TP EDNOW ONE Stop: 09/06/17 11:42 Last Admin: 09/06/17 14:15 Dose: Not Given Departure - Departure Disposition: [facility] Acute Clinical Impression: Healthcare-associated pneumonia, Hypoxemia, Elevated troponin I level CHF exacerbation Qualifiers: Heart failure type: systolic Qualified Code(s): I50.23 - Acute on chronic systolic (congestive) heart failure Condition: Good
[2017-09-06 10:48] LABS: PLATELET COUNT 270 10^3/uL (150-400)
--- NOTE | 2017-09-06 10:55 | CPEKG ---
Heart Rate: 101 RR Interval: 594 P-R Interval: 132 QRSD Interval: 158 QT Interval: 408 QTC Interval: 529 P Cordova: 41 QRS Cordova: 99 T Wave Cordova: -66 EKG Severity - ABNORMAL ECG - EKG Impression: SINUS TACHYCARDIA EKG Impression: MULTIPLE ATRIAL PREMATURE COMPLEXES EKG Impression: PROBABLE LEFT ATRIAL ABNORMALITY EKG Impression: RBBB AND LPFB EKG Impression: BORDERLINE INFERIOR Q WAVES EKG Impression: ST DEPRESSION, CONSIDER ISCHEMIA, DIFFUSE LDS Electronically Signed By: Srinath Julio 06-Sep-2017 13:51:28
[2017-09-06 10:56] LABS: INR 1.02 (0.83-1.16); PROTIME(PATIENT) 13.6 SEC (12.0-15.0)
[2017-09-06] MEDS ORDERED: FUROSEMIDE 20 MG/2 ML VIAL IVP ONE (11:41)
[2017-09-06] MEDS ORDERED: ONDANSETRON 4 MG/2 ML VIAL IVP PRN (11:47)
[2017-09-06] MEDS ORDERED: ONDANSETRON DISINTEGRATING 4 MG TAB PO PRN (11:47)
[2017-09-06] MEDS: NITROGLYCERIN 2% 1 GM PACKET TP ONE ×2 (11:56→14:15)
[2017-09-06] MEDS ORDERED: SIMETH PO PRN (13:02)
[2017-09-06] MEDS ORDERED: SENNOSIDES/DOCUSATE SODIUM TAB PO PRN (13:02)
[2017-09-06] MEDS ORDERED: traMADol 50 MG TAB PO PRN (13:02)
[2017-09-06] MEDS ORDERED: ALBUTEROL 60 PUFFS/8 GM MDI IH PRN (13:02)
[2017-09-06] MEDS ORDERED: LIDOCAINE 5% TP PRN (13:02)
[2017-09-06] MEDS ORDERED: ALUMINUM HYD PO PRN (13:02)
[2017-09-06] MEDS ORDERED: MAG HYDROX PO PRN (13:02)
[2017-09-06] MEDS ORDERED: MAG HYDROX/AL HYDROX/SIMETH 30 ML UDCUP PO PRN (13:33)
--- NOTE | 2017-09-06 13:46 | GHP ---
[f rep st] HISTORY AND PHYSICAL DATE OF ADMISSION: 09/06/2017 CHIEF COMPLAINT: Shortness of breath. HISTORY OF PRESENT ILLNESS: A pleasant 81-year-old male with severe aortic stenosis, history of recurrent aspiration pneumonia last hospitalized here June 2017, rheumatoid arthritis on chronic steroids, aspiration with thin liquids, brought in from [facility] complaining of shortness of breath and cough. He says the cough has been present for the last week, but worse over the last 2 days. It is productive, but says it is clear sputum. Had a low- grade fever at the facility per son. No sweats or chills. No nausea, vomiting , diarrhea. Has had decreased appetite over the last 6 months. Nothing sounds good. He has not been taking in much fluid. Per son, his legs do not look more swollen than normal. He does not lie flat due to shortness of breath. He does not usually wear oxygen, but this was started on Monday at 3 L. EMS found him to be in the upper 80s today and increased him to 4 L. His primary scientific photographer is a doctor at [facility]. He has been evaluated by them previously for valve replacement or TAVR and states that he is not a candidate and now approaching a more palliative care approach. They were supposed to have palliative care arranged as an outpatient, but this has not happened since his switch to [facility] and being under [facility] insurance. REVIEW OF SYSTEMS: I completed a 10-point review of systems. PAST MEDICAL HISTORY: 1. Rheumatoid arthritis chronic immunosuppression. 2. GERD. 3. Asthma. 4. Prostate cancer. 5. Chronic left leg wound, chronic lower extremity edema. 6. Aspiration pneumonias. 7. Decubitus ulcer. 8. Kidney stones. 9. Neuropathy, osteoporosis, spinal stenosis, wheelchair bound. 10. History of prostate cancer. 11. Right bundle branch block. PAST SURGICAL HISTORY: Prostatectomy. Echo 07/09 showed EF of 60%. Severe aortic stenosis, mean gradient 60 mm, AO max 4.6, moderate MR. SOCIAL HISTORY: Previously was living in the [facility]. Now at [facility] in [place]. No alcohol, tobacco, or illicits. ALLERGIES: No known drug allergies. HOME MEDICATIONS: Tramadol 25-50 mg b.i.d. p.r.n., prednisone 5 mg b.i.d., senna, Protonix 40 mg daily, Singulair 10 mg daily, simethicone as needed, lidocaine patch, Arava 20 mg daily, herbal supplement, Neurontin 100 mg b.i.d., Lasix 40 mg daily, Flonase b.i.d., Advair b.i.d., atorvastatin 10 mg daily, aspirin 81 mg daily, albuterol nebs, Tylenol. PHYSICAL EXAM: VITAL SIGNS: Temperature 106/89, heart rate in the 90s to 100, respirations 24, 92% on 3 L. GENERAL: Ill-appearing male. He is cachectic. He is not in any acute distress. HEENT: PERRLA. Dry mucous membranes. CV: Regular rate. He has a systolic murmur all throughout heard best at right upper sternal border. He has +3 ankle edema as well as over his feet. LUNGS: Rhonchorous throughout. No wheezes. ABDOMEN: Soft, nontender, nondistended. Positive bowel sounds. : No Chow. MUSCULOSKELETAL: 5/5 upper, lower extremity strength. SKIN: A chronic left leg wound dressed. NEURO: 2-12 intact. PSYCH: Alert and oriented x3. LABORATORY DATA: WBC is 8, hemoglobin 9.5, hematocrit 30, platelets 270. INR 1. PT is 13. Lactate is 1.7. Sodium 141, potassium 3.6, chloride 100, carbon dioxide 31, anion gap 10. BUN is 29, creatinine 0.9. Calcium is 8.4. Troponin 0.231. BNP is 31,900. Positive rhino enterovirus. IMAGING DATA: Chest x-ray is personally reviewed by me. Shows bilateral opacities in the upper lobes. There is blunting of the left costophrenic angle. TEST DATA: EKG is personally reviewed by me. Sinus tachy, right bundle branch block. ASSESSMENT/PLAN: 1. Acute hypoxic respiratory failure: ddx is volume overload vs PNA/URI. Positive for enterovirus/rhinovirus and opacities on CXR. Known aspiration chronically. BNP is elevated, but not increased swelling per patient. BUN up which is more indicative of volume depletion. He took Lasix this morning 40 mg and was dosed 20mg IV in ER. Will not further dose given concern of preload with severe aortic stenosis. Will treat supportively. Also has a history of aspiration pneumonia, so will cover for this. 2. Aspiration pneumonia. known dysphagia. He, son has spoken with primary [facility] doctor and have liberalized to regular diet knowing risk of infection, possibly . Will cover with Unasyn. 3. Severe aortic stenosis: Echo in June 2017 showed mean gradient 60 mm. He has a scientific photographer at [facility] and they have opted not to pursue this surgically or with TAVR. No further diuresis today since dosed in ED and took home dose 4. Dysphagia: Again, per patient's request, will continue regular diet knowing the risk of aspiration. 5. Rheumatoid arthritis on chronic steroids. No need to stress dose as he is hemodynamically stable. 6. Asthma. No evidence of exacerbation. Will resume home inhalers, nebs 7. Prostate cancer: h/o prostatectomy. 8. History of decubitus ulcers present on admission. 9. Chronic leg wound. present on admission, wound care to eval 10. Osteoporosis. Resume home medications. 11. Spinal stenosis. He is wheelchair bound. 12. Indeterminate troponin elevated at 0.231. This is lower than most of his visits. He denies any chest pain. Will not pursue further ischemic workup at this time. 13. Deep venous thrombosis prophylaxis. 14. Normocytic anemia. Hemoglobin and hematocrit are stable. 15. Diet: Regular. 16. Deep vein thrombosis prophylaxis, sequential compression devices. 17. Goals: DNR/DNI. Followed by [facility]. Palliative was ordered after DC in June , but has not been able to complete with change to [employer]. Will have CM assist. DISPOSITION: Patient warrants inpatient admission given acute hypoxic respiratory failure warranting pulse ox, serial troponins, and IV antibiotics. /[id number]/MODL MTDD
[2017-09-06] MEDS ORDERED: CEFEPIME HCL 2 GM in STERILE WATER INJ 12.5 ML IV SCH (14:00)
[2017-09-06] MEDS: AMPICILLIN/SULBACTAM 3 GM in NS 100 ML IV SCH ×2 (14:53→18:35)
--- NOTE | 2017-09-06 15:31 | WOCRNPDOC ---
WOCRN Advanced Assessment Note - Skin Integrity Problem, Advanced Assess Sacrum Pressure Injury Dressing Type: Open to Air Juliette Wound Tissue: Erythema, Non-blanching Wound Bed Constitution: Healed Site Measurement - Head-to-Toe Length X Width X Depth (cm): 4x6.5x0 Pressure Injury Stage: Unstageable Pressure Injury Present on Admit: Yes Skin Integrity Problem Comment: Healed previous pressure injury now presents as intact skin with areas of non blanching erythema. Was unstagable during previous admission in June. Right Anterior Lower Leg Dressing Type: Telfa Dressing Description: Clean/Dry, Intact Exudate Amount: Minimal Exudate Characteristic(s): Serosanguinous Integumentary Issue Intervention: Dressing Removed Juliette Wound Tissue: Erythema, Taught, Thin, Hair Loss, Scarred (evidence of other healed ulcers is present on bilateral lower legs) Juliette Wound Swelling: Mild Wound Bed Constitution: Adhered Slough (100%) Wound Edges: Epibole, Punched Out Site Odor: Slight, Pungent Site Measurement - Head-to-Toe Length X Width X Depth (cm): 2.1x2.1x0.3 Pressure Injury Present on Admit: No (unable to palpate DP and TP) Extremity Temperature: Warm Peripheral Edema Location & Description: 2+ bilateral ankles and feet Skin Integrity Problem Comment: Wounds on bilateral lowere extremities are chronic. They may be mixed arterial/venous but do have a strong arterial component and presentation. Patient has minimal to no hemosiderin staining on bilateral lower extremitites and limbs are warm. All wound beds are necrotic with only two with minimal granulation. Patient should follow up at outpatient wound healing center after discharge for management and healing of these wounds. Autolytic debridement with honey will be initiated on all lower leg wounds. The honey will also serve as a topical antimicrobial agent. Wound care will follow up on the wounds monday. Right Lower Lateral Leg Dressing Type: Telfa Dressing Description: Clean/Dry, Intact Exudate Amount: Minimal Exudate Characteristic(s): Purulent Integumentary Issue Intervention: Dressing Removed Juliette Wound Tissue: Erythema Juliette Wound Swelling: Mild Wound Bed Constitution: Granulation Tissue (20%), Adhered Slough (80%) Wound Edges: Punched Out, Thick Site Odor: Slight, Pungent Site Measurement - Head-to-Toe Length X Width X Depth (cm): 3.2x1.1x0.2 Right Posterior Lower Leg Dressing Type: Telfa Exudate Amount: Minimal Exudate Color: Yellow Exudate Characteristic(s): Purulent Integumentary Issue Intervention: Dressing Removed Juliette Wound Tissue: Erythema Juliette Wound Swelling: Mild Wound Bed Color: Yellow Wound Bed Constitution: Adhered Slough (100%) Wound Edges: Punched Out, Thick Site Odor: Moderate, Pungent Site Measurement - Head-to-Toe Length X Width X Depth (cm): 2.9x2.2x0.2 Right Anterior Ankle Dressing Type: Open to Air Site Measurement - Head-to-Toe Length X Width X Depth (cm): 1.2x2.3x0 Pressure Injury Stage: Stage 1, Flooring Helper Related Pressure Injury (likely from TEDS) Pressure Injury Present on Admit: Yes Pulse Location & Description: unable to palapte DP or TP Extremity Temperature: Warm Peripheral Edema Location & Description: 2+ pitting Skin Integrity Problem Comment: Likely from crease in compression sock. Right Toe Dressing Type: Open to Air Juliette Wound Tissue: Calloused Site Measurement - Head-to-Toe Length X Width X Depth (cm): 1st: 1.3x1.4xraised eschar/callous, 4th: 0.8x0.6xeschar, 5th: 0.6x0.5xscab/eschar Skin Integrity Problem Comment: Present on admission areas of eschar/scab on toes 1, 4, and 5. Will paint with betadine daily. Wound care will not follow these wounds. Recommend podiatry consultation. Left Anterior Lower Leg Dressing Type: Telfa Dressing Description: Intact, Shadowed Exudate Amount: Minimal Exudate Characteristic(s): Serosanguinous Integumentary Issue Intervention: Dressing Removed Juliette Wound Tissue: Erythema Juliette Wound Swelling: Mild Wound Bed Color: Yellow Wound Bed Constitution: Adhered Slough (100%) Wound Edges: Punched Out, Thick Site Odor: Slight, Pungent Site Measurement - Head-to-Toe Length X Width X Depth (cm): 4.2x2.1x0.2 Pulse Location & Description: Unable to palpate TP and DP due to extensive edema. Extremity Temperature: Warm Peripheral Edema Location & Description: 2+ bilateral lower extremities Left Posterior Lower Leg Dressing Type: Telfa Exudate Amount: Minimal Exudate Characteristic(s): Purulent Integumentary Issue Intervention: Dressing Removed Juliette Wound Tissue: Erythema, Thin, Hair Loss Wound Bed Constitution: Adhered Slough (100%) Wound Edges: Punched Out Site Odor: Slight, Pungent Site Measurement - Head-to-Toe Length X Width X Depth (cm): 1.2x1.3x0.1 Left Anterior Ankle Dressing Type: Open to Air Site Measurement - Head-to-Toe Length X Width X Depth (cm): 0.7x0.5xeschar Pressure Injury Stage: Unstageable Pressure Injury Present on Admit: Yes Skin Integrity Problem Comment: May be a pressure injury from a DAVID hose or may be of other etiology. Wound is present on admission, and will be charted as a pressure injury even though etiology is uncertain. Left Lower Medial Proximal Leg Pressure Injury Dressing Type: Open to Air Site Measurement - Head-to-Toe Length X Width X Depth (cm): 0.3x3.8x0 Pressure Injury Stage: Stage 1, Flooring Helper Related Pressure Injury (TEDS) Pressure Injury Present on Admit: Yes Skin Integrity Problem Comment: Linear intact wound, likely from Knee high teds or other sock.
[2017-09-06] MEDS ORDERED: GUAIFENESIN/DM 10 ML UDCUP PO PRN (16:56)
[2017-09-06] MEDS: PRESERVISION AREDS2 FORMULA EYE VIT 1 EACH PO SCH (18:35)
[2017-09-06] MEDS: CALCIUM CARB W/VIT D 500 MG TAB PO SCH (19:42)
[2017-09-06] MEDS: GABAPENTIN 100 MG CAP PO SCH (19:43)
[2017-09-06] MEDS: ACETAMINOPHEN 325 MG TAB PO PRN (19:43)
[2017-09-06] MEDS: predniSONE 5 MG TAB PO SCH (19:43)
[2017-09-06] MEDS: FLUTICASONE/SALMETER 500/50MCG DISKUS IH SCH (20:26)
[2017-09-06] MEDS: ALBUTEROL 3 ML DEYVIAL IH PRN (20:26)
[2017-09-07] MEDS: AMPICILLIN/SULBACTAM 3 GM in NS 100 ML IV SCH ×3 (00:09→12:26)
[2017-09-07] MEDS: ALBUTEROL 3 ML DEYVIAL IH PRN ×3 (05:07→21:13)
[2017-09-07] MEDS: FLUTICASONE/SALMETER 500/50MCG DISKUS IH SCH ×3 (08:54→21:13)
[2017-09-07] MEDS ORDERED: Herbals/Supplements -Info Only PO SCH (09:00)
[2017-09-07] MEDS: predniSONE 5 MG TAB PO SCH ×2 (09:41→19:57)
[2017-09-07] MEDS: LEFLUNOMIDE 20 MG TAB PO SCH (09:42)
[2017-09-07] MEDS: GABAPENTIN 100 MG CAP PO SCH ×2 (09:43→19:57)
[2017-09-07] MEDS: ATORVASTATIN CALCIUM 10 MG TAB PO SCH (09:44)
[2017-09-07] MEDS: MONTELUKAST SODIUM 10 MG TAB PO SCH (09:45)
[2017-09-07] MEDS: PANTOPRAZOLE SODIUM 40 MG TAB PO SCH (09:45)
[2017-09-07] MEDS: CALCIUM CARB W/VIT D 500 MG TAB PO SCH ×2 (09:46→19:57)
[2017-09-07] MEDS: ASPIRIN EC 81 MG TAB PO SCH (09:46)
[2017-09-07] MEDS: ACETAMINOPHEN 325 MG TAB PO PRN ×2 (12:23→20:02)
[2017-09-07] MEDS: FLUTICASONE NASAL 120 SPRAYS/16 GM MDI EACHNARE SCH (12:36)
--- NOTE | 2017-09-07 14:34 | HOSPPROG ---
Hospitalist Progress Note Assessment/Plan: #Acute hypoxic resp failure: -improved today. Due to viral infection rather than volume overload. Cont supportive care. Has h/o aspiration PNA, but afebrile with no leukocytosis. Will stop abx. #Severe aortic stenosis: has [employer] and not interested in TAVR. D/ w cards here, cont home medications. #Rhino/enterovirus: supportive care #RA: on chronic steroids #GERD #Asthma: no wheezing. Cont home nebs #Chronic left wound/sacral decubitus ulcer: present at admission. Wound care following #h/o prostate cancer: s/p prostatectomy #Spinal stenosis: wheel-chair bound #DVT ppx: SCDs #Disp: cont inpatient admission for pulse oximetry. May be able to Subjective: breathing improved. Productive cough today Objective: Vital Signs Temp Pulse Resp BP Pulse Ox 36.7 C 109 H 20 130/83 H 92 09/07/17 12:00 09/07/17 12:00 09/07/17 12:00 09/07/17 12:00 09/07/17 12:00 Laboratory Results 09/07/17 03:39 09/06/17 09/07/17 09/08/17 05:59 05:59 05:59 Intake Total 800 Output Total 1500 250 Balance -700 -250 PT 13.6 SEC (12.0-15.0) 09/06/17 10:30 INR 1.02 (0.83-1.16) 09/06/17 10:30 - Time Spent With Patient Time Spent with Patient: greater than 35 minutes Time Spent with Patient: Greater than 35 minutes spent on this patients care, greater than 50% of time spent counseling, educating, and coordinating care regarding the above mentioned plan. - Physical Exam Constitutional: chronically ill appearing, cachectic Eyes: PERRL Ears, Nose, Mouth, Throat: moist mucous membranes Cardiovascular: regular rate and rhythym, edema (+2 ankle edema) Respiratory: no respiratory distress, reduced air movement, No inspiratory crackles, No rhonchi Gastrointestinal: normoactive bowel sounds Genitourinary: no bladder fullness Skin: warm Musculoskeletal: generalized weakness Neurologic: AAOx3, CN II-XII Intact Psychiatric: interacting appropriately ICD10 Worksheet Patient Problems: Problems Problem Status Onset CHF exacerbation Acute Elevated troponin I level Acute Healthcare-associated pneumonia Acute Hypoxemia Acute Abnormal chest x-ray Acute Anemia Acute Constipation Acute Dizziness Acute Elevated troponin Acute Hip pain Acute Left hip pain Acute Pneumonia Acute Pneumonia Acute Syncope Acute
--- NOTE | 2017-09-07 16:39 | GCON ---
[f rep st] CONSULTATION CARDIOVASCULAR CONSULTATION CHIEF COMPLAINT: Shortness of breath. HISTORY OF PRESENT ILLNESS: The patient had an aspiration yesterday in his long-term. He has bee n in the hospital multiple times with aspiration pneumonia. He was here in May with aspiration pneumonia. He was here 2 weeks ago with aspiration pneumonia. He was here in November with aspiration pneumonia. He is a man who has aortic stenosis and has not been offered a TAVR by the cardiology se xiong at [facility] where he receives his care. He has chest pain occasionally in the center of his ches t that comes and goes. It does not relate to stress, anxiety, exertion or food. He also is up half the night with shortness of breath. He blacked out last night, he tells me. He is too short of long th to get around in anything but a wheelchair. He is also very weak. He has chronically been treate d for rheumatoid arthritis with immunosuppression. It has been a year and a half since he has been walking. He needs help getting in and out of a wheel chair. He is weak on all 4 extremities and the trunk. He had an abnormal thinking pattern in March and was diagnosed as having a CVA at that time. He h as no other new complaints right now. His daughter, who is with him here, says that he has trouble swallowing, and that is partly what cont ributes to his getting repeated aspiration pneumonias. He has not had new lightheadedness. He has not been having palpitations. He does not have any arredondo e in his chronic edema. He takes his medications. He is not ambulatory. The patient had been feeling his usual self until last night when he got significantly more short of breath. His cardiac history includes known aortic stenosis, mitral stenosis, hypertension, history of a CVA. CARDIAC RISK FACTORS: Negative for diabetes mellitus, hyperuricemia, myocardial infarction, smoking history, obesity, or any family history of premature coronary artery disease. MEDICATIONS: Flonase, Arava, Singulair, prednisone, Neurontin, Ultram, Senokot, Protonix, antacids, lidocaine ointment, Neurontin. ALLERGIES: None. PAST SURGICAL HISTORY: Noted in the chart. SOCIAL HISTORY: He lives in [place] at a senior care facility. He was born in [place], [place] and then lived in [place], [place]. He worked for [employer] for many years. He has worked for [employer] for 19 years. He has been in [place] for 5 years. He does not smoke. He does not dr ink significant amounts of alcohol. He has 3 children. The patient is wheelchair bound and has been for 18 months. REVIEW OF SYSTEMS: Ten-point review of systems negative, except as noted above and in the chart. Review of systems positive for prostate cancer that was diagnosed 15 years ago. He has rheumatoid arthritis and is on chronic immunosuppression therapy. He has a long history of asthma. He had what was determined to be a stroke by his physicians with episodes in March when he was not thinking correctly and was not his normal self. PHYSICAL EXAMINATION: VITAL SIGNS: Blood pressure 100/75, respiratory rate 14, afebrile. HEENT: N sri is supple. No tenderness or trauma. CARDIOVASCULAR: S1, S2. Systolic murmur at the left melo al border, 3/6 systolic ejection murmur at the 2nd right intercostal space up to the neck with delaye d carotid upstrokes. No diastolic murmurs are appreciated. PULMONARY: Decreased breath sounds at t he bases, rhonchi bilaterally. Some dullness at the bases. ABDOMEN: Soft, nontender, without jayy s. EXTREMITIES: He has chronic edema, chronic stasis changes, and mottled skin. SKIN: Age-related changes, as well as above-mentioned changes. NEUROLOGIC: He is very cooperative. He has no focal neurologic deficits, except he has profound weakness. CVA: No tenderness. Chest x-ray shows pulmonary edema. EKG shows sinus tachycardia, PACs, right bundle branch block, lef t posterior fascicular block. ASSESSMENT AND PLAN: 1. Aortic stenosis. 2. Mitral stenosis. 3. Profound weakness. 4. Wheelchair-bound. 5. History of cerebrovascular accident. 6. Question syncope. 7. Chronic shortness of breath. 8. Asthma. 9. Rheumatoid arthritis with immunosuppressive therapy. 10. Chronic prednisone therapy. 11. Repeated pneumonias. This gentleman is doing very poorly, and he does have heart failure. He may or may not have pneumoni a as well. He has critical aortic stenosis, and we are not going to evaluate him for TAVR at this po int because it has already been done by [facility], and they turned him down. They are the insuring syst em, and so I talked to the family and him about his options, and at this point in time, they are acce pting Rosario recommendations. They also understand that his health is very poor, and without mechanical intervention on his aortic valve, getting better is not a significant possibility for an extended period of time. He does not want to be resuscitated, and we have gone over end-of-life care. There were notes signed in 07/2017 in the chart that said he did want to be resuscitated, so I pointed that out to the famil y and the nursing staff, and he does not himself want to be resuscitated, and they are going to make the proper corrections in the data and in the chart. In the meantime, what we can offer him is some IV Lasix therapy gently, but we have not a lot of good choices for him. His aortic stenosis will kill him, and he will continue to deteriorate further. Other problems that are active right now are the asthma, rheumatoid arthritis, chronic hypertension, profound weakness, and will watch these things as we go along. Thank you very much for asking us to see him. If the family wanted another opinion about interventio ns for the aortic valve, we could find a way to consider offering that to them either through [facility] getting a second opinion, or if they wanted to get a second opinion elsewhere, we would see how to ar range that for them. All their questions have been answered. /[id number]/MODL
[2017-09-07] MEDS: PRESERVISION AREDS2 FORMULA EYE VIT 1 EACH PO SCH (19:57)
[2017-09-08] MEDS: ALBUTEROL 3 ML DEYVIAL IH PRN (03:38)
[2017-09-08] MEDS: FLUTICASONE/SALMETER 500/50MCG DISKUS IH SCH (08:58)
[2017-09-08] MEDS ORDERED: FUROSEMIDE 40 MG TAB PO SCH (09:00)
[2017-09-08] MEDS: CALCIUM CARB W/VIT D 500 MG TAB PO SCH (09:24)
[2017-09-08] MEDS: LEFLUNOMIDE 20 MG TAB PO SCH (09:24)
[2017-09-08] MEDS: ASPIRIN EC 81 MG TAB PO SCH (09:24)
[2017-09-08] MEDS: MONTELUKAST SODIUM 10 MG TAB PO SCH (09:24)
[2017-09-08] MEDS: PANTOPRAZOLE SODIUM 40 MG TAB PO SCH (09:24)
[2017-09-08] MEDS: GABAPENTIN 100 MG CAP PO SCH (09:24)
[2017-09-08] MEDS: ATORVASTATIN CALCIUM 10 MG TAB PO SCH (09:24)
[2017-09-08] MEDS: FLUTICASONE NASAL 120 SPRAYS/16 GM MDI EACHNARE SCH (09:24)
[2017-09-08] MEDS: predniSONE 5 MG TAB PO SCH (09:24)
--- NOTE | 2017-09-08 12:53 | SOAPPROG ---
SOAP Progress Note Assessment/Plan: Assessment: 1. Aortic stenosis 2. Heart failure with preserved ejection fraction. 3. History of recurrent aspiration pneumonias 4.Chronic edema 5. Profound weakness; wheelchair bound; cannot transfer independently 6.Respiratory insufficiency We had a long conversation last night his daughter and son and I and him. I told him that I did think he was going to from his aortic stenosis and that we do not have anything that we can really offer him that will help before not going to try any mechanical interventions. He has already been a told by the [facility] that he is not a candidate for any interventions. We then discussed all the options are available and he agrees that he would like to be in hospice. He would like to be comfortable for the rest of his life. He would like to stay away from the hospital as much as possible. His daughter and his son went along with this and we are having hospice see him today. I have talked to him today again he continues to feel assay way. For us to try to make his life better I think he intermittent IV Lasix therapy is needed would be helpful. He has been getting wound care. And then we can use morphine for pulmonary edema that is difficult to resolve with traditional measures. He asked me what I thought about trying to get a percutaneous aortic valve replacement and I told him if I were him as sick as he is I would not elect to do that myself. His debilitation is a major problem, his skin condition is a major problem, his hemodynamic situation is a major problem, he is confined to wheelchair and not being able to transfer is a major problem his longstanding rheumatoid arthritis with immunosuppressive therapy is a major problem and there were multiple other ones. I do believe he will benefit most from hospice care. All his questions have been answered again today and I will try to get by to see the family when they come in. When I went by 2 times today they were not there. If I would very rapidly transfer him to a comfort measures only standard of care. I would not continue to do labs. I think that is consistent with what he has told me in what the family understands. Plan: 09/08/17 12:48 Subjective: He is tired today. He is short of breath at rest He has no chest pain He has no new neurologic complaints. He denies fevers or chills He says his lower extremities are not hurting him too much right now. Objective: Vital Signs Temp Pulse Resp BP Pulse Ox 36.4 C 105 H 24 H 139/87 H 95 09/08/17 07:49 09/08/17 07:49 09/08/17 07:49 09/08/17 07:49 09/08/17 07:49 Laboratory Results 09/08/17 03:29 09/07/17 09/08/17 09/09/17 05:59 05:59 05:59 Intake Total 800 570 Output Total 1500 565 75 Balance -700 5 -75 PT 13.6 SEC (12.0-15.0) 09/06/17 10:30 INR 1.02 (0.83-1.16) 09/06/17 10:30 Selected Entries 09/07/17 09/07/17 09/08/17 08:00 12:00 03:20 Heart Rate Respiratory Rate Temperature (C) Blood Pressure 138/84 H 130/83 H 149/88 H Mean Arterial 108 H Pressure (MAP) 09/08/17 09/08/17 03:39 07:49 Heart Rate 104 H 105 H Respiratory 18 24 H Rate Temperature (C) 36.4 C Blood Pressure 139/87 H Mean Arterial 104 H Pressure (MAP) Laboratory Tests 07/10/17 09/06/17 09/06/17 11:45 10:30 10:30 WBC 8.02 Hct 30.5 L Plt Count 270 D-Dimer 1.64 H BUN Creatinine Glucose Calcium Troponin I 0.231 H NT-Pro-B Natriuret Pep 80167 H 09/07/17 09/08/17 03:39 03:29 WBC Hct Plt Count D-Dimer BUN 27 H Creatinine 0.7 Glucose 95 Calcium 8.9 Troponin I NT-Pro-B Natriuret Pep Physical Exam - Physical Exam General Appearance: moderate distress Neck: limited range of motion Respiratory: rhonchi Cardiac/Chest: regular rate, rhythm, edema, systolic murmur Abdomen: non-tender, soft Skin: mottled, pallor Extremities: pedal edema, calf tenderness Neuro/Psych: normal mood/affect ICD10 Worksheet Patient Problems: Problems Problem Status Onset CHF exacerbation Acute Elevated troponin I level Acute Healthcare-associated pneumonia Acute Hypoxemia Acute Abnormal chest x-ray Acute Anemia Acute Constipation Acute Dizziness Acute Elevated troponin Acute Hip pain Acute Left hip pain Acute Pneumonia Acute Pneumonia Acute Syncope Acute
[2017-09-08 13:29] VITALS: BP 138/85
--- NOTE | 2017-09-08 14:21 | ASMTCMCOM ---
CM Note CM Note Notes: Pt is a 81 y/o man admitted for HCA pneumonia, CHF exacerbation and anemia. Marj and Yesika (daughters) requested a hospice consult. Marj and Yesika would like to use [facility]. Marj reports that their mother, pts is current w/ [facility]. Pt resides at [facility] in [place]. Quyen from [facility] came and did an evaluation. Pt is being discharged back to [facility] today with [facility] to follow up this evening. [facility] provided ANGELICA Gregory w/ phone number to give report. CM sent d/c orders to [facility]. CM available for changes. Plan: [facility] with [facility] Date Signed: 09/08/2017 02:20 PM Electronically Signed By:LAMIN Richards
[2017-09-08] MEDS: ACETAMINOPHEN 325 MG TAB PO PRN (14:23)
--- NOTE | 2017-09-08 14:49 | PDIAF ---
- Diagnosis Diagnosis: Severe aortic stenosis, congestive heart failure, URI Code Status: Do Not Resuscitate - Medication Management Discharge Medications: Medications to Continue on Transfer Fluticasone Nasal [Flonase Nasal [place]] 2 sprays EACHNARE DAILY 05/23/15 [Last Taken 09/06/17 08:00] Montelukast Sodium [Singulair 10 mg (*)] 10 mg PO DAILY 05/23/15 [Last Taken 08:00] predniSONE 5 mg PO BID 05/23/15 [Last Taken 09/06/17 08:00] Gabapentin [Neurontin 100 MG (*)] 100 mg PO BID 12/10/16 [Last Taken 09/06/17 08 :00] traMADol [Ultram 50 mg (*)] 25 - 50 mg PO BID PRN 12/10/16 [Last Taken 09/05/17 13:00] Aspirin EC [Aspirin EC 81 mg (*)] 81 mg PO DAILY #30 tab 12/13/16 [Last Taken 08:00] Albuterol [Proventil Inhaler HFA (*)] 1 - 2 puffs IH Q4H PRN 07/10/17 [Last Taken Unknown] Albuterol [Proventil Neb] 3 ml IH QID PRN 07/10/17 [Last Taken 09/06/17 08:00] Fluticasone/Salmeter 500/50Mcg [Advair 500/50 (*)] 1 puffs IH BID 07/10/17 [ Last Taken 09/06/17 08:00] Furosemide [Lasix 40 MG (*)] 40 mg PO DAILY 07/10/17 [Last Taken 09/06/17 08:00] Bisacodyl [Dulcolax] 10 mg RC DAILY PRN 09/06/17 [Last Taken Unknown] Lidocaine 5% [Lidocaine 5% Oint] 1 yamila TP QID PRN 09/06/17 [Last Taken Unknown] Mag Hydrox/Aluminum Hyd/Simeth [Antacid Suspension] 30 ml PO Q6HRS PRN 09/06/17 [Last Taken 09/05/17 14:30] Pantoprazole Sodium [Protonix 40mg (*)] 40 mg PO DAILY 09/06/17 [Last Taken 07:00] Acetaminophen [Tylenol 325mg (*)] 650 mg PO Q4HRS PRN tab 09/08/17 [Last Taken Unknown] Benzonatate [Tessalon Pearles (RX)] 100 mg PO BID PRN #20 cap 09/08/17 [Last Taken Unknown] LORazepam [Ativan (*)] 1 mg PO Q6H PRN #30 tab 09/08/17 [Last Taken Unknown] Ondansetron Odt [Zofran Odt 4 mg (*)] 4 mg PO Q4HRS PRN #30 tab 09/08/17 [Last Taken Unknown] guaiFENesin/DEXTROMETHORPHAN [Robitussin Dm Oral Liquid (*)] 10 ml PO Q4HRS PRN #300 ml 09/08/17 [Last Taken Unknown] morphINE [Roxanol Solution 20 mg/ml 30 ml] 5 - 10 mg PO Q4H PRN #30 ml 09/08/17 [Last Taken Unknown] Discharge Medications: Refer to the Discharge Home Medication list for PRN reason. - Orders Services needed: Registered Nurse, Certified Package Sealer Machine, Master Evaluation Engineer Isolation Type: Droplet Isolation (Patient has rhino virus so there is a modest chance of spread of this cold infection) Diet Recommendation: sodium restricted (2 gm Na) Diet Texture: Regular Texture Diet Additional Instructions: Dressing order for all wounds on bilateral lower legs not including ankles: Change dressings to all lower leg wounds (distal to knee and proximal to ankles ) every 2 days and prn. 1. Clean with ns and gauze 2. Honey gel to wound beds 3. Cover with non border foam dressing 4. Secure with kerlix/netting. Patricia DELUCA - Follow Up Care Current Providers and Referrals: Patient,NotPresent [Unknown] - As per Instructions
--- NOTE | 2017-09-08 14:51 | PDDCSUM ---
Discharge Summary Discharge Summary: DISCHARGE DIAGNOSES: -end-stage heart disease with severe aortic stenosis and congestive heart failure -URI with rhino virus CONSULTANTS: Dr. Raymond Toledo [facility] COURSE SUMMARY: This patient with known advanced heart disease with severe aortic stenosis and heart failure comes in with shortness of breath. He has decreased appetite as well. There is evidence of an acute rhino virus URI along with some congestive heart failure. At this point the patient has previously been assessed for possible interventions for his aortic stenosis and it has been determined between him and his demand equipment repairer that he is not a candidate for any interventions. He was on maximal medical therapy per his demand equipment repairer. The patient at this point was assessed by Dr. Toledo as well as the hospitalist team. Options for treatment were discussed with the patient and family and they are option was to again avoid any interventions for his aortic stenosis and to continue with medications aim that relief of symptoms for comfort. The idea of palliative care and hospice was brought up and the patient and family were in favor of going on to hospice care at this time. Is expected that the patient does not have a long life ahead of him due to his severe and symptomatic aortic stenosis. Hospice evaluation with the patient and family was done by when the local hospice organizations and it was decided at this time that the patient will return to his senior living facility where he lives under the care of hospice. There were no acute complications during his hospital stay. No other changes in therapy at this time. PENDING TEST RESULTS: None MEDICATION CHANGES: Several medications of discontinued at this time including statin, vitamins, and others with no symptomatic value He is continuing on his Lasix, bronchodilators, laxatives, and other medicines that will help relieve pain and/or dyspnea Roxanol and Ativan are added for p.r.n. Use FOLLOW-UP PLAN: He will be transferred back to his senior living facility home at this time, will he will come under the care of [facility] hospice Greater than 35 minutes bedside and care coordination time today
--- NOTE | 2017-09-08 15:53 | ASDISCHSUM ---
Discharge Information Plan Status:Hospice-SNF Medically Cleared to Leave:09/08/2017 Discharge Date:09/08/2017 03:51 PM D/C Disposition:Hospice Home ADT D/C Disposition:Home, Routine, Self-Care Projected Discharge Date:09/08/2017 11:00 AM Transportation at D/C:ALS/BLS Discharge Delay Reason: Follow-Up Date:09/08/2017 11:00 AM Discharge Slot: Final Diagnosis: Placement Information Referral Type:*Hospice Referral ID:[id number] Provider [facility] Address 1:[address] [place] Address 2: City:[place] Selection Factors: State:[place] Referral Type:*Intermediate/SNF Referral ID:[id number] Provider Name: Address 1: Phone Number: Address 2: Fax Number: City: Selection Factors: State: Patient Contact Information Contact Name:MATTY Relationship:Daughter Address:[address] Work Phone: [facility]:[place] Alternate Phone: [facility]/Zip Code:[place] [address] Email: Financial Information Financial Class:Medicare Advantage Plans Primary Plan Desc:[employer] MED[employer]ARE ADV IP Primary Plan Number:[id number] Secondary Plan Desc: Secondary Plan Number: Assessment Information LACE LACE Length of stay for Answers: 2 days current admission Acuity / Level of Answers: Yes Care: Did the patient have an inpatient admission? Comorbidities - select Answers: Any tumor (including all that apply lymphoma or leukemia) Chronic pulmonary disease Mild liver or renal disease # of Emergency department Answers: 1-2 visits in the last 6 months Score: 12 Date Signed: 09/08/2017 03:52 PM Electronically Signed By:Tasneem Franklin RN [facility] Progress Note CM Note CM Note Notes: Pt is a 81 y/o man admitted for HCA pneumonia, CHF exacerbation and anemia. Marj and Yeskia (daughters) requested a hospice consult. Marj and Yesika would like to use [facility]. Marj reports that their mother, pts is current w/ [facility]. Pt resides at [facility] in [place]. Quyen from [facility] came and did an evaluation. Pt is being discharged back to [facility] today with [facility] to follow up this evening. [facility]CO provided ANGELICA Gregory w/ phone number to give report. CM sent d/c orders to [facility]. CM available for changes. Plan: [facility] with [facility] Hospice Date Signed: 09/08/2017 02:20 PM Electronically Signed By:LAMIN Richards Case Management Discharge Plan Note Case Management Discharge Discharge Order Complete? Answers: Yes Patient to Obtain Answers: Other Notes: [facility] Medications Transportation Arranged Answers: Other Notes: [employer] stretcher arranged by [facility] Case Management Transport Answers: Yes Form Complete Faxed Final Orders Answers: Yes Agency/Facility Transfer Answers: Yes Report Printed & Faxed to Receiving Agency Discharge Comments Notes: 09/08/2017 Case Management Note Per caser shoe parts Jia pt to d/c to [facility] in [place] with [facility]. [facility] arranged transport. [facility] transported stretcher d/t pt lack of strength to sit for extended periods of time. Faxed orders to [facility] and [facility]. Date Signed: 09/08/2017 03:51 PM Electronically Signed By:Tasneem Franklin RN Intervention Information
--- NOTE | 2017-09-08 20:25 | WOCRNPDOC ---
WOCRN Advanced Assessment Note - Skin Integrity Problem, Advanced Assess Sacrum Pressure Injury Dressing Type: Mepilex Dressing Description: Clean/Dry, Intact Integumentary Issue Intervention: Visualized Under Dressing Juliette Wound Tissue: Blanching, Intact Skin Integrity Problem Comment: Well healed pressure injury. Continue offloading measures. Right Anterior Lower Leg Dressing Type: Allevyn Life Exudate Amount: Moderate Exudate Color: Yellow Exudate Characteristic(s): Purulent Integumentary Issue Intervention: Dressing Changed Juliette Wound Tissue: Intact Wound Bed Color: [place] Wound Bed Constitution: Mixed Loose & Adhered Slough/Eschar Wound Edges: Well Defined Skin Integrity Problem Comment: Wounds cleaned with NS and gauze. Autolytic debridement much more successful on the wounds of the right leg when compared to the left. Wound bed still with some adhered slough. Patient tolerating therapy and with goal of hospice care (revealed at bedside), I will not advance therapy goals. Honey placed in wound beds, covered with non-bordered allevyn, wrapped in Kerlix and covered with netting. Left Anterior Lower Leg Dressing Type: Allevyn Life Dressing Description: Intact, Shadowed Exudate Amount: Minimal Exudate Color: Reddish/Yellow Exudate Characteristic(s): Serosanguinous Integumentary Issue Intervention: Dressing Changed Juliette Wound Tissue: Erythema, Intact Juliette Wound Swelling: Mild Wound Bed Color: Yellow Wound Bed Constitution: Adhered Slough Wound Edges: Well Defined Skin Integrity Problem Comment: Patient rolled to left side with assist of CHECK CLERK MJ. Dressings from bilateral lower legs removed. The wounds of the left leg, including this one, remain slough filled with adhered yellow slough. I attempted to gently mechanically debride but the patient did not tolerate well. Will continue with honey therapy as the wounds on the right leg had a better response. Wounds cleaned with NS and gauze, honey applied and wounds covered with non-bordered allevyn, wrapped in kerlix and covered in netting.
--- NOTE | 2017-09-12 13:18 | PQFORM ---
PHYSICIAN QUERY FORM Needs Your Response This query form is being sent to you to assure this patient record is coded properly. Please respond to the question below: MILKING MACHINE TECHNICIAN QUESTION: Dear Dr. Hardin, In reviewing this patients medical record it is noted patient had the diagnosis of 'Acute hypoxic respiratory failure.' Patient presented to the ER with shortness of breath and cough. H&P notes patient had shortness of breath and later diagnosed with " Acute hypoxic respiratory failure." Dr. Toledo 09/07 consult states patient has 'chronic shortness of breath.' In the 09/07 Hospitalist progress note diagnosed patient with 'Acute hypoxic respiratory failure.' In the 09/08 SOAP note patient had the diagnosis of 'respiratory insufficiency.' After study, should the diagnosis of Acute hypoxic respiratory failure be included in the discharge summary? Yes No Unable to determine Other more appropriate diagnosis (please specify) Thank you BRIGIDO Alcaraz HIM/Coding Dept. [phone] INSTRUCTIONS FOR RESPONSE: Answer question by clicking on the "Edit Document" button. Move cursor to area below the stars. When complete, hit "Save." Click on the "Sign" button, then click "Sign" again. Type in your PIN and hit "Enter." Add Acute Hypoxemic Resp Failure MTDD
== END 2017-09-08 15:51 | DRG 189 ==
LOC: EDUNIT# → F2W 13:22
PROVIDERS: ADMIT Internal Medicine; ATTEND Internal Medicine
DX: J96.01 Acute respiratory failure with hypoxia (principal); I35.0 Nonrheumatic aortic (valve) stenosis; I50.9 Heart failure, unspecified; J06.9 Acute upper respiratory infection, unspecified; L89.520 Pressure ulcer of left ankle, unstageable; L89.891 Pressure ulcer of other site, stage 1; L89.511 Pressure ulcer of right ankle, stage 1; B97.89 Other viral agents as the cause of diseases classified elsewhere; R13.10 Dysphagia, unspecified; M06.9 Rheumatoid arthritis, unspecified; J45.909 Unspecified asthma, uncomplicated; M81.0 Age-related osteoporosis without current pathological fracture; M48.00 Spinal stenosis, site unspecified; D64.9 Anemia, unspecified; I05.0 Rheumatic mitral stenosis; L89.150 Pressure ulcer of sacral region, unstageable; Z99.3 Dependence on wheelchair; Z87.01 Personal history of pneumonia (recurrent); Z85.46 Personal history of malignant neoplasm of prostate; Z66 Do not resuscitate
CPT/HCPCS: 97166-GO; 97530-GO; J0295; J0692; J1940; J2405; J7512; J7613